=== PATIENT | female | born 1990 | race Caucasian/White ===

== ENCOUNTER 2020-03-27 08:00 | Outpatient (CLI) | payer OTHER ==
[2020-03-27 17:13] LABS: BILIRUBIN,URINE NEGATIVE (NEGATIVE); GLUCOSE, URINE (UA) NEGATIVE (NEGATIVE); KETONES,URINE (UA) NEGATIVE (NEGATIVE); LEUKOCYTE ESTERASE, URINE TRACE (NEGATIVE); NITRITE,URINE NEGATIVE (NEGATIVE); OCCULT BLOOD,URINE MODERATE (NEGATIVE); PH,URINE 6.5 PH (5.0-7.5); PROTEIN,URINE TRACE mg/dL (NEGATIVE); UROBILINOGEN,URINE 0.2 (NORMAL) E.U./dL (NORMAL)
[2020-03-27 17:17] LABS: CLARITY,URINE HAZY (CLEAR)
[2020-03-27 17:21] LABS: BACTERIA,URINE Few /HPF (None Seen); RBC,URINE TNTC /HPF (0-5); SQUAMOUS EPITHELIAL CELL,UR FEW Squamous (<= Few)
[2020-03-27 20:52] LABS: CANDIDA GROUP DNA NEGATIVE (NEGATIVE); CANDIDA KRUSEI DNA NEGATIVE (NEGATIVE); TRICHOMONAS VAGINALIS DNA NEGATIVE (NEGATIVE)
== END 2020-03-27 23:59 | disposition home or self-care (01) ==
LOC: LAB.R 08:00
PROVIDERS: ATTEND Advanced Practice Midwife
DX: Z00.00 Encounter for general adult medical examination without abnormal findings (principal)
CPT/HCPCS: 81001; 81003; 87077; 87086; 87661; 87801

== ENCOUNTER 2024-06-04 12:17 | Emergency (ER) | payer OTHER ==
[2024-06-04 12:33] VITALS: BP 168/99; O2SAT 99
--- NOTE | 2024-06-04 12:50 | ED Physician Documentation ---
History of Present Illness - Stated complaint Stated Complaint: JAW PX POST PROCEDURE - Chief complaint Chief Complaint: Heent - History obtained from History obtained from: Patient - History of Present Illness Timing: How many days ago (3) Pain level max: 8 Pain level now: 7 - Additonal information Additional information: Patient is a 33-year-old female who presents to the emergency department status post a root canal a few days ago. She states increasing pain to the tooth. Her dentist is closed for the holiday weekend. Came in for pain. No fevers. No chills. Motrin and Tylenol are not providing relief. Patient is not , breast-feeding or trying to become . Review of Systems Constitutional: denies: Fever, Chills GI: denies: Vomiting, Diarrhea Skin: denies: Rash PD PAST MEDICAL HISTORY - Past Medical History Past Medical History: No - Past Surgical History Past Surgical History: No - Present Medications Home Medications: Ambulatory Orders Medication Instructions Recorded Confirmed Ondansetron Odt [Zofran] 4 mg TL Q6H PRN #10 tablet 06/04/24 oxyCODONE [Roxicodone] 5 - 10 mg PO Q6H PRN #14 tablet 06/04/24 MDD 6 - Allergies Allergies/Adverse Reactions: Allergies Allergy/AdvReac Type Severity Reaction Status Date / Time No Known Drug Allergies Allergy Verified 06/04/24 12:20 - Social History Does the pt smoke?: Yes Smoking Status: Current every day smoker Does the pt drink ETOH?: No Does the pt have substance abuse?: No - POLST Patient has POLST: No PD ED PE NORMAL - Vitals Vital signs reviewed: Yes - General General: Alert and oriented X 3, No acute distress - HEENT HEENT: Moist mucous membranes, Other (Status post root canal to left upper frontal tooth.) - Neck Neck: Supple, no meningeal sign - Cardiac Cardiac: RRR - Respiratory Respiratory: No respiratory distress, Clear bilaterally - Derm Derm: Warm and dry - Neuro Neuro: Alert and oriented X 3 - Psych Psych: Normal mood, Normal affect Results - Vitals Vitals: Vital Signs - 24 hr 06/04/24 06/04/24 12:20 12:59 Temperature 37.0 C 37 C Heart Rate 88 88 Respiratory 15 15 Rate Blood Pressure 168/99 H 168/99 H O2 Saturation 99 99 Oxygen O2 Source Room air PD Medical Decision Making - ED course Complexity details: considered differential, d/w patient ED course: Patient with dental pain status post root canal. She is on antibiotics already at home. Will prescribe pain medication and she will contact her dentist on Wednesday following the holiday. Patient is well-appearing, nontoxic. No formal no evidence of abscess. No drainable abscess. Normal phonation. No trismus. Patient counseled regarding signs and symptoms for which I believe and urgent re-evaluation would be necessary. Patient with good understanding of and agreement to plan and is comfortable going home at this time This document was made in part using voice recognition software. While efforts are made to proofread this document, sound alike and grammatical errors may occur. Departure - Departure Disposition: Home, Self Care Clinical Impression: Pain, dental Condition: Good Instructions: ED Tooth Pain Follow-Up: Your, dentist on Wednesday [Other] Prescriptions: oxyCODONE [Roxicodone] 5 - 10 mg PO Q6H PRN #14 tablet MDD 6 PRN Reason: pain Ondansetron Odt [Zofran] 4 mg TL Q6H PRN #10 tablet PRN Reason: Nausea / Vomiting Comments: Your prescription was sent to [facility] in [place]. You can use the medication as needed for pain. Please continue your current antibiotics at home. Follow- up with your dentist on Wednesday. I am prescribing a short course of narcotic pain medication for you. These are potentially dangerous and addictive medications that should be used carefully. These medications may constipate you. Take an elkd-pzz-vrgfckt stool softener (docusate) twice daily with plenty of water while taking these medications. If you go 24 hours without a bowel movement, take swfa-gwf-lonegrx miralax, per package instructions. Do not drink or drive while taking these medications. If you received narcotic or sedating medications while in the emergency department, do not drive for 24 hours. Store this medication in a safe, secure place and out of reach of children. It is a violation of federal law to give or sell this medication to another person or to use in a manner other than prescribed. The ED will not refill narcotic prescriptions, including prescriptions lost or stolen. To dispose of unwanted medications: 1. [facility] at [address] in [place] has a medication drop box. They accept prescription medications (in pill form) Wednesday through Wednesday 9:00 a.m. to 5:00 p.m. 2. [facility] [employer] accepts prescription medications (in pill form only) for disposal year round. Call for more information. 3. Contact the [facility] for the next [facility] sponsored prescription drug collection event. , [phone], or [phone]; Forms: PCP List Discharge Date/Time: 06/04/24 13:14
[2024-06-04] MEDS: oxyCODONE 5 MG TABLET PO STA (12:51)
== END 2024-06-04 13:14 | disposition home or self-care (01) ==
LOC: ED 12:17
DX: G89.18 Other acute postprocedural pain (principal); K08.89 Other specified disorders of teeth and supporting structures; F17.200 Nicotine dependence, unspecified, uncomplicated
CPT/HCPCS: 99283; A9270

== ENCOUNTER 2025-08-28 16:45 | Inpatient (IN) ==
[2025-08-28] MEDS ORDERED: fentaNYL 100 MCG/2 ML VIAL IVP PRN (17:45)
[2025-08-28] MEDS ORDERED: OXYTOCIN 10 UNIT/ML VIAL IM PRN (17:45)
[2025-08-28] MEDS ORDERED: LACTATED RINGERS 1,000 ML IV PRN (17:45)
[2025-08-28] MEDS ORDERED: OXYTOCIN/SODIUM CHLORIDE 500 ML IV PRN ×2 (17:45→23:26)
[2025-08-28] MEDS ORDERED: CARBOPROST TROMETHAMINE 250 MCG/ML VIAL IM PRN ×2 (17:45→23:26)
[2025-08-28] MEDS ORDERED: LABETALOL 20 MG/4 ML SYRINGE IVP PRN ×4 (17:45→23:26)
[2025-08-28] MEDS ORDERED: TERBUTALINE 1 MG/ML VIAL SUBQ PRN (17:45)
[2025-08-28] MEDS ORDERED: TRANEXAMIC ACID IN NACL 1,000 MG/100 ML BAG IV PRN ×2 (17:45→23:26)
[2025-08-28] MEDS ORDERED: ALBUTEROL NEB 2.5 MG/3 ML INH PRN (17:54)
[2025-08-28] MEDS: MAGNESIUM SULFATE 4 GRAM 4 GM/50 ML BAG IV ONE (18:10)
[2025-08-28] MEDS: hydrALAZINE INJ 20 MG/ML VIAL IVP PRN (18:10)
--- OUTSIDE RECORDS SUMMARY | 2025-08-28 18:27 | EXTERNAL MEDICAL SUMMARY RPT | Continuity of Care Document ---
Author Organization [facility] Address [address] [place] [id number] Phone Problems date description facility 2025-05-30 00:02 Unspecified maternal hypertensi on, second trimester [facility] 2025-05-30 00:02 Encounter for screen ing for infections with a predominantly sexual mode of transmission [facility] 2025-05-30 00:02 Encounter for superv ision of normal , unspecified, unspecified trimester [facility] 2025-06-01 12:57 Leiomyoma of uterus, unspecifie d [facility] 2025-06-01 12:57 Unspecified maternal hypertensi on, second trimester [facility] 2025-06-01 12:57 Maternal care for be nign tumor of corpus uteri, unspecified trimester [facility] 2025-06-01 12:57 Other specified dise ases and conditions complicating [facility] 2025-06-01 12:57 Encounter for screen ing for infections with a predominantly sexual mode of transmission [facility] 2025-06-01 12:57 Encounter for superv ision of normal , unspecified, unspecified trimester [facility] 2025-06-04 09:55 Leiomyoma of uterus, unspecifie d [facility] 2025-06-04 09:55 Maternal care for be nign tumor of corpus uteri, unspecified trimester [facility] 2025-06-04 09:58 Leiomyoma of uterus, unspecifie d [facility] 2025-06-04 09:58 Maternal care for be nign tumor of corpus uteri, unspecified trimester [facility] 2025-06-06 09:02 Leiomyoma of uterus, unspecifie d [facility] 2025-06-06 09:02 Maternal care for be nign tumor of corpus uteri, unspecified trimester [facility] 2025-06-06 09:04 Leiomyoma of uterus, unspecifie d [facility] 2025-06-06 09:04 Maternal care for be nign tumor of corpus uteri, unspecified trimester [facility] 2025-06-06 09:05 Leiomyoma of uterus, unspecifie d [facility] 2025-06-06 09:05 Maternal care for be nign tumor of corpus uteri, unspecified trimester [facility] 2025-06-20 11:31 Gestational [pregnan cy-induced] hypertension without significant proteinuria, second trimester [facility] 2025-06-26 19:59 Gestational [pregnan cy-induced] hypertension without significant proteinuria, second [facility] 2025-06-26 19:59 Encounter for immunization [employer] 2025-06-27 00:03 Gestational [pregnan cy-induced] hypertension without significant proteinuria, second [facility] 2025-06-27 00:03 Encounter for immunization [employer] 2025-06-28 09:25 Gestational [pregnan cy-induced] hypertension without significant proteinuria, second trimester [facility] 2025-06-28 09:25 Unspecified maternal hypertensi on, second trimester [facility] 2025-06-28 09:25 Encounter for screen ing for infections with a predominantly sexual mode of transmission [facility] 2025-06-28 09:25 Encounter for superv ision of normal , unspecified, unspecified trimester [facility] 2025-06-29 00:04 Gestational [pregnan cy-induced] hypertension without significant proteinuria, second trimester [facility] 2025-06-29 00:04 Unspecified maternal hypertensi on, second trimester [facility] 2025-06-29 00:04 Encounter for screen ing for infections with a predominantly sexual mode of transmission [facility] 2025-06-29 00:04 Encounter for superv ision of normal , unspecified, unspecified trimester [facility] 2025-06-29 08:10 Unspecified maternal hypertensi on, second trimester [facility] 2025-07-02 08:10 Encounter for immunization [employer] 2025-07-02 08:11 Supervision of elderly multigra rehan, second trimester [facility] 2025-07-02 08:11 Gestational [pregnan cy-induced] hypertension without significant proteinuria, second trimester [facility] 2025-07-02 08:11 Encounter for immunization [facility] 2025-07-02 08:11 27 weeks gestation of [facility] 2025-07-02 08:57 [facility]normal [facility] 2025-07-03 16:21 [facility] 08:05 Gestational [pregnan cy-induced] hypertension without significant proteinuria, unspecified trimester [facility] 2025-07-04 08:05 Anemia complicating , third trimester [facility] 2025-07-04 08:05 [facility] 00:03 Gestational [pregnan cy-induced] hypertension without significant proteinuria, unspecified trimester [facility] 2025-07-05 00:03 Anemia complicating , third trimester [facility] 2025-07-05 00:03 Abnormal glucose complicating p [facility] 2025-07-05 11:23 Gestational [pregnan cy-induced] hypertension without significant proteinuria, third trimester [facility] 2025-07-05 11:23 Gestational [pregnan cy-induced] hypertension without significant proteinuria, unspecified trimester [facility] 2025-07-05 14:46 Abnormal glucose complicating p [facility] 2025-07-09 07:24 Gestational [pregnan cy-induced] hypertension without significant proteinuria, unspecified trimester [facility] 2025-07-09 07:24 Gestational diabetes mellitus in , unspecified control [facility] 2025-07-09 13:03 Leiomyoma of uterus, unspecifie d [facility] 2025-07-09 13:03 Gestational [pregnan cy-induced] hypertension without significant proteinuria, unspecified trimester [facility] 2025-07-09 13:03 Gestational diabetes mellitus in , unspecified control [facility] 2025-07-09 13:03 Maternal care for be nign tumor of corpus uteri, unspecified trimester [facility] 2025-07-09 13:42 Encounter for immunization [facility] 2025-07-18 09:22 Gestational [pregnan cy-induced] hypertension without significant proteinuria, unspecified trimester [facility] 2025-07-18 09:22 Gestational diabetes mellitus in , unspecified control [facility] 2025-07-18 09:24 Gestational [pregnan cy-induced] hypertension without significant proteinuria, unspecified trimester [facility] 2025-07-18 09:24 Gestational diabetes mellitus in , unspecified control [facility] 2025-07-19 06:59 Encounter for superv ision of normal , unspecified, first trimester [facility] 2025-07-24 10:52 Anemia complicating , third trimester [facility] 2025-07-24 11:31 Anemia complicating , third trimester [facility] 2025-07-24 17:49 Anemia complicating , third trimester [facility] 2025-07-24 22:45 Unspecified maternal hypertensi on, second trimester [facility] 2025-07-25 00:02 Unspecified maternal hypertensi on, second trimester [facility] 2025-07-25 00:03 Anemia complicating , third trimester [facility] 2025-07-26 13:42 Gestational [pregnan cy-induced] hypertension without significant proteinuria, third trimester [facility] 2025-07-26 13:42 Encounter for immunization [facility] 2025-07-27 10:49 Unspecified maternal hypertensi on, second trimester [facility] 2025-07-30 07:47 Supervision of elderly tim van, third trimester [facility] 2025-07-30 07:47 Gestational [pregnan cy-induced] hypertension without significant proteinuria, third trimester [facility] 2025-07-30 07:47 Unspecified maternal hypertensi on, second trimester [facility] 2025-07-30 07:47 31 weeks gestation [facility] 2025-07-31 15:47 Leiomyoma of uterus, unspecifie d [facility] 2025-07-31 15:47 Maternal care for be nign tumor of corpus uteri, unspecified trimester [facility] 2025-07-31 15:51 Gestational [pregnan cy-induced] hypertension without significant proteinuria, second trimester [facility] 2025-07-31 15:51 Anemia complicating , third trimester [facility] 2025-08-01 00:01 Leiomyoma of uterus, unspecifie d [employer] 2025-08-01 00:01 Maternal care for be nign tumor of corpus uteri, unspecified trimester [employer] [facility] 2025-08-03 06:49 Dietary counseling and surveill ance [facility] 2025-08-03 06:56 Anemia complicating , third trimester [facility] 2025-08-03 06:56 Anemia complicating , unspecified trimester [facility] 2025-08-03 16:00 Gestational [pregnan cy-induced] hypertension without significant proteinuria, unspecified trimester [facility] 2025-08-03 16:00 Encounter for superv ision of normal , unspecified, unspecified trimester [facility] 2025-08-06 10:27 Gestational [pregnan cy-induced] hypertension without significant proteinuria, second trimester [facility] 2025-08-06 10:27 Anemia complicating , third trimester [facility] 2025-08-06 10:33 Gestational [pregnan cy-induced] hypertension without significant proteinuria, third trimester [facility] 2025-08-06 10:34 Gestational [pregnan cy-induced] hypertension without significant proteinuria, unspecified trimester [facility] 2025-08-06 10:34 Encounter for superv ision of normal , unspecified, unspecified trimester [facility] 2025-08-06 12:09 Anemia complicating , third [facility] 2025-08-10 14:58 Anemia complicating , third trimester [facility] 2025-08-10 14:58 Anemia complicating , unspecified trimester [facility] 2025-08-10 15:01 Anemia complicating , third trimester [facility] 2025-08-10 16:14 Gestational [pregnan cy-induced] hypertension without significant proteinuria, unspecified trimester [facility] 2025-08-11 00:04 Anemia complicating , third trimester [facility] 2025-08-14 12:12 Supervision of elderly tim van, third trimester [facility] 2025-08-14 12:12 Gestational [pregnan cy-induced] hypertension without significant proteinuria, unspecified trimester [facility] 2025-08-15 08:21 Leiomyoma of uterus, unspecifie d [facility] 2025-08-15 08:21 Gestational [pregnan cy-induced] hypertension without significant proteinuria, unspecified trimester [facility] 2025-08-15 08:21 Gestational diabetes mellitus in , unspecified control [facility] 2025-08-15 08:21 Maternal care for be nign tumor of corpus uteri, unspecified trimester [facility] 2025-08-15 09:21 Acute upper respiratory infecti on, unspecified [facility] 2025-08-15 09:21 Strain of muscle and tendon of back wall of thorax, initial encounter [facility] 2025-08-16 07:25 Leiomyoma of uterus, unspecifie d [facility] 2025-08-16 07:25 Acute upper respiratory infecti on, unspecified [facility] 2025-08-16 07:25 Gestational [pregnan cy-induced] hypertension without significant proteinuria, unspecified trimester [facility] 2025-08-16 07:25 Gestational diabetes mellitus in , unspecified control [facility] 2025-08-16 07:25 Maternal care for be nign tumor of corpus uteri, unspecified trimester [facility] 2025-08-16 07:25 Strain of muscle and tendon of back wall of thorax, initial encounter [facility] 2025-08-16 10:08 Fracture of one rib, unspecified side, initial encounter for closed fracture [facility] 2025-08-16 10:29 Fracture of one rib, unspecified side, initial encounter for closed fracture [facility] 2025-08-16 10:39 Fracture of one rib, unspecified side, initial encounter for closed fracture [facility] 2025-08-17 08:37 Acute upper respiratory infecti on, unspecified [facility] 2025-08-17 08:37 Other specified disorders of no se and nasal sinuses [facility] 2025-08-17 08:[address] [facility] 2025-08-17 08:37 Pleurodynia [facility] 2025-08-17 08:37 Strain of muscle and tendon of back wall of thorax, initial encounter [facility] 2025-08-20 08:50 Other specified dise ases and conditions complicating [facility] 2025-08-20 08:50 Other chest pain [facility] 2025-08-20 08:50 Left upper quadrant pain [facility] 2025-08-20 08:50 Fracture of one rib, unspecified side, initial encounter for closed fracture [facility] 2025-08-20 12:06 Anemia complicating , third trimester [facility] 2025-08-20 12:06 Anemia complicating , unspecified trimester [facility] 2025-08-20 12:10 Anemia complicating , third [facility] 2025-08-20 12:10 Anemia complicating , unspecified trimester [facility] 2025-08-20 14:25 Other specified preg caitlin related conditions, third trimester [facility] 2025-08-20 14:25 Other chest pain [facility] 2025-08-20 14:25 Left upper quadrant pain [facility] 2025-08-21 18:38 Leiomyoma of uterus, unspecifie d [facility] 2025-08-21 18:38 Gestational [pregnan cy-induced] hypertension without significant proteinuria, unspecified trimester [facility] 2025-08-21 18:38 Gestational diabetes mellitus in , unspecified control [facility] 2025-08-21 18:38 Maternal care for be nign tumor of corpus uteri, unspecified trimester [facility] 2025-08-22 08:50 Anemia complicating , third trimester [facility] 2025-08-22 08:50 Anemia complicating , unspecified trimester [facility] 2025-08-22 13:21 Anemia complicating , third [facility] 2025-08-22 13:21 Anemia complicating , [facility]25-[facility] 08:07 Anemia complicating , third trimester [facility] 2025-08-25 00:02 Supervision of high risk , unspecified, third trimester [facility] 2025-08-25 00:02 Gestational [pregnan cy-induced] hypertension without significant proteinuria, unspecified trimester [facility] 2025-08-25 00:02 Encounter for screening for tanner betes mellitus [facility] 2025-08-27 08:44 Other specified dise ases and conditions complicating [facility] 2025-08-27 08:44 Other chest pain [facility] 2025-08-27 08:44 Left upper quadrant pain [facility] 2025-08-27 09:09 Gestational [pregnan cy-induced] hypertension without significant proteinuria, third trimester [facility] 2025-08-28 15:47 Leiomyoma of uterus, unspecifie d [facility] 2025-08-28 15:47 Maternal care for be nign tumor of corpus uteri, unspecified trimester [facility] Results/Labs test date facility value unit notes Result panel 1 PROTEIN/CREATININE RATIO,URINE 2025-06-28 09:36 [facility] 0.1 (missing) (missing) TOTAL PROTEIN,URINE TIMED 2025-06-28 09:36 [facility] 11 mg/dl As of April 2023 testing method has changed, this may include reference ranges. CREATININE,URINE 2025-06-28 09:36 [facility] 88.2 mg/dl As of April 2023 testing method has changed, this may include reference ranges. Result panel 2 BILIRUBIN,TOTAL 2025-06-28 10:35 [facility] 0.3 mg/dl As of April 2023 testing method has changed, this may include reference ranges. CREATININE 2025-06-28 10:35 [facility] 0.5 mg/dl As of April 2023 testing method has changed, this may include reference ranges. ALBUMIN/GLOBULIN RATIO 2025-06-28 10:35 [facility] 1.3 (missing) (missing) HGB - HEMOGLOBIN 2025-06-28 10:35 [facility] 10.1 g/dl (missing) CHLORIDE 2025-06-28 10:35 [facility] 104 mmol/l As of April 2023 testing method has changed, this may include reference ranges. ALT ALANINE AMINOTRANSFERASE 2025-06-28 10:35 [facility] 11 iu/l As of April 2023 testing method has changed, this may include reference ranges. RED CELL DISTRIBUTION WIDTH 2025-06-28 10:35 [facility] 12.4 % (missing) SODIUM 2025-06-28 10:35 [facility] 136 mmol/l (missing) GFR - MDRD 2025-06-28 10:35 [facility] 140 (missing) The IDMS-traceable MDRD Study Equation has been validated extensively in and populations between the ages of 18 and 70 with impaired kidney function (eGFR < 60 mL/min/1.73m2) and has shown good performance for patients with all common causes of kidney disease. Although this equation has not been validated for patients older than 70, an MDRD-derived eGFR may still be a useful tool for providers caring for patients older than 70. References: http://www.nkde p.nih.gov/lab-e valuation/gfr/c reatinine-stand ardization, last updated December 2011. WHITE BLOOD COUNT 2025-06-28 10:35 [facility] 15.3 x10 3/ul (missing) GLUCOSE,1H PP 50GM DOSE 2025-06-28 10:35 [facility] 181 mg/dl 50g Challenge 1 hr post Glucose < 140 mg/dL Reference: [place] [employer] As of April 2023 testing method has changed, this may include reference ranges. GLUCOSE 2025-06-28 10:35 [facility] 181 mg/dl As of April 2023 testing method has changed, this may include reference ranges. GLOBULIN 2025-06-28 10:35 [facility] 2.8 g/dl (missing) CARBON DIOXIDE - CO2 2025-06-28 10:35 [facility] 24 mmol/l As of April 2023 testing method has changed, this may include reference ranges. POTASSIUM 2025-06-28 10:35 [facility] 3.3 mmol/l As of April 2023 testing method has changed, this may include reference ranges. RED BLOOD COUNT 2025-06-28 10:35 [facility] 3.34 10 6/ul (missing) ALBUMIN 2025-06-28 10:35 [facility] 3.5 g/dl As of April 2023 testing method has changed, this may include reference ranges. MEAN CORPUSCULAR HEMOGLOBIN 2025-06-28 10:35 [facility] 30.2 pg (missing) HCT - HEMATOCRIT 2025-06-28 10:35 [facility] 30.5 % (missing) MEAN CORPUSCULAR HGB CONC 2025-06-28 10:35 [facility] 33.1 g/dl (missing) PLT - PLATELET COUNT 2025-06-28 10:35 [facility] 391 10 3/ul (missing) BUN - BLOOD UREA NITROGEN 2025-06-28 10:35 [facility] 6 mg/dl As of April 2023 testing method has changed, this may include reference ranges. TOTAL PROTEIN 2025-06-28 10:35 [facility] 6.3 g/dl As of April 2023 testing method has changed, this may include reference ranges. ALKALINE PHOSPHATASE 2025-06-28 10:35 [facility] 66 iu/l As of April 2023 testing method has changed, this may include reference ranges. ANION GAP 2025-06-28 10:35 [facility] 8.0 (missing) (missing) CALCIUM 2025-06-28 10:35 [facility] 8.8 mg/dl As of April 2023 testing method has changed, this may include reference ranges. AST ASPARTATE AMINOTRANSFERASE 2025-06-28 10:35 [facility] 9 iu/l As of April 2023 testing method has changed, this may include reference ranges. MEAN PLATELET VOLUME 2025-06-28 10:35 [facility] 9.1 fl (missing) MEAN CORPUSCULAR VOLUME 2025-06-28 10:35 [facility] 91.3 fl (missing) RPR 2025-06-28 10:35 [facility] Non Reactive (missing) Performed at: - [facility] [address], [place], [place] [id number] Developer Evangelist: Jamar Spears MD, Phone: [phone] Result panel 3 GLUCOSE TOLERANCE 3HR 2025-07-04 08:12 [facility] (missing) (missing) GLU FAST 88 mg/dL Col Time:0815 GLU 1H 192 mg/dL Col Time:0916 GLU 2H 176 mg/dL Col Time:1017 GLU 3H 76 mg/dL Col Time:1120 DOSE 100 g Col Time:0815 Glucose Concentration Guidelines Fasting <95 mg/dL 1 hr post challenge <180 mg/dL 2 hr post challenge <155 mg/dL 3 hr post challenge <140 mg/dL Glucose concentration greater than or equal to these valuesat TWO or more time points is a positive test. Reference: [facility] Result panel 4 BILIRUBIN,TOTAL 2025-07-04 08:15 [facility] 0.3 mg/dl As of April 2023 testing method has changed, this may include reference ranges. CREATININE 2025-07-04 08:15 [facility] 0.5 mg/dl As of April 2023 testing method has changed, this may include reference ranges. ALBUMIN/GLOBULIN RATIO 2025-07-04 08:15 [facility] 1.5 (missing) (missing) CHLORIDE 2025-07-04 08:15 [facility] 105 mmol/l As of April 2023 testing method has changed, this may include reference ranges. RED CELL DISTRIBUTION WIDTH 2025-07-04 08:15 [facility] 12.5 % (missing) SODIUM 2025-07-04 08:15 [facility] 135 mmol/l (missing) GFR - MDRD 2025-07-04 08:15 [facility] 140 (missing) The IDMS-traceable MDRD Study Equation has been validated extensively in and populations between the ages of 18 and 70 with impaired kidney function (eGFR < 60 mL/min/1.73m2) and has shown good performance for patients with all common causes of kidney disease. Although this equation has not been validated for patients older than 70, an MDRD-derived eGFR may still be a useful tool for providers caring for patients older than 70. References: http://www.nkdep. nih.gov/lab-evalu ation/gfr/creatin ine-stand ardization, last updated December 2011. WHITE BLOOD COUNT 2025-07-04 08:15 [facility] 15.3 x10 3/ul (missing) GLOBULIN 2025-07-04 08:15 [facility] 2.4 g/dl (missing) CARBON DIOXIDE - CO2 2025-07-04 08:15 [facility] 24 mmol/l As of April 2023 testing method has changed, this may include reference ranges. HCT - HEMATOCRIT 2025-07-04 08:15 [facility] 28.6 % (missing) RED BLOOD COUNT 2025-07-04 08:15 [facility] 3.16 10 6/ul (missing) ALBUMIN 2025-07-04 08:15 [facility] 3.5 g/dl As of April 2023 testing method has changed, this may include reference ranges. POTASSIUM 2025-07-04 08:15 [facility] 3.5 mmol/l As of April 2023 testing method has changed, this may include reference ranges. MEAN CORPUSCULAR HEMOGLOBIN 2025-07-04 08:15 [facility] 30.7 pg (missing) MEAN CORPUSCULAR HGB CONC 2025-07-04 08:15 [facility] 33.9 g/dl (missing) PLT - PLATELET COUNT 2025-07-04 08:15 [facility] 394 10 3/ul (missing) TOTAL PROTEIN 2025-07-04 08:15 [facility] 5.9 g/dl As of April 2023 testing method has changed, this may include reference ranges. ANION GAP 2025-07-04 08:15 [facility] 6.0 (missing) (missing) FERRITIN 2025-07-04 08:15 [facility] 6.1 ng/ml (missing) ALKALINE PHOSPHATASE 2025-07-04 08:15 [facility] 68 iu/l As of April 2023 testing method has changed, this may include reference ranges. ALT ALANINE AMINOTRANSFERASE 2025-07-04 08:15 [facility] 7 iu/l As of April 2023 testing method has changed, this may include reference ranges. BUN - BLOOD UREA NITROGEN 2025-07-04 08:15 [facility] 7 mg/dl As of April 2023 testing method has changed, this may include reference ranges. AST ASPARTATE AMINOTRANSFERASE 2025-07-04 08:15 [facility] 8 iu/l As of April 2023 testing method has changed, this may include reference ranges. CALCIUM 2025-07-04 08:15 [employer] 8.8 mg/dl As of April 2023 testing method has changed, this may include reference ranges. GLUCOSE 2025-07-04 08:15 [facility] 88 mg/dl As of April 2023 testing method has changed, this may include reference ranges. MEAN PLATELET VOLUME 2025-07-04 08:15 [facility] 9.1 fl (missing) HGB - HEMOGLOBIN 2025-07-04 08:15 [facility] 9.7 g/dl (missing) MEAN CORPUSCULAR VOLUME 2025-07-04 08:15 [facility] 90.5 fl (missing) Result panel 5 PROTEIN/CREATININE RATIO,URINE 2025-07-04 08:57 [facility] 0.2 (missing) (missing) TOTAL PROTEIN,URINE TIMED 2025-07-04 08:57 [employer] 13 mg/dl As of April 2023 testing method has changed, this may include reference ranges. CREATININE,URINE 2025-07-04 08:57 [employer] 85.9 mg/dl As of April 2023 testing method has changed, this may include reference ranges. Result panel 6 NUCLEATED RED BLOOD CELLS AUTO 2025-07-31 16:05 [facility] 0.0 /100wbc (missing) NRBC ABSOLUTE COUNT (AUTO) 2025-07-31 16:05 [facility] 0.00 x10 3/ul (missing) BASOPHILS # (AUTO) 2025-07-31 16:05 [facility] 0.1 10 3/ul (missing) EOSINOPHILS # (AUTO) 2025-07-31 16:05 [facility] 0.2 10 3/ul (missing) BILIRUBIN,TOTAL 2025-07-31 16:05 [employer] 0.3 mg/dl As of April 2023 testing method has changed, this may include reference ranges. CREATININE 2025-07-31 16:05 [employer] 0.5 mg/dl As of April 2023 testing method has changed, this may include reference ranges. MONOCYTES # (AUTO) 2025-07-31 16:05 [facility] 1.1 10 3/ul (missing) ALBUMIN/GLOBULIN RATIO 2025-07-31 16:05 [facility] 1.5 (missing) (missing) AST ASPARTATE AMINOTRANSFERASE 2025-07-31 16:05 [facility] 10 iu/l As of April 2023 testing method has changed, this may include reference ranges. BUN - BLOOD UREA NITROGEN 2025-07-31 16:05 [facility] 10 mg/dl As of April 2023 testing method has changed, this may include reference ranges. CHLORIDE 2025-07-31 16:05 [facility] 106 mmol/l As of April 2023 testing method has changed, this may include reference ranges. NEUTROPHILS # (AUTO) 2025-07-31 16:05 [facility] 11.0 10 3/ul (missing) SODIUM 2025-07-31 16:05 [facility] 137 mmol/l Unknown ALT ALANINE AMINOTRANSFERASE 2025-07-31 16:05 [facility] 14 iu/l As of April 2023 testing method has changed, this may include reference ranges. GFR - MDRD 2025-07-31 16:05 [facility] 140 (missing) The IDMS-traceable MDRD Study Equation has been validated extensively in and populations between the ages of 18 and 70 with impaired kidney function (eGFR < 60 mL/min/1.73m2) and has shown good performance for patients with all common causes of kidney disease. Although this equation has not been validated for patients older than 70, an MDRD-derived eGFR may still be a useful tool for providers caring for patients older than 70. References: http://www.nkdep. nih.gov/lab-evalu ation/gfr/creatin ine-stand ardization, last updated December 2011. RED CELL DISTRIBUTION WIDTH 2025-07-31 16:05 [facility] 15.3 % (missing) WHITE BLOOD COUNT 2025-07-31 16:05 [facility] 15.4 x10 3/ul (missing) GLOBULIN 2025-07-31 16:05 [facility] 2.4 g/dl (missing) LYMPHOCYTES # (AUTO) 2025-07-31 16:05 [facility] 2.9 10 3/ul (missing) RED BLOOD COUNT 2025-07-31 16:05 [facility] 2.99 10 6/ul (missing) CARBON DIOXIDE - CO2 2025-07-31 16:05 [facility] 24 mmol/l As of April 2023 testing method has changed, this may include reference ranges. HCT - HEMATOCRIT 2025-07-31 16:05 [facility] 28.0 % (missing) MEAN CORPUSCULAR HEMOGLOBIN 2025-07-31 16: [facility] 29.1 pg (missing) ALBUMIN 2025-07-31 16:05 [facility] 3.6 g/dl As of April 2023 testing method has changed, this may include reference ranges. POTASSIUM 2025-07-31 16:05 [facility] 3.7 mmol/l As of April 2023 testing method has changed, this may include reference ranges. MEAN CORPUSCULAR HGB CONC 2025-07-31 16:05 [facility] 31.1 g/dl (missing) TRANSFERRIN 2025-07-31 16: [facility] 326 mg/dl As of April 2023 testing method has changed, this may include reference ranges. IRON 2025-07-31 16: [facility] 38 ug/dl As of April 2023 testing method has changed, this may include reference ranges. PLT - PLATELET COUNT 2025-07-31 16:05 [facility] 436 10 3/ul (missing) TOTAL IRON BINDING CAPACITY 2025-07-31 16:05 [facility] 456 ug/dl (missing) TOTAL PROTEIN 2025-07-31 16: [facility] 6.0 g/dl As of April 2023 testing method has changed, this may include reference ranges. ANION GAP 2025-07-31 16:05 [facility] 7.0 (missing) (missing) % IRON SATURATION 2025-07-31 16:05 [facility] 8 % (missing) HGB - HEMOGLOBIN 2025-07-31 16:05 [facility] 8.7 g/dl (missing) ALKALINE PHOSPHATASE 2025-07-31 16: [facility] 82 iu/l As of April 2023 testing method has changed, this may include reference ranges. FERRITIN 2025-07-31 16:05 [facility] 89.2 ng/ml (missing) MEAN PLATELET VOLUME 2025-07-31 16:05 [facility] 9.2 fl (missing) CALCIUM 2025-07-31 16:05 [facility] 9.2 mg/dl As of April 2023 testing method has changed, this may include reference ranges. GLUCOSE 2025-07-31 16:05 [facility] 93 mg/dl As of April 2023 testing method has changed, this may include reference ranges. MEAN CORPUSCULAR VOLUME 2025-07-31 16:05 [facility] 93.6 fl (missing) Result panel 7 TOTAL PROTEIN,URINE TIMED 2025-07-31 16:07 [facility] < 4 mg/dl As of Apr testing method has changed, this may include reference ranges. CREATININE,URINE 2025-07-31 16:07 [facility] 20.1 m g/dl As of April 2023 testing method has changed, this may include reference ranges. PROTEIN/CREATININE RATIO,URINE 2025-07-31 16:07 [facility] TNP (missing) Unable to calculate. Analyte below the measurable range. Result panel 8 NUCLEATED RED BLOOD CELLS AUTO 2025-08-10 15:11 [facility] 0.0 /100wbc (missing) NRBC ABSOLUTE COUNT (AUTO) 2025-08-10 15:11 [facility] 0.00 x10 3/ul (missing) BASOPHILS # (AUTO) 2025-08-10 15:11 [facility] 0.1 10 3/ul (missing) ABSOLUTE RETICS # AUTO 2025-08-10 15:11 [facility] 0.115 10 6/ul (missing) EOSINOPHILS # (AUTO) 2025-08-10 15:11 [facility] 0.2 10 3/ul (missing) THYROID STIMULATING HORMONE 2025-08-10 15:11 [facility] 0.32 uiu/ml (missing) FREE T4 (FREE THYROXINE) 2025-08-10 15:11 [facility] 0.55 ng/dl Biotin at >10 ng/mL concentration may cause significant interference. MONOCYTES # (AUTO) 2025-08-10 15:11 [facility] 0.9 10 3/ul (missing) NEUTROPHILS # (AUTO) 2025-08-10 15:11 [facility] 10.6 10 3/ul (missing) VITAMIN B12 2025-08-10 15:[facility] 130 pg/ml VITAMIN B12 RANGES: NORMAL 180 - 914 INDETERMINATE 145 -180 DEFICIENT < 145 WHITE BLOOD COUNT 2025-08-10 15:11 [facility] 14.8 x10 3/ul (missing) RED CELL DISTRIBUTION WIDTH 2025-08-10 15:[address] [facility] 16.0 % (missing) LYMPHOCYTES # (AUTO) 2025-08-10 15:[address] [facility] 2.9 10 3/ul (missing) MEAN CORPUSCULAR HEMOGLOBIN 2025-08-10 15:11 [facility] 29.0 pg (missing) RED BLOOD COUNT 2025-08-10 15:[address] [facility] 3.19 10 6/ul (missing) RED BLOOD COUNT 2025-08-10 15:[address] [facility] 3.28 10 6/ul (missing) RETICULOCYTE COUNT % (AUTO) 2025-08-10 15:[address] [facility] 3.61 % (missing) HCT - HEMATOCRIT 2025-08-10 15:[address] [facility] 30.4 % (missing) MEAN CORPUSCULAR HGB CONC 2025-08-10 15:[address] [facility] 31.3 g/dl (missing) FOLATE 2025-08-10 15:[address] [facility] 34.2 ng/ml (missing) PLT - PLATELET COUNT 2025-08-10 15:[address] [facility] 463 10 3/ul (missing) ERYTHROPOIETIN (EPO) 2025-08-10 15:[address] [facility] 47.3 miu/ml [facility] [facility] [employer] DxI 800 Immunoassay System Values obtained with different assay methods or kits cannot be used interchangeably. Results cannot be interpreted as absolute evidence of the presence or absence of malignant disease. Performed at: [facility] [address], [place], [place] [id number] Developer Evangelist: Gracie Mayberry MD, Phone: [phone] MEAN PLATELET VOLUME 2025-08-10 15:[address] [facility] 9.0 fl (missing) HGB - HEMOGLOBIN 2025-08-10 15:[address] [facility] 9.5 g/dl (missing) MEAN CORPUSCULAR VOLUME 2025-08-10 15:11 [facility] 92.7 fl (missing) Result panel 9 PROTEIN/CREATININE RATIO,URINE 2025-08-16 07:40 [facility] 0.1 (missing) (missing) UROBILINOGEN,URINE 2025-08-16 07:40 [facility] 0.2 (NORMAL) e.u./dl (missing) SPECIFIC GRAVITY,URINE 2025-08-16 07:40 [facility] 1.010 (missing) (missing) CREATININE,URINE 2025-08-16 07:40 [facility] 53.8 mg/dl As of April 2023 testing method has changed, this may include reference ranges. TOTAL PROTEIN,URINE TIMED 2025-08-16 07:40 [facility] 6 mg/dl As of April 2023 testing method has changed, this may include reference ranges. PH,URINE 2025-08-16 07:40 [facility] 6.5 ph (missing) CLARITY,URINE 2025-08-16 07:40 [facility] CLEAR (missing) (missing) LEUKOCYTE ESTERASE, URINE 2025-08-16 07:40 [facility] NEGATIVE (missing) (missing) NITRITE,URINE 2025-08-16 07:40 [facility] NEGATIVE (missing) (missing) OCCULT BLOOD,URINE 2025-08-16 07:40 [facility] NEGATIVE (missing) (missing) BILIRUBIN,URINE 2025-08-16 07:40 [facility] NEGATIVE (missing) Bilirubin can be influenced by color interference. Please correlate positive results with clinical presentation GLUCOSE, URINE (UA) 2025-08-16 07:40 [facility] NEGATIVE mg/dl (missing) KETONES,URINE (UA) 2025-08-16 07:40 [facility] NEGATIVE mg/dl (missing) PROTEIN,URINE 2025-08-16 07:40 [facility] NEGATIVE mg/dl (missing) UR CULTURE IF IND 2025-08-16 07:40 [facility] NOT INDICATED (missing) (missing) URINE MICROSCOPIC INDICATED? 2025-08-16 07:40 [facility] NOT INDICATED (missing) (missing) COLOR,URINE 2025-08-16 07:40 [facility] YELLOW (missing) URINE CLEAN CATCH Result panel 10 LIPASE 2025-08-16 07:55 [employer] < 10 u/l As of April 2023 testing method has changed, this may include reference ranges. NUCLEATED RED BLOOD CELLS AUTO 2025-08-16 07:55 [facility] 0.0 /100wbc (missing) NRBC ABSOLUTE COUNT (AUTO) 2025-08-16 07:55 [facility] 0.00 x10 3/ul (missing) BASOPHILS # (AUTO) 2025-08-16 07:55 [facility] 0.1 10 3/ul (missing) EOSINOPHILS # (AUTO) 2025-08-16 07:55 [facility] 0.1 10 3/ul (missing) BILIRUBIN,TOTAL 2025-08-16 07:55 [facility] 0.5 mg /dl As of April 2023 testing method has changed, this may include reference ranges. CREATININE 2025-08-16 07:55 [facility] 0.6 mg/dl As of April 2023 testing method has changed, this may include reference ranges. MONOCYTES # (AUTO) 2025-08-16 07:55 [facility] 0.8 10 3/ul (missing) ALBUMIN/GLOBULIN RATIO 2025-08-16 07:55 [facility] 1.4 (missing) (missing) MAGNESIUM 2025-08-16 07:55 [employer] 1.6 mg/dl As of April 2023 testing method has changed, this may include reference ranges. CHLORIDE 2025-08-16 07:55 [facility] 106 mmol/l As of April 2023 testing method has changed, this may include reference ranges. GFR - MDRD 2025-08-16 07:55 [facility] 114 (in g) The IDMS-traceable MDRD Study Equation has been validated extensively in and populations between the ages of 18 and 70 with impaired kidney function (eGFR < 60 mL/min/1.73m2) and has shown good performance for patients with all common causes of kidney disease. Although this equation has not been validated for patients older than 70, an MDRD-derived eGFR may still be a useful tool for providers caring for patients older than 70. References: http://www.nkdep. nih.gov/lab-evalu ation/gfr/creatin ine-stand ardization, last updated December 2011. WHITE BLOOD COUNT 2025-08-16 07:55 [facility] 12.4 x10 3/ul (missing) ALT ALANINE AMINOTRANSFERASE 2025-08-16 07:55 [facility] 13 iu/l As of April 2023 testing method has changed, this may include reference ranges. SODIUM 2025-08-16 07:55 [facility] 139 mmol/l (missing) RED CELL DISTRIBUTION WIDTH 2025-08-16 07:55 [facility] 15.9 % (missing) LYMPHOCYTES # (AUTO) 2025-08-16 07:55 [facility] 2.4 10 3/ul (missing) GLOBULIN 2025-08-16 07:55 [facility] 2.6 g/dl (missing) CARBON DIOXIDE - CO2 2025-08-16 07:55 [facility] 24 mmol/l As of April 2023 testing method has changed, this may include reference ranges. HCT - HEMATOCRIT 2025-08-16 07:55 [facility] 28.5 % (missing) MEAN CORPUSCULAR HEMOGLOBIN 2025-08-16 07:55 [facility] 29.3 pg (missing) RED BLOOD COUNT 2025-08-16 07:55 [facility] 3.11 10 6/ul (missing) POTASSIUM 2025-08-16 07:55 [facility] 3.4 mmol/l As of April 2023 testing method has changed, this may include reference ranges. ALBUMIN 2025-08-16 07:55 [facility] 3.6 g/dl As of April 2023 testing method has changed, this may include reference ranges. MEAN CORPUSCULAR HGB CONC 2025-08-16 07:55 [facility] 31.9 g/dl (missing) PLT - PLATELET COUNT 2025-08-16 07:55 [facility] 442 10 3/ul (missing) BUN - BLOOD UREA NITROGEN 2025-08-16 07:55 [facility] 6 mg/dl As of Apr testing method has changed, this may include reference ranges. TOTAL PROTEIN 2025-08-16 07:55 [facility] 6.2 g/dl As of April 2023 testing method has changed, this may include reference ranges. NEUTROPHILS # (AUTO) 2025-08-16 07:55 [facility] 8.9 10 3/ul (missing) MEAN PLATELET VOLUME 2025-08-16 07:55 [facility] 8.9 fl (missing) AST ASPARTATE AMINOTRANSFERASE 2025-08-16 07:55 [facility] 9 iu/l As of April 2023 testing method has changed, this may include reference ranges. ANION GAP 2025-08-16 07:55 [facility] 9.0 (missing ) (missing) CALCIUM 2025-08-16 07:55 [facility] 9.0 mg/dl As of April 2023 testing method has changed, this may include reference ranges. HGB - HEMOGLOBIN 2025-08-16 07:55 [facility] 9.1 g /dl (missing) MEAN CORPUSCULAR VOLUME 2025-08-16 07:55 [facility] 91.6 fl (missing) ALKALINE PHOSPHATASE 2025-08-16 07:55 [facility] 99 iu/l As of April 2023 testing method has changed, this may include reference ranges. GLUCOSE 2025-08-16 07:55 [facility] 99 mg/dl As of April 2023 testing method has changed, this may include reference ranges. Result panel 11 PROTEIN/CREATININE RATIO,URINE 2025-08-21 21:03 [facility] 0.1 (missing) (missing) TOTAL PROTEIN,URINE TIMED 2025-08-21 21:03 [facility] 5 mg/dl As of April 2023 testing method has changed, this may include reference ranges. CREATININE,URINE 2025-08-21 21:03 [employer] 50.7 mg/dl As of April 2023 testing method has changed, this may include reference ranges. Result panel 12 NUCLEATED RED BLOOD CELLS AUTO 2025-08-21 21:31 [facility] 0.0 /100wbc (missing) NRBC ABSOLUTE COUNT (AUTO) 2025-08-21 21:31 [facility] 0.00 x10 3/ul (missing) BASOPHILS # (AUTO) 2025-08-21 21:31 [employer] 0.1 10 3/ul (missing) EOSINOPHILS # (AUTO) 2025-08-21 21:31 [facility] 0.2 10 3/ul (missing) BILIRUBIN,TOTAL 2025-08-21 21:31 [facility] 0.5 mg/dl As of April 2023 testing method has changed, this may include reference ranges. CREATININE 2025-08-21 21:31 [facility] 0.6 mg/dl As of April 2023 testing method has changed, this may include reference ranges. MONOCYTES # (AUTO) 2025-08-21 21:31 [facility] 1.0 10 3/ul (missing) ALBUMIN/GLOBULIN RATIO 2025-08-21 21:31 [facility] 1.4 (missing) (missing) NEUTROPHILS # (AUTO) 2025-08-21 21:31 [facility] 10.2 10 3/ul (missing) CHLORIDE 2025-08-21 21:31 [facility] 106 mmol/l As of April 2023 testing method has changed, this may include reference ranges. GFR - MDRD 2025-08-21 21:31 [facility] 114 (missing) The IDMS-traceable MDRD Study Equation has been validated extensively in and populations between the ages of 18 and 70 with impaired kidney function (eGFR < 60 mL/min/1.73m2) and has shown good performance for patients with all common causes of kidney disease. Although this equation has not been validated for patients older than 70, an MDRD-derived eGFR may still be a useful tool for providers caring for patients older than 70. References: http://www.nkdep. nih.gov/lab-evalu ation/gfr/creatin ine-stand ardization, last updated December 2011. AST ASPARTATE AMINOTRANSFERASE 2025-08-21 21:31 [facility] 12 iu/l As of April 2023 testing method has changed, this may include reference ranges. SODIUM 2025-08-21 21:31 [facility] 138 mmol/l (missing) ALT ALANINE AMINOTRANSFERASE 2025-08-21 21:31 [facility] 14 iu/l As of April 2023 testing method has changed, this may include reference ranges. WHITE BLOOD COUNT 2025-08-21 21:31 [facility] 14.7 x10 3/ul (missing) RED CELL DISTRIBUTION WIDTH 2025-08-21 21:31 [facility] 16.1 % (missing) GLOBULIN 2025-08-21 21:31 [facility] 2.5 g/dl (missing) CARBON DIOXIDE - CO2 2025-08-21 21:31 [facility] 23 mmol/l As of April 2023 testing method has changed, this may include reference ranges. MEAN CORPUSCULAR HEMOGLOBIN 2025-08-21 21:31 [facility] 28.4 pg (missing) LYMPHOCYTES # (AUTO) 2025-08-21 21:31 [facility] 3.1 10 3/ul (missing) POTASSIUM 2025-08-21 21:31 [facility] 3.4 mmol/l As of April 2023 testing method has changed, this may include reference ranges. RED BLOOD COUNT 2025-08-21 21:[address] [employer] [facility] 3.41 10 6/ul (missing) ALBUMIN 2025-08-21 21:31 [facility] 3.5 g/dl As of April 2023 testing method has changed, this may include reference ranges. MEAN CORPUSCULAR HGB CONC 2025-08-21 21:[address] [employer] [facility] 30.5 g/dl (missing) HCT - HEMATOCRIT 2025-08-21 21:31 [facility] 31.8 % (missing) PLT - PLATELET COUNT 2025-08-21 21:31 [employer] 10 3/ul (missing) BUN - BLOOD UREA NITROGEN 2025-08-21 21:31 [facility] 6 mg/dl As of April 2023 testing method has changed, this may include reference ranges. TOTAL PROTEIN 2025-08-21 21:31 [employer] 6.0 g/dl As of April 2023 testing method has changed, this may include reference ranges. MEAN PLATELET VOLUME 2025-08-21 21:31 [facility] 8.9 fl (missing) ANION GAP 2025-08-21 21:31 [facility] [employer] 9.0 (missing) (missing) HGB - HEMOGLOBIN 2025-08-21 21:31 [facility] 9.7 g/dl (missing) CALCIUM 2025-08-21 21:31 [facility] 9.7 mg/dl As of April 2023 testing method has changed, this may include reference ranges. GLUCOSE 2025-08-21 21:31 [facility] 91 mg/dl As of April 2023 testing method has changed, this may include reference ranges. MEAN CORPUSCULAR VOLUME 2025-08-21 21:31 [facility] 93.3 fl (missing) ALKALINE PHOSPHATASE 2025-08-21 21:31 [facility] 95 iu/l As of April 2023 testing method has changed, this may include reference ranges. Result panel 13 TOTAL PROTEIN,URINE TIMED 2025-08-28 16:05 [facility] < 4 mg/dl As of April 2023 testing method has changed, this may include reference ranges. THYROID STIMULATING HORMONE 2025-08-28 16:05 [facility] 0.56 uiu/ml (missing) BILIRUBIN,TOTAL 2025-08-28 16:05 [facility] 0.6 mg/dl As of April 2023 testing method has changed, this may include reference ranges. CREATININE 2025-08-28 16: [facility] 0.7 mg/dl As of April 2023 testing method has changed, this may include reference ranges. ALBUMIN/GLOBULIN RATIO 2025-08-28 16:05 [facility] 1.6 (missing) (missing) CHLORIDE 2025-08-28 16:05 [facility] 106 mmol/l As of April 2023 testing method has changed, this may include reference ranges. GLUCOSE 2025-08-28 16:05 [facility] 116 mg/dl As of April 2023 testing method has changed, this may include reference ranges. ALT ALANINE AMINOTRANSFERASE 2025-08-28 16:05 [facility] 13 iu/l As of April 2023 testing method has changed, this may include reference ranges. WHITE BLOOD COUNT 2025-08-28 16:05 [facility] 13.6 x10 3/ul (missing) SODIUM 2025-08-28 16:05 [facility] 139 mmol/l Unknown RED CELL DISTRIBUTION WIDTH 2025-08-28 16:05 [facility] 17.2 % (missing) GLOBULIN 2025-08-28 16:05 [facility] 2.3 g/dl (missing) CREATININE,URINE 2025-08-28 16:05 [facility] 23.8 mg/dl As of April 2023 testing method has changed, this may include reference ranges. CARBON DIOXIDE - CO2 2025-08-28 16:05 [facility] 25 mmol/l As of April 2023 testing method has changed, this may include reference ranges. MEAN CORPUSCULAR HEMOGLOBIN 2025-08-28 16:05 [facility] 28.9 pg (missing) RED BLOOD COUNT 2025-08-28 16:05 [facility] 3.25 10 6/ul (missing) POTASSIUM 2025-08-28 16:05 [facility] 3.5 mmol/l As of April 2023 testing method has changed, this may include reference ranges. ALBUMIN 2025-08-28 16:05 [facility] 3.6 g/dl As of April 2023 testing method has changed, this may include reference ranges. HCT - HEMATOCRIT 2025-08-28 16:05 [facility] 30.3 % (missing) MEAN CORPUSCULAR HGB CONC 2025-08-28 16:05 [facility] 31.0 g/dl (missing) PLT - PLATELET COUNT 2025-08-28 16:05 [facility] 449 10 3/ul (missing) TOTAL PROTEIN 2025-08-28 16:05 [facility] 5.9 g/dl As of April 2023 testing method has changed, this may include reference ranges. BUN - BLOOD UREA NITROGEN 2025-08-28 16:05 [facility] 8 mg/dl As of April 2023 testing method has changed, this may include reference ranges. ANION GAP 2025-08-28 16:05 [facility] 8.0 (missing) (missing) AST ASPARTATE AMINOTRANSFERASE 2025-08-28 16:05 [facility] 9 iu/l As of April 2023 testing method has changed, this may include reference ranges. MEAN PLATELET VOLUME 2025-08-28 16:05 [facility] 9.1 fl (missing) HGB - HEMOGLOBIN 2025-08-28 16:05 [facility] 9.4 g/dl (missing) CALCIUM 2025-08-28 16:05 [facility] 9.6 mg/dl As of April 2023 testing method has changed, this may include reference ranges. MEAN CORPUSCULAR VOLUME 2025-08-28 16:05 [facility] 93.2 fl (missing) GFR - MDRD 2025-08-28 16:05 [facility] 95 (missing) The IDCA-traceable MDRD Study Equation has been validated extensively in and populations between the ages of 18 and 70 with impaired kidney function (eGFR < 60 mL/min/1.73m2) and has shown good performance for patients with all common causes of kidney disease. Although this equation has not been validated for patients older than 70, an MDRD-derived eGFR may still be a useful tool for providers caring for patients older than 70. References: http://www.nkdep. nih.gov/lab-evalu ation/gfr/creatin ine-stand ardization, last updated December 2011. ALKALINE PHOSPHATASE 2025-08-28 16:05 [facility] 97 iu/l As of April 2023 testing method has changed, this may include reference ranges. PROTEIN/CREATININE RATIO,URINE 2025-08-28 16:05 [facility] TNP (missing) Unable to calculate. Analyte below the measurable range. Social History date description facility
[2025-08-28] MEDS: MAGNESIUM SULFATE IN WATER 20 GM/500 ML IV.SOLN IV SCH (18:35)
[2025-08-28] MEDS: LABETALOL 20 MG/4 ML SYRINGE IVP PRN ×2 (19:00→19:35)
[2025-08-28] MEDS: SODIUM CHLORIDE FLUSH 0.9% 10 ML SYRINGE IVP SCH (19:30)
--- NOTE | 2025-08-28 19:59 | HISTORY & PHYSICAL EXAMINATION ---
Admit History Visit Reason Visit Reason: Other (elevated blood pressure in severe range. ) : 2 Parity: 0 Care: positive [facility] Smoking Status: Current every day smoker Other Maternal History Other Maternal History: presents today for NST, US. Found to have severe range bps and admitted now that she is 36 weeks. Taking labetolol 400 mg tid and took last dose about 3 hrs prior to presentation. bps in triage consistently over 160 systolic. patient denies headache, n/v, or even much edema. labs earlier today are completely normal. In the event of an emergency, ACCEPTS the administration of blood products OB hx: G1: 2024 - SAB G2: current PROBLEMS: -Gestational hypertension vs chronic htn. 1st elevated blood pressure at 19.6wks gestation. -Diagnosed at 25 weeks with second elevated blood pressure. Has been on aspirin. -Labetalol 100mg bid started @ 28.0wks -Current dosage 400mg tid starting 08/24 -Weekly NSTs since 32wks -Monthly growth ultrasounds, next 08/28 -A1GDM -glucose logs each visit. Sugars mildly elevated sometimes but no treatment needed. -Uterine fibroids (5cm posterior, 5cm anterior) -q 4 week growth ultrasounds in6 the third trimester -Consult with physician completed 06/14/2025, 07/09/2025 -Request 2 units on hold upon admission -AMA at time of delivery -LDASA initiated @ 12wks -Tobacco use disorder: quit 2nd trimester, then restarted. -Anemia complicating -Iron infusions scheduled. Next infusion 08/20/2025, taking iron. work up pending. also low B12, thyroid labs abnormal, TSH 0.32. reordered and asked to take without biotin for a few days. TSH 08/28 is 0.56 = WNL Medical Hx: Anxiety Surgical Hx: none Social Hx: Monogamous with male partner Kwame. Stopped drinking alcohol due to . Current every day smoker. Denies current use of marijuana or other recreational drugs. Reports that she is safe in current relationship. Family Hx: Denies family history of congenital anomalies, Cystic Fibrosis or chromosomal abnormalities; HTN - mother; Arthritis - mother Allergies:NKDA Medications: PNV, ASA, Labetalol 400 mg tid LMP:12/19/24 KONRAD by LMP: 09/25/2025 U/S: @ 10.0wks c/w LMP dating (KONRAD by U/S 09/25/2025) Final KONRAD: 09/25/2025 Pre- weight: 145 BMI: 24.9 Blood type: O+ Antibody screen: Negative CBC: [id number] HCT 36.3 HGB 12.6 rubella: Immune VZV: immune HBsAg: neg HepC: NR RPR/AB-EIA: NR HIV: NR Flu: 07/09/25 COVID: 07/09/25 PAP:05/04/2024- normal GC/CT: 02/27/2025 neg HSV: denies in self and partner Genetic screening: NIPT neg AFP:declined FAS: ordered Placenta: posterior w/o previa Cord: 3VC CRISTY: 11.0cm 11% EFW: 540g 42% 50gm GCT: 181 3 hr GTT: F88 1H 192 2H 176 3H 76 TDAP: 06/26/2025 Breast Pump: 06/26/2025 3rd trimester H/H PLT 9.7/28.6 394 3rd trimester RPR NR RSV: 08/03/2025 GBS not done yet. HPI Diagnosis/Indication for NST: Gestational Hypertension Current : Vital Signs Temperature 368 C H 08/28/25 19:46 Pulse Rate 94 08/28/25 19:46 Respiratory Rate 16 08/28/25 19:46 Blood Pressure 157/89 H 08/28/25 19:46 O2 Saturation 97 08/28/25 19:46 NST Procedure NST Procedure: Reactive for of 32 weeks gestation or more. NST tracing contains at least two heart rate accelerations that are at least 15 beats per minute above the baseline rate and lasting at least 15 seconds from onset to return to baseline within a twenty minute period. Results and Plan Findings/Impression: reactive NSt Plan: admit for delivery Meds/Allgy Home Medications Ambulatory Orders Medication Instructions Recorded Confirmed vits no.126-ferrous fum tab PO 02/12/2508/24 28 mg iron-folic acid 800 mcg tablet (Classic ) aspirin 81 mg tablet,delayed 81 mg PO QDAY #90 tabs 08/24/25 release (Adult Low Dose Aspirin) ferrous sulfate 325 mg (65 mg 325 mg PO Q OTHER DAY #9 0 tabs 05/07/25 08/24/25 iron) tablet (Iron (ferrous sulfate)) blood sugar diagnostic (True #100 ea 07/06/25 08/21/25 Metrix Glucose Test Strip) blood-glucose meter (True Metrix #1 ea 07/06/25 Air Glucose Meter kit) lancets 30 gauge (Ultra Thin #100 ea 07/06/25 08/21/25 Lancets) albuterol sulfate 90 mcg/actuation 2 puff inhalation Q ID PRN 08/15/25 08/24/25 aerosol inhaler (Ventolin HFA) shortness of breath or wheezing #8.5 grams lidocaine 5 % topical patch 1 patch topical DAILY #15 ea 08/15/25 08/24/25 (Lidocan III) cyclobenzaprine 5 mg tablet 5 mg PO TID PRN muscle spa sm #14 08/16/25 08/21/25 Held on 08/24/25. tabs Instructions: Per Patient guaifenesin 200 mg/5 mL oral liquid 200 mg (5 mL) PO Q 4H PRN cough 08/16/25 08/24/25 #118 mL oxycodone 5 mg tablet 5 mg PO Q8H PRN pain #5 tabs 08/16/25 08/21/25 Held on 08/24/25. Instructions: Per Patient labetalol 200 mg tablet 400 mg (2 x 200 mg) PO TID # 180 08/24/25 08/24/25 tabs mecobalamin (vitamin B12) 1,000 1,000 mcg sublingual Q DAY #90 tabs 08/24/25 08/24/25 mcg disintegrating tablet,sublingual Allergies Allergies Allergy/AdvReac Type Severity Reaction Status Date / Time No Known Drug Allergies Allergy Verified 08/21/25 18:38 PFSH Active Problems All Active Problems (Updated 08/28/25 @ 20:16 by Jackelin Norris MD) Breech presentation of fetus (Acute) Severe preeclampsia (Acute) Supervision of high risk , unspecified, third trimester (Acute) Fracture of rib (Acute) Muscle strain of left upper back (Acute) Advanced maternal age during (Acute) Gestational diabetes (Acute) Gestational hypertension without significant proteinuria (Acute) Anemia complicating , third trimester (Acute) Uterine fibroid in antepartum period (Acute) Anxiety (Acute) Medical History Medical History (Updated 08/28/25 @ 20:16 by Jackelin Norris MD) Acute upper respiratory infection First trimester bleeding Missed Family History Family History Mother Arthritis High blood pressure Social History Social History Smoking Status: Current every day smoker Do you feel safe in your home environment?: Yes History of physical, verbal, emotional, or financial abuse?: No POLST Patient has POLST: No Review of Systems no fever, no respiratory issue. no n/v. no headache. Cardiovascular Denies: Irregular heart rate or shortness of breath with exertion Respiratory Denies: Shortness of breath Gastrointestinal Denies: Abdominal pain Physical Abdominal Exam Vital Signs: Temp Pulse Resp BP Pulse Ox 368 C H 94 16 157/89 H 97 08/28/25 19:46 08/28/25 19:46 08/28/25 19:46 08/28/25 19:46 08/28/25 19:46 Contraction Frequency (min/apart): none Monitoring Heart Rate Baseline: 135 Strip Review: positive Category I Presentation Presentation: positive Breech (by US today) Vaginal Exam Membranes: positive Membranes intact Speculum Exam Speculum Exam Performed: positive No Other Notes Labor Progress Note/Additional Text: Breech baby Plan for Labor Plan For Labor I expect patient to be DC'd or transferred within 96 hours.: Yes Plan for Labor: If she verts successfully will induce labor. If not then c section tonight. Conclusion/Plan Problem List (1) Breech presentation of fetus: Plan: Offered ECV and patient would like to try this. Dr. Dash agrees to come in. (2) Severe preeclampsia: Plan: BPs all in severe range. given hydralazine x 2 ivp then labetolol 20 mg ivp. Will continue with the protocol until bp controlled. worrisome about bp crashing when she gets regional anesthesia for spinal. Magnesium for seizure prophylaxis started 4 gm then 2/hr. explained to Robert. (3) Supervision of high risk , unspecified, third trimester: (4) Advanced maternal age during : (5) Uterine fibroid in antepartum period: Plan: Increases difficulty of version and of c section if this is necessary. Increases risk of pp hemorrhage. Unable to use methergine or hemabate as asthma and hypertension. If c section will use TXA prophylactically. Lab Results Lab results reviewed: Yes Diagnostic Imaging Results Diagnostic Imaging Results: positive Prelim report reviewed Diagnostic Imaging Results Comments: EFW 7 pounds.
--- NOTE | 2025-08-28 20:22 | PROVIDER PROGRESS NOTE ---
Progress Note Progress Note Progress Note: Patient is a 35-year-old G2, P0 at 36 weeks 0 days gestation here for admission for preeclampsia with severe features, fetus in the breech presentation. He has already been started on magnesium sulfate and blood pressure management. We discussed the risk, benefits, alternatives of induction of labor, section, external cephalic version. We discussed that none of these options are perfect and each have their pros and cons. After discussion, she elects for external cephalic version. Specifically about the external cephalic version, we discussed the risk, benefits, alternatives of external cephalic version. Discussed risk of heart rate changes being the most common. These are usually temporary and resolve after cessation of procedure. Discussed the risk of placental disruption, bleeding, rupture membranes, urgent section, failure of procedure. OR team is available, will plan for regional anesthesia for pain control. If unsuccessful will plan on section.
[2025-08-28] MEDS ORDERED: PHENYLEPHRINE HCL 0.5 MG/5 ML AMPULE ONE (20:41)
[2025-08-28] MEDS ORDERED: fentaNYL 100 MCG/2 ML VIAL ONE ×2 (20:41→23:09)
[2025-08-28] MEDS ORDERED: BUPIVACAINE 0.5% PF 10 ML VIAL ONE (20:41)
[2025-08-28] MEDS ORDERED: ePHEDrine 50 MG/ML VIAL IVP ONE ×2 (20:41→23:11)
--- NOTE | 2025-08-28 22:02 | PROCEDURE REPORT ---
Hospitalist Procedure Note Procedure Note Procedure Note: Procedure date: 08/28/2025 Procedure: External cephalic version Indication: Breech presentation, 36 weeks gestation, preeclampsia with severe features Patient consent: Patient consented to the risks of external cephalic version including the risk of heart rate changes, bleeding, placental abruption, rupture membranes, emergency section, cord prolapse, hemorrhage, stillbirth. Discussed the benefits [place] avoiding a planned section. Discussed we are not successful we will abandon procedure and plan a section. Patient agrees to this and desires to proceed. Anesthesia: Spinal Complications: None Estimated blood loss: None Postop diagnosis: Same, unsuccessful external cephalic version Procedure summary: Patient is a patient is a 35-year-old G2, P0 at 36 weeks 0 days gestation who presented for an external cephalic version for breech presentation in the setting of preeclampsia with severe features. Time out was taken. She was taken to the triage room where spinal anesthesia was adequate. Under ultrasound guidance, the fetus was noted to be in breech presentation with head to maternal right upper quadrant and a ghassan breech presentation. The patient was given terbutaline for uterine relaxation. Using gentle, steady pressure, the head was rotated counterclockwise as the buttocks was lifted out of the pelvis. This was unsuccessful, so we tried a clockwise rotation. This was similarly unsuccessful, so we again tried to counterclockwise. Ultrasound evaluation was performed intermittently to assure good heart rate. Patient was monitored with a reactive NST after the procedure. I appreciate the assistance of Moriah Mclean CNM during this procedure, and the assistance during the case was instrumental to the patient's wellbeing.
[2025-08-28] MEDS ORDERED: CITRIC ACID/SODIUM CITRATE 15 ML UDC PO ONE (22:08)
[2025-08-28] MEDS ORDERED: ceFAZolin (2G) 2 GM in SODIUM CHLORIDE 0.9% MINIBAG 100 ML IV ONE (22:09)
[2025-08-28] MEDS ORDERED: OXYTOCIN/SODIUM CHLORIDE 500 ML IV ONE (22:10)
--- NOTE | 2025-08-28 22:13 | Preop H&P Attestation ---
Preop H&P Attestation H & P: 08/28/25 2212 I Jackelin Norris MD, confirm that the History & Physical was finalized within the past 30 days.Today, 08/28/25, I conducted a review of the H&P and performed an examination of the patient. H & P Last 30 Days: History & Physical Today, 19:59 Comments: Attempt of ECV done by Dr. Dash. Not successful. will proceed with c section. risks and procedure of c section discussed. consents signed.
[2025-08-28] MEDS ORDERED: ONDANSETRON 4 MG/2 ML VIAL ONE (23:11)
[2025-08-28] MEDS ORDERED: OXYTOCIN 10 UNIT/ML VIAL ONE (23:11)
[2025-08-28] MEDS ORDERED: ROPIVACAINE 0.5% PF 20 ML VIAL ONE (23:18)
[2025-08-28] MEDS ORDERED: METOCLOPRAMIDE 10 MG/2 ML VIAL IVP PRN (23:26)
[2025-08-28] MEDS ORDERED: hydrALAZINE INJ 20 MG/ML VIAL IVP PRN ×2 (23:26)
[2025-08-28] MEDS ORDERED: NALOXONE 0.4 MG/ML VIAL IVP PRN (23:26)
[2025-08-28] MEDS ORDERED: ONDANSETRON 4 MG/2 ML VIAL IVP PRN (23:26)
[2025-08-28] MEDS ORDERED: CALCIUM GLUC 1,000MG/50ML-NACL 1,000 MG/50 ML BAG IV PRN (23:26)
[2025-08-28] MEDS ORDERED: DEXAMETHASONE 4 MG/ML VIAL ONE (23:33)
--- NOTE | 2025-08-28 23:39 | OPERATIVE REPORT ---
Operative Report General Admit Date: 08/28/25 Procedure Data: Operation Date: 08/28/25 22:30 Proposed Procedures p Section(Not Applicable) - Jackelin Norris MD Actual Procedures p Section(Not Applicable) - Jackelin Norris MD Pre-Op Diagnosis: BREECH BABY, SEVERE PREECLAMPSIA Anesthesia Type Spinal Case Staff Anesthesia Provider: Caity Liao Assisting Provider: Moriah Mclean Case Times Procedure Start: 08/28/25 22:42 Time out: 08/28/25 22:41 Pre-Op Diagnosis: severe preeclampsia at 36 weeks with breech presentation of fetus. Post Op Diagnosis: same, delivered Procedure Note Intake, IV Amount (ml): 1,000 Estimated Blood Loss (ml): 1,200 Output, Urine Amount (ml): 400 Pathology: none Indications: Patient 36 weeks GA with bp in severe range. baby breech and ECV failed. C section for delivery. Findings: Live female infant Apgars 7/8 with a very short umbilical cord. Uterus has fibroids but I did not see them. tubes and ovaries appeared normal. Complications: none Other Other Information/Narrative: Procedure: Low Transverse Section. Anesthesia: Spinal with TAP blocks post op by Caity Liao CRNA Framing And Hanging: My special education assistant was scrubbed and present during the entire procedure and assisted with visualization, hemostasis, fundal pressure for infant delivery, and closure. Procedure Details The risks, benefits, complications, treatment options, and expected outcomes were discussed with the patient. The patient concurred with the proposed plan, giving informed consent. The patient was taken to the Operating Room. 2 grams of Cefazolin were given. She had sequential compression devices on her lower extremities. Spinal anestheia was placed. Brush catheter was placed. Vaginal and abdominal prep were done. Time out was done. Drapes were placed. Anesthesia was tested and found to be adequate. A Pfannenstiel incision was made and carried down through the subcutaneous tissue to the fascia. Fascial incision was made and extended transversely. The fascia was from the underlying rectus tissue. The peritoneum was identified and entered. Peritoneal incision was stretched. The Cheng retractor was placed and rolled down. The uterus was palpated to examine lie. A low transverse uterine incision was made. The incision was stretched manually. Bag of water was entered during the process and fluid was clear and copious. The baby was elevated through the incision feet first. The baby was delivered and brought up towards her chest to show mom. Baby was dried and stimulated. I waited for about 1/2 minute to clamp and cut the cord as the uterus had some large bleeders I needed to control. Baby was handed off to the waiting editor producer. The placenta was removed intact using gentle traction and appeared normal. I did not get cord blood due to bleeding and some was collected from the placenta. Oxytocin was infused in the IV. The uterine incision was closed with running locked sutures of 0 Monocryl suture. A second horizontal imbricating layer was placed with the same suture. Hemostasis was observed. The Cheng retractor was removed. Rectus muscles were examined carefully for bleeding. The fascia was then reapproximated with running sutures of 0 Vicryl. The subcutaneous tissue was brought together with 3.0 Vicryl suture and the skin was closed with 3.0 Monocryl in subcuticular fascia. Wide steri strip was placed over the wound. Bandage was placed. Uterus was expressed. Fundus was firm. Patient was then brought to the PACU in stable condition. Instrument, sponge, and needle counts were correct prior the abdominal closure and at the conclusion of the case. Drains: Brush catheter to gravity Complications: None; patient tolerated the procedure well. Disposition: back to her room on FBP for recovery. Condition: stable Plan: Routine post op care
[2025-08-29] MEDS: ACETAMINOPHEN 500 MG TABLET PO ONE (00:29)
[2025-08-29] MEDS: LABETALOL 100 MG TABLET PO SCH (00:30)
--- NOTE | 2025-08-29 00:30 | ANESTHESIA PROCEDURE NOTE ---
Pre-Anesthesia VS, & Labs Diagnosis Surgical Diagnosis:: breach presentation, preeclampsia Procedure Procedure: version Vitals Vital Signs: Temp Pulse Resp BP Pulse Ox 36.7 C 84 17 149/89 H 96 08/29/25 00:07 08/29/25 00:16 08/29/25 00:16 08/29/25 00:16 08/29/25 00:16 NPO NPO: Other (yogert and crackers at 2pm) Is Patient ?: Yes Lab Results Current Lab Results: Laboratory Tests 08/28/25 18:10: Blood Type O POSITIVE, Antibody Screen NEGATIVE Meds/Allgy Home Medications Ambulatory Orders Medication Instructions Recorded Confirmed vits no.126-ferrous fum tab PO 02/12/2508/24 28 mg iron-folic acid 800 mcg tablet (Classic ) aspirin 81 mg tablet,delayed 81 mg PO QDAY #90 tabs 08/24/25 release (Adult Low Dose Aspirin) ferrous sulfate 325 mg (65 mg 325 mg PO Q OTHER DAY #9 0 tabs 05/07/25 08/24/25 iron) tablet (Iron (ferrous sulfate)) blood sugar diagnostic (True #100 ea 07/06/25 08/21/25 Metrix Glucose Test Strip) blood-glucose meter (True Metrix #1 ea 07/06/25 Air Glucose Meter kit) lancets 30 gauge (Ultra Thin #100 ea 07/06/25 08/21/25 Lancets) albuterol sulfate 90 mcg/actuation 2 puff inhalation Q ID PRN 08/15/25 08/24/25 aerosol inhaler (Ventolin HFA) shortness of breath or wheezing #8.5 grams lidocaine 5 % topical patch 1 patch topical DAILY #15 ea 08/15/25 08/24/25 (Lidocan III) cyclobenzaprine 5 mg tablet 5 mg PO TID PRN muscle spa sm #14 08/16/25 08/21/25 Held on 08/24/25. tabs Instructions: Per Patient guaifenesin 200 mg/5 mL oral liquid 200 mg (5 mL) PO Q 4H PRN cough 08/16/25 08/24/25 #118 mL oxycodone 5 mg tablet 5 mg PO Q8H PRN pain #5 tabs 08/16/25 08/21/25 Held on 08/24/25. Instructions: Per Patient labetalol 200 mg tablet 400 mg (2 x 200 mg) PO TID # 180 08/24/25 08/24/25 tabs mecobalamin (vitamin B12) 1,000 1,000 mcg sublingual Q DAY #90 tabs 08/24/25 08/24/25 mcg disintegrating tablet,sublingual Allergies Allergies Allergy/AdvReac Type Severity Reaction Status Date / Time No Known Drug Allergies Allergy Verified 08/21/25 18:38 PFSH Active Problems All Active Problems (Updated 08/28/25 @ 20:16 by Jackelin Norris MD) Breech presentation of fetus (Acute) Severe preeclampsia (Acute) Supervision of high risk , unspecified, third trimester (Acute) Fracture of rib (Acute) Muscle strain of left upper back (Acute) Advanced maternal age during (Acute) Gestational diabetes (Acute) Gestational hypertension without significant proteinuria (Acute) Anemia complicating , third trimester (Acute) Uterine fibroid in antepartum period (Acute) Anxiety (Acute) Medical History Medical History (Updated 08/28/25 @ 20:16 by Jackelin Norris MD) Acute upper respiratory infection First trimester bleeding Missed Family History Family History Mother Arthritis High blood pressure Social History Social History Smoking Status: Current every day smoker Do you dip or chew tobacco?: No Patient requests smoking cessation consult: No Initiate information on smoking cessation: No Do you feel safe in your home environment?: Yes History of physical, verbal, emotional, or financial abuse?: No POLST Patient has POLST: No Anesthesia Exam (Expanded) Exam General: Alert, Oriented x3 and Cooperative Dental: WNL Mallampati classification: II Thyromental Distance: greater than 6 cm Respiratory: Lungs clear Cardiovascular: Regular rate Exam Exam Vital Signs: Vital Signs x48h Temp Pulse Pulse Resp BP BP Pulse Ox 08/29/25 00:16 84 17 149/89 H 96 08/29/25 00:07 36.7 C 84 17 143/85 H 95 08/29/25 00:04 79 15 139/85 H 96 08/28/25 23:57 87 18 140/79 H 95 08/28/25 23:51 88 19 137/81 H 95 08/28/25 23:49 89 20 133/72 H 95 08/28/25 23:26 37.1 C 84 20 132/85 H 97 08/28/25 21:03 169/91 H 08/28/25 20:10 157/89 H 08/28/25 20:01 16 148/87 H 98 08/28/25 19:46 368 C H 94 16 157/89 H 97 08/28/25 19:22 93 16 167/87 H 08/28/25 19:00 96 166/81 H 08/28/25 18:32 164/99 H 08/28/25 18:10 186/104 H 08/28/25 16:57 37.3 C 92 16 168/92 H Plan Problem List (1) Breech presentation of fetus: Plan: Offered ECV and patient would like to try this. Dr. Dash agrees to come in. (2) Severe preeclampsia: Plan: BPs all in severe range. given hydralazine x 2 ivp then labetolol 20 mg ivp. Will continue with the protocol until bp controlled. worrisome about bp crashing when she gets regional anesthesia for spinal. Magnesium for seizure prophylaxis started 4 gm then 2/hr. explained to Robert. (3) Supervision of high risk , unspecified, third trimester: (4) Advanced maternal age during : (5) Uterine fibroid in antepartum period: Plan: Increases difficulty of version and of c section if this is necessary. Increa ses risk of pp hemorrhage. Unable to use methergine or hemabate as asthma and hypertension. If c section will use TXA prophylactically. Plan Anesthesia Type: Spinal Consent for Procedure(s) Verified and Reviewed: Yes Code Status: Attempt Resuscitation ASA Classification ASA classification: 2-Mild systemic disease Is this case an emergency?: Yes
--- NOTE | 2025-08-29 00:30 | ANESTHESIA POST OP EVALUATION ---
Anesthesia Post Eval Post Anesthesia Eval Vitals: Last Vital Signs Temp 36.7 C 08/29/25 00:07 Pulse 84 08/29/25 00:16 Resp 17 08/29/25 00:16 BP 149/89 H 08/29/25 00:16 Pulse Ox 96 08/29/25 00:16 CV Function Including HR & BP: Stable Pain Control: Satisfactory Nausea & Vomiting: Negative Mental Status: Baseline Respiratory Status: Airway Patent Hydration Status: Satisfactory Anesthesia Complications: None
[2025-08-29] MEDS: KETOROLAC 30 MG/ML VIAL IVP SCH (00:33)
[2025-08-29 07:57] LABS: HCT - HEMATOCRIT 25.1 % (37.0-47.0); HGB - HEMOGLOBIN 8.1 g/dL (12.0-16.0); MEAN PLATELET VOLUME 8.9 fL (7.9-10.8); PLT - PLATELET COUNT 341.0 10^3/uL (130-450); RED CELL DISTRIBUTION WIDTH 17.2 % (12.0-15.0)
[2025-08-29] MEDS: ACETAMINOPHEN 500 MG TABLET PO SCH (07:59)
[2025-08-29 08:59] LABS: ALT ALANINE AMINOTRANSFERASE 13.0 IU/L (10-60); AST ASPARTATE AMINOTRANSFERASE 10.0 IU/L (10-42); BUN - BLOOD UREA NITROGEN 6.0 mg/dL (6-20); CARBON DIOXIDE - CO2 24.0 mmol/L (21-32); CREATININE 0.7 mg/dL (0.6-1.3); GFR - MDRD 95.0 (>89)
--- NOTE | 2025-08-29 12:09 | PROVIDER PROGRESS NOTE ---
Subjective Prog Note Date Prog Note Date: 08/29/25 Prog Note Time: 12:00 Subjective Pt reports feeling: Improved Subjective: Patient feels well this morning and had no acute events overnight. She is POD #1 s/p 1' LTCS late last night for breech (failed ECV) and preE with severe range BP's. She has been on mag and labetalol PO (after requiring IV hydralazine last night). She reports incision pain is starting to increase a bit but is manageable. Brush has been removed, and she has been ambulating to the bathroom Denies concerns with voids. She is desiring to breastfeed, and they are doing formula via tubing with latching. She is tolerating a regular diet without N/V. No passage of flatus yet. No heavy bleeding overnight. Denies lightheadedness, chest pain, or SOB. Current Medications Current Medications Current Medications: Current Medications Generic Name Dose Route Start Last Admin Trade Name Freq PRN Reason Stop Dose Admin Acetaminophen 1,000 mg 08/28/25 23:45 08/29/25 07:59 Acetaminophen 500 Mg Tablet PO 1,000 mg Q8H KUSH Administration Albuterol 2.5 mg 08/28/25 17:54 Albuterol Neb 2.5 Mg/3 Ml INH QID PRN shortness of breath or wheezing Carboprost Tromethamine 250 mcg 08/28/25 17:45 Carboprost Tromethamine 250 Mcg/Ml Vial IM .ONCE PRN Hemorrhage Carboprost Tromethamine 250 mcg 08/28/25 23:26 Carboprost Tromethamine 250 Mcg/Ml Vial IM .ONCE PRN Hemorrhage Cyanocobalamin 1,000 mcg 08/29/25 09:00 Cyanocobalamin 1,000 Mcg/Ml Vial SUBQ DAILY KUSH Diphenhydramine HCl 25 mg 08/28/25 23:26 Diphenhydramine Inj 50 Mg/Ml Vial IVP Q6H PRN Allergy Symptoms Docusate Sodium 200 mg 08/29/25 09:00 Docusate Sodium 100 Mg Capsule PO BID KUSH Fentanyl 50 mcg 08/28/25 17:45 Fentanyl 100 Mcg/2 Ml Vial IVP Q1H PRN Severe Pain (score 7-10) Hydralazine HCl 5 - 10 mg 08/28/25 17:45 08/28/25 18:32 Hydralazine Inj 20 Mg/Ml Vial IVP 10 mg Q20M PRN Administration SBP> or= 160 OR DBP> or= 110 Protocol Hydralazine HCl 10 mg 08/28/25 23:26 Hydralazine Inj 20 Mg/Ml Vial IVP .ONCE PRN SBP> or= 160 OR DBP> or= 110 Protocol Hydralazine HCl 5 - 20 mg 08/28/25 23:26 Hydralazine Inj 20 Mg/Ml Vial IVP Q20M PRN SBP> or= 160 OR DBP> or= 110 Protocol Hydroxyzine Pamoate 25 mg 08/28/25 23:54 Hydroxyzine Pamoate 25 Mg Capsule PO Q6HR PRN Insomnia, anxiety Lactated Ringer's 500 mls @ 999 mls/hr 08/28/25 17:45 Lr IV PRN PRN Abdominal Pain Oxytocin/Sodium Chloride 500 mls @ 999 mls/hr 08/28/25 17:45 Pitocin/Sodium Chloride IV PRN PRN POST- HEMORR PREVENTION Protocol 999 MILLIUNIT/MIN Tranexamic Acid 1,000 mg in 100 mls @ 600 mls/hr 08/28/25 17:45 Tranexamic 1,000 Mg/100ml-Nacl IV Q30M PRN EBL >1200mL and within 3hr Magnesium Sulfate 20 gm in 500 mls @ 50 mls/hr 08/28/25 18:00 08/29/25 04:52 Magnesium Sulf 20 G/500 Ml Bag IV 50 mls/hr .Q10H KUSH Infusion Oxytocin/Sodium Chloride 500 mls @ 999 mls/hr 08/28/25 23:26 Pitocin/Sodium Chloride IV PRN PRN POST- HEMORR PREVENTION Protocol 999 MILLIUNIT/MIN Lactated Ringer's 1,000 mls @ 50 mls/hr 08/28/25 23:45 Lr IV .Q20H KUSH CALCIUM GLUC 1,000MG/50ML-NACL 1,000 mg in 50 mls @ 200 mls/hr 08/28/25 23:26 Calcium Gluc 1,000mg/50ml-Nacl IV PRN PRN magnesium over load Ferric Sodium Gluconate 110 mls @ 100 mls/hr 08/28/25 23:26 Complex 125 mg/ Sodium IV Chloride .ONCE PRN Iron Deficiency Anemia Tranexamic Acid 1,000 mg in 100 mls @ 500 mls/hr 08/28/25 23:26 Tranexamic 1,000 Mg/100ml-Nacl IV PRN PRN Uterine atony/ Uterine Bleed Ibuprofen 600 mg 08/29/25 23:45 Ibuprofen 600 Mg Tablet PO Q6HR [facility] Ketorolac Tromethamine 30 mg 08/29/25 00:00 08/29/25 06:03 Ketorolac 30 Mg/Ml Vial IVP 08/29/25 12:01 30 mg Q6HR KUSH Administration Labetalol HCl 20 - 80 mg 08/28/25 17:45 Labetalol 20 Mg/4 Ml Syringe IVP Q10M PRN SBP> or= 160 OR DBP> or= 110 Protocol Labetalol HCl 20 mg 08/28/25 17:45 08/28/25 19:00 Labetalol 20 Mg/4 Ml Syringe IVP 20 mg .ONCE PRN Administration SBP> or= 160 OR DBP> or= 110 Protocol Labetalol HCl 20 - 40 mg 08/28/25 17:45 Labetalol 20 Mg/4 Ml Syringe IVP Q10M PRN SBP> or= 160 OR DBP> or= 110 Protocol Labetalol HCl 20 - 40 mg 08/28/25 23:26 Labetalol 20 Mg/4 Ml Syringe IVP Q10M PRN SBP> or= 160 OR DBP> or= 110 Protocol Labetalol HCl 20 mg 08/28/25 23:26 Labetalol 20 Mg/4 Ml Syringe IVP .ONCE PRN SBP> or= 160 OR DBP> or= 110 Protocol Labetalol HCl 20 - 80 mg 08/28/25 23:26 Labetalol 20 Mg/4 Ml Syringe IVP Q10M PRN SBP> or= 160 OR DBP> or= 110 Protocol Labetalol HCl 200 mg 08/29/25 01:00 08/29/25 06:04 Labetalol 100 Mg Tablet PO 200 mg TID KUSH Administration Lidocaine HCl 20 ml 08/28/25 17:45 Lidocaine 1% 20 Ml Mdv ID 08/31/25 17:46 .ONCE PRN PERINEAL REPAIR Metoclopramide HCl 5 mg 08/28/25 23:26 Metoclopramide 10 Mg/2 Ml Vial IVP Q6HR PRN Nausea / Vomiting Misoprostol 600 mcg 08/28/25 17:45 Misoprostol 200 Mcg Tablet BC .ONCE PRN Hemorrhage Misoprostol 800 mcg 08/28/25 17:45 Misoprostol 200 Mcg Tablet WA .ONCE PRN Hemorrhage Naloxone HCl 0.4 mg 08/28/25 23:26 Naloxone 0.4 Mg/Ml Vial IVP .ONCE PRN Opioid overdose Nifedipine 10 - 20 mg 08/28/25 17:45 Nifedipine 10 Mg Capsule PO Q20M PRN SBP> or= 160 OR DBP> or= 110 Protocol Nifedipine 10 - 20 mg 08/28/25 23:26 Nifedipine 10 Mg Capsule PO Q20M PRN SBP> or= 160 OR DBP> or= 110 Protocol Ondansetron HCl 4 mg 08/28/25 23:26 Ondansetron 4 Mg/2 Ml Vial IVP Q4HR PRN Nausea / Vomiting Oxycodone HCl 5 mg 08/28/25 23:26 Oxycodone 5 Mg Tablet PO Q4HR PRN Severe Pain 6 -10 Oxytocin 10 unit 08/28/25 17:45 Oxytocin 10 Unit/Ml Vial IM .ONCE PRN Step One if no IV access. Simethicone 80 mg 08/28/25 23:26 Simethicone Chew 80 Mg Tablet PO TID PRN Gas Sodium Chloride 10 ml 08/28/25 17:45 Sodium Chloride Flush 0.9% 10 Ml Syringe IVP PRN PRN NEEDED PER PROVIDER ORDERS Sodium Chloride 10 ml 08/28/25 18:00 08/28/25 19:30 Sodium Chloride Flush 0.9% 10 Ml Syringe IVP 10 ml Q8H KUSH Administration Terbutaline Sulfate 0.25 mg 08/28/25 17:45 Terbutaline 1 Mg/Ml Vial SUBQ .ONCE PRN Tachystole Objective Vital Signs/Intake & Output Reviewed Vital Signs: Yes Vital Signs: Vital Signs x48h Temp Pulse Resp BP Pulse Ox 08/29/25 10:55 98 16 137/89 H 08/29/25 07:42 36.8 C 98 18 127/76 96 08/29/25 05:00 36.8 C 104 H 18 141/91 H 98 Intake & Output: Intake & Output 08/26/25 08/27/25 08/28/25 08/29/25 23:59 23:59 23:59 23:59 Intake Total 1300 / 1300 950 / 950 Output Total 1150 / 1150 4075 / 4075 Balance 150 / 150 -3125 / -3125 Weight (kg) 89.358 kg Objective General Appearance: positive No acute distress and Alert Respiratory: positive No respiratory distress and Breath sounds nml Cardiovascular: positive Regular rate & rhythm Abdomen: positive Tenderness (appropriate for postop) and Other (Abdominal binder in place; dressing examined and appears dry) Skin: positive Color nml Extremities: positive Full ROM and Nml appearance Neurologic/Psychiatric: positive Oriented x3 and Mood/affect nml Lab Results 08/29/25 07:51 08/29/25 07:51 Other Labs: Lab Results x24hrs 08/29/25 08/28/25 Range/Units 07:51 18:10 WBC 17.3 H (4.8-10.8) x10^3/uL RBC 2.73 L (4.20-5.40) 10^6/uL Hgb 8.1 L (12.0-16.0) g/dL Hct 25.1 L (37.0-47.0) % MCV 91.9 (81.0-99.0) fL MCH 29.7 (27.0-31.0) pg MCHC 32.3 (32.0-36.0) g/dL RDW 17.2 H (12.0-15.0) % Plt Count 341 (130-450) 10^3/uL MPV 8.9 (7.9-10.8) fL Sodium 137 (135-145) mmol/L Potassium 3.8 (3.5-4.5) mmol/L Chloride 107 (101-111) mmol/L Carbon Dioxide 24 (21-32) mmol/L Anion Gap 6.0 (6-13) BUN 6 (6-20) mg/dL Creatinine 0.7 (0.6-1.3) mg/dL Estimated GFR (MDRD) 95 (>89) Glucose 161 H (74-104) mg/dL Calcium 7.8 L (8.5-10.3) mg/dL Magnesium 4.9 H (1.7-2.3) mg/dL Total Bilirubin 0.4 (0.2-1.0) mg/dL AST 10 (10-42) IU/L ALT 13 (10-60) IU/L Alkaline Phosphatase 95 (42-121) IU/L Total Protein 5.4 L (6.4-8.9) g/dL Albumin 3.2 (3.2-5.5) g/dL Globulin 2.2 (2.1-4.2) g/dL Albumin/Globulin Ratio 1.5 (1.0-2.2) Blood Type O POSITIVE Antibody Screen NEGATIVE Assessment/Plan Problem List (1) care following delivery: Impression: POD #1 s/p 1' LTCS and overall doing well. Labs today notable for moderate anemia and normal preE lab results. BP's mildly elevated at current labetalol dose. - Plan for iron infusion once mag sulfate is completed (can't run both together). - Cont mag sulfate until 24 hrs PP. - Repeat preE labs in am tomorrow. - Cont routine postop care and support. Encouraged ambulation more once mag discontinued. - Cont labetalol 200 mg tid for now. Discussed possibly needing to increase the dose once mag stopped and ambulating more. - Reviewed recommendation for inpatient stay 48-72 hrs after delivery to ensure postop recovery and BP control. (2) Breech presentation of fetus: Qualifiers: Fetus number: single or unspecified fetus Qualified Code(s): O32.1XX0 - Maternal care for breech presentation, not applicable or unspecified (3) Severe preeclampsia: Qualifiers: Trimester: unspecified trimester Qualified Code(s): O14.10 - Severe pre-eclampsia, unspecified trimester (4) Anemia complicating , third trimester:
[2025-08-29] MEDS: CYANOCOBALAMIN 1,000 MCG/ML VIAL SUBQ SCH (12:34)
[2025-08-29] MEDS: LACTATED RINGERS 1,000 ML IV SCH (12:45)
--- NOTE | 2025-08-29 17:44 | PHARMACY PROGRESS NOTE ---
Best Possible Medication History Admit Date and Time: 08/28/25 1745 Home Medications Medication Instructions Recorded Confirmed Type vits no.126-ferrous fum 1 tab PO DAILY 08/29/25 History 28 mg iron-folic acid 800 mcg tablet (Classic ) blood sugar diagnostic (True #100 ea 07/06/25 08/21/25 Rx Metrix Glucose Test Strip) blood-glucose meter (True Metrix #1 ea 07/06/25 Rx Air Glucose Meter kit) lancets 30 gauge (Ultra Thin #100 ea 07/06/25 08/21/25 Rx Lancets) labetalol 200 mg tablet 200 mg PO Q8H 08/29/2508/29 History Processed by: Pharmacy Medications reviewed in ED?: No Medication History completed: Yes Patient Interview: Completed Secondary Source(s): Pharmacy records [facility] Statement: As the person ultimately responsible for medication therapy, providers are able to order a medication from an existing home medication list in [facility] via the "Reconcile Routine" prior to Confirmation of that medication by application support lead. Such practice is discouraged except when the physician, in their clinical judgment, deems that a medical need exists for a medication without regard to previous use.
[2025-08-29] MEDS: IBUPROFEN 600 MG TABLET PO SCH (18:52)
[2025-08-29] MEDS: DOCUSATE SODIUM 100 MG CAPSULE PO SCH (21:01)
[2025-08-29] MEDS: oxyCODONE 5 MG TABLET PO PRN (21:01)
[2025-08-29] MEDS: SIMETHICONE CHEW 80 MG TABLET PO PRN (21:01)
[2025-08-30] MEDS: SODIUM CHLORIDE FLUSH 0.9% 10 ML SYRINGE IVP PRN (06:15)
[2025-08-30 07:46] LABS: HCT - HEMATOCRIT 21.7 % (37.0-47.0); MEAN PLATELET VOLUME 9.1 fL (7.9-10.8); NRBC ABSOLUTE COUNT (AUTO) 0.00 x10^3/uL; NUCLEATED RED BLOOD CELLS AUTO 0.0 /100WBC; PLT - PLATELET COUNT 344 10^3/uL (130-450); RED CELL DISTRIBUTION WIDTH 17.8 % (12.0-15.0)
[2025-08-30 07:51] LABS: ALT ALANINE AMINOTRANSFERASE 11.0 IU/L (10-60); AST ASPARTATE AMINOTRANSFERASE 8.0 IU/L (10-42); BUN - BLOOD UREA NITROGEN 8.0 mg/dL (6-20); CARBON DIOXIDE - CO2 24.0 mmol/L (21-32); CREATININE 0.7 mg/dL (0.6-1.3); GFR - MDRD 95.0 (>89)
[2025-08-30 08:00] LABS: HGB - HEMOGLOBIN 6.8 g/dL (12.0-16.0)
[2025-08-30] MEDS: FERRIC GLUCONATE 125 MG in SODIUM CHLORIDE 0.9% 100ML 100 ML IV PRN (08:28)
--- NOTE | 2025-08-30 10:42 | PROVIDER PROGRESS NOTE ---
Subjective Subjective Subjective: Subjective Patient reports she is doing well. Lochia appropriate. Denies heavy bleeding. Ambulating. Pelvic and abdominal pain well-controlled. Tolerating oral intake. Diet: Regular. Voiding without difficulty. Passing flatus. Denies BM. Patient is bonding with baby in room Breast feeding going well. Occasional lightheaded, dizzy or excessively fatigued. Objective General: Alert, oriented, no apparent distress. Cardiovascular: Regular rate. Regular rhythm. Lungs: No increased work of breathing. Abdomen: Uterus firm. Below umbilicus. No guarding or rebound. Extremities: No pain on palpation. No cords palpated. Distal pulses intact. Incision: bandage in place. Clean and dry. Will remove in shower. Current Medications Current Medications Current Medications: Current Medications Generic Name Dose Route Start Last Admin Trade Name Freq PRN Reason Stop Dose Admin Acetaminophen 1,000 mg 08/28/25 23:45 08/30/25 08:54 Acetaminophen 500 Mg Tablet PO 1,000 mg Q8H KUSH Administration Albuterol 2.5 mg 08/28/25 17:54 Albuterol Neb 2.5 Mg/3 Ml INH QID PRN shortness of breath or wheezing Carboprost Tromethamine 250 mcg 08/28/25 23:26 Carboprost Tromethamine 250 Mcg/Ml Vial IM .ONCE PRN Hemorrhage Cyanocobalamin 1,000 mcg 08/29/25 09:00 08/30/25 08:52 Cyanocobalamin 1,000 Mcg/Ml Vial SUBQ 1,000 mcg DAILY KUSH Administration Diphenhydramine HCl 25 mg 08/28/25 23:26 Diphenhydramine Inj 50 Mg/Ml Vial IVP Q6H PRN Allergy Symptoms Docusate Sodium 200 mg 08/29/25 09:00 08/30/25 08:54 Docusate Sodium 100 Mg Capsule PO 200 mg BID KUSH Administration Hydralazine HCl 5 - 10 mg 08/28/25 17:45 08/28/25 18:32 Hydralazine Inj 20 Mg/Ml Vial IVP 10 mg Q20M PRN Administration SBP> or= 160 OR DBP> or= 110 Protocol Hydralazine HCl 10 mg 08/28/25 23:26 Hydralazine Inj 20 Mg/Ml Vial IVP .ONCE PRN SBP> or= 160 OR DBP> or= 110 Protocol Hydralazine HCl 5 - 20 mg 08/28/25 23:26 Hydralazine Inj 20 Mg/Ml Vial IVP Q20M PRN SBP> or= 160 OR DBP> or= 110 Protocol Hydroxyzine Pamoate 25 mg 08/28/25 23:54 Hydroxyzine Pamoate 25 Mg Capsule PO Q6HR PRN Insomnia, anxiety Lactated Ringer's 500 mls @ 999 mls/hr 08/28/25 17:45 Lr IV PRN PRN Abdominal Pain Magnesium Sulfate 20 gm in 500 mls @ 50 mls/hr 08/28/25 18:00 08/29/25 23:00 Magnesium Sulf 20 G/500 Ml Bag IV Infused .Q10H KUSH Infusion Oxytocin/Sodium Chloride 500 mls @ 999 mls/hr 08/28/25 23:26 Pitocin/Sodium Chloride IV PRN PRN POST- HEMORR PREVENTION Protocol 999 MILLIUNIT/MIN Lactated Ringer's 1,000 mls @ 50 mls/hr 08/28/25 23:45 08/29/25 23:02 Lr IV Infused .Q20H KUSH Infusion CALCIUM GLUC 1,000MG/50ML-NACL 1,000 mg in 50 mls @ 200 mls/hr 08/28/25 23:26 Calcium Gluc 1,000mg/50ml-Nacl IV PRN PRN magnesium over load Tranexamic Acid 1,000 mg in 100 mls @ 500 mls/hr 08/28/25 23:26 Tranexamic 1,000 Mg/100ml-Nacl IV PRN PRN Uterine atony/ Uterine Bleed Ibuprofen 600 mg 08/29/25 19:00 08/30/25 07:47 Ibuprofen 600 Mg Tablet PO 600 mg Q6HR KUSH Administration Labetalol HCl 20 mg 08/28/25 17:45 08/28/25 19:00 Labetalol 20 Mg/4 Ml Syringe IVP 20 mg .ONCE PRN Administration SBP> or= 160 OR DBP> or= 110 Protocol Labetalol HCl 20 - 40 mg 08/28/25 23:26 Labetalol 20 Mg/4 Ml Syringe IVP Q10M PRN SBP> or= 160 OR DBP> or= 110 Protocol Labetalol HCl 20 mg 08/28/25 23:26 Labetalol 20 Mg/4 Ml Syringe IVP .ONCE PRN SBP> or= 160 OR DBP> or= 110 Protocol Labetalol HCl 20 - 80 mg 08/28/25 23:26 Labetalol 20 Mg/4 Ml Syringe IVP Q10M PRN SBP> or= 160 OR DBP> or= 110 Protocol Labetalol HCl 200 mg 08/29/25 01:00 08/30/25 06:07 Labetalol 100 Mg Tablet PO 200 mg TID KUSH Administration Metoclopramide HCl 5 mg 08/28/25 23:26 Metoclopramide 10 Mg/2 Ml Vial IVP Q6HR PRN Nausea / Vomiting Misoprostol 800 mcg 08/28/25 17:45 Misoprostol 200 Mcg Tablet SC .ONCE PRN Hemorrhage Nifedipine 10 - 20 mg 08/28/25 23:26 Nifedipine 10 Mg Capsule PO Q20M PRN SBP> or= 160 OR DBP> or= 110 Protocol Ondansetron HCl 4 mg 08/28/25 23:26 Ondansetron 4 Mg/2 Ml Vial IVP Q4HR PRN Nausea / Vomiting Oxycodone HCl 5 mg 08/28/25 23:26 08/30/25 03:43 Oxycodone 5 Mg Tablet PO 5 mg Q4HR PRN Administration Severe Pain 6 -10 Simethicone 80 mg 08/28/25 23:26 08/29/25 21:01 Simethicone Chew 80 Mg Tablet PO 80 mg TID PRN Administration Gas Sodium Chloride 10 ml 08/28/25 17:45 08/30/25 06:15 Sodium Chloride Flush 0.9% 10 Ml Syringe IVP 10 ml PRN PRN Administration NEEDED PER PROVIDER ORDERS Objective Vital Signs/Intake & Output Vital Signs: Vital Signs x48h Temp Pulse Resp BP Pulse Ox 08/30/25 08:11 91 137/82 H 08/30/25 07:50 36.7 C 88 18 97 08/30/25 06:10 87 16 134/82 H 08/30/25 03:45 36.8 C 83 14 129/75 96 Intake & Output: Intake & Output 08/27/25 08/28/25 08/29/25 08/30/25 23:59 23:59 23:59 23:59 Intake Total 1300 / 1300 3833 / 3833 410 / 410 Output Total 1150 / 1150 5925 / 5925 500 / 500 Balance 150 / 150 -2092 / -209 -90 / - Weight (kg) 197 lb Lab Results 08/30/25 07:28 08/30/25 07:28 Other Labs: Lab Results x24hrs 08/30/25 Range/Units 07:28 WBC 12.2 H (4.8-10.8) x10^3/uL RBC 2.32 L (4.20-5.40) 10^6/uL Hgb 6.8 L* (12.0-16.0) g/dL Hct 21.7 L (37.0-47.0) % MCV 93.5 (81.0-99.0) fL MCH 29.3 (27.0-31.0) pg MCHC 31.3 L (32.0-36.0) g/dL RDW 17.8 H (12.0-15.0) % Plt Count 344 (130-450) 10^3/uL MPV 9.1 (7.9-10.8) fL Neut # (Auto) 7.4 H (1.5-6.6) 10^3/uL Lymph # (Auto) 3.5 (1.5-3.5) 10^3/uL [place] # (Auto) 0.9 (0.0-1.0) 10^3/uL Eos # (Auto) 0.3 (0.0-0.7) 10^3/uL Baso # (Auto) 0.1 (0.0-0.1) 10^3/uL Absolute Nucleated RBC 0.00 x10^3/uL Nucleated RBC % 0.0 /100WBC Sodium 137 (135-145) mmol/L Potassium 3.6 (3.5-4.5) mmol/L Chloride 107 (101-111) mmol/L Carbon Dioxide 24 (21-32) mmol/L Anion Gap 6.0 (6-13) BUN 8 (6-20) mg/dL Creatinine 0.7 (0.6-1.3) mg/dL Estimated GFR (MDRD) 95 (>89) Glucose 83 (74-104) mg/dL Calcium 7.0 L (8.5-10.3) mg/dL Total Bilirubin 0.3 (0.2-1.0) mg/dL AST 8 L (10-42) IU/L ALT 11 (10-60) IU/L Alkaline Phosphatase 76 (42-121) IU/L Total Protein 5.1 L (6.4-8.9) g/dL Albumin 3.0 L (3.2-5.5) g/dL Globulin 2.1 (2.1-4.2) g/dL Albumin/Globulin Ratio 1.4 (1.0-2.2) Assessment/Plan Problem List (1) care following delivery: Impression: Likely discharge this evening. Possibly tomorrow if increased asymptomatic. (2) Severe preeclampsia: Impression: Normotensive since magnesium came off. Continue current labetalol dose. Qualifiers: Trimester: unspecified trimester Qualified Code(s): O14.10 - Severe pre-eclampsia, unspecified trimester (3) Acute on chronic blood loss anemia: Impression: Occasion lightheadedness, but vital signs reassuring. Has been normotensive since coming off magnesium. Upper-level of normal. Pulse normal . Will give 1 unit PRBC as she is mildly symptomatic and below 7 g/dL will recheck CBC 4 hours afterwards. (4) Anemia complicating , third trimester: Impression: As above. Started fairly anemic so tolerating severe anemia better than expected.
[2025-08-30 18:31] LABS: HCT - HEMATOCRIT 25.9 % (37.0-47.0); HGB - HEMOGLOBIN 7.6 g/dL (12.0-16.0); MEAN PLATELET VOLUME 8.9 fL (7.9-10.8); NRBC ABSOLUTE COUNT (AUTO) 0.00 x10^3/uL; NUCLEATED RED BLOOD CELLS AUTO 0.0 /100WBC; PLT - PLATELET COUNT 347 10^3/uL (130-450); RED CELL DISTRIBUTION WIDTH 18.1 % (12.0-15.0)
[2025-08-30] MEDS: LABETALOL 100 MG TABLET PO STA (23:24)
[2025-08-31] MEDS: NIFEdipine ER 30 MG TABLET PO SCH (03:18)
[2025-08-31] MEDS: LABETALOL 100 MG TABLET PO SCH ×2 (05:37→13:36)
--- NOTE | 2025-08-31 08:38 | Discharge Summary ---
Discharge Summary Admit Date: 08/28/25 Discharge Date: 08/31/25 Discharging Provider: Lucio Dash MD Code Status: Attempt Resuscitation DIAGNOSES Admission Diagnoses: Preeclampsia severe features 36 weeks gestation Breech presentation Discharge Diagnoses with Status of Each Condition: Preeclampsia severe features Status post primary low-transverse section Delivery of live adkins HPI History of Present Illness: Subjective Patient reports she is doing well. Lochia appropriate. Denies heavy bleeding. Ambulating. Pelvic and abdominal pain well-controlled. Tolerating oral intake. Diet: Regular. Voiding without difficulty. Passing flatus. Denies BM. Patient is bonding with baby in room Breast feeding going well. Denies feeling lightheaded, dizzy or excessively fatigued. Objective General: Alert, oriented, no apparent distress. Cardiovascular: Regular rate. Regular rhythm. Lungs: No increased work of breathing. Mild rhonchi on right side. Abdomen: Uterus firm. Below umbilicus. No guarding or rebound. Extremities: No pain on palpation. No cords palpated. Distal pulses intact. Incision: Clean, dry, and intact. HOSPITAL COURSE Hospital Course: Patient present at 36 weeks gestation with severe range blood pressures at home. These were consistent with her blood pressures on arrival. She was started magnesium sulfate for seizure prophylaxis. Her initial elevated blood pressure were treated with acute anti-hypertensives. Fetus was breech presentation and we attempted an external cephalic version, but were unsuccessful, so she proceeded with a primary low-transverse section. She was kept on magnesium for 24 hours postdelivery with resolution of her severe range blood pressures. Blood pressures were on the high elevated side, so we titrated her medications to get better control. She did have some breast-feeding problems and required SNS feeding. She also had acute on chronic blood loss anemia and required 1 units PRBC. She did well after surgery and she and her were doing better and discharged on day 3. She was discharged with postoperative instructions, severe preeclampsia warning signs, depression warnings, and instructed to check her blood pressure twice a day over the weekend, calling with any significant changes. Has a follow-up early next week. ALLERGIES Allergies Allergy/AdvReac Type Severity Reaction Status Date / Time No Known Drug Allergies Allergy Verified 08/21/25 18:38 MEDICATIONS Ambulatory Orders Medication Instructions Recorded Confirmed vits no.126-ferrous fum 1 tab PO DAILY 08/29/25 28 mg iron-folic acid 800 mcg tablet (Classic ) labetalol 200 mg tablet 200 mg PO Q8H 08/29/2508/29 nifedipine 30 mg tablet,extended 30 mg PO BID #30 tabs 08/31/25 release PHYSICAL EXAM AT DISCHARGE Vital Signs: Vital Signs x48h Temp Pulse Resp BP 08/31/25 07:00 152/86 H 08/31/25 06:46 149/87 H 08/31/25 06:30 150/90 H 08/31/25 06:15 143/82 H 08/31/25 06:00 152/87 H 08/31/25 05:45 152/103 H 08/31/25 05:25 156/89 H 08/31/25 05:15 161/88 H 08/31/25 05:00 80 17 152/82 H 08/31/25 03:00 36.5 C 75 16 153/87 H LABS 08/31/25 08:59 08/31/25 08:59 FOLLOW UP Follow Up: [facility] at the start of next week TIME SPENT Time Spent in Discharge (Minutes): 30 Discharge Plan Discharge Patient Disposition: Home, Self Care Prescriptions: New nifedipine 30 mg tablet extended release 30 mg PO BID Qty: 30 2RF Continued labetalol 200 mg tablet 200 mg PO Q8H Classic 28 mg iron- 800 mcg tablet 1 tab PO DAILY Discontinued (DME) blood-glucose meter [True Metrix Air Glucose Meter] Kit See Rx Instructions .Route Qty: 1 0RF Rx Instructions: Use to take blood glucose 4x a day. (DME) True Metrix Glucose Test Strip Strip See Rx Instructions .ROUTE .MEDSUPPLY Qty: 100 8RF Rx Instructions: As directed to take blood glucose 4x/day. (DME) lancets [Ultra Thin Lancets] 30 gauge misc See Rx Instructions .ROUTE .MEDSUPPLY Qty: 100 8RF Rx Instructions: As directed to check blood glucose 4x/day Activity Restrictions: Additional Comments Print Language: Macanese Patient Instructions: Understanding Preeclampsia, Section Dc Follow-up Care: Lucio Dash MD [Provider Admit Priv/Credential, Obstetrics/Gynecology] Vitals documented within 30 minutes of discharge?: Yes
[2025-08-31] MEDS ORDERED: NIFEdipine ER 30 MG TABLET PO SCH (09:00)
[2025-08-31 09:07] LABS: HCT - HEMATOCRIT 25.9 % (37.0-47.0); HGB - HEMOGLOBIN 8.0 g/dL (12.0-16.0); MEAN PLATELET VOLUME 8.9 fL (7.9-10.8); NRBC ABSOLUTE COUNT (AUTO) 0.00 x10^3/uL; NUCLEATED RED BLOOD CELLS AUTO 0.0 /100WBC; PLT - PLATELET COUNT 368 10^3/uL (130-450); RED CELL DISTRIBUTION WIDTH 17.8 % (12.0-15.0)
[2025-08-31 09:19] LABS: ALT ALANINE AMINOTRANSFERASE 12.0 IU/L (10-60); AST ASPARTATE AMINOTRANSFERASE 9.0 IU/L (10-42); BUN - BLOOD UREA NITROGEN 13.0 mg/dL (6-20); CARBON DIOXIDE - CO2 23.0 mmol/L (21-32); CREATININE 0.8 mg/dL (0.6-1.3); GFR - MDRD 82.0 (>89)
[2025-08-31] MEDS: FUROSEMIDE 20 MG/2 ML VIAL IVP SCH (12:45)
[2025-08-31 12:54] VITALS: O2SAT 99
[2025-08-31 16:41] VITALS: BP 146/90; TEMP 98.6
--- NOTE | 2025-08-31 17:09 | Labor Flowsheet ---
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, OB rn Datetime: 08/28/2025 22:04 Pulse: 93 SpO2 (%): 94 Datetime: 08/28/2025 22:01 Stage of : Recovery Communication Comments: risks c/s discussed with family Datetime: 08/28/2025 22:00 VITAL SIGNS NBP Sys/Mei/Mean (mmHg): 131 : 115 : 118 LaborFlag: Labor Datetime: 08/28/2025 21:56 Provider Reviewed Strip: Yes COMMUNICATION Communication: RN at Bedside; Provider at Bedside Notification Reason: Other Datetime: 08/28/2025 21:32 MEDICATIONS Tocolytics: Terbutaline 0.25mg Subcutaneous Medication Comments: L outer upper arm Datetime: 08/28/2025 21:11 ANESTHESIA Anesthesia Plans: Spinal Anesthesia Comments: completed Datetime: 08/28/2025 21:00 PROCEDURE TIME OUT Procedure Type: verbal Procedure Verify: Correct Patient Identity; Correct Side and Site are Marked; Agreement on Procedure to be Done; Correct Patient Position; Relevant Images and Results are Properly Labeled and Displayed; Addressed Need to Administer Antibiotics or Fluids for Irrigation; Safety Precautions Based on Patient History or Medication Use Epidural Positioning: Sitting Datetime: 08/28/2025 20:56 TEACHING Unit Routine: Medications Teaching Comments: spinal Datetime: 08/28/2025 20:53 I/O Interventions: Up to BR Patient Care Comments: BSC Datetime: 08/28/2025 20:28 Provider Notified (Name): Dr. Pj Datetime: 08/28/2025 20:21 ASSESSMENT A Monitor Mode: Telemetry FHR Baseline Rate : 130 FHR Baseline Changes: No Baseline Change Variability: Moderate 6-25 bpm Accelerations: 15X15 Decelerations: None Category: Category I PATIENT CARE Oxygen Method: Room Air Datetime: 08/28/2025 19:37 UTERINE ACTIVITY Monitor Mode: External Monitor Interventions for UA: Pierce Adjusted Frequency (min): 3-6 Quality: Mild Duration (sec): 50 Pattern: Normal: <= 5 Contractions in 10 Minutes Resting Tone (Palpate): Relaxed
== END 2025-08-31 16:39 | disposition home or self-care (01) | DRG 787 ==
LOC: WFO 16:45 → FBP 16:47
PROVIDERS: ADMIT Obstetrics & Gynecology; ATTEND Obstetrics & Gynecology

== ENCOUNTER 2025-09-01 11:15 | Inpatient (IN) ==
--- OUTSIDE RECORDS SUMMARY | 2025-09-01 11:33 | EXTERNAL MEDICAL SUMMARY RPT | Continuity of Care Document ---
Author Organization [place] Address [address] [place] [address] Phone Problems date description facility 2025-06-04 09:55 Leiomyoma of uterus, [facility]ie [facility]-04 09:55 Maternal care for be nign tumor of corpus uteri, unspecified [facility] 2025-06-04 09:58 Leiomyoma of uterus, [facility]ifie d [facility] 2025-06-04 09:58 Maternal care for be nign tumor of corpus uteri, unspecified trimester [facility] 2025-06-06 09:02 Leiomyoma of uterus, [facility]specifie d [facility] 2025-06-06 09:02 Maternal care for be nign tumor of corpus uteri, unspecified trimester [facility] 2025-06-06 09:04 Leiomyoma of uterus, unspecifie d [facility] 2025-06-06 09:04 Maternal care for be nign tumor of corpus uteri, unspecified [facility] 2025-06-06 09:05 Leiomyoma of uterus, [facility]specifie d [facility] 2025-06-06 09:05 Maternal care for be nign tumor of corpus uteri, unspecified trimester [facility] 2025-06-20 11:31 Gestational [pregnan cy-induced] hypertension without significant proteinuria, second trimester [facility] 2025-06-26 19:59 Gestational [pregnan cy-induced] hypertension without significant proteinuria, second trimester [facility] 2025-06-26 19:59 [facility]counter [facility] 2025-06-27 00:03 Gestational [pregnan cy-induced] hypertension without significant proteinuria, second trimester [facility] 2025-06-27 00:03 Encounter for [facility] 2025-06-28 09:25 Gestational [pregnan cy-induced] hypertension without significant proteinuria, second trimester [facility] 2025-06-28 09:25 Unspecified maternal hypertensi on, second trimester [facility] 2025-06-28 09:25 Encounter for screen ing for infections with a predominantly sexual mode of transmission [facility]25-06-28 09:25 Encounter for superv ision of normal , unspecified, unspecified [facility] 2025-06-29 00:04 Gestational [pregnan cy-induced] hypertension without significant proteinuria, second trimester [facility] 2025-06-29 00:04 Unspecified maternal hypertensi on, second trimester [facility] 2025-06-29 00:04 Encounter for screen ing for infections with a predominantly sexual mode of transmission [facility] 2025-06-29 00:04 Encounter for superv ision of normal , unspecified, unspecified trimester [facility] 2025-06-29 08:10 Unspecified maternal hypertensi on, second trimester [facility] 2025-07-02 08:10 Encounter for immunization [employer] 2025-07-02 08:11 Supervision of elderly tim van, second trimester [employer] [facility] 2025-07-02 08:11 Gestational [pregnan cy-induced] hypertension without significant proteinuria, second trimester [employer] [facility] 2025-07-02 08:11 Encounter for immunization [employer] [facility] 2025-07-02 08:11 27 weeks [facility] 2025-07-02 08:57 Abnormal glucose complicating p regnancy [employer] [facility] 2025-07-03 16:21 Abnormal glucose complicating p regnancy [employer] [facility] 2025-07-04 08:05 Gestational [pregnan cy-induced] hypertension without significant proteinuria, unspecified trimester [employer] 2025-07-04 08:05 Anemia complicating , third trimester [employer] [facility] 2025-07-04 08:05 Abnormal glucose complicating p regnancy [employer] [facility] 2025-07-05 00:03 Gestational [pregnan cy-induced] hypertension without significant proteinuria, unspecified trimester [employer] [facility] 2025-07-05 00:03 Anemia complicating , third trimester [employer] [facility] 2025-07-05 00:03 Abnormal glucose complicating p regnancy [employer] 2025-07-05 11:23 Gestational [pregnan cy-induced] hypertension without significant proteinuria, third trimester [employer] 2025-07-05 11:23 Gestational [pregnan cy-induced] hypertension without significant proteinuria, unspecified trimester [employer] 2025-07-05 14:46 Abnormal glucose complicating p regnancy [employer] 2025-07-09 07:24 Gestational [pregnan cy-induced] hypertension without significant proteinuria, unspecified trimester [employer] 2025-07-09 07:24 Gestational diabetes mellitus in , unspecified control [employer] 2025-07-09 13:03 Leiomyoma of uterus, unspecifie d [employer] 2025-07-09 13:03 Gestational [pregnan cy-induced] hypertension without significant proteinuria, unspecified trimester [employer] 2025-07-09 13:03 Gestational diabetes mellitus in , unspecified control [employer] 2025-07-09 13:03 Maternal care for be nign tumor of corpus uteri, unspecified trimester [employer] 2025-07-09 13:42 Encounter for immunization [employer] 2025-07-18 09:22 Gestational [pregnan cy-induced] hypertension without significant proteinuria, unspecified trimester [employer] 2025-07-18 09:22 Gestational diabetes mellitus in , unspecified control [employer] 2025-07-18 09:24 Gestational [pregnan cy-induced] hypertension without significant proteinuria, unspecified trimester [employer] 2025-07-18 09:24 Gestational diabetes mellitus in , unspecified control [employer] 2025-07-19 06:59 Encounter for superv ision of normal , unspecified, first trimester [employer] 2025-07-24 10:52 Anemia complicating , third trimester [employer] 2025-07-24 11:31 Anemia complicating , third trimester [employer] 2025-07-24 17:49 Anemia complicating , third trimester [employer] 2025-07-24 22:45 Unspecified maternal hypertensi on, second trimester [employer] 2025-07-25 00:02 Unspecified maternal hypertensi on, second trimester [facility] 2025-07-25 00:03 Anemia complicating , third trimester [facility] 2025-07-26 13:42 Gestational [pregnan cy-induced] hypertension without significant proteinuria, third trimester [facility] 2025-07-26 13:42 Encounter for immunization [facility] [employer] 2025-07-27 10:49 Unspecified maternal hypertensi on, second trimester [facility] 2025-07-30 07:47 Supervision of elderly tim van, third trimester [facility] 2025-07-30 07:47 Gestational [pregnan cy-induced] hypertension without significant proteinuria, third trimester [facility] 2025-07-30 07:47 Unspecified maternal hypertensi on, second trimester [facility] 2025-07-30 07:47 31 weeks [facility] 2025-07-31 15:47 Leiomyoma of uterus, unspecifie d [facility] 2025-07-31 15:47 Maternal care for be nign tumor of corpus uteri, unspecified trimester [facility] 2025-07-31 15:51 Gestational [pregnan cy-induced] hypertension without significant proteinuria, second trimester [employer] [facility] 2025-07-31 15:51 Anemia complicating , third trimester [facility] 2025-08-01 00:01 Leiomyoma of uterus, unspecifie d [employer] [facility] 2025-08-01 00:01 Maternal care for be nign tumor of corpus uteri, unspecified trimester [employer] [facility] 2025-08-03 06:49 Dietary counseling and surveill ance [employer] 2025-08-03 06:56 Anemia complicating , third trimester [employer] [facility] 2025-08-03 06:56 Anemia complicating , unspecified trimester [employer] [facility] 2025-08-03 16:00 Gestational [pregnan cy-induced] hypertension without significant proteinuria, unspecified trimester [facility] 2025-08-03 16:00 Encounter for superv ision of normal , unspecified, unspecified trimester [employer] 2025-08-06 10:27 Gestational [pregnan cy-induced] hypertension without significant proteinuria, second trimester [facility] 2025-08-06 10:27 Anemia complicating , third trimester [facility] 2025-08-06 10:33 Gestational [pregnan cy-induced] hypertension without significant proteinuria, third trimester [facility] 2025-08-06 10:34 Gestational [pregnan cy-induced] hypertension without significant proteinuria, unspecified trimester [facility] 2025-08-06 10:34 Encounter for superv ision of normal , unspecified, unspecified trimester [facility] 2025-08-06 12:09 Anemia complicating , third trimester [facility] 2025-08-10 14:58 Anemia complicating , third trimester [facility] 2025-08-10 14:58 Anemia complicating , unspecified trimester [facility] 2025-08-10 15:01 Anemia complicating , third trimester [facility] 2025-08-10 16:14 Gestational [pregnan cy-induced] hypertension without significant proteinuria, unspecified trimester [facility] 2025-08-11 00:04 Anemia complicating , third trimester [facility] 2025-08-14 12:12 Supervision of elderly tim van, third trimester [facility] 2025-08-14 12:12 Gestational [pregnan cy-induced] hypertension without significant proteinuria, unspecified trimester [facility] 2025-08-15 08:21 Leiomyoma of uterus, unspecifie d [facility] 2025-08-15 08:21 Gestational [pregnan cy-induced] hypertension without significant proteinuria, unspecified trimester [facility] 2025-08-15 08:21 Gestational diabetes mellitus in , unspecified control [employer] 2025-08-15 08:21 Maternal care for be nign tumor of corpus uteri, unspecified trimester [facility] 2025-08-15 09:21 Acute upper respiratory infecti on, unspecified [employer] 2025-08-15 09:21 Strain of muscle and tendon of back wall of thorax, initial encounter [employer] 2025-08-16 07:25 Leiomyoma of uterus, unspecifie d [employer] 2025-08-16 07:25 Acute upper respiratory infecti on, unspecified [facility] 2025-08-16 07:25 Gestational [pregnan cy-induced] hypertension without significant proteinuria, unspecified trimester [facility] 2025-08-16 07:25 Gestational diabetes mellitus in , unspecified control [facility] 2025-08-16 07:25 Maternal care for be nign tumor of corpus uteri, unspecified trimester [facility] 2025-08-16 07:25 Strain of muscle and tendon of back wall of thorax, initial encounter [facility] 2025-08-16 10:08 Fracture of one rib, unspecified side, initial encounter for closed fracture [facility] 2025-08-16 10:29 Fracture of one rib, unspecified side, initial encounter for closed fracture [employer] [facility] 2025-08-16 10:39 Fracture of one rib, unspecified side, initial encounter for closed fracture [employer] [facility] 2025-08-17 08:37 Acute upper respiratory infecti on, unspecified [facility] 2025-08-17 08:37 Other specified disorders of no se and nasal sinuses [employer] [facility] 2025-08-17 08:37 Other specified cough [facility] 2025-08-17 08:37 [facility]urodynia [facility] 2025-08-17 08:37 Strain of muscle and tendon of back wall of thorax, [facility] encounter [facility] 2025-[facility]-20 08:50 Other specified dise ases and conditions complicating [employer] [facility] 2025-08-20 08:50 Other chest pain [facility] 2025-08-20 08:50 Left upper quadrant pain [employer] 2025-08-20 08:50 Fracture of one rib, unspecified side, initial encounter for closed fracture [employer] [facility] 2025-08-20 12:06 Anemia complicating , third trimester [facility] 2025-08-20 12:06 Anemia complicating , unspecified trimester [facility] 2025-08-20 12:10 Anemia complicating , third trimester [facility] 2025-08-20 12:10 Anemia complicating , unspecified trimester [facility] 2025-08-20 14:25 Other specified preg caitlin related conditions, third trimester [facility] 2025-08-20 14:25 [facility]25[facility] 14:25 Left upper quadrant pain [employer] 2025-08-21 18:38 Leiomyoma of uterus, unspecifie d [facility] 2025-08-21 18:38 Gestational [pregnan cy-induced] hypertension without significant proteinuria, unspecified trimester [facility] 2025-08-21 18:38 Gestational diabetes mellitus in , unspecified control [facility] 2025-08-21 18:38 Maternal care for be nign tumor of corpus uteri, unspecified trimester [facility] 2025-08-22 08:50 Anemia complicating , third trimester [facility] 2025-08-22 08:50 Anemia complicating , unspecified trimester [facility] 2025-08-22 13:21 Anemia complicating , third trimester [facility] 2025-08-22 13:21 Anemia complicating , unspecified trimester [facility] 2025-08-24 08:07 Anemia complicating , third trimester [facility] 2025-08-25 00:02 Supervision of high risk , unspecified, third trimester [facility] 2025-08-25 00:02 Gestational [pregnan cy-induced] hypertension without significant proteinuria, unspecified trimester [facility] 2025-08-25 00:02 Encounter for screening for tanner betes mellitus [facility] 2025-08-27 08:44 Other specified dise ases and conditions complicating [facility] 2025-08-27 08:44 Other chest pain [facility] 2025-08-27 08:44 Left upper quadrant pain [employer] 2025-08-27 09:09 Gestational [pregnan cy-induced] hypertension without significant proteinuria, third trimester [facility] 2025-08-28 15:47 Leiomyoma of uterus, unspecifie d [employer] 2025-08-28 15:47 Maternal care for be nign tumor of corpus uteri, unspecified trimester [facility] 2025-08-28 18:24 Supervision of high risk , unspecified, third trimester [facility] 2025-08-28 18:24 Severe pre-eclampsia, unspecifi ed trimester [facility] 2025-08-28 18:26 Supervision of high risk , unspecified, third trimester [facility] 2025-08-28 18:26 Severe pre-eclampsia, unspecifi ed trimester [facility] 2025-08-28 20:23 Leiomyoma of uterus, unspecifie d [facility] 2025-08-28 20:23 Supervision of high risk , unspecified, third trimester [facility] 2025-08-28 20:23 Severe pre-eclampsia, unspecifi ed trimester [facility] 2025-08-28 20:23 Maternal care for br eech presentation, not applicable or unspecified [facility] 2025-08-28 20:23 Maternal care for be nign tumor of corpus uteri, unspecified trimester [facility] 2025-08-28 20:24 Leiomyoma of uterus, unspecifie d [facility] 2025-08-28 20:24 Supervision of high risk , unspecified, third trimester [facility] 2025-08-28 20:24 Severe pre-eclampsia, unspecifi ed trimester [facility] 2025-08-28 20:24 Maternal care for br eech presentation, not applicable or unspecified [facility] 2025-08-28 20:24 Maternal care for be nign tumor of corpus uteri, unspecified trimester [facility] 2025-08-28 20:46 Leiomyoma of uterus, unspecifie d [facility] 2025-08-28 20:46 Supervision of high risk , unspecified, third trimester [facility] 2025-08-28 20:46 Severe pre-eclampsia, unspecifi ed trimester [facility] 2025-08-28 20:46 Maternal care for br eech presentation, not applicable or unspecified [facility] 2025-08-28 20:46 Maternal care for be nign tumor of corpus uteri, unspecified trimester [facility] 2025-08-28 21:58 Leiomyoma of uterus, unspecifie d [facility] 2025-08-28 21:58 Supervision of high risk , unspecified, third trimester [facility] 2025-08-28 21:58 Severe pre-eclampsia, unspecifi ed trimester [facility] 2025-08-28 21:58 Maternal care for br eech presentation, not applicable or unspecified [facility] 2025-08-28 21:58 Maternal care for be nign tumor of corpus uteri, unspecified trimester [facility] 2025-08-28 23:40 Leiomyoma of uterus, unspecifie d [facility] 2025-08-28 23:40 Supervision of high risk , unspecified, third trimester [facility] 2025-08-28 23:40 Severe pre-eclampsia, unspecifi ed trimester [facility] 2025-08-28 23:40 Maternal care for br eech presentation, not applicable or unspecified [facility] 2025-08-28 23:40 Maternal care for be nign tumor of corpus uteri, unspecified trimester [facility] 2025-08-29 00:02 Leiomyoma of uterus, unspecifie d [facility] 2025-08-29 00:02 Supervision of high risk , unspecified, third trimester [facility] 2025-08-29 00:02 Gestational [pregnan cy-induced] hypertension without significant proteinuria, unspecified trimester [facility] 2025-08-29 00:02 Maternal care for be nign tumor of corpus uteri, unspecified trimester [facility] 2025-08-29 00:02 Encounter for screening for tanner betes mellitus [facility] 2025-08-29 11:14 Leiomyoma of uterus, unspecifie d [facility] 2025-08-29 11:14 Supervision of high risk , unspecified, third trimester [employer] [facility] 2025-08-29 11:14 Severe pre-eclampsia, unspecifi ed trimester [facility] 2025-08-29 11:14 Maternal care for br eech presentation, not applicable or unspecified [facility] 2025-08-29 11:14 Maternal care for be nign tumor of corpus uteri, unspecified trimester [employer] [facility] 2025-08-29 15:26 Gestational [pregnan cy-induced] hypertension without significant proteinuria, third trimester [facility] 2025-08-30 11:14 Leiomyoma of uterus, unspecifie d [facility] 2025-08-30 11:14 [facility]orrh[facility] 2025-08-30 11:14 Supervision of high risk , unspecified, third trimester [facility] 2025-08-30 11:14 Severe pre-eclampsia, unspecifi ed trimester [facility] 2025-08-30 11:14 Maternal care for br eech presentation, not applicable or unspecified [facility] 2025-08-30 11:14 Maternal care for be nign tumor of corpus uteri, unspecified trimester [facility] 2025-08-30 11:14 Anemia complicating , third trimester [facility] 2025-08-30 11:14 Encounter for routine postpartu m follow-up [facility] 2025-08-31 06:39 Maternal care for be nign tumor of corpus uteri, unspecified trimester [facility] 2025-08-31 12:30 Leiomyoma of uterus, unspecifie d [facility] 2025-08-31 12:30 Acute posthemorrhagic anemia [facility] 2025-08-31 12:30 Supervision of high risk , unspecified, third trimester [facility] 2025-08-31 12:30 Severe pre-eclampsia, unspecifi ed trimester [facility] 2025-08-31 12:30 Maternal care for br eech presentation, not applicable or unspecified [facility] 2025-08-31 12:30 Maternal care for be nign tumor of corpus uteri, unspecified [facility] 2025-08-31 12:30 Anemia complicating , third [facility] 2025-08-31 12:30 Encounter for routine postpartu m follow-up [facility] 2025-08-31 14:45 Supervision of high risk , unspecified, third trimester [facility] 2025-08-31 14:46 Supervision of high risk , unspecified, third trimester [facility] 2025-08-31 14:46 Gestational [pregnan cy-induced] hypertension without significant proteinuria, unspecified trimester [facility] 2025-08-31 14:46 Encounter for screening for tanner betes mellitus [facility] 2025-[facility] 17:07 Leiomyoma of uterus, unspecifie d [employer] [facility] 2025-08-31 17:07 Acute posthemorrhagic anemia [facility] 2025-08-31 17:07 Supervision of high risk , unspecified, third trimester [employer] [facility] 2025-08-31 17:07 Severe pre-eclampsia, unspecifi ed trimester [employer] [facility] 2025-08-31 17:07 Maternal care for br eech presentation, not applicable or unspecified [employer] [facility] 2025-08-31 17:07 Maternal care for be nign tumor of corpus uteri, unspecified trimester [employer] [facility] 2025-08-31 17:07 Anemia complicating , third trimester [employer] [facility] 2025-08-31 17:07 Encounter for routine postpartu m follow-up [employer] 2025-08-31 17:08 Leiomyoma of uterus, unspecifie d [employer] [facility] 2025-08-31 17:08 Acute posthemorrhagic anemia [employer] 2025-08-31 17:08 Supervision of high risk , unspecified, third trimester [employer] [facility] 2025-08-31 17:08 Severe pre-eclampsia, unspecifi ed trimester [employer] [facility] 2025-08-31 17:08 Maternal care for br eech presentation, not applicable or unspecified [employer] [facility] 2025-08-31 17:08 Maternal care for be nign tumor of corpus uteri, unspecified trimester [employer] [facility] 2025-08-31 17:08 Anemia complicating , third trimester [employer] 2025-08-31 17:08 Encounter for routine postpartu m follow-up [facility] 2025-09-01 01:13 Leiomyoma of uterus, unspecifie d [facility] 2025-09-01 01:13 Acute posthemorrhagic anemia [facility] 2025-09-01 01:13 Supervision of high risk , unspecified, third trimester [facility] 2025-09-01 01:13 Severe pre-eclampsia, unspecifi ed [facility] 01:13 Maternal care for br eech presentation, not applicable or unspecified [employer] 2025-09-01 01:13 Maternal care for be nign tumor of corpus uteri, unspecified trimester [facility] 2025-09-01 01:13 Anemia complicating , third trimester [facility] 2025-09-01 01:13 Encounter for routine postpartu m follow-up [facility] Results/Labs test date facility value unit notes Result panel 1 PROTEIN/CREATININE RATIO,URINE 2025-06-28 09:36 [facility] 0.1 (missing) (missing) TOTAL PROTEIN,URINE TIMED 2025-06-28 09:36 [employer] 11 mg/dl As of April 2023 testing method has changed, this may include reference ranges. CREATININE,URINE 2025-06-28 09:36 [facility] 88.2 mg/dl As of April 2023 testing method has changed, this may include reference ranges. Result panel 2 BILIRUBIN,TOTAL 2025-06-28 10:35 [facility] 0.3 mg/dl As of April 2023 testing method has changed, this may include reference ranges. CREATININE 2025-06-28 10:35 [facility] 0.5 mg/dl As of April 2023 testing method has changed, this may include reference ranges. ALBUMIN/GLOBULIN RATIO 2025-06-28 10:35 [facility] 1.3 (missing) (missing) HGB - HEMOGLOBIN 2025-06-28 10:35 [facility] 10.1 g/dl (missing) CHLORIDE 2025-06-28 10:35 [facility] 104 mmol/l As of April 2023 testing method has changed, this may include reference ranges. ALT ALANINE AMINOTRANSFERASE 2025-06-28 10:35 [facility] 11 iu/l As of April 2023 testing method has changed, this may include reference ranges. RED CELL DISTRIBUTION WIDTH 2025-06-28 10:35 [facility] 12.4 % (missing) SODIUM 2025-06-28 10:35 [facility] 136 mmol/l (missing) GFR - MDRD 2025-06-28 10:35 [facility] 140 (missing) The IDMS-traceable MDRD Study Equation [...] December 2011. WHITE BLOOD COUNT 2025-06-28 10:35 [facility] 15.3 x10 3/ul (missing) GLUCOSE,1H PP 50GM DOSE 2025-06-28 10:35 [facility] 181 mg/dl 50g Challenge 1 hr post Glucose < 140 mg/dL Reference: [employer] As of April 2023 testing method has changed, this may include reference ranges. GLUCOSE 2025-06-28 10:35 [facility] 181 mg/dl As of April 2023 testing method has changed, this may include reference ranges. GLOBULIN 2025-06-28 10:35 [facility] 2.8 g/dl (missing) CARBON DIOXIDE - CO2 2025-06-28 10:35 [facility] 24 mmol/l As of April 2023 testing method has changed, this may include reference ranges. POTASSIUM 2025-06-28 10:35 [facility] 3.3 mmol/l As of April 2023 testing method has changed, this may include reference ranges. RED BLOOD COUNT 2025-06-28 10:35 [facility] 3.34 10 6/ul (missing) ALBUMIN 2025-06-28 10:35 [facility] 3.5 g/dl As of April 2023 testing method has changed, this may include reference ranges. MEAN CORPUSCULAR HEMOGLOBIN 2025-06-28 10:35 [facility] 30.2 pg (missing) HCT - HEMATOCRIT 2025-06-28 10:35 [facility] 30.5 % (missing) MEAN CORPUSCULAR HGB CONC 2025-06-28 10:35 [facility] 33.1 g/dl (missing) PLT - PLATELET COUNT 2025-06-28 10:35 [facility] 391 10 3/ul (missing) BUN - BLOOD UREA NITROGEN 2025-06-28 10:35 [facility] 6 mg/dl As of April 2023 testing method has changed, this may include reference ranges. TOTAL PROTEIN 2025-06-28 10:35 [facility] 6.3 g/dl As of April 2023 testing method has changed, this may include reference ranges. ALKALINE PHOSPHATASE 2025-06-28 10:35 [facility] 66 iu/l As of April 2023 testing method has changed, this may include reference ranges. ANION GAP 2025-06-28 10:35 [facility] 8.0 (missing) (missing) CALCIUM 2025-06-28 10:35 [facility] 8.8 mg/dl As of April 2023 testing method has changed, this may include reference ranges. AST ASPARTATE AMINOTRANSFERASE 2025-06-28 10:35 [facility] 9 iu/l As of April 2023 testing method has changed, this may include reference ranges. MEAN PLATELET VOLUME 2025-06-28 10:35 [facility] 9.1 fl (missing) MEAN CORPUSCULAR VOLUME 2025-06-28 10:35 [facility] 91.3 fl (missing) RPR 2025-06-28 10:35 [facility] Non Reactive (missing) Performed at: [facility] [address] [id number] [employer] Insurance Sales Manager: Jamar Spears MD, Phone: [phone] Result panel 3 GLUCOSE TOLERANCE 3HR 2025-07-04 08:12 [facility] (missing) (missing) GLU FAST 88 mg/dL Col [...] time points is a positive test. Reference: [facility] Result panel 4 BILIRUBIN,TOTAL 2025-07-04 08:15 [facility] 0.3 mg/dl As of April 2023 testing method has changed, this may include reference ranges. CREATININE 2025-07-04 08:15 [facility] 0.5 mg/dl As of April 2023 testing method has changed, this may include reference ranges. ALBUMIN/GLOBULIN RATIO 2025-07-04 08:15 [facility] 1.5 (missing) (missing) CHLORIDE 2025-07-04 08:15 [facility] 105 mmol/l As of April 2023 testing method has changed, this may include reference ranges. RED CELL DISTRIBUTION WIDTH 2025-07-04 08:15 [facility] 12.5 % (missing) SODIUM 2025-07-04 08:15 [facility] 135 mmol/l (missing) GFR - MDRD 2025-07-04 08:15 [facility] 140 (missing) The IDMS-traceable MDRD Study Equation [...] December 2011. WHITE BLOOD COUNT 2025-07-04 08:15 [facility] 15.3 x10 3/ul (missing) GLOBULIN 2025-07-04 08:15 [facility] 2.4 g/dl (missing) CARBON DIOXIDE - CO2 2025-07-04 08:15 [facility] 24 mmol/l As of April 2023 testing method has changed, this may include reference ranges. HCT - HEMATOCRIT 2025-07-04 08:15 [facility] 28.6 % (missing) RED BLOOD COUNT 2025-07-04 08:15 [facility] 3.16 10 6/ul (missing) ALBUMIN 2025-07-04 08:15 [facility] 3.5 g/dl As of April 2023 testing method has changed, this may include reference ranges. POTASSIUM 2025-07-04 08:15 [facility] 3.5 mmol/l As of April 2023 testing method has changed, this may include reference ranges. MEAN CORPUSCULAR HEMOGLOBIN 2025-07-04 08:15 [facility] 30.7 pg (missing) MEAN CORPUSCULAR HGB CONC 2025-07-04 08:15 [facility] 33.9 g/dl (missing) PLT - PLATELET COUNT 2025-07-04 08:15 [facility] 394 10 3/ul (missing) TOTAL PROTEIN 2025-07-04 08:15 [facility] 5.9 g/dl As of April 2023 testing method has changed, this may include reference ranges. ANION GAP 2025-07-04 08:15 [facility] 6.0 (missing) (missing) FERRITIN 2025-07-04 08:15 [facility] 6.1 ng/ml (missing) ALKALINE PHOSPHATASE 2025-07-04 08:15 [facility] 68 iu/l As of April 2023 testing method has changed, this may include reference ranges. ALT ALANINE AMINOTRANSFERASE 2025-07-04 08:15 [facility] 7 iu/l As of April 2023 testing method has changed, this may include reference ranges. BUN - BLOOD UREA NITROGEN 2025-07-04 08:15 [facility] 7 mg/dl As of April 2023 testing method has changed, this may include reference ranges. AST ASPARTATE AMINOTRANSFERASE 2025-07-04 08:15 [facility] 8 iu/l As of April 2023 testing method has changed, this may include reference ranges. CALCIUM 2025-07-04 08:15 [facility] 8.8 mg/dl As of April 2023 testing method has changed, this may include reference ranges. GLUCOSE 2025-07-04 08:15 [facility] 88 mg/dl As of April 2023 testing method has changed, this may include reference ranges. MEAN PLATELET VOLUME 2025-07-04 08:15 [facility] 9.1 fl (missing) HGB - HEMOGLOBIN 2025-07-04 08:15 [facility] 9.7 g/dl (missing) MEAN CORPUSCULAR VOLUME 2025-07-04 08:15 [facility] 90.5 fl (missing) Result panel 5 PROTEIN/CREATININE RATIO,URINE 2025-07-04 08:57 [facility] 0.2 (missing) (missing) TOTAL PROTEIN,URINE TIMED 2025-07-04 08:57 [facility] 13 mg/dl As of April 2023 testing method has changed, this may include reference ranges. CREATININE,URINE 2025-07-04 08:57 [facility] 85.9 mg/dl As of April 2023 testing method has changed, this may include reference ranges. Result panel 6 NUCLEATED RED BLOOD CELLS AUTO 2025-07-31 16:05 [facility] 0.0 /100wbc (missing) NRBC ABSOLUTE COUNT (AUTO) 2025-07-31 16:05 [facility] 0.00 x10 3/ul (missing) BASOPHILS # (AUTO) 2025-07-31 16:05 [facility] 0.1 10 3/ul (missing) EOSINOPHILS # (AUTO) 2025-07-31 16:05 [facility] 0.2 10 3/ul (missing) BILIRUBIN,TOTAL 2025-07-31 16:05 [facility] 0.3 mg/dl As of April 2023 testing method has changed, this may include reference ranges. CREATININE 2025-07-31 16:05 [facility] 0.5 mg/dl As of April 2023 testing method has changed, this may include reference ranges. MONOCYTES # (AUTO) 2025-07-31 16:05 [facility] 1.1 10 3/ul (missing) ALBUMIN/GLOBULIN RATIO 2025-07-31 16:05 [facility] 1.5 (missing) (missing) AST ASPARTATE AMINOTRANSFERASE 2025-07-31 16:05 [facility] 10 iu/l As of April 2023 testing method has changed, this may include reference ranges. BUN - BLOOD UREA NITROGEN 2025-07-31 16:05 [facility] 10 mg/dl As of April 2023 testing method has changed, this may include reference ranges. CHLORIDE 2025-07-31 16:05 [facility] 106 mmol/l As of April 2023 testing method has changed, this may include reference ranges. NEUTROPHILS # (AUTO) 2025-07-31 16:05 [facility] 11.0 10 3/ul (missing) SODIUM 2025-07-31 16:05 [facility] 137 mmol/l Unknown ALT ALANINE AMINOTRANSFERASE 2025-07-31 16:05 [facility] 14 iu/l As of April 2023 testing method has changed, this may include reference ranges. GFR - MDRD 2025-07-31 16:05 [facility] 140 (missing) The IDMS-traceable MDRD Study Equation [...] 2011. RED CELL DISTRIBUTION WIDTH 2025-07-31 16:05 [facility] 15.3 % (missing) WHITE BLOOD COUNT 2025-07-31 16:05 [facility] 15.4 x10 3/ul (missing) GLOBULIN 2025-07-31 16:05 [facility] 2.4 g/dl (missing) LYMPHOCYTES # (AUTO) 2025-07-31 16:05 [facility] 2.9 10 3/ul (missing) RED BLOOD COUNT 2025-07-31 16:05 [facility] 2.99 10 6/ul (missing) CARBON DIOXIDE - CO2 2025-07-31 16:05 [facility] 24 mmol/l As of April 2023 testing method has changed, this may include reference ranges. HCT - HEMATOCRIT 2025-07-31 16:05 [facility] 28.0 % (missing) MEAN CORPUSCULAR HEMOGLOBIN 2025-07-31 16:05 [facility] 29.1 pg (missing) ALBUMIN 2025-07-31 16:05 [facility] 3.6 g/dl As of April 2023 testing method has changed, this may include reference ranges. POTASSIUM 2025-07-31 16:05 [facility] 3.7 mmol/l As of April 2023 testing method has changed, this may include reference ranges. MEAN CORPUSCULAR HGB CONC 2025-07-31 16:05 [facility] 31.1 g/dl (missing) TRANSFERRIN 2025-07-31 16:05 [facility] 326 mg/dl As of April 2023 testing method has changed, this may include reference ranges. IRON 2025-07-31 16:05 [facility] 38 ug/dl As of April 2023 testing method has changed, this may include reference ranges. PLT - PLATELET COUNT 2025-07-31 16:05 [facility] 436 10 3/ul (missing) TOTAL IRON BINDING CAPACITY 2025-07-31 16:05 [facility] 456 ug/dl (missing) TOTAL PROTEIN 2025-07-31 16:05 [facility] 6.0 g/dl As of April 2023 testing method has changed, this may include reference ranges. ANION GAP 2025-07-31 16:05 [facility] 7.0 (missing) (missing) % IRON SATURATION 2025-07-31 16:05 [facility] 8 % (missing) HGB - HEMOGLOBIN 2025-07-31 16:05 [facility] 8.7 g/dl (missing) ALKALINE PHOSPHATASE 2025-07-31 16:05 [facility] 82 iu/l As of April 2023 testing method has changed, this may include reference ranges. FERRITIN 2025-07-31 16:05 [facility] 89.2 ng/ml (missing) MEAN PLATELET VOLUME 2025-07-31 16:05 [facility] 9.2 fl (missing) CALCIUM 2025-07-31 16:05 [facility] 9.2 mg/dl As of April 2023 testing method has changed, this may include reference ranges. GLUCOSE 2025-07-31 16:05 [facility] 93 mg/dl As of April 2023 testing method has changed, this may include reference ranges. MEAN CORPUSCULAR VOLUME 2025-07-31 16:05 [facility] 93.6 fl (missing) Result panel 7 TOTAL PROTEIN,URINE TIMED 2025-07-31 16:07 [facility] < 4 mg/dl As of Apr testing method has changed, this may include reference ranges. CREATININE,URINE 2025-07-31 16:07 [facility] 20.1 m g/dl As of April 2023 testing method has changed, this may include reference ranges. PROTEIN/CREATININE RATIO,URINE 2025-07-31 16:07 [facility] TNP (missing) Unable to calculate. Analyte below the measurable range. Result panel 8 NUCLEATED RED BLOOD CELLS AUTO 2025-08-10 15:11 [facility] 0.0 /100wbc (missing) NRBC ABSOLUTE COUNT (AUTO) 2025-08-10 15:11 [facility] 0.00 x10 3/ul (missing) BASOPHILS # (AUTO) 2025-08-10 15:11 [facility] 0.1 10 3/ul (missing) ABSOLUTE RETICS # AUTO 2025-08-10 15:11 [facility] 0.115 10 6/ul (missing) EOSINOPHILS # (AUTO) 2025-08-10 15:11 [facility] 0.2 10 3/ul (missing) THYROID STIMULATING HORMONE 2025-08-10 15:11 [facility] 0.32 uiu/ml (missing) FREE T4 (FREE THYROXINE) 2025-08-10 15:11 [facility] 0.55 ng/dl Biotin at >10 ng/mL concentration may cause significant interference. MONOCYTES # (AUTO) 2025-08-10 15:11 [facility] 0.9 10 3/ul (missing) NEUTROPHILS # (AUTO) 2025-08-10 15:11 [facility] 10.6 10 3/ul (missing) VITAMIN B12 2025-08-10 15:11 [facility] 130 pg/ml VITAMIN B12 RANGES: NORMAL 180 - 914 INDETERMINATE 145 -180 DEFICIENT < 145 WHITE BLOOD COUNT 2025-08-10 15:11 [facility] 14.8 x10 3/ul (missing) RED CELL DISTRIBUTION WIDTH 2025-08-10 15:11 [facility] 16.0 % (missing) LYMPHOCYTES # (AUTO) 2025-08-10 15:11 [facility] 2.9 10 3/ul (missing) MEAN CORPUSCULAR HEMOGLOBIN 2025-08-10 15:11 [facility] 29.0 pg (missing) RED BLOOD COUNT 2025-08-10 15:11 [facility] 3.19 10 6/ul (missing) RED BLOOD COUNT 2025-08-10 15:11 [facility] 3.28 10 6/ul (missing) RETICULOCYTE COUNT % (AUTO) 2025-08-10 15:11 [facility] 3.61 % (missing) HCT - HEMATOCRIT 2025-08-10 15:11 [facility] 30.4 % (missing) MEAN CORPUSCULAR HGB CONC 2025-08-10 15:11 [facility] 31.3 g/dl (missing) FOLATE 2025-08-10 15:11 [facility] 34.2 ng/ml (missing) PLT - PLATELET COUNT 2025-08-10 15:11 [facility] 463 10 3/ul (missing) ERYTHROPOIETIN (EPO) 2025-08-10 15:11 [facility] 47.3 miu/ml Repeatit DxI 800 Immunoassay System Values obtained with different assay methods or kits cannot be used interchangeably. Results cannot be interpreted as absolute evidence of the presence or absence of malignant disease. Performed at: [id number], [place], [place] [id number] [employer] Sales Manager: Gracie Mayberry MD, Phone: [phone] MEAN PLATELET VOLUME 2025-08-10 15:11 [facility] 9.0 fl (missing) HGB - HEMOGLOBIN 2025-08-10 15:11 [facility] 9.5 g/dl (missing) MEAN CORPUSCULAR VOLUME 2025-08-10 15:11 [facility] 92.7 fl (missing) Result panel 9 PROTEIN/CREATININE RATIO,URINE 2025-08-16 07:40 [facility] 0.1 (missing) (missing) UROBILINOGEN,URINE 2025-08-16 07:40 [facility] 0.2 (NORMAL) e.u./dl (missing) SPECIFIC GRAVITY,URINE 2025-08-16 07:40 [facility] 1.010 (missing) (missing) CREATININE,URINE 2025-08-16 07:40 [...] CATCH Result panel 10 LIPASE 2025-08-16 07:55 [facility] < 10 u/l As of April 2023 testing method has changed, this may include reference ranges. NUCLEATED RED BLOOD CELLS AUTO 2025-08-16 07:55 [facility] 0.0 /100wbc (missing) [facility] ABSOLUTE COUNT (AUTO) 2025-08-16 07:55 [facility] 0.00 x10 3/ul (missing) BASOPHILS # (AUTO) 2025-08-16 07:55 [facility] 0.1 10 3/ul (missing) EOSINOPHILS # (AUTO) 2025-08-16 07:55 [facility] 0.1 10 3/ul (missing) BILIRUBIN,TOTAL 2025-08-16 07:55 [facility] 0.5 mg /dl As of April 2023 testing method has changed, this may include reference ranges. CREATININE 2025-08-16 07:55 [facility] 0.6 mg/dl As of April 2023 testing method has changed, this may include reference ranges. MONOCYTES # (AUTO) 2025-08-16 07:55 [facility] 0.8 10 3/ul (missing) ALBUMIN/GLOBULIN RATIO 2025-08-16 07:55 [facility] 1.4 (missing) (missing) MAGNESIUM 2025-08-16 07:55 [facility] 1.6 mg/dl As of April 2023 testing method has changed, this may include reference ranges. CHLORIDE 2025-08-16 07:55 [facility] 106 mmol/l As of April 2023 testing method has changed, this may include reference ranges. GFR - MDRD 2025-08-16 07:55 [facility] 114 (missin g) The IDMS-traceable MDRD Study Equation has [...] December 2011. WHITE BLOOD COUNT 2025-08-16 07:55 [facility] 12.4 x10 3/ul (missing) ALT ALANINE AMINOTRANSFERASE 2025-08-16 07:55 [facility] 13 iu/l As of April 2023 testing method has changed, this may include reference ranges. SODIUM 2025-08-16 07:55 [facility] 139 mmol/l (missing) RED CELL DISTRIBUTION WIDTH 2025-08-16 07:55 [facility] 15.9 % (missing) LYMPHOCYTES # (AUTO) 2025-08-16 07:55 [facility] 2.4 10 3/ul (missing) GLOBULIN 2025-08-16 07:55 [facility] 2.6 g/dl (missing) CARBON DIOXIDE - CO2 2025-08-16 07:55 [facility] 24 mmol/l As of April 2023 testing method has changed, this may include reference ranges. HCT - HEMATOCRIT 2025-08-16 07:55 [facility] 28.5 % (missing) MEAN CORPUSCULAR HEMOGLOBIN 2025-08-16 07:55 [facility] 29.3 pg (missing) RED BLOOD COUNT 2025-08-16 07:55 [facility] 3.11 10 6/ul (missing) POTASSIUM 2025-08-16 07:55 [facility] 3.4 mmol/l As of April 2023 testing method has changed, this may include reference ranges. ALBUMIN 2025-08-16 07:55 [facility] 3.6 g/dl As of April 2023 testing method has changed, this may include reference ranges. MEAN CORPUSCULAR HGB CONC 2025-08-16 07:55 [facility] 31.9 g/dl (missing) PLT - PLATELET COUNT 2025-08-16 07:55 [facility] 442 10 3/ul (missing) BUN - BLOOD UREA NITROGEN 2025-08-16 07:55 [facility] 6 mg/dl As of Apr testing method has changed, this may include reference ranges. TOTAL PROTEIN 2025-08-16 07:55 [facility] 6.2 g/dl As of April 2023 testing method has changed, this may include reference ranges. NEUTROPHILS # (AUTO) 2025-08-16 07:55 [facility] 8.9 10 3/ul (missing) MEAN PLATELET VOLUME 2025-08-16 07:55 [facility] 8.9 fl (missing) AST ASPARTATE AMINOTRANSFERASE 2025-08-16 07:55 [facility] 9 iu/l As of April 2023 testing method has changed, this may include reference ranges. ANION GAP 2025-08-16 07:55 [facility] 9.0 (missing ) (missing) CALCIUM 2025-08-16 07:55 [facility] 9.0 mg/dl As of April 2023 testing method has changed, this may include reference ranges. HGB - HEMOGLOBIN 2025-08-16 07:55 [facility] 9.1 g /dl (missing) MEAN CORPUSCULAR VOLUME 2025-08-16 07:55 [facility] 91.6 fl (missing) ALKALINE PHOSPHATASE 2025-08-16 07:55 [facility] 99 iu/l As of April 2023 testing method has changed, this may include reference ranges. GLUCOSE 2025-08-16 07:55 [facility] 99 mg/dl As of April 2023 testing method has changed, this may include reference ranges. Result panel 11 PROTEIN/CREATININE RATIO,URINE 2025-08-21 21:03 [facility] 0.1 (missing) (missing) TOTAL PROTEIN,URINE TIMED 2025-08-21 21:03 [facility] 5 mg/dl As of April 2023 testing method has changed, this may include reference ranges. CREATININE,URINE 2025-08-21 21:03 [facility] 50.7 mg/dl As of April 2023 testing method has changed, this may include reference ranges. Result panel 12 NUCLEATED RED BLOOD CELLS AUTO 2025-08-21 21:31 [facility] 0.0 /100wbc (missing) NRBC ABSOLUTE COUNT (AUTO) 2025-08-21 21:31 [facility] 0.00 x10 3/ul (missing) BASOPHILS # (AUTO) 2025-08-21 21:31 [facility] 0.1 10 3/ul (missing) EOSINOPHILS # (AUTO) 2025-08-21 21:31 [facility] 0.2 10 3/ul (missing) BILIRUBIN,TOTAL 2025-08-21 21:31 [facility] 0.5 mg/dl As of April 2023 testing method has changed, this may include reference ranges. CREATININE 2025-08-21 21:31 [facility] 0.6 mg/dl As of April 2023 testing method has changed, this may include reference ranges. MONOCYTES # (AUTO) 2025-08-21 21:31 [facility] 1.0 10 3/ul (missing) ALBUMIN/GLOBULIN RATIO 2025-08-21 21:31 [facility] 1.4 (missing) (missing) NEUTROPHILS # (AUTO) 2025-08-21 21:31 [facility] 10.2 10 3/ul (missing) CHLORIDE 2025-08-21 21:31 [facility] 106 mmol/l As of April 2023 testing method has changed, this may include reference ranges. GFR - MDRD 2025-08-21 21:31 [facility] 114 (missing) The IDMS-traceable MDRD Study Equation [...] December 2011. AST ASPARTATE AMINOTRANSFERASE 2025-08-21 21:31 [facility] 12 iu/l As of April 2023 testing method has changed, this may include reference ranges. SODIUM 2025-08-21 21:31 [facility] 138 mmol/l (missing) ALT ALANINE AMINOTRANSFERASE 2025-08-21 21:31 [facility] 14 iu/l As of April 2023 testing method has changed, this may include reference ranges. WHITE BLOOD COUNT 2025-08-21 21:31 [facility] 14.7 x10 3/ul (missing) RED CELL DISTRIBUTION WIDTH 2025-08-21 21:31 [facility] 16.1 % (missing) GLOBULIN 2025-08-21 21:31 [facility] 2.5 g/dl (missing) CARBON DIOXIDE - CO2 2025-08-21 21:31 [facility] 23 mmol/l As of April 2023 testing method has changed, this may include reference ranges. MEAN CORPUSCULAR HEMOGLOBIN 2025-08-21 21:31 [facility] 28.4 pg (missing) LYMPHOCYTES # (AUTO) 2025-08-21 21:31 [facility] 3.1 10 3/ul (missing) POTASSIUM 2025-08-21 21:31 [facility] 3.4 mmol/l As of April 2023 testing method has changed, this may include reference ranges. RED BLOOD COUNT 2025-08-21 21:31 [facility] 10 6/ul (missing) ALBUMIN 2025-08-21 21:31 [facility] 3.5 g/dl As of April 2023 testing method has changed, this may include reference ranges. MEAN CORPUSCULAR HGB CONC 2025-08-21 21:31 [facility] 30.5 g/dl (missing) HCT - HEMATOCRIT 2025-08-21 21:31 [facility] 31.8 % (missing) PLT - PLATELET COUNT 2025-08-21 21:31 [facility] 496 10 3/ul (missing) BUN - BLOOD UREA NITROGEN 2025-08-21 21:31 [facility] 6 mg/dl As of April 2023 testing method has changed, this may include reference ranges. TOTAL PROTEIN 2025-08-21 21:31 [facility] 6.0 g/dl As of April 2023 testing method has changed, this may include reference ranges. MEAN PLATELET VOLUME 2025-08-21 21:31 [facility] 8.9 fl (missing) ANION GAP 2025-08-21 21:31 [facility] 9.0 (missing) (missing) HGB - HEMOGLOBIN 2025-08-21 21:31 [facility] 9.7 g/dl (missing) CALCIUM 2025-08-21 21:31 [facility] 9.7 mg/dl As of April 2023 testing method has changed, this may include reference ranges. GLUCOSE 2025-08-21 21:31 [facility] 91 mg/dl As of April 2023 testing method has changed, this may include reference ranges. MEAN CORPUSCULAR VOLUME 2025-08-21 21:31 [facility] 93.3 fl (missing) ALKALINE PHOSPHATASE 2025-08-21 21:31 [facility] 95 iu/l As of April 2023 testing method has changed, this may include reference ranges. Result panel 13 TOTAL PROTEIN,URINE TIMED 2025-08-28 16:05 [facility] < 4 mg/dl As of April 2023 testing method has changed, this may include reference ranges. THYROID STIMULATING HORMONE 2025-08-28 16:05 [facility] 0.56 uiu/ml (missing) BILIRUBIN,TOTAL 2025-08-28 16:05 [facility] 0.6 mg/dl As of April 2023 testing method has changed, this may include reference ranges. CREATININE 2025-08-28 16:05 [facility] 0.7 mg/dl As of April 2023 testing method has changed, this may include reference ranges. ALBUMIN/GLOBULIN RATIO 2025-08-28 16:05 [facility] 1.6 (missing) (missing) CHLORIDE 2025-08-28 16:05 [facility] 106 mmol/l As of April 2023 testing method has changed, this may include reference ranges. GLUCOSE 2025-08-28 16:05 [facility] 116 mg/dl As of April 2023 testing method has changed, this may include reference ranges. ALT ALANINE AMINOTRANSFERASE 2025-08-28 16:05 [facility] 13 iu/l As of April 2023 testing method has changed, this may include reference ranges. WHITE BLOOD COUNT 2025-08-28 16:05 [facility] 13.6 x10 3/ul (missing) SODIUM 2025-08-28 16:05 [facility] 139 mmol/l Unknown RED CELL DISTRIBUTION WIDTH 2025-08-28 16:05 [facility] 17.2 % (missing) GLOBULIN 2025-08-28 16:05 [facility] 2.3 g/dl (missing) CREATININE,URINE 2025-08-28 16:05 [facility] 23.8 mg/dl As of April 2023 testing method has changed, this may include reference ranges. CARBON DIOXIDE - CO2 2025-08-28 16:05 [facility] 25 mmol/l As of April 2023 testing method has changed, this may include reference ranges. MEAN CORPUSCULAR HEMOGLOBIN 2025-08-28 16:05 [facility] 28.9 pg (missing) RED BLOOD COUNT 2025-08-28 16:05 [facility] 3.25 10 6/ul (missing) POTASSIUM 2025-08-28 16:05 [facility] 3.5 mmol/l As of April 2023 testing method has changed, this may include reference ranges. ALBUMIN 2025-08-28 16:05 [facility] 3.6 g/dl As of April 2023 testing method has changed, this may include reference ranges. HCT - HEMATOCRIT 2025-08-28 16:05 [facility] 30.3 % (missing) MEAN CORPUSCULAR HGB CONC 2025-08-28 16:05 [facility] 31.0 g/dl (missing) PLT - PLATELET COUNT 2025-08-28 16:05 [facility] 449 10 3/ul (missing) TOTAL PROTEIN 2025-08-28 16:05 [facility] 5.9 g/dl As of April 2023 testing method has changed, this may include reference ranges. BUN - BLOOD UREA NITROGEN 2025-08-28 16:05 [facility] 8 mg/dl As of April 2023 testing method has changed, this may include reference ranges. ANION GAP 2025-08-28 16:05 [facility] 8.0 (missing) (missing) AST ASPARTATE AMINOTRANSFERASE 2025-08-28 16:05 [facility] 9 iu/l As of April 2023 testing method has changed, this may include reference ranges. MEAN PLATELET VOLUME 2025-08-28 16:05 [facility] 9.1 fl (missing) HGB - HEMOGLOBIN 2025-08-28 16:05 [facility] 9.4 g/dl (missing) CALCIUM 2025-08-28 16:05 [facility] 9.6 mg/dl As of April 2023 testing method has changed, this may include reference ranges. MEAN CORPUSCULAR VOLUME 2025-08-28 16:05 [facility] 93.2 fl (missing) GFR - MDRD 2025-08-28 16:05 [facility] 95 (missing) The IDMS-traceable MDRD Study Equation has [...] updated December 2011. ALKALINE PHOSPHATASE 2025-08-28 16:05 [facility] 97 iu/l As of April 2023 testing method has changed, this may include reference ranges. PROTEIN/CREATININE RATIO,URINE 2025-08-28 16:05 [facility] TNP (missing) Unable to calculate. Analyte below the measurable range. Result panel 14 BILIRUBIN,TOTAL 2025-08-29 07:51 [facility] 0.4 mg/dl As of April 2023 testing method has changed, this may include reference ranges. CREATININE 2025-08-29 07:51 [facility] 0.7 mg/dl As of April 2023 testing method has changed, this may include reference ranges. ALBUMIN/GLOBULIN RATIO 2025-08-29 07:51 [facility] 1.5 (missing) (missing) AST ASPARTATE AMINOTRANSFERASE 2025-08-29 07:51 [facility] 10 iu/l As of April 2023 testing method has changed, this may include reference ranges. CHLORIDE 2025-08-29 07:51 [facility] 107 mmol/l As of April 2023 testing method has changed, this may include reference ranges. ALT ALANINE AMINOTRANSFERASE 2025-08-29 07:51 [facility] 13 iu/l As of April 2023 testing method has changed, this may include reference ranges. SODIUM 2025-08-29 07:51 [facility] 137 mmol/l (missing) GLUCOSE 2025-08-29 07:51 [facility] 161 mg/dl As of April 2023 testing method has changed, this may include reference ranges. RED CELL DISTRIBUTION WIDTH 2025-08-29 07:51 [facility] 17.2 % (missing) WHITE BLOOD COUNT 2025-08-29 07:51 [facility] 17.3 x10 3/ul (missing) GLOBULIN 2025-08-29 07:51 [facility] 2.2 g/dl (missing) RED BLOOD COUNT 2025-08-29 07:51 [facility] 2.73 10 6/ul (missing) CARBON DIOXIDE - CO2 2025-08-29 07:51 [facility] 24 mmol/l As of April 2023 testing method has changed, this may include reference ranges. HCT - HEMATOCRIT 2025-08-29 07:51 [facility] 25.1 % (missing) MEAN CORPUSCULAR HEMOGLOBIN 2025-08-29 07:51 [facility] 29.7 pg (missing) ALBUMIN 2025-08-29 07:51 [facility] 3.2 g/dl As of April 2023 testing method has changed, this may include reference ranges. POTASSIUM 2025-08-29 07:51 [facility] 3.8 mmol/l As of April 2023 testing method has changed, this may include reference ranges. MEAN CORPUSCULAR HGB CONC 2025-08-29 07:51 [facility] 32.3 g/dl (missing) PLT - PLATELET COUNT 2025-08-29 07:51 [facility] 341 10 3/ul (missing) MAGNESIUM 2025-08-29 07:[address] [place], [place] [address] 4.9 mg/dl As of April 2023 testing method has changed, this may include reference ranges. TOTAL PROTEIN 2025-08-29 07:[address] [place], [place] [address] [facility] 5.4 g/dl As of April 2023 testing method has changed, this may include reference ranges. BUN - BLOOD UREA NITROGEN 2025-08-29 07:[address] [place], [place] [address] 6 mg/dl As of April 2023 testing method has changed, this may include reference ranges. ANION GAP 2025-08-29 07:[address] [place], [place] [address] 6.0 (missing) (missing) CALCIUM 2025-08-29 07:[address] [place], [place] [address] 7.8 mg/dl As of April 2023 testing method has changed, this may include reference ranges. HGB - HEMOGLOBIN 2025-08-29 07:[address] [place], [place] [address] 8.1 g/dl (missing) MEAN PLATELET VOLUME 2025-08-29 07:[address] [place], [place] [address] [facility] 8.9 fl (missing) MEAN CORPUSCULAR VOLUME 2025-08-29 07:[address] [place] [address] 91.9 fl (missing) GFR - MDRD 2025-08-29 07:51 [facility] 95 (missing) The IDMS-traceable MDRD Study Equation has [...] ardization, last updated December 2011. ALKALINE PHOSPHATASE 2025-08-29 07:51 [facility] 95 iu/l As of April 2023 testing method has changed, this may include reference ranges. Result panel 15 NUCLEATED RED BLOOD CELLS AUTO 2025-08-30 07:28 [facility] 0.0 /100wbc (missing) NRBC ABSOLUTE COUNT (AUTO) 2025-08-30 07:28 [facility] 0.00 x10 3/ul (missing) BASOPHILS # (AUTO) 2025-08-30 07:28 [facility] 0.1 10 3/ul (missing) EOSINOPHILS # (AUTO) 2025-08-30 07:28 [facility] 0.3 10 3/ul (missing) BILIRUBIN,TOTAL 2025-08-30 07:28 [facility] 0.3 mg/dl As of April 2023 testing method has changed, this may include reference ranges. CREATININE 2025-08-30 07:28 [facility] 0.7 mg/dl As of April 2023 testing method has changed, this may include reference ranges. MONOCYTES # (AUTO) 2025-08-30 07:28 [facility] 0.9 10 3/ul (missing) ALBUMIN/GLOBULIN RATIO 2025-08-30 07:28 [facility] 1.4 (missing) (missing) CHLORIDE 2025-08-30 07:28 [facility] 107 mmol/l As of April 2023 testing method has changed, this may include reference ranges. ALT ALANINE AMINOTRANSFERASE 2025-08-30 07:28 [facility] 11 iu/l As of April 2023 testing method has changed, this may include reference ranges. WHITE BLOOD COUNT 2025-08-30 07: [facility] 12.2 x10 3/ul (missing) SODIUM 2025-08-30 07:28 [facility] 137 mmol/l (missing) RED CELL DISTRIBUTION WIDTH 2025-08-30 07:28 [facility] 17.8 % (missing) GLOBULIN 2025-08-30 07:28 [facility] 2.1 g/dl (missing) RED BLOOD COUNT 2025-08-30 07: [facility] 2.32 10 6/ul (missing) HCT - HEMATOCRIT 2025-08-30 07: [facility] 21.7 % (missing) CARBON DIOXIDE - CO2 2025-08-30: [facility] 24 mmol/l As of April 2023 testing method has changed, this may include reference ranges. MEAN CORPUSCULAR HEMOGLOBIN 2025-08-30: [facility] 29.3 pg (missing) ALBUMIN 2025-08-30 07: [facility] 3.0 g/dl As of April 2023 testing method has changed, this may include reference ranges. LYMPHOCYTES # (AUTO) 2025-08-30 07: [facility] 3.5 10 3/ul (missing) POTASSIUM 2025-08-30: [facility] 3.6 mmol/l As of April 2023 testing method has changed, this may include reference ranges. MEAN CORPUSCULAR HGB CONC 2025-08-30: [facility] 31.3 g/dl (missing) PLT - PLATELET COUNT 2025-08-30 07:28 [facility] 344 10 3/ul (missing) TOTAL PROTEIN 2025-08-30 07:28 [facility] 5.1 g/dl As of April 2023 testing method has changed, this may include reference ranges. ANION GAP 2025-08-30: [facility] 6.0 (missing) (missing) HGB - HEMOGLOBIN 2025-08-30 07:28 [facility] [employer] [facility] 6.8 g/dl Called to [facility]/SUSHIL Andre by Shubham Beal at 0800 08/30/25. Read back(Y/N)? Y CALCIUM 2025-08-30 07:28 [facility] 7.0 mg/dl As of April 2023 testing method has changed, this may include reference ranges. NEUTROPHILS # (AUTO) 2025-08-30 07:28 [facility] 7.4 10 3/ul (missing) ALKALINE PHOSPHATASE 2025-08-30 07:28 [facility] 76 iu/l As of April 2023 testing method has changed, this may include reference ranges. AST ASPARTATE AMINOTRANSFERASE 2025-08-30 07:28 [facility] 8 iu/l As of April 2023 testing method has changed, this may include reference ranges. BUN - BLOOD UREA NITROGEN 2025-08-30 07:28 [facility] 8 mg/dl As of April 2023 testing method has changed, this may include reference ranges. GLUCOSE 2025-08-30:28 [facility] 83 mg/dl As of April 2023 testing method has changed, this may include reference ranges. MEAN PLATELET VOLUME 2025-08-30 07:28 [facility] 9.1 fl (missing) MEAN CORPUSCULAR VOLUME 2025-08-30 07:28 [facility] 93.5 fl (missing) GFR - MDRD 2025-08-30 07:28 [facility] 95 (missing) The IDMS-traceable MDRD Study Equation has [...] ation/gfr/creatin ine-stand ardization, last updated December 2011. Result panel 16 NUCLEATED RED BLOOD CELLS AUTO 2025-08-30 18:27 [facility] 0.0 /100wbc (missing) NRBC ABSOLUTE COUNT (AUTO) 2025-08-30 18:27 [facility] 0 .00 x10 3/ul (missing) BASOPHILS # (AUTO) 2025-08-30 18:27 [facility] 0.1 10 3/ul (missing) EOSINOPHILS # (AUTO) 2025-08-30 18:27 [facility] 0.3 10 3/ul (missing) MONOCYTES # (AUTO) 2025-08-30 18:27 [facility] 0.9 10 3/ul (missing) WHITE BLOOD COUNT 2025-08-30 18:27 [facility] 11.6 x10 3/ul (missing) RED CELL DISTRIBUTION WIDTH 2025-08-30 18:27 [facility] 18.1 % (missing) RED BLOOD COUNT 2025-08-30 18:27 [facility] 2.74 10 6/ul (missing) LYMPHOCYTES # (AUTO) 2025-08-30 18:27 [facility] 2.9 10 3/ul (missing) HCT - HEMATOCRIT 2025-08-30 18:27 [facility] 25.9 % (missing) MEAN CORPUSCULAR HEMOGLOBIN 2025-08-30 18:27 [facility] 27.7 pg (missing) MEAN CORPUSCULAR HGB CONC 2025-08-30 18:27 [facility] 29 .3 g/dl (missing) PLT - PLATELET COUNT 2025-08-30 18:27 [facility] 347 10 3/ul (missing) NEUTROPHILS # (AUTO) 2025-08-30 18:27 [facility] 7.3 10 3/ul (missing) HGB - HEMOGLOBIN 2025-08-30 18:27 [facility] 7.6 g /dl (missing) MEAN PLATELET VOLUME 2025-08-30 18:27 [facility] 8.9 fl (missing) MEAN CORPUSCULAR VOLUME 2025-08-30 18:27 [facility] 94.5 fl (missing) Result panel 17 NUCLEATED RED BLOOD CELLS AUTO 2025-08-31 08:59 [facility] 0.0 /100wbc (missing) NRBC ABSOLUTE COUNT (AUTO) 2025-08-31 08:59 [facility] 0.00 x10 3/ul (missing) BASOPHILS # (AUTO) 2025-08-31 08:59 [facility] 0.1 10 3/ul (missing) EOSINOPHILS # (AUTO) 2025-08-31 08:59 [facility] 0.3 10 3/ul (missing) BILIRUBIN,TOTAL 2025-08-31 08:59 [facility] 0.4 mg/dl As of April 2023 testing method has changed, this may include reference ranges. MONOCYTES # (AUTO) 2025-08-31 08:59 [facility] 0.5 10 3/ul (missing) CREATININE 2025-08-31 08:59 [facility] 0.8 mg/dl As of April 2023 testing method has changed, this may include reference ranges. ALBUMIN/GLOBULIN RATIO 2025-08-31 08:59 [facility] 1.5 (missing) (missing) WHITE BLOOD COUNT 2025-08-31 08:59 [facility] 10.4 x10 3/ul (missing) CHLORIDE 2025-08-31 08:59 [facility] 107 mmol/l As of April 2023 testing method has changed, this may include reference ranges. ALT ALANINE AMINOTRANSFERASE 2025-08-31 08:59 [facility] 12 iu/l As of April 2023 testing method has changed, this may include reference ranges. GLUCOSE 2025-08-31 08:59 [facility] 120 mg/dl As of April 2023 testing method has changed, this may include reference ranges. BUN - BLOOD UREA NITROGEN 2025-08-31 08:59 [facility] 13 mg/dl As of April 2023 testing method has changed, this may include reference ranges. SODIUM 2025-08-31 08:59 [facility] 138 mmol/l (missing) RED CELL DISTRIBUTION WIDTH 2025-08-31 08:59 [facility] 17.8 % (missing) LYMPHOCYTES # (AUTO) 2025-08-31 08:59 [facility] 2.1 10 3/ul (missing) GLOBULIN 2025-08-31 08:59 [facility] 2.2 g/dl (missing) RED BLOOD COUNT 2025-08-31 08:59 [facility] 2.75 10 6/ul (missing) CARBON DIOXIDE - CO2 2025-08-31 08:59 [facility] 23 mmol/l As of April 2023 testing method has changed, this may include reference ranges. HCT - HEMATOCRIT 2025-08-31 08:59 [facility] 25.9 % (missing) MEAN CORPUSCULAR HEMOGLOBIN 2025-08-31 08:59 [facility] 29.1 pg (missing) ALBUMIN 2025-08-31 08:59 [facility] 3.4 g/dl As of April 2023 testing method has changed, this may include reference ranges. MEAN CORPUSCULAR HGB CONC 2025-08-31 08:59 [employer] [facility] 30.9 g/dl (missing) PLT - PLATELET COUNT 2025-08-31 08:59 [facility] 368 10 3/ul (missing) POTASSIUM 2025-08-31 08:59 [employer] [facility] 4.3 mmol/l As of April 2023 testing method has changed, this may include reference ranges. TOTAL PROTEIN 2025-08-31 08:59 [facility] 5.6 g/dl As of April 2023 testing method has changed, this may include reference ranges. NEUTROPHILS # (AUTO) 2025-08-31 08:59 [facility] 7.3 10 3/ul (missing) ANION GAP 2025-08-31 08:59 [facility] 8.0 (missing) (missing) HGB - HEMOGLOBIN 2025-08-31 08:59 [facility] 8.0 g/dl (missing) CALCIUM 2025-08-31 08:59 [facility] 8.5 mg/dl As of April 2023 testing method has changed, this may include reference ranges. MEAN PLATELET VOLUME 2025-08-31 08:59 [facility] 8.9 fl (missing) ALKALINE PHOSPHATASE 2025-08-31 08:59 [facility] 81 iu/l As of April 2023 testing method has changed, this may include reference ranges. GFR - MDRD 2025-08-31 08:59 [facility] 82 (missing) The IDMS-traceable MDRD Study Equation has [...] last updated December 2011. AST ASPARTATE AMINOTRANSFERASE 2025-08-31 08:59 [facility] 9 iu/l As of April 2023 testing method has changed, this may include reference ranges. MEAN CORPUSCULAR VOLUME 2025-08-31 08:59 [facility] 94.2 fl (missing) Social History date description facility
[2025-09-01] MEDS ORDERED: MAGNESIUM SULFATE 1 GM/2 ML VIAL IVP STA (11:47)
[2025-09-01 12:01] LABS: HCT - HEMATOCRIT 30.7 % (37.0-47.0); HGB - HEMOGLOBIN 9.7 g/dL (12.0-16.0); MEAN PLATELET VOLUME 8.8 fL (7.9-10.8); NRBC ABSOLUTE COUNT (AUTO) 0.00 x10^3/uL; NUCLEATED RED BLOOD CELLS AUTO 0.0 /100WBC; PLT - PLATELET COUNT 450 10^3/uL (130-450); RED CELL DISTRIBUTION WIDTH 17.2 % (12.0-15.0)
--- NOTE | 2025-09-01 12:08 | ED Physician Documentation ---
History of Present Illness Stated complaint Stated Complaint: HEAD PX Chief complaint Chief Complaint: Neuro Additonal information Additional information: Patient is a 35-year-old female who is 4 days after successful delivery of via . Baby was born at 36 weeks. was complicated by both gestational diabetes as well as gestational hypertension. She was not diagnosed with preeclampsia during . Patient states that she is otherwise healthy and does not take any medications at baseline outside of . She is currently taking however, in the setting of gestational hypertension, nifedipine and labetalol at home. She did take her doses this morning. Yesterday she noted that she was having a headache, and blood pressure elevation at that time was noted at home on her cuff. Overnight she continued have headache without visual changes. Due to persistent headache and high blood pressure, [facility] recommended she come to the ER for evaluation. On arrival she has an elevated systolic blood pressure in the 170s with a diastolic in the 90s. She is still endorsing a diffuse globalized headache. She denies any visual changes, neck pain. Denies recent fever or chills. Denies any weakness or sensory changes. Denies ambulation difficulty. She denies any shortness of breath, chest pain, abdominal pain. States that her vaginal bleeding is getting better, and feels that her incision is doing well without signs of erythema, drainage, dehiscence. Denies urination or bowel movement changes/concerns. Review of Systems Status of ROS: See HPI Meds/Allgy Home Medications Ambulatory Orders Medication Instructions Recorded Confirmed vits no.[id number]-ferrous fum 1 tab PO DAILY 08/29/25 28 mg iron-folic acid 800 mcg tablet (Classic ) labetalol 200 mg tablet 200 mg PO Q8H 08/29/2509/01 nifedipine 30 mg tablet,extended 30 mg PO BID #30 tabs 08/31/25 09/01/25 release acetaminophen 500 mg capsule 500 mg PO Q4H PRN fever o r pain 09/01/25 09/01/25 ibuprofen 200 mg tablet (Advil) 200 mg PO PRN PRN feve r or pain 09/01/25 09/01/25 Allergies Allergies Allergy/AdvReac Type Severity Reaction Status Date / Time No Known Drug Allergies Allergy Verified 09/01/25 11:35 PFSH Active Problems All Active Problems (Updated 09/01/25 @ 13:31 by ) Hypertension (Chronic) Headache (Acute) Pre-eclampsia (Acute) Acute on chronic blood loss anemia (Acute) care following delivery (Acute) Severe preeclampsia (Acute) Gestational diabetes (Acute) Anemia complicating , third trimester (Acute) Uterine fibroid in antepartum period (Acute) Anxiety (Acute) Medical History Medical History (Updated 09/01/25 @ 13:31 by ) Acute upper respiratory infection First trimester bleeding Missed Family History Family History Mother Arthritis High blood pressure Social History Social History (Updated 09/01/25 @ 11:33 by Mike Zeng RN, BSN) Smoking Status: Current every day smoker If you are a former smoker, when did you quit? (Date/Year): during Do you dip or chew tobacco?: No Patient requests smoking cessation consult: No Initiate information on smoking cessation: No Level: Independent Do you feel safe in your home environment?: Yes History of physical, verbal, emotional, or financial abuse?: No ETOH Use: None Substance Use: denies use POLST Patient has POLST: No Exam Exam Vital Signs: Vital Signs x48h Temp Pulse Resp BP Pulse Ox 09/01/25 13:20 82 18 154/98 H 98 09/01/25 12:30 78 159/90 H 09/01/25 12:15 87 165/92 H 09/01/25 12:10 78 160/101 H 09/01/25 12:00 88 165/94 H 09/01/25 11:55 81 165/96 H 09/01/25 11:50 88 178/98 H 09/01/25 11:40 92 188/106 H 09/01/25 11:19 36.3 C L 79 18 170/93 H 99 Constitutional normal general appearance and no apparent distress No acute distress, resting comfortably. HENMT normocephalic Eyes PERRL 3 mm, reactive bilaterally. No nystagmus. No painful extraocular movements. No conjunctival injection. Neck/C-Spine supple Respiratory breath sounds equal bilaterally, normal respiratory effort, clear to au scultation bilaterally and no wheezes Saturating at 98% on room air. No accessory muscle use. Cardiovascular normal heart rate noted, regular rhythm noted and no murmur Gastrointestinal Minimally tender to palpation in suprapubic region near site. No guarding, no rigidity, no peritoneal signs. Genitourinary no CVA tenderness Extremities Edema wear in place in bilateral lower extremities. 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 Sensation intact throughout habitus Psychiatry mental status grossly normal and oriented x3 Skin skin color normal Results Vitals Vitals: Vital Signs - 24 hr 08/31/25 16:30 09/01/25 11:19 09/01/25 11:40 Temperature 36.3 C L Temperature Source Temporal Artery Scan Pulse Rate 79 92 Respiratory Rate 18 Blood Pressure 170/93 H 188/106 H O2 Saturation 99 O2 Source Room air Pain Intensity 3 6 09/01/25 11:50 09/01/25 11:55 09/01/25 12:00 Temperature Temperature Source Pulse Rate 88 81 88 Respiratory Rate Blood Pressure 178/98 H 165/96 H 165/94 H O2 Saturation O2 Source Pain Intensity 09/01/25 12:10 09/01/25 12:15 09/01/25 12:30 Temperature Temperature Source Pulse Rate 78 87 78 Respiratory Rate Blood Pressure 160/101 H 165/92 H 159/90 H O2 Saturation O2 Source Pain Intensity 09/01/25 13:20 Temperature Temperature Source Pulse Rate 82 Respiratory Rate 18 Blood Pressure 154/98 H O2 Saturation 98 O2 Source Room air Pain Intensity 6 Oxygen O2 Source Room air Labs Labs: Laboratory Tests 09/01/25 09/01/25 11:55 12:00 WBC 10.6 RBC 3.31 L Hgb 9.7 L Hct 30.7 L MCV 92.7 MCH 29.3 MCHC 31.6 L RDW 17.2 H Plt Count 450 MPV 8.8 Neut # (Auto) 7.2 H Lymph # (Auto) 2.2 [place] # (Auto) 0.7 Eos # (Auto) 0.3 Baso # (Auto) 0.1 Absolute Nucleated RBC 0.00 Nucleated RBC % 0.0 Sodium 137 Potassium 4.1 Chloride 105 Carbon Dioxide 24 Anion Gap 8.0 BUN 14 Creatinine 0.7 Estimated GFR (MDRD) 95 Glucose 118 H Calcium 9.4 Magnesium 1.7 Total Bilirubin 0.5 AST 33 ALT 45 Alkaline Phosphatase 104 Total Protein 6.7 Albumin 4.0 Globulin 2.7 Albumin/Globulin Ratio 1.5 Urine Color STRAW Urine Clarity HAZY Urine pH 7.5 Ur Specific [place] 1.005 Urine Protein TRACE Urine Glucose (UA) NEGATIVE Urine Ketones NEGATIVE Urine Occult Blood LARGE Urine Nitrite NEGATIVE Urine Bilirubin NEGATIVE Urine Urobilinogen 0.2 (NORMAL) Ur Leukocyte Esterase TRACE H Urine RBC TNTC H Urine WBC >25 H Ur Squamous Epith Cells MOD Squamous H Urine Bacteria Rare Ur Microscopic Review INDICATED Urine Culture Comments NOT INDICATED PD Medical Decision Making ED course ED course: Assessment: Patient is a 35-year-old female who is 4 days presenting with elevated blood pressure with systolics in the 170s and diastolics in the 9 0s, as well as headache. Denies visual changes or other neurologic symptoms. Denies chest pain shortness of breath, abdominal pain. Her was complicated by both gestational hypertension and gestational diabetes. She was recommended to come to the ER for evaluation by [facility] clinic who she called this morning. DDx: Includes but is not limited to, gestational hypertension, hypertension, preeclampsia, eclampsia, tension headache, migraine headache, etc. Workup: CBC is grossly unremarkable, hemoglobin 9.7 today is improved from earlier this week when she gave . CMP unremarkable. Magnesium is 3.6 which is high, though not sure if this was drawn after patient had started receiving IV magnesium. Urine studies show trace leukocyte esterase, many RBCs, many WBCs, squamous epithelial cells are present. Treatment: Labetalol 10 mg IV, IV magnesium 4 g Discussion: This patient has a reassuring bedside neurologic evaluation. She has no concerning HEENT features. Her blood pressure was checked again by myself in the room, and it was 173/95. Immediate concern is for preeclampsia. I started her on IV magnesium, and gave her an additional dose of IV labetalol which did improve her pressures into the mid 150s. After this I called ASSISTANT READING TEACHER on-call, Dr. Lucio Dash, who recommended this patient be transferred to L&D so that she can be admitted, monitored, received magnesium as indicated, and have frequent magnesium checks. Patient was agreeable with this. She remained in her ER for a brief period before a bed was available in L&D with no further acute events. Discharge Plan Discharge Patient Disposition: [facility] DC/Xfer Condition: Stable Clinical Impression: Pre-eclampsia, Headache, Hypertension Interventions: ED Admission Assessment Last Done: 09/01/25 13:48 Vitals documented within 30 minutes of discharge?: Yes
[2025-09-01 12:13] LABS: ALT ALANINE AMINOTRANSFERASE 45.0 IU/L (10-60); AST ASPARTATE AMINOTRANSFERASE 33.0 IU/L (10-42); BUN - BLOOD UREA NITROGEN 14.0 mg/dL (6-20); CARBON DIOXIDE - CO2 24.0 mmol/L (21-32); CREATININE 0.7 mg/dL (0.6-1.3); GFR - MDRD 95.0 (>89)
[2025-09-01] MEDS: LABETALOL 20 MG/4 ML SYRINGE IVP STA ×4 (12:16→15:16)
[2025-09-01] MEDS: MAGNESIUM SULFATE 2 GRAM 2 GM/50 ML BAG IV SCH (12:22)
[2025-09-01 12:25] LABS: GLUCOSE, URINE (UA) NEGATIVE (NEGATIVE); KETONES,URINE (UA) NEGATIVE (NEGATIVE); OCCULT BLOOD,URINE LARGE (NEGATIVE)
[2025-09-01 12:26] LABS: SQUAMOUS EPITHELIAL CELL,UR MOD Squamous (<= Few)
[2025-09-01] MEDS ORDERED: SODIUM CHLORIDE FLUSH 0.9% 10 ML SYRINGE IVP PRN (12:46)
--- NOTE | 2025-09-01 12:50 | HISTORY & PHYSICAL EXAMINATION ---
History of Present Illness History of Present Illness HPI Comment/Other: Patient is a 35-year-old -0-1-1 status post primary low-transverse section on 08/28/2025. She was diagnosed with preeclampsia with severe feature and was treated with magnesium sulfate for 24 hours post delivery. She was discharged from the hospital yesterday. Last night she developed a headache, and gradually worsened throughout the night. It persisted this morning when she woke up and is advised to come to the hospital. She has a significant headache without visual changes. This is a diffuse headache, but most prominent in a stripe on the middle of her head on the front to the back. Had blood pressures in the 140s over 80s at home, but upon arrival was 170s over 90s. No chest pain, shortness of breath, right upper quadrant pain, vision changes. was also complicated by well-controlled gestational diabetes. Overall feeling well recovering from surgery. Meds/Allgy Home Medications Ambulatory Orders Medication Instructions Recorded Confirmed vits no.126-ferrous fum 1 tab PO DAILY 08/29/25 28 mg iron-folic acid 800 mcg tablet (Classic ) labetalol 200 mg tablet 200 mg PO Q8H 08/29/2509/01 nifedipine 30 mg tablet,extended 30 mg PO BID #30 tabs 08/31/25 09/01/25 release acetaminophen 500 mg capsule 500 mg PO Q4H PRN fever o r pain 09/01/25 09/01/25 ibuprofen 200 mg tablet (Advil) 200 mg PO PRN PRN feve r or pain 09/01/25 09/01/25 Allergies Allergies Allergy/AdvReac Type Severity Reaction Status Date / Time No Known Drug Allergies Allergy Verified 09/01/25 11:35 PFSH Active Problems All Active Problems (Updated 09/01/25 @ 13:31 by ) Hypertension (Chronic) Headache (Acute) Pre-eclampsia (Acute) Acute on chronic blood loss anemia (Acute) care following delivery (Acute) Severe preeclampsia (Acute) Gestational diabetes (Acute) Anemia complicating , third trimester (Acute) Uterine fibroid in antepartum period (Acute) Anxiety (Acute) Medical History Medical History (Updated 09/01/25 @ 13:31 by ) Acute upper respiratory infection Missed First trimester bleeding Family History Family History Mother Arthritis High blood pressure Social History Social History (Updated 09/01/25 @ 11:33 by Mike Zeng RN, BSN) Smoking Status: Current every day smoker If you are a former smoker, when did you quit? (Date/Year): during Do you dip or chew tobacco?: No Patient requests smoking cessation consult: No Initiate information on smoking cessation: No Level: Independent Do you feel safe in your home environment?: Yes History of physical, verbal, emotional, or financial abuse?: No ETOH Use: None Substance Use: denies use POLST Patient has POLST: No Review of Systems Status of ROS: See HPI Exam Exam Vital Signs: Vital Signs x48h Temp Pulse Pulse Resp BP BP Pulse Ox 09/01/25 17:00 89 19 148/89 H 97 09/01/25 17:00 90 19 148/89 H 96 09/01/25 16:30 82 21 139/87 H 95 09/01/25 16:00 37.2 C 87 23 144/94 H 95 09/01/25 16:00 93 13 144/94 H 96 09/01/25 15:30 76 15 134/87 H 94 09/01/25 15:00 83 22 125/81 95 09/01/25 14:47 90 20 124/83 95 09/01/25 14:44 87 26 H 154/98 H 92 09/01/25 14:24 98.6 C H 80 16 154/98 H 96 09/01/25 13:48 82 18 159/90 H 97 09/01/25 13:35 82 18 159/94 H 98 09/01/25 13:20 82 18 154/98 H 98 09/01/25 12:30 78 159/90 H 09/01/25 12:15 87 165/92 H 09/01/25 12:10 78 160/101 H 09/01/25 12:00 88 165/94 H 09/01/25 11:55 81 165/96 H 09/01/25 11:50 88 178/98 H 09/01/25 11:40 92 188/106 H 09/01/25 11:19 36.3 C L 79 18 170/93 H 99 Constitutional normal general appearance and no apparent distress Appears very comfortable. Eyes PERRL Respiratory breath sounds equal bilaterally, normal respiratory effort and clear to auscultation bilaterally Cardiovascular normal heart rate noted, regular rhythm noted and no murmur Gastrointestinal Minimally tender to palpation in suprapubic region near site. No guarding, no rigidity, no peritoneal signs. Extremities Edema wear in place in bilateral lower extremities. 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 Discussed that there is no universally agreed upon decision for more than 1 course of magnesium, but given her severe, unrelenting headache as well as severe range pressures despite multiple antihypertensive medications, I do think it is prudent. If we cannot get the headache under control, we will plan on further imaging. There was subtherapeutic dosing of the magnesium, so additional 2 g bolus was given followed by 2 g/h maintenance. Will plan on keeping magnesium running until tomorrow. Routine preeclampsia labs as well as blood pressure management. Initial severe range blood pressure resolved with IV labetalol given in the ED. As needed medications ordered per severe hypertension protocol. Plan for preeclampsia and magnesium checks while on magnesium infusion. Qualifiers: Trimester: unspecified trimester Qualified Code(s): O14.10 - Severe pre-eclampsia, unspecified trimester Lab Results 09/01/25 11:55 09/01/25 11:55
--- OUTSIDE RECORDS SUMMARY | 2025-09-01 13:35 | EXTERNAL MEDICAL SUMMARY RPT | Continuity of Care Document ---
Author Organization [facility] Address [address] [place] [address] Phone Problems date description facility 2025-06-04 09:55 Leiomyoma of uterus, unspecifie d [facility] 2025-06-04 09:55 Maternal care for be nign tumor of corpus uteri, unspecified trimester [facility] 2025-06-04 09:58 Leiomyoma of uterus, unspecifie d [facility] 2025-06-04 09:58 Maternal care for be nign tumor of corpus uteri, unspecified trimester [facility] 2025-06-06 09:02 Leiomyoma of uterus, unspecifie d [facility] 2025-06-06 09:02 Maternal care for be nign tumor of corpus uteri, unspecified trimester [facility] 2025-06-06 09:04 Leiomyoma of uterus, unspecifie d [facility] 2025-06-06 09:04 Maternal care for be nign tumor of corpus uteri, unspecified trimester [facility] 2025-06-06 09:05 Leiomyoma of uterus, unspecifie d [facility] 2025-06-06 09:05 Maternal care for be nign tumor of corpus uteri, unspecified trimester [facility] 2025-06-20 11:31 Gestational [pregnan cy-induced] hypertension [...] 09:25 Unspecified maternal hypertensi on, second trimester [facility] 2025-06-28 09:25 Encounter for screen ing for infections with a predominantly sexual mode of transmission [facility] 09:25 Encounter for superv ision of normal , unspecified, unspecified trimester [facility] 2025-06-29 00:04 Gestational [pregnan cy-induced] hypertension without significant proteinuria, second trimester [facility] 2025-06-29 00:04 Unspecified maternal hypertensi on, second trimester [facility] 2025-06-29 00:04 Encounter for screen ing for infections with a predominantly sexual mode of transmission [facility] 2025-06-29 00:04 Encounter for superv ision of normal , unspecified, unspecified trimester [facility] 2025-06-29 08:10 Unspecified maternal hypertensi on, second trimester [facility] 2025-07-02 08:10 Encounter for immunization [employer] 2025-07-02 08:11 Supervision of elderly tim van, second trimester [employer] [facility] 2025-07-02 08:11 Gestational [pregnan cy-induced] hypertension without significant proteinuria, second trimester [employer] [facility] 2025-07-02 08:11 Encounter for immunization [employer] [facility] 2025-07-02 08:11 27 weeks gestation of [facility] 2025-07-02 08:57 Abnormal glucose complicating p regnancy [employer] [facility] 2025-07-03 16:21 Abnormal glucose complicating p regnancy [employer] [facility] 2025-07-04 08:05 Gestational [pregnan cy-induced] hypertension without significant proteinuria, unspecified trimester [employer] 2025-07-04 08:05 Anemia complicating , third trimester [employer] [facility] 2025-07-04 08:05 Abnormal glucose complicating p regnancy [employer] [facility] 2025-07-05 00:03 Gestational [pregnan cy-induced] hypertension without significant proteinuria, unspecified trimester [employer] [facility] 2025-07-05 00:03 Anemia complicating , third trimester [employer] [facility] 2025-07-05 00:03 Abnormal glucose complicating p regnancy [employer] 2025-07-05 11:23 Gestational [pregnan cy-induced] hypertension without significant proteinuria, third trimester [employer] 2025-07-05 11:23 Gestational [pregnan cy-induced] hypertension without significant proteinuria, unspecified trimester [employer] 2025-07-05 14:46 Abnormal glucose complicating p regnancy [employer] 2025-07-09 07:24 Gestational [pregnan cy-induced] hypertension without significant proteinuria, unspecified trimester [employer] 2025-07-09 07:24 Gestational diabetes mellitus in , unspecified control [employer] 2025-07-09 13:03 Leiomyoma of uterus, unspecifie d [employer] 2025-07-09 13:03 Gestational [pregnan cy-induced] hypertension without significant proteinuria, unspecified trimester [employer] 2025-07-09 13:03 Gestational diabetes mellitus in , unspecified control [employer] 2025-07-09 13:03 Maternal care for be nign tumor of corpus uteri, unspecified trimester [employer] 2025-07-09 13:42 Encounter for immunization [employer] 2025-07-18 09:22 Gestational [pregnan cy-induced] hypertension without significant proteinuria, unspecified trimester [employer] 2025-07-18 09:22 Gestational diabetes mellitus in , unspecified control [employer] 2025-07-18 09:24 Gestational [pregnan cy-induced] hypertension without significant proteinuria, unspecified trimester [employer] 2025-07-18 09:24 Gestational diabetes mellitus in , unspecified control [employer] 2025-07-19 06:59 Encounter for superv ision of normal , unspecified, first trimester [employer] 2025-07-24 10:52 Anemia complicating , third trimester [employer] 2025-07-24 11:31 Anemia complicating , third trimester [employer] 2025-07-24 17:49 Anemia complicating , third trimester [employer] 2025-07-24 22:45 Unspecified maternal hypertensi on, second trimester [employer] 2025-07-25 00:02 Unspecified maternal hypertensi on, second trimester [facility] 2025-07-25 00:03 Anemia complicating , third trimester [facility]25-[facility] 13:42 Gestational [pregnan cy-induced] hypertension without significant proteinuria, third trimester [facility] 2025-07-26 13:42 Encounter for immunization [facility] [employer] 2025-07-27 10:49 Unspecified maternal hypertensi on, second trimester [facility] 2025-07-30 07:47 Supervision of elderly tim van, third trimester [facility] 2025-07-30 07:47 Gestational [pregnan cy-induced] hypertension without significant proteinuria, third trimester [facility] 2025-07-30 07:47 Unspecified maternal hypertensi on, second trimester [facility] 2025-07-30 07:47 31 weeks [facility] 2025-07-31 15:47 Leiomyoma of uterus, unspecifie d [facility] 2025-07-31 15:47 Maternal care for be nign tumor of corpus uteri, unspecified trimester [facility] 2025-07-31 15:51 Gestational [pregnan cy-induced] hypertension without significant proteinuria, second trimester [employer] [facility] 2025-07-31 15:51 Anemia complicating , third trimester [facility] 2025-08-01 00:01 Leiomyoma of uterus, unspecifie d [employer] [facility] 2025-08-01 00:01 Maternal care for be nign tumor of corpus uteri, unspecified trimester [employer] [facility] 2025-08-03 06:49 Dietary counseling and surveill ance [employer] 2025-08-03 06:56 Anemia complicating , third trimester [employer] [facility] 2025-08-03 06:56 Anemia complicating , unspecified trimester [employer] [facility] 2025-08-03 16:00 Gestational [pregnan cy-induced] hypertension without significant proteinuria, unspecified trimester [facility] 2025-08-03 16:00 Encounter for superv ision of normal , unspecified, unspecified trimester [employer] 2025-08-06 10:27 Gestational [pregnan cy-induced] hypertension without significant proteinuria, second trimester [facility] 2025-08-06 10:27 Anemia complicating , third trimester [facility] 2025-08-[facility] 10:33 Gestational [pregnan cy-induced] hypertension without significant proteinuria, third trimester [facility] 2025-08-06 10:34 Gestational [pregnan cy-induced] hypertension without significant proteinuria, unspecified trimester [facility] 2025-08-06 10:34 Encounter for superv ision of normal , unspecified, unspecified trimester [facility] 2025-08-06 12:09 Anemia complicating , third trimester [facility] 2025-08-10 14:58 Anemia complicating , third trimester [facility] 2025-08-10 14:58 Anemia complicating , unspecified trimester [facility] 2025-08-10 15:01 Anemia complicating , third trimester [facility] 2025-08-10 16:14 Gestational [pregnan cy-induced] hypertension without significant proteinuria, unspecified trimester [facility] 2025-08-11 00:04 Anemia complicating , third trimester [facility] 2025-08-14 12:12 Supervision of elderly tim van, third trimester [facility] 2025-08-14 12:12 Gestational [pregnan cy-induced] hypertension without significant proteinuria, unspecified trimester [facility] 2025-08-15 08:21 Leiomyoma of uterus, unspecifie d [facility] 2025-08-15 08:21 Gestational [pregnan cy-induced] hypertension without significant proteinuria, unspecified trimester [facility] 2025-08-15 08:21 Gestational diabetes mellitus in , unspecified control [employer] 2025-08-15 08:21 Maternal care for be nign tumor of corpus uteri, unspecified trimester [facility] 2025-08-15 09:21 Acute upper respiratory infecti on, unspecified [employer] 2025-08-15 09:21 Strain of muscle and tendon of back wall of thorax, initial encounter [employer] 2025-08-16 07:25 Leiomyoma of uterus, unspecifie d [employer] 2025-08-16 07:25 Acute upper respiratory infecti on, unspecified [facility] 2025-08-16 07:25 Gestational [pregnan cy-induced] hypertension without significant proteinuria, unspecified trimester [facility] 2025-08-16 07:25 Gestational diabetes mellitus in , unspecified control [facility] 2025-08-16 07:25 Maternal care for be nign tumor of corpus uteri, unspecified trimester [facility] 2025-08-16 07:25 Strain of muscle and tendon of back wall of thorax, initial encounter [facility] 2025-08-16 10:08 Fracture of one rib, unspecified side, initial encounter for closed fracture [facility] 2025-08-16 10:29 Fracture of one rib, unspecified side, initial encounter for closed fracture [employer] [facility] 2025-08-16 10:39 Fracture of one rib, unspecified side, initial encounter for closed fracture [employer] [facility] 2025-08-17 08:37 Acute upper respiratory infecti on, unspecified [facility] 2025-08-17 08:37 Other specified disorders of no se and nasal sinuses [employer] [facility] 2025-08-17 08:37 Other specified cough [facility] 08:37 Pleurodynia [facility] 2025-08-17 08:37 Strain of muscle and tendon of back wall of thorax, initial encounter [facility] 2025-08-20 08:50 Other specified dise ases and conditions complicating [employer] [facility] 2025-08-20 08:50 Other chest pain [facility] 2025-08-20 08:50 Left upper quadrant pain [employer] 2025-08-20 08:50 Fracture of one rib, unspecified side, initial encounter for closed fracture [employer] [facility] 2025-08-20 12:06 Anemia complicating , third trimester [facility] 2025-08-20 12:06 Anemia complicating , unspecified trimester [facility] 2025-08-20 12:10 Anemia complicating , third trimester [facility] 2025-08-20 12:10 Anemia complicating , unspecified trimester [facility] 2025-08-20 14:25 Other specified preg caitlin related conditions, third trimester [facility] 2025-08-20 14:25 Other chest pain [facility] 2025-[facility] 14:25 Left upper quadrant pain [employer] 2025-08-21 18:38 Leiomyoma of uterus, unspecifie d [facility] 2025-08-21 18:38 Gestational [pregnan cy-induced] hypertension without significant proteinuria, unspecified trimester [facility] 2025-08-21 18:38 Gestational diabetes mellitus in , unspecified control [facility] 2025-08-21 18:38 Maternal care for be nign tumor of corpus uteri, unspecified trimester [facility] 2025-08-22 08:50 Anemia complicating , third trimester [facility] 2025-08-22 08:50 Anemia complicating , unspecified trimester [facility] 2025-08-22 13:21 Anemia complicating , third trimester [facility] 2025-08-22 13:21 Anemia complicating , unspecified trimester [facility] 2025-08-24 08:07 Anemia complicating , third trimester [facility] 2025-08-25 00:02 Supervision of high risk , unspecified, third trimester [facility] 2025-08-25 00:02 Gestational [pregnan cy-induced] hypertension without significant proteinuria, unspecified trimester [facility] 2025-08-25 00:02 Encounter for screening for tanner betes mellitus [facility] 2025-08-27 08:44 Other specified dise ases and conditions complicating [facility] 2025-08-27 08:44 Other chest pain [facility] 2025-08-27 08:44 Left upper quadrant pain [employer] 2025-08-27 09:09 Gestational [pregnan cy-induced] hypertension without significant proteinuria, third trimester [facility] 2025-08-28 15:47 Leiomyoma of uterus, unspecifie d [employer] 2025-08-28 15:47 Maternal care for be nign tumor of corpus uteri, unspecified trimester [facility] 2025-08-28 18:24 Supervision of high risk , unspecified, third trimester [facility] 2025-08-28 18:24 Severe pre-eclampsia, unspecifi ed trimester [facility] 2025-08-28 18:26 Supervision of high risk , unspecified, third trimester [facility] 2025-08-28 18:26 Severe pre-eclampsia, unspecifi ed trimester [facility] 2025-08-28 20:23 Leiomyoma of uterus, unspecifie d [facility] 2025-08-28 20:23 Supervision of high risk , unspecified, third trimester [facility] 2025-08-28 20:23 Severe pre-eclampsia, unspecifi ed trimester [facility] 2025-08-28 20:23 Maternal care for br eech presentation, not applicable or unspecified [facility] 2025-08-28 20:23 Maternal care for be nign tumor of corpus uteri, unspecified trimester [facility] 2025-08-28 20:24 Leiomyoma of uterus, unspecifie d [facility] 2025-08-28 20:24 Supervision of high risk , unspecified, third trimester [facility] 2025-08-28 20:24 Severe pre-eclampsia, unspecifi ed trimester [facility] 2025-08-28 20:24 Maternal care for br eech presentation, not applicable or unspecified [facility] 2025-08-28 20:24 Maternal care for be nign tumor of corpus uteri, unspecified trimester [facility] 2025-08-28 20:46 Leiomyoma of uterus, unspecifie d [facility] 2025-08-28 20:46 Supervision of high risk , unspecified, third trimester [facility] 2025-08-28 20:46 Severe pre-eclampsia, unspecifi ed trimester [facility] 2025-08-28 20:46 Maternal care for br eech presentation, not applicable or unspecified [facility] 2025-08-28 20:46 Maternal care for be nign tumor of corpus uteri, unspecified trimester [facility] 2025-08-28 21:58 Leiomyoma of uterus, unspecifie d [facility] 2025-08-28 21:58 Supervision of high risk , unspecified, third trimester [facility] 2025-08-28 21:58 Severe pre-eclampsia, unspecifi ed trimester [facility] 2025-08-28 21:58 Maternal care for br eech presentation, not applicable or unspecified [facility] 2025-08-28 21:58 Maternal care for be nign tumor of corpus uteri, unspecified trimester [facility] 2025-08-28 23:40 Leiomyoma of uterus, unspecifie d [facility] 2025-08-28 23:40 Supervision of high risk , unspecified, third trimester [facility] 2025-08-28 23:40 Severe pre-eclampsia, unspecifi ed trimester [facility] 2025-08-28 23:40 Maternal care for br eech presentation, not applicable or unspecified [facility] 2025-08-28 23:40 Maternal care for be nign tumor of corpus uteri, unspecified trimester [facility] 2025-08-29 00:02 Leiomyoma of uterus, unspecifie d [facility] 2025-08-29 00:02 Supervision of high risk , unspecified, third trimester [facility] 2025-08-29 00:02 Gestational [pregnan cy-induced] hypertension without significant proteinuria, unspecified trimester [facility] 2025-08-29 00:02 Maternal care for be nign tumor of corpus uteri, unspecified trimester [facility] 2025-08-29 00:02 Encounter for screening for tanner betes mellitus [facility] 2025-08-29 11:14 Leiomyoma of uterus, unspecifie d [facility] 2025-08-29 11:14 Supervision of high risk , unspecified, third trimester [facility] 2025-08-29 11:14 Severe pre-eclampsia, unspecifi ed trimester [facility] 2025-08-29 11:14 Maternal care for br eech presentation, not applicable or unspecified [facility] 2025-08-29 11:14 Maternal care for be nign tumor of corpus uteri, unspecified trimester [employer] [facility] 2025-08-29 15:26 Gestational [pregnan cy-induced] hypertension without significant proteinuria, third trimester [facility] 2025-08-30 11:14 Leiomyoma of uterus, unspecifie d [facility] 2025-08-30 11:14 Acute posthemorrhagic anemia [facility] 2025-08-30 11:14 Supervision of high risk , unspecified, third trimester [facility] 2025-08-30 11:14 Severe pre-eclampsia, unspecifi ed trimester [facility] 2025-08-30 11:14 Maternal care for br eech presentation, not applicable or unspecified [facility] 2025-08-30 11:14 Maternal care for be nign tumor of corpus uteri, unspecified trimester [facility] 2025-08-30 11:14 Anemia complicating , third trimester [facility] 2025-08-30 11:14 Encounter for routine postpartu m follow-up [facility] 2025-08-31 06:39 Maternal care for be nign tumor of corpus uteri, unspecified trimester [facility] 2025-08-31 12:30 Leiomyoma of uterus, unspecifie d [facility] 2025-08-31 12:30 Acute posthemorrhagic anemia [facility] 2025-08-31 12:30 Supervision of high risk , unspecified, third trimester [facility] 2025-08-31 12:30 Severe pre-eclampsia, unspecifi ed trimester [facility] 2025-08-31 12:30 Maternal care for br eech presentation, not applicable or unspecified [facility] 2025-08-31 12:30 Maternal care for be nign tumor of corpus uteri, unspecified trimester [facility] 2025-08-31 12:30 Anemia complicating , third trimester [facility] 2025-08-31 12:30 Encounter for routine postpartu m follow-up [facility] 2025-08-31 14:45 Supervision of high risk , unspecified, third trimester [facility] 2025-08-31 14:46 Supervision of high risk , unspecified, third trimester [facility] 2025-08-31 14:46 Gestational [pregnan cy-induced] hypertension without significant proteinuria, unspecified trimester [facility] 2025-08-31 14:46 Encounter for screening for tanner betes mellitus [facility] 2025-08-31 17:07 Leiomyoma of uterus, unspecifie d [employer] [facility] 2025-08-31 17:07 Acute posthemorrhagic anemia [employer] 2025-08-31 17:07 Supervision of high risk , unspecified, third trimester [employer] [facility] 2025-08-31 17:07 Severe pre-eclampsia, unspecifi ed trimester [employer] [facility] 2025-08-31 17:07 Maternal care for br eech presentation, not applicable or unspecified [employer] [facility] 2025-08-31 17:07 Maternal care for be nign tumor of corpus uteri, unspecified trimester [employer] [facility] 2025-08-31 17:07 Anemia complicating , third trimester [employer] [facility] 2025-08-31 17:07 Encounter for routine postpartu m follow-up [employer] 2025-08-31 17:08 Leiomyoma of uterus, unspecifie d [employer] [facility] 2025-08-31 17:08 Acute posthemorrhagic anemia [employer] 2025-08-31 17:08 Supervision of high risk , unspecified, third trimester [employer] [facility] 2025-08-31 17:08 Severe pre-eclampsia, unspecifi ed trimester [employer] [facility] 2025-08-31 17:08 Maternal care for br eech presentation, not applicable or unspecified [employer] [facility] 2025-08-31 17:08 Maternal care for be nign tumor of corpus uteri, unspecified trimester [employer] [facility] 2025-08-31 17:08 Anemia complicating , third trimester [employer] 2025-08-31 17:08 Encounter for routine postpartu m follow-up [employer] 2025-09-01 01:13 Leiomyoma of uterus, unspecifie d [employer] 2025-09-01 01:13 Acute posthemorrhagic anemia [employer] 2025-09-01 01:13 Supervision of high risk , unspecified, third trimester [employer] 2025-09-01 01:13 Severe pre-eclampsia, unspecifi ed trimester [facility] 2025-09-01 01:13 Maternal care for br eech presentation, not applicable or unspecified [facility] 2025-09-01 01:13 Maternal care for be nign tumor of corpus uteri, unspecified trimester [facility] [facility] 2025-09-01 01:13 Anemia complicating , third trimester [facility] 2025-09-01 01:13 Encounter for routine postpartu m follow-up [facility] 2025-09-01 11:35 Leiomyoma of uterus, unspecifie d [facility] 2025-09-01 11:35 Acute posthemorrhagic anemia [facility] 2025-09-01 11:35 Supervision of high risk , unspecified, third trimester [facility] 2025-09-01 11:35 Gestational [pregnan cy-induced] hypertension without significant proteinuria, unspecified trimester [facility] 2025-09-01 11:35 Severe pre-eclampsia, unspecifi ed trimester [facility] 2025-09-01 11:35 Gestational diabetes mellitus in , unspecified control [facility] 2025-09-01 11:35 Maternal care for br eech presentation, not applicable or unspecified [facility] 2025-09-01 11:35 Maternal care for be nign tumor of corpus uteri, unspecified trimester [facility] 2025-09-01 11:35 Anemia complicating , third trimester [facility] 2025-09-01 11:35 Encounter for routine postpartu m follow-up [facility] Results/Labs test date facility value unit notes Result panel 1 PROTEIN/CREATININE RATIO,URINE 2025-06-28 09:36 [facility] [facility] 0.1 (missing) (missing) TOTAL PROTEIN,URINE TIMED 2025-06-28 09:36 [facility] 11 mg/dl As of April 2023 testing method has changed, this may include reference ranges. CREATININE,URINE 2025-06-28 09:36 [facility] 88.2 mg/dl As of April 2023 testing method has changed, this may include reference ranges. Result panel 2 BILIRUBIN,TOTAL 2025-06-28 10:35 [facility] 0.3 mg/dl As of April 2023 testing method has changed, this may include reference ranges. CREATININE 2025-06-28 10:35 [facility] 0.5 mg/dl As of April 2023 testing method has changed, this may include reference ranges. ALBUMIN/GLOBULIN RATIO 2025-06-28 10:35 [facility] 1.3 (missing) (missing) HGB - HEMOGLOBIN 2025-06-28 10:35 [facility] 10.1 g/dl (missing) CHLORIDE 2025-06-28 10:35 [facility] [employer] 104 mmol/l As of April 2023 testing method has changed, this may include reference ranges. ALT ALANINE AMINOTRANSFERASE 2025-06-28 10:35 [facility] 11 iu/l As of April 2023 testing method has changed, this may include reference ranges. RED CELL DISTRIBUTION WIDTH 2025-06-28 10:35 [facility] 12.4 % (missing) SODIUM 2025-06-28 10:35 [facility] 136 mmol/l (missing) GFR - MDRD 2025-06-28 10:35 [facility] 140 (missing) The IDMS-traceable MDRD Study Equation [...] December 2011. WHITE BLOOD COUNT 2025-06-28 10:35 [facility] 15.3 x10 3/ul (missing) GLUCOSE,1H PP 50GM DOSE 2025-06-28 10:35 [facility] 181 mg/dl 50g Challenge 1 hr post Glucose < 140 mg/dL Reference: [employer] As of April 2023 testing method has changed, this may include reference ranges. GLUCOSE 2025-06-28 10:35 [facility] 181 mg/dl As of April 2023 testing method has changed, this may include reference ranges. GLOBULIN 2025-06-28 10:35 [facility] 2.8 g/dl (missing) CARBON DIOXIDE - CO2 2025-06-28 10:35 [facility] 24 mmol/l As of April 2023 testing method has changed, this may include reference ranges. POTASSIUM 2025-06-28 10:35 [facility] 3.3 mmol/l As of April 2023 testing method has changed, this may include reference ranges. RED BLOOD COUNT 2025-06-28 10:35 [facility] [facility] 3.34 10 6/ul (missing) ALBUMIN 2025-06-28 10:35 [facility] 3.5 g/dl As of April 2023 testing method has changed, this may include reference ranges. MEAN CORPUSCULAR HEMOGLOBIN 2025-06-28 10:35 [facility] 30.2 pg (missing) HCT - HEMATOCRIT 2025-06-28 10:35 [facility] 30.5 % (missing) MEAN CORPUSCULAR HGB CONC 2025-06-28 10:35 [facility] 33.1 g/dl (missing) PLT - PLATELET COUNT 2025-06-28 10:35 [facility] [facility] 391 10 3/ul (missing) BUN - BLOOD UREA NITROGEN 2025-06-28 10:35 [facility] 6 mg/dl As of April 2023 testing method has changed, this may include reference ranges. TOTAL PROTEIN 2025-06-28 10:35 [facility] 6.3 g/dl As of April 2023 testing method has changed, this may include reference ranges. ALKALINE PHOSPHATASE 2025-06-28 10:35 [facility] 66 iu/l As of April 2023 testing method has changed, this may include reference ranges. ANION GAP 2025-06-28 10:35 [facility] 8.0 (missing) (missing) CALCIUM 2025-06-28 10:35 [facility] 8.8 mg/dl As of April 2023 testing method has changed, this may include reference ranges. AST ASPARTATE AMINOTRANSFERASE 2025-06-28 10: [facility] 9 iu/l As of April 2023 testing method has changed, this may include reference ranges. MEAN PLATELET VOLUME 2025-06-28 10:35 [facility] 9.1 fl (missing) MEAN CORPUSCULAR VOLUME 2025-06-28 10:35 [facility] [employer] 91.3 fl (missing) RPR 2025-06-28 10:35 [facility] [facility] Non Reactive (missing) Performed at: [facility] [address] [address], [place], [place] [id number] Deaf/Hard Of Hearing Specialist: Jamar Spears MD, Phone: [phone] Result panel 3 GLUCOSE TOLERANCE 3HR 2025-07-04 08:12 [facility] (missing) (missing) GLU FAST 88 mg/dL Col [...] time points is a positive test. Reference: [facility] Result panel 4 BILIRUBIN,TOTAL 2025-07-04 08:15 [facility] 0.3 mg/dl As of April 2023 testing method has changed, this may include reference ranges. CREATININE 2025-07-04 08:15 [facility] [employer] 0.5 mg/dl As of April 2023 testing method has changed, this may include reference ranges. ALBUMIN/GLOBULIN RATIO 2025-07-04 08:15 [facility] 1.5 (missing) (missing) CHLORIDE 2025-07-04 08:15 [facility] 105 mmol/l As of April 2023 testing method has changed, this may include reference ranges. RED CELL DISTRIBUTION WIDTH 2025-07-04 08:15 [facility] 12.5 % (missing) SODIUM 2025-07-04 08:15 [facility] 135 mmol/l (missing) GFR - MDRD 2025-07-04 08:15 [employer] [facility] 140 (missing) The IDMS-traceable MDRD Study Equation [...] December 2011. WHITE BLOOD COUNT 2025-07-04 08:15 [facility] 15.3 x10 3/ul (missing) GLOBULIN 2025-07-04 08:15 [facility] 2.4 g/dl (missing) CARBON DIOXIDE - CO2 2025-07-04 08:15 [facility] 24 mmol/l As of April 2023 testing method has changed, this may include reference ranges. HCT - HEMATOCRIT 2025-07-04 08:15 [facility] 28.6 % (missing) RED BLOOD COUNT 2025-07-04 08:15 [facility] 3.16 10 6/ul (missing) ALBUMIN 2025-07-04 08:15 [facility] 3.5 g/dl As of April 2023 testing method has changed, this may include reference ranges. POTASSIUM 2025-07-04 08:15 [facility] 3.5 mmol/l As of April 2023 testing method has changed, this may include reference ranges. MEAN CORPUSCULAR HEMOGLOBIN 2025-07-04 08:15 [facility] 30.7 pg (missing) MEAN CORPUSCULAR HGB CONC 2025-07-04 08:15 [email or web address] 33.9 g/dl (missing) PLT - PLATELET COUNT 2025-07-04 08:15 [facility] 394 10 3/ul (missing) TOTAL PROTEIN 2025-07-04 08:15 [facility] [employer] 5.9 g/dl As of April 2023 testing method has changed, this may include reference ranges. ANION GAP 2025-07-04 08:15 [facility] 6.0 (missing) (missing) FERRITIN 2025-07-04 08:15 [email or web address] 6.1 ng/ml (missing) ALKALINE PHOSPHATASE 2025-07-04 08:15 [facility] 68 iu/l As of April 2023 testing method has changed, this may include reference ranges. ALT ALANINE AMINOTRANSFERASE 2025-07-04 08:15 [facility] [facility] 7 iu/l As of April 2023 testing method has changed, this may include reference ranges. BUN - BLOOD UREA NITROGEN 2025-07-04 08:15 [facility] [employer] 7 mg/dl As of April 2023 testing method has changed, this may include reference ranges. AST ASPARTATE AMINOTRANSFERASE 2025-07-04 08:15 [facility] [facility] 8 iu/l As of April 2023 testing method has changed, this may include reference ranges. CALCIUM 2025-07-04 08:15 [facility] [employer] 8.8 mg/dl As of April 2023 testing method has changed, this may include reference ranges. GLUCOSE 2025-07-04 08:15 [facility] 88 mg/dl As of April 2023 testing method has changed, this may include reference ranges. MEAN PLATELET VOLUME 2025-07-04 08:15 [facility] 9.1 fl (missing) HGB - HEMOGLOBIN 2025-07-04 08:15 [facility] 9.7 g/dl (missing) MEAN CORPUSCULAR VOLUME 2025-07-04 08:15 [facility] 90.5 fl (missing) Result panel 5 PROTEIN/CREATININE RATIO,URINE 2025-07-04 08:57 [facility] 0.2 (missing) (missing) TOTAL PROTEIN,URINE TIMED 2025-07-04 08:57 [facility] [facility] 13 mg/dl As of April 2023 testing method has changed, this may include reference ranges. CREATININE,URINE 2025-07-04 08:57 [email or web address] 85.9 mg/dl As of April 2023 testing method has changed, this may include reference ranges. Result panel 6 NUCLEATED RED BLOOD CELLS AUTO 2025-07-31 16:05 [facility] 0.0 /100wbc (missing) NRBC ABSOLUTE COUNT (AUTO) 2025-07-31 16:05 [facility] 0.00 x10 3/ul (missing) BASOPHILS # (AUTO) 2025-07-31 16:05 [email or web address] 0.1 10 3/ul (missing) EOSINOPHILS # (AUTO) 2025-07-31 16:05 [facility] 0.2 10 3/ul (missing) BILIRUBIN,TOTAL 2025-07-31 16:05 [facility] 0.3 mg/dl As of April 2023 testing method has changed, this may include reference ranges. CREATININE 2025-07-31 16:05 [facility] [employer] 0.5 mg/dl As of April 2023 testing method has changed, this may include reference ranges. MONOCYTES # (AUTO) 2025-07-31 16:05 [facility] 1.1 10 3/ul (missing) ALBUMIN/GLOBULIN RATIO 2025-07-31 16:05 [facility] 1.5 (missing) (missing) AST ASPARTATE AMINOTRANSFERASE 2025-07-31 16:05 [facility] 10 iu/l As of April 2023 testing method has changed, this may include reference ranges. BUN - BLOOD UREA NITROGEN 2025-07-31 16:05 [facility] 10 mg/dl As of April 2023 testing method has changed, this may include reference ranges. CHLORIDE 2025-07-31 16:05 [facility] 106 mmol/l As of April 2023 testing method has changed, this may include reference ranges. NEUTROPHILS # (AUTO) 2025-07-31 16:05 [facility] [employer] 11.0 10 3/ul (missing) SODIUM 2025-07-31 16:05 [facility] 137 mmol/l Unknown ALT ALANINE AMINOTRANSFERASE 2025-07-31 16:05 [facility] [facility] 14 iu/l As of April 2023 testing method has changed, this may include reference ranges. GFR - MDRD 2025-07-31 16:05 [facility] [facility] 140 (missing) The IDMS-traceable MDRD Study Equation [...] 2011. RED CELL DISTRIBUTION WIDTH 2025-07-31 16:05 [facility] 15.3 % (missing) WHITE BLOOD COUNT 2025-07-31 16:05 [facility] 15.4 x10 3/ul (missing) GLOBULIN 2025-07-31 16:05 [facility] 2.4 g/dl (missing) LYMPHOCYTES # (AUTO) 2025-07-31 16:05 [facility] 2.9 10 3/ul (missing) RED BLOOD COUNT 2025-07-31 16:05 [facility] [employer] 2.99 10 6/ul (missing) CARBON DIOXIDE - CO2 2025-07-31 16:05 [facility] 24 mmol/l As of April 2023 testing method has changed, this may include reference ranges. HCT - HEMATOCRIT 2025-07-31 16:05 [facility] 28.0 % (missing) MEAN CORPUSCULAR HEMOGLOBIN 2025-07-31 16:05 [facility] 29.1 pg (missing) ALBUMIN 2025-07-31 16:05 [facility] 3.6 g/dl As of April 2023 testing method has changed, this may include reference ranges. POTASSIUM 2025-07-31 16: [facility] 3.7 mmol/l As of April 2023 testing method has changed, this may include reference ranges. MEAN CORPUSCULAR HGB CONC 2025-07-31 16:05 [facility] 31.1 g/dl (missing) TRANSFERRIN 2025-07-31 16:05 [facility] 326 mg/dl As of April 2023 testing method has changed, this may include reference ranges. IRON 2025-07-31 16:05 [facility] [employer] 38 ug/dl As of April 2023 testing method has changed, this may include reference ranges. PLT - PLATELET COUNT 2025-07-31 16:05 [facility] 436 10 3/ul (missing) TOTAL IRON BINDING CAPACITY 2025-07-31 16:05 [facility] [employer] 456 ug/dl (missing) TOTAL PROTEIN 2025-07-31 16:05 [facility] [employer] 6.0 g/dl As of April 2023 testing method has changed, this may include reference ranges. ANION GAP 2025-07-31 16:05 [facility] 7.0 (missing) (missing) % IRON SATURATION 2025-07-31 16:05 [facility] 8 % (missing) HGB - HEMOGLOBIN 2025-07-31 16:05 [facility] [employer] 8.7 g/dl (missing) ALKALINE PHOSPHATASE 2025-07-31 16:05 [facility] [employer] 82 iu/l As of April 2023 testing method has changed, this may include reference ranges. FERRITIN 2025-07-31 16:05 [facility] 89.2 ng/ml (missing) MEAN PLATELET VOLUME 2025-07-31 16:05 [facility] [employer] 9.2 fl (missing) CALCIUM 2025-07-31 16:05 [facility] [employer] 9.2 mg/dl As of April 2023 testing method has changed, this may include reference ranges. GLUCOSE 2025-07-31 16:05 [facility] 93 mg/dl As of April 2023 testing method has changed, this may include reference ranges. MEAN CORPUSCULAR VOLUME 2025-07-31 16:05 [facility] 93.6 fl (missing) Result panel 7 TOTAL PROTEIN,URINE TIMED 2025-07-31 16:07 [facility] < 4 mg/dl As of Apr testing method has changed, this may include reference ranges. CREATININE,URINE 2025-07-31 16:07 [facility] [employer] 20.1 m g/dl As of April 2023 testing method has changed, this may include reference ranges. PROTEIN/CREATININE RATIO,URINE 2025-07-31 16:07 [facility] TNP (missing) Unable to calculate. Analyte below the measurable range. Result panel 8 NUCLEATED RED BLOOD CELLS AUTO 2025-08-10 15:11 [facility] 0.0 /100wbc (missing) NRBC ABSOLUTE COUNT (AUTO) 2025-08-10 15:11 [facility] 0.00 x10 3/ul (missing) BASOPHILS # (AUTO) 2025-08-10 15:11 [facility] [employer] 0.1 10 3/ul (missing) ABSOLUTE RETICS # AUTO 2025-08-10 15:11 [facility] [employer] 0.115 10 6/ul (missing) EOSINOPHILS # (AUTO) 2025-08-10 15:11 [facility] [employer] 0.2 10 3/ul (missing) THYROID STIMULATING HORMONE 2025-08-10 15:11 [facility] 0.32 uiu/ml (missing) FREE T4 (FREE THYROXINE) 2025-08-10 15:11 [facility] 0.55 ng/dl Biotin at >10 ng/mL concentration may cause significant interference. MONOCYTES # (AUTO) 2025-08-10 15:11 [facility] 0.9 10 3/ul (missing) NEUTROPHILS # (AUTO) 2025-08-10 15:11 [facility] 10.6 10 3/ul (missing) VITAMIN B12 2025-08-10 15:11 [facility] 130 pg/ml VITAMIN B12 RANGES: NORMAL 180 - 914 INDETERMINATE 145 -180 DEFICIENT < 145 WHITE BLOOD COUNT 2025-08-10 15:11 [facility] [employer] 14.8 x10 3/ul (missing) RED CELL DISTRIBUTION WIDTH 2025-08-10 15:11 [facility] 16.0 % (missing) LYMPHOCYTES # (AUTO) 2025-08-10 15:11 [facility] [employer] 2.9 10 3/ul (missing) MEAN CORPUSCULAR HEMOGLOBIN 2025-08-10 15:11 [facility] 29.0 pg (missing) RED BLOOD COUNT 2025-08-10 15:11 [facility] 3.19 10 6/ul (missing) RED BLOOD COUNT 2025-08-10 15:11 [facility] [employer] 3.28 10 6/ul (missing) RETICULOCYTE COUNT % (AUTO) 2025-08-10 15:11 [facility] 3.61 % (missing) HCT - HEMATOCRIT 2025-08-10 15:11 [facility] 30.4 % (missing) MEAN CORPUSCULAR HGB CONC 2025-08-10 15:11 [facility] 31.3 g/dl (missing) FOLATE 2025-08-10:11 [facility] 34.2 ng/ml (missing) PLT - PLATELET COUNT 2025-08-10 15:11 [facility] 463 10 3/ul (missing) ERYTHROPOIETIN (EPO) 2025-08-10 15:11 [facility] 47.3 miu/ml [employer] DxI 800 Immunoassay System Values obtained with different assay methods or kits cannot be used interchangeably. Results cannot be interpreted as absolute evidence of the presence or absence of malignant disease. Performed at: [facility] [id number], [place], [place] [id number] Deaf/Hard Of Hearing Specialist: Gracie Mayberry MD, Phone: [phone] MEAN PLATELET VOLUME 2025-08-10 15:11 [facility] 9.0 fl (missing) HGB - HEMOGLOBIN 2025-08-10 15:11 [facility] 9.5 g/dl (missing) MEAN CORPUSCULAR VOLUME 2025-08-10 [...] 3/ul (missing) BASOPHILS # (AUTO) 2025-08-16 07:55 [facility] 0.1 10 3/ul (missing) EOSINOPHILS # (AUTO) 2025-08-16 07:55 [facility] 0.1 10 3/ul (missing) BILIRUBIN,TOTAL 2025-08-16 07:55 [facility] 0.5 mg /dl As of April 2023 testing method has changed, this may include reference ranges. CREATININE 2025-08-16 07:55 [facility] 0.6 mg/dl As of April 2023 testing method has changed, this may include reference ranges. MONOCYTES # (AUTO) 2025-08-16 07:55 [facility] 0.8 10 3/ul (missing) ALBUMIN/GLOBULIN RATIO 2025-08-16 07:55 [facility] 1.4 (missing) (missing) MAGNESIUM 2025-08-16 07:55 [facility] 1.6 mg/dl As of April 2023 testing method has changed, this may include reference ranges. CHLORIDE 2025-08-16 07:55 [facility] 106 mmol/l As of April 2023 testing method has changed, this may include reference ranges. GFR - MDRD 2025-08-16 07:55 [facility] [facility] 114 (nixon olguin) The IDMS-traceable MDRD Study Equation has been [...] December 2011. WHITE BLOOD COUNT 2025-08-16 07:55 [facility] [facility] 12.4 x10 3/ul (missing) ALT ALANINE AMINOTRANSFERASE 2025-08-16 07:55 [facility] 13 iu/l As of April 2023 testing method has changed, this may include reference ranges. SODIUM 2025-08-16 07:55 [facility] 139 mmol/l (missing) RED CELL DISTRIBUTION WIDTH 2025-08-16 07:55 [facility] [employer] 15.9 % (missing) LYMPHOCYTES # (AUTO) 2025-08-16 07:55 [facility] 2.4 10 3/ul (missing) GLOBULIN 2025-08-16 07:55 [facility] 2.6 g/dl (missing) CARBON DIOXIDE - CO2 2025-08-16 07:55 [facility] 24 mmol/l As of April 2023 testing method has changed, this may include reference ranges. HCT - HEMATOCRIT 2025-08-16 07:55 [facility] [employer] 28.5 % (missing) MEAN CORPUSCULAR HEMOGLOBIN 2025-08-16 07:55 [facility] 29.3 pg (missing) RED BLOOD COUNT 2025-08-16 07:55 [facility] [employer] 3.11 10 6/ul (missing) POTASSIUM 2025-08-16 07:55 [facility] 3.4 mmol/l As of April 2023 testing method has changed, this may include reference ranges. ALBUMIN 2025-08-16 07:55 [facility] [facility] 3.6 g/dl As of April 2023 testing method has changed, this may include reference ranges. MEAN CORPUSCULAR HGB CONC 2025-08-16 07:55 [facility] [employer] 31.9 g/dl (missing) PLT - PLATELET COUNT 2025-08-16 07:55 [facility] 442 10 3/ul (missing) BUN - BLOOD UREA NITROGEN 2025-08-16 07:55 [facility] 6 mg/dl As of Apr testing method has changed, this may include reference ranges. TOTAL PROTEIN 2025-08-16 07:55 [facility] 6.2 g/dl As of April 2023 testing method has changed, this may include reference ranges. NEUTROPHILS # (AUTO) 2025-08-16 07:55 [facility] [employer] 8.9 10 3/ul (missing) MEAN PLATELET VOLUME 2025-08-16 07:55 [facility] 8.9 fl (missing) AST ASPARTATE AMINOTRANSFERASE 2025-08-16 07:55 [facility] [employer] 9 iu/l As of April 2023 testing method has changed, this may include reference ranges. ANION GAP 2025-08-16 07:55 [facility] 9.0 (missing ) (missing) CALCIUM 2025-08-16 07:55 [facility] [employer] 9.0 mg/dl As of April 2023 testing method has changed, this may include reference ranges. HGB - HEMOGLOBIN 2025-08-16 07:55 [facility] [employer] 9.1 g /dl (missing) MEAN CORPUSCULAR VOLUME 2025-08-16 07:55 [facility] [employer] 91.6 fl (missing) ALKALINE PHOSPHATASE 2025-08-16 07:55 [facility] [employer] 99 iu/l As of April 2023 testing method has changed, this may include reference ranges. GLUCOSE 2025-08-16 07:55 [facility] [employer] 99 mg/dl As of April 2023 testing method has changed, this may include reference ranges. Result panel 11 PROTEIN/CREATININE RATIO,URINE 2025-08-21 21:03 [facility] 0.1 (missing) (missing) TOTAL PROTEIN,URINE TIMED 2025-08-21 21:03 [facility] [facility] 5 mg/dl As of April 2023 testing method has changed, this may include reference ranges. CREATININE,URINE 2025-08-21 21:03 [facility] 50.7 mg/dl As of April 2023 testing method has changed, this may include reference ranges. Result panel 12 NUCLEATED RED BLOOD CELLS AUTO 2025-08-21 21:31 [facility] [facility] 0.0 /100wbc (missing) NRBC ABSOLUTE COUNT (AUTO) 2025-08-21 21:31 [facility] 0.00 x10 3/ul (missing) BASOPHILS # (AUTO) 2025-08-21 21:31 [facility] 0.1 10 3/ul (missing) EOSINOPHILS # (AUTO) 2025-08-21 21:31 [facility] 0.2 10 3/ul (missing) BILIRUBIN,TOTAL 2025-08-21 21:31 [facility] [employer] 0.5 mg/dl As of April 2023 testing method has changed, this may include reference ranges. CREATININE 2025-08-21:31 [facility] 0.6 mg/dl As of April 2023 testing method has changed, this may include reference ranges. MONOCYTES # (AUTO) 2025-08-21 21:31 [email or web address] 1.0 10 3/ul (missing) ALBUMIN/GLOBULIN RATIO 2025-08-21 21:31 [facility] 1.4 (missing) (missing) NEUTROPHILS # (AUTO) 2025-08-21 21:31 [email or web address] 10.2 10 3/ul (missing) CHLORIDE 2025-08-21 21:31 [email or web address] 106 mmol/l As of April 2023 testing method has changed, this may include reference ranges. GFR - MDRD 2025-08-21 21:31 [employer] 114 (missing) The IDMS-traceable MDRD Study Equation [...] December 2011. AST ASPARTATE AMINOTRANSFERASE 2025-08-21 21:31 [facility] 12 iu/l As of April 2023 testing method has changed, this may include reference ranges. SODIUM 2025-08-21 21:31 [facility] 138 mmol/l (missing) ALT ALANINE AMINOTRANSFERASE 2025-08-21 21:31 [facility] 14 iu/l As of April 2023 testing method has changed, this may include reference ranges. WHITE BLOOD COUNT 2025-08-21 21:31 [employer] [facility] 14.7 x10 3/ul (missing) RED CELL DISTRIBUTION WIDTH 2025-08-21 21:31 [employer] 16.1 % (missing) GLOBULIN 2025-08-21 21:31 [facility] 2.5 g/dl (missing) CARBON DIOXIDE - CO2 2025-08-21 21:31 [facility] 23 mmol/l As of April 2023 testing method has changed, this may include reference ranges. MEAN CORPUSCULAR HEMOGLOBIN 2025-08-21 21:31 [facility] [facility] 28.4 pg (missing) LYMPHOCYTES # (AUTO) 2025-08-21 21:31 [facility] [employer] 3.1 10 3/ul (missing) POTASSIUM 2025-08-21 21:31 [facility] [facility] 3.4 mmol/l As of April 2023 testing method has changed, this may include reference ranges. RED BLOOD COUNT 2025-08-21 21:31 [facility] [employer] 3.41 10 6/ul (missing) ALBUMIN 2025-08-21 21:31 [facility] [employer] 3.5 g/dl As of April 2023 testing method has changed, this may include reference ranges. MEAN CORPUSCULAR HGB CONC 2025-08-21 21:31 [facility] 30.5 g/dl (missing) HCT - HEMATOCRIT 2025-08-21 21:31 [facility] 31.8 % (missing) PLT - PLATELET COUNT 2025-08-21 21:31 [facility] [facility] 496 10 3/ul (missing) BUN - BLOOD UREA NITROGEN 2025-08-21 21:31 [facility] 6 mg/dl As of April 2023 testing method has changed, this may include reference ranges. TOTAL PROTEIN 2025-08-21 21:31 [facility] [facility] 6.0 g/dl As of April 2023 testing method has changed, this may include reference ranges. MEAN PLATELET VOLUME 2025-08-21 21:31 [facility] [facility] 8.9 fl (missing) ANION GAP 2025-08-21 21:31 [facility] [employer] 9.0 (missing) (missing) HGB - HEMOGLOBIN 2025-08-21 21:31 [facility] [facility] 9.7 g/dl (missing) CALCIUM 2025-08-21 21:31 [email or web address] 9.7 mg/dl As of April 2023 testing method has changed, this may include reference ranges. GLUCOSE 2025-08-21 21:31 [employer] 91 mg/dl As of April 2023 testing method has changed, this may include reference ranges. MEAN CORPUSCULAR VOLUME 2025-08-21 21:31 [employer] 93.3 fl (missing) ALKALINE PHOSPHATASE 2025-08-21:31 [employer] 95 iu/l As of April 2023 testing method has changed, this may include reference ranges. Result panel 13 TOTAL PROTEIN,URINE TIMED 2025-08-28 16:05 [employer] < 4 mg/dl As of April 2023 testing method has changed, this may include reference ranges. THYROID STIMULATING HORMONE 2025-08-28 16:05 [employer] 0.56 uiu/ml (missing) BILIRUBIN,TOTAL 2025-08-28 16:05 [employer] 0.6 mg/dl As of April 2023 testing method has changed, this may include reference ranges. CREATININE 2025-08-28 16:05 [employer] 0.7 mg/dl As of April 2023 testing method has changed, this may include reference ranges. ALBUMIN/GLOBULIN RATIO 2025-08-28 16:05 [employer] 1.6 (missing) (missing) CHLORIDE 2025-08-28 16:05 [employer] 106 mmol/l As of April 2023 testing method has changed, this may include reference ranges. GLUCOSE 2025-08-28 16:05 [employer] 116 mg/dl As of April 2023 testing method has changed, this may include reference ranges. ALT ALANINE AMINOTRANSFERASE 2025-08-28 16:05 [employer] 13 iu/l As of April 2023 testing method has changed, this may include reference ranges. WHITE BLOOD COUNT 2025-08-28 16:05 [employer] 13.6 x10 3/ul (missing) SODIUM 2025-08-28 16:05 [employer] 139 mmol/l Unknown RED CELL DISTRIBUTION WIDTH 2025-08-28 16:05 [employer] 17.2 % (missing) GLOBULIN 2025-08-28 16:05 [employer] 2.3 g/dl (missing) CREATININE,URINE 2025-08-28 16:05 [employer] 23.8 mg/dl As of April 2023 testing method has changed, this may include reference ranges. CARBON DIOXIDE - CO2 2025-08-28 16:05 [employer] 25 mmol/l As of April 2023 testing method has changed, this may include reference ranges. MEAN CORPUSCULAR HEMOGLOBIN 2025-08-28 16:05 [employer] 28.9 pg (missing) RED BLOOD COUNT 2025-08-28 16:05 [employer] 3.25 10 6/ul (missing) POTASSIUM 2025-08-28 16:[employer] 3.5 mmol/l As of April 2023 testing method has changed, this may include reference ranges. ALBUMIN 2025-08-28 16:05 [employer] 3.6 g/dl As of April 2023 testing method has changed, this may include reference ranges. HCT - HEMATOCRIT 2025-08-28 16:05 [employer] 30.3 % (missing) MEAN CORPUSCULAR HGB CONC 2025-08-28 16:05 [employer] 31.0 g/dl (missing) PLT - PLATELET COUNT 2025-08-28 16:05 [employer] 449 10 3/ul (missing) TOTAL PROTEIN 2025-08-28 16:[employer] 5.9 g/dl As of April 2023 testing method has changed, this may include reference ranges. BUN - BLOOD UREA NITROGEN 2025-08-28 16:05 [employer] 8 mg/dl As of April 2023 testing method has changed, this may include reference ranges. ANION GAP 2025-08-28 16:05 [employer] 8.0 (missing) (missing) AST ASPARTATE AMINOTRANSFERASE 2025-08-28 16:05 [employer] 9 iu/l As of April 2023 testing method has changed, this may include reference ranges. MEAN PLATELET VOLUME 2025-08-28 16:05 [employer] 9.1 fl (missing) HGB - HEMOGLOBIN 2025-08-28 16:05 [employer] 9.4 g/dl (missing) CALCIUM 2025-08-28 16:05 [employer] 9.6 mg/dl As of April 2023 testing method has changed, this may include reference ranges. MEAN CORPUSCULAR VOLUME 2025-08-28 16:05 [employer] 93.2 fl (missing) GFR - MDRD 2025-08-28 16:05 [employer] 95 (missing) The IDMS-traceable MDRD Study Equation [...] updated December 2011. ALKALINE PHOSPHATASE 2025-08-28 16:05 [employer] 97 iu/l As of April 2023 testing method has changed, this may include reference ranges. PROTEIN/CREATININE RATIO,URINE 2025-08-28 16:05 [employer] TNP (missing) Unable to calculate. Analyte below the measurable range. Result panel 14 BILIRUBIN,TOTAL 2025-08-29 07:51 [employer] 0.4 mg/dl As of April 2023 testing method has changed, this may include reference ranges. CREATININE 2025-08-29 07:51 [employer] 0.7 mg/dl As of April 2023 testing method has changed, this may include reference ranges. ALBUMIN/GLOBULIN RATIO 2025-08-29 07:51 [employer] 1.5 (missing) (missing) AST ASPARTATE AMINOTRANSFERASE 2025-08-29 07:51 [employer] 10 iu/l As of April 2023 testing method has changed, this may include reference ranges. CHLORIDE 2025-08-29 07:51 [employer] 107 mmol/l As of April 2023 testing method has changed, this may include reference ranges. ALT ALANINE AMINOTRANSFERASE 2025-08-29 07:51 [employer] 13 iu/l As of April 2023 testing method has changed, this may include reference ranges. SODIUM 2025-08-29 07:51 [employer] 137 mmol/l (missing) GLUCOSE 2025-08-29 07:51 [employer] 161 mg/dl As of April 2023 testing method has changed, this may include reference ranges. RED CELL DISTRIBUTION WIDTH 2025-08-29 07:51 [employer] 17.2 % (missing) WHITE BLOOD COUNT 2025-08-29 07: [employer] 17.3 x10 3/ul (missing) GLOBULIN 2025-08-29 07:51 [employer] 2.2 g/dl (missing) RED BLOOD COUNT 2025-08-29 07: [employer] 2.73 10 6/ul (missing) CARBON DIOXIDE - CO2 2025-08-29 07:51 [employer] 24 mmol/l As of April 2023 testing method has changed, this may include reference ranges. HCT - HEMATOCRIT 2025-08-29 07:51 [employer] 25.1 % (missing) MEAN CORPUSCULAR HEMOGLOBIN 2025-08-29 07:51 [employer] 29.7 pg (missing) ALBUMIN 2025-08-29 07: [employer] 3.2 g/dl As of April 2023 testing method has changed, this may include reference ranges. POTASSIUM 2025-08-29 07:51 [employer] 3.8 mmol/l As of April 2023 testing method has changed, this may include reference ranges. MEAN CORPUSCULAR HGB CONC 2025-08-29 07:51 [employer] 32.3 g/dl (missing) PLT - PLATELET COUNT 2025-08-29 07:51 [employer] 341 10 3/ul (missing) MAGNESIUM 2025-08-29 07: [employer] 4.9 mg/dl As of April 2023 testing method has changed, this may include reference ranges. TOTAL PROTEIN 2025-08-29 07:51 [employer] 5.4 g/dl As of April 2023 testing method has changed, this may include reference ranges. BUN - BLOOD UREA NITROGEN 2025-08-29 07:51 [employer] 6 mg/dl As of April 2023 testing method has changed, this may include reference ranges. ANION GAP 2025-08-29 07:51 [employer] 6.0 (missing) (missing) CALCIUM 2025-08-29 07:51 [employer] 7.8 mg/dl As of April 2023 testing method has changed, this may include reference ranges. HGB - HEMOGLOBIN 2025-08-29 07:51 [employer] 8.1 g/dl (missing) MEAN PLATELET VOLUME 2025-08-29 07:51 [employer] 8.9 fl (missing) MEAN CORPUSCULAR VOLUME 2025-08-29 07:51 [employer] 91.9 fl (missing) GFR - MDRD 2025-08-29 07:51 [employer] 95 (missing) The IDMS-traceable MDRD Study Equation [...] updated December 2011. ALKALINE PHOSPHATASE 2025-08-29 07:51 [employer] 95 iu/l As of April 2023 testing method has changed, this may include reference ranges. Result panel 15 NUCLEATED RED BLOOD CELLS AUTO 2025-08-30 07:28 [employer] 0.0 /100wbc (missing) NRBC ABSOLUTE COUNT (AUTO) 2025-08-30 07: [employer] 0.00 x10 3/ul (missing) BASOPHILS # (AUTO) 2025-08-30 07:28 [facility] 0.1 10 3/ul (missing) EOSINOPHILS # (AUTO) 2025-08-30 07:28 [facility] 0.3 10 3/ul (missing) BILIRUBIN,TOTAL 2025-08-30 07:28 [facility] [employer] [facility] 0.3 mg/dl As of April 2023 testing method has changed, this may include reference ranges. CREATININE 2025-08-30 07: [employer] 0.7 mg/dl As of April 2023 testing method has changed, this may include reference ranges. MONOCYTES # (AUTO) 2025-08-30 07:28 [facility] 0.9 10 3/ul (missing) ALBUMIN/GLOBULIN RATIO 2025-08-30: [employer] 1.4 (missing) (missing) CHLORIDE 2025-08-30 07:28 [facility] [employer] [facility] 107 mmol/l As of April 2023 testing method has changed, this may include reference ranges. ALT ALANINE AMINOTRANSFERASE 2025-08-30 07: [employer] 11 iu/l As of April 2023 testing method has changed, this may include reference ranges. WHITE BLOOD COUNT 2025-08-30: [employer] 12.2 x10 3/ul (missing) SODIUM 2025-08-30 07:28 [employer] 137 mmol/l (missing) RED CELL DISTRIBUTION WIDTH 2025-08-30:28 [employer] 17.8 % (missing) GLOBULIN 2025-08-30 07: [employer] 2.1 g/dl (missing) RED BLOOD COUNT 2025-08-30: [employer] 2.32 10 6/ul (missing) HCT - HEMATOCRIT 2025-08-30:28 [employer] 21.7 % (missing) CARBON DIOXIDE - CO2 2025-08-30: [employer] 24 mmol/l As of April 2023 testing method has changed, this may include reference ranges. MEAN CORPUSCULAR HEMOGLOBIN 2025-08-30 07:28 [employer] 29.3 pg (missing) ALBUMIN 2025-08-30 07: [employer] 3.0 g/dl As of April 2023 testing method has changed, this may include reference ranges. LYMPHOCYTES # (AUTO) 2025-08-30 07:28 [facility] [employer] 3.5 10 3/ul (missing) POTASSIUM 2025-08-30 07:28 [facility] [employer] 3.6 mmol/l As of April 2023 testing method has changed, this may include reference ranges. MEAN CORPUSCULAR HGB CONC 2025-08-30 07:28 [facility] [employer] 31.3 g/dl (missing) PLT - PLATELET COUNT 2025-08-30 07:28 [facility] 344 10 3/ul (missing) TOTAL PROTEIN 2025-08-30 07:28 [employer] [facility] 5.1 g/dl As of April 2023 testing method has changed, this may include reference ranges. ANION GAP 2025-08-30 07:28 [employer] 6.0 (missing) (missing) HGB - HEMOGLOBIN 2025-08-30 07:28 [employer] 6.8 g/dl Called to FBP/SUSHIL Andre by Shubham Beal at 0800 08/30/25. Read back(Y/N)? Y CALCIUM 2025-08-30 07:28 [employer] 7.0 mg/dl As of April 2023 testing method has changed, this may include reference ranges. NEUTROPHILS # (AUTO) 2025-08-30 07:28 [employer] 7.4 10 3/ul (missing) ALKALINE PHOSPHATASE 2025-08-30 07:28 [employer] 76 iu/l As of April 2023 testing method has changed, this may include reference ranges. AST ASPARTATE AMINOTRANSFERASE 2025-08-30 07:28 [employer] 8 iu/l As of April 2023 testing method has changed, this may include reference ranges. BUN - BLOOD UREA NITROGEN 2025-08-30 07:28 [employer] 8 mg/dl As of April 2023 testing method has changed, this may include reference ranges. GLUCOSE 2025-08-30 07:28 [employer] 83 mg/dl As of April 2023 testing method has changed, this may include reference ranges. MEAN PLATELET VOLUME 2025-08-30 07:28 [employer] 9.1 fl (missing) MEAN CORPUSCULAR VOLUME 2025-08-30 07:28 [facility] 93.5 fl (missing) GFR - MDRD 2025-08-30 07:28 [email or web address] 95 (missing) The IDMS-traceable MDRD Study Equation [...] NUCLEATED RED BLOOD CELLS AUTO 2025-08-30 18:27 [employer] 0.0 /100wbc (missing) NRBC ABSOLUTE COUNT (AUTO) 2025-08-30 18:27 [employer] 0 .00 x10 3/ul (missing) BASOPHILS # (AUTO) 2025-08-30 18:27 [employer] 0.1 10 3/ul (missing) EOSINOPHILS # (AUTO) 2025-08-30 18:27 [employer] 0.3 10 3/ul (missing) MONOCYTES # (AUTO) 2025-08-30 18:27 [employer] 0.9 10 3/ul (missing) WHITE BLOOD COUNT 2025-08-30 18:27 [employer] 11.6 x10 3/ul (missing) RED CELL DISTRIBUTION WIDTH 2025-08-30 18:27 [employer] 18.1 % (missing) RED BLOOD COUNT 2025-08-30 18:27 [email or web address] 2.74 10 6/ul (missing) LYMPHOCYTES # (AUTO) 2025-08-30 18:27 [employer] 2.9 10 3/ul (missing) HCT - HEMATOCRIT 2025-08-30 18:27 [employer] 25.9 % (missing) MEAN CORPUSCULAR HEMOGLOBIN 2025-08-30 18:27 [employer] 27.7 pg (missing) MEAN CORPUSCULAR HGB CONC 2025-08-30 18:27 [employer] 29 .3 g/dl (missing) PLT - PLATELET COUNT 2025-08-30 18:27 [facility] 347 10 3/ul (missing) NEUTROPHILS # (AUTO) 2025-08-30 18:27 [facility] 7.3 10 3/ul (missing) HGB - HEMOGLOBIN 2025-08-30 18:27 [facility] 7.6 g /dl (missing) MEAN PLATELET VOLUME 2025-08-30 18:27 [facility] 8.9 fl (missing) MEAN CORPUSCULAR VOLUME 2025-08-30 18:27 [facility] 94.5 fl (missing) Result panel 17 NUCLEATED RED BLOOD CELLS AUTO 2025-08-31 08:59 [facility] 0.0 /100wbc (missing) NRBC ABSOLUTE COUNT (AUTO) 2025-08-31 08:59 [facility] 0.00 x10 3/ul (missing) BASOPHILS # (AUTO) 2025-08-31 08:59 [facility] 0.1 10 3/ul (missing) EOSINOPHILS # (AUTO) 2025-08-31 08:59 [facility] 0.3 10 3/ul (missing) BILIRUBIN,TOTAL 2025-08-31 08:59 [facility] 0.4 [facility] As of April 2023 testing method has changed, this may include reference ranges. MONOCYTES # (AUTO) 2025-08-31 08:59 [facility] 0.5 10 3/ul (missing) CREATININE 2025-08-31 08:59 [facility] 0.8 mg/dl As of April 2023 testing method has changed, this may include reference ranges. ALBUMIN/GLOBULIN RATIO 2025-08-31 08:59 [facility] 1.5 (missing) (missing) WHITE BLOOD COUNT 2025-08-31 08:59 [facility] 10.4 x10 3/ul (missing) CHLORIDE 2025-08-31 08:59 [facility] 107 mmol/l As of April 2023 testing method has changed, this may include reference ranges. ALT ALANINE AMINOTRANSFERASE 2025-08-31 08:59 [facility] 12 iu/l As of April 2023 testing method has changed, this may include reference ranges. GLUCOSE 2025-08-31 08:59 [facility] 120 mg/dl As of April 2023 testing method has changed, this may include reference ranges. BUN - BLOOD UREA NITROGEN 2025-08-31 08:59 [facility] 13 mg/dl As of April 2023 testing method has changed, this may include reference ranges. SODIUM 2025-08-31 08:59 [facility] 138 mmol/l (missing) RED CELL DISTRIBUTION WIDTH 2025-08-31 08:59 [facility] 17.8 % (missing) LYMPHOCYTES # (AUTO) 2025-08-31 08:59 [facility] 2.1 10 3/ul (missing) GLOBULIN 2025-08-31 08:59 [facility] 2.2 g/dl (missing) RED BLOOD COUNT 2025-08-31 08:59 [facility] 2.75 10 6/ul (missing) CARBON DIOXIDE - CO2 2025-08-31 08:59 [facility] 23 mmol/l As of April 2023 testing method has changed, this may include reference ranges. HCT - HEMATOCRIT 2025-08-31 08:59 [facility] 25.9 % (missing) MEAN CORPUSCULAR HEMOGLOBIN 2025-08-31 08:59 [facility] 29.1 pg (missing) ALBUMIN 2025-08-31 08:59 [facility] 3.4 g/dl As of April 2023 testing method has changed, this may include reference ranges. MEAN CORPUSCULAR HGB CONC 2025-08-31 08:59 [facility] 30.9 g/dl (missing) PLT - PLATELET COUNT 2025-08-31 08:59 [facility] 368 10 3/ul (missing) POTASSIUM 2025-08-31 08:59 [facility] 4.3 mmol/l As of April 2023 testing method has changed, this may include reference ranges. TOTAL PROTEIN 2025-08-31 08:59 [facility] 5.6 g/dl As of April 2023 testing method has changed, this may include reference ranges. NEUTROPHILS # (AUTO) 2025-08-31 08:59 [facility] 7.3 10 3/ul (missing) ANION GAP 2025-08-31 08:59 [facility] 8.0 (missing) (missing) HGB - HEMOGLOBIN 2025-08-31 08:59 [facility] 8.0 g/dl (missing) CALCIUM 2025-08-31 08:59 [facility] 8.5 mg/dl As of April 2023 testing method has changed, this may include reference ranges. MEAN PLATELET VOLUME 2025-08-31 08:59 [facility] 8.9 fl (missing) ALKALINE PHOSPHATASE 2025-08-31 08:59 [facility] 81 iu/l As of April 2023 testing method has changed, this may include reference ranges. GFR - MDRD 2025-08-31 08:59 [facility] 82 (missing) The IDMS-traceable MDRD Study Equation [...] December 2011. AST ASPARTATE AMINOTRANSFERASE 2025-08-31 08:59 [email or web address] 9 iu/l As of April 2023 testing method has changed, this may include reference ranges. MEAN CORPUSCULAR VOLUME 2025-08-31 08:59 [facility] 94.2 fl (missing) Result panel 18 NUCLEATED RED BLOOD CELLS AUTO 2025-09-01 11:55 [facility] 0.0 /100wbc (missing) NRBC ABSOLUTE COUNT (AUTO) 2025-09-01 11:55 [facility] 0.00 x10 3/ul (missing) BASOPHILS # (AUTO) 2025-09-01 11:55 [facility] 0.1 10 3/ul (missing) EOSINOPHILS # (AUTO) 2025-09-01 11:55 [facility] 0.3 10 3/ul (missing) BILIRUBIN,TOTAL 2025-09-01 11:55 [facility] 0.5 mg/dl As of April 2023 testing method has changed, this may include reference ranges. MONOCYTES # (AUTO) 2025-09-01 11:55 [facility] 0.7 10 3/ul (missing) CREATININE 2025-09-01 11:55 [facility] 0.7 mg/dl As of April 2023 testing method has changed, this may include reference ranges. ALBUMIN/GLOBULIN RATIO 2025-09-01 11:55 [employer] [facility] 1.5 (missing) (missing) MAGNESIUM 2025-09-01 11:55 [facility] 1.7 mg/dl As of April 2023 testing method has changed, this may include reference ranges. WHITE BLOOD COUNT 2025-09-01 11:55 [employer] [facility] 10.6 x10 3/ul (missing) ALKALINE PHOSPHATASE 2025-09-01 11:55 [facility] 104 iu/l As of April 2023 testing method has changed, this may include reference ranges. CHLORIDE 2025-09-01 11:55 [facility] 105 mmol/l As of April 2023 testing method has changed, this may include reference ranges. GLUCOSE 2025-09-01 11:55 [facility] 118 mg/dl As of April 2023 testing method has changed, this may include reference ranges. SODIUM 2025-09-01 11:55 [employer] [facility] 137 mmol/l (missing) BUN - BLOOD UREA NITROGEN 2025-09-01 11:55 [facility] 14 mg/dl As of April 2023 testing method has changed, this may include reference ranges. RED CELL DISTRIBUTION WIDTH 2025-09-01 11:55 [employer] 17.2 % (missing) LYMPHOCYTES # (AUTO) 2025-09-01 11:55 [facility] 2.2 10 3/ul (missing) GLOBULIN 2025-09-01 11:55 [facility] 2.7 g/dl (missing) CARBON DIOXIDE - CO2 2025-09-01 11:55 [facility] 24 mmol/l As of April 2023 testing method has changed, this may include reference ranges. MEAN CORPUSCULAR HEMOGLOBIN 2025-09-01 11:55 [employer] 29.3 pg (missing) RED BLOOD COUNT 2025-09-01 11:55 [facility] 3.31 10 6/ul (missing) HCT - HEMATOCRIT 2025-09-01 11:55 [employer] 30.7 % (missing) MEAN CORPUSCULAR HGB CONC 2025-09-01 11:55 [employer] 31.6 g/dl (missing) AST ASPARTATE AMINOTRANSFERASE 2025-09-01 11:55 [employer] 33 iu/l As of April 2023 testing method has changed, this may include reference ranges. ALBUMIN 2025-09-01 11:55 [employer] 4.0 g/dl As of April 2023 testing method has changed, this may include reference ranges. POTASSIUM 2025-09-01 11:55 [employer] 4.1 mmol/l As of April 2023 testing method has changed, this may include reference ranges. ALT ALANINE AMINOTRANSFERASE 2025-09-01 11:55 [employer] 45 iu/l As of April 2023 testing method has changed, this may include reference ranges. PLT - PLATELET COUNT 2025-09-01 11:55 [employer] 450 10 3/ul (missing) TOTAL PROTEIN 2025-09-01 11:55 [employer] 6.7 g/dl As of April 2023 testing method has changed, this may include reference ranges. NEUTROPHILS # (AUTO) 2025-09-01 11:55 [employer] 7.2 10 3/ul (missing) ANION GAP 2025-09-01 11:55 [employer] 8.0 (missing) (missing) MEAN PLATELET VOLUME 2025-09-01 11:55 [employer] 8.8 fl (missing) CALCIUM 2025-09-01 11:55 [employer] 9.4 mg/dl As of April 2023 testing method has changed, this may include reference ranges. HGB - HEMOGLOBIN 2025-09-01 11:55 [employer] 9.7 g/dl (missing) MEAN CORPUSCULAR VOLUME 2025-09-01 11:55 [employer] 92.7 fl (missing) GFR - MDRD 2025-09-01 11:55 [employer] 95 (missing) The IDMS-traceable MDRD Study Equation [...] ardization, last updated December 2011. Result panel 19 WBC,URINE 2025-09-01 12:00 [facility] >25 /hpf (missing) UROBILINOGEN,URIN E 2025-09-01 12:00 [facility] 0.2 (NORMAL) e.u./dl (missing) SPECIFIC GRAVITY,URINE 2025-09-01 12:00 [facility] 1.005 (missing) (missing) PH,URINE 2025-09-01 12:00 [facility] 7.5 ph (missing) CLARITY,URINE 2025-09-01 12:00 [facility] HAZY (missing) (missing) URINE MICROSCOPIC INDICATED? 2025-09-01 12:00 [facility] INDICATED (missing) (missing) OCCULT BLOOD,URINE 2025-09-01 12:00 [facility] LARGE (missing) (missing) SQUAMOUS EPITHELIAL CELL,UR 2025-09-01 12:00 [facility] MOD Squamous (missing) (missing) NITRITE,URINE 2025-09-01 12:00 [facility] NEGATIVE (missing) (missing) BILIRUBIN,URINE 2025-09-01 12:00 [facility] NEGATIVE (missing) Bilirubin can be influenced by color interference. Please correlate positive results with clinical presentation GLUCOSE, URINE (UA) 2025-09-01 12:00 [facility] NEGATIVE mg/dl (missing) KETONES,URINE (UA) 2025-09-01 12:00 [facility] NEGATIVE mg/dl (missing) UR CULTURE IF IND 2025-09-01 12:00 [facility] NOT INDICATED (missing) A culture is not indicated on urine samples contaminated with greater than a few Squamous Epithelial cells/HPF. A mid-stream clean catch urine for culture is recommended. BACTERIA,URINE 2025-09-01 12:00 [facility] Rare /hpf (missing) COLOR,URINE 2025-09-01 12:00 [facility] STRAW (missing) URINE CLEAN CATCH RBC,URINE 2025-09-01 12:00 [facility] TNTC /hpf (missing) LEUKOCYTE ESTERASE, URINE 2025-09-01 12:00 [facility] [employer] TRACE (missing) (missing) PROTEIN,URINE 2025-09-01 12:00 [facility] [employer] TRACE mg/dl (missing) Social History date description facility
[2025-09-01] MEDS: ACETAMINOPHEN 500 MG TABLET PO PRN (13:46)
[2025-09-01] MEDS: LABETALOL 100 MG TABLET PO SCH (13:46)
[2025-09-01] MEDS ORDERED: hydrALAZINE INJ 20 MG/ML VIAL IVP PRN ×2 (14:18→16:14)
[2025-09-01] MEDS: SODIUM CHLORIDE FLUSH 0.9% 10 ML SYRINGE IVP SCH ×2 (14:24→15:50)
[2025-09-01] MEDS: MAGNESIUM SULFATE 2 GRAM 2 GM/50 ML BAG IV ONE ×2 (14:25→14:31)
[2025-09-01] MEDS: hydrALAZINE INJ 20 MG/ML VIAL IVP STA (15:15)
[2025-09-01] MEDS: MAGNESIUM SULFATE IN WATER 20 GM/500 ML IV.SOLN IV SCH ×2 (15:50→21:38)
[2025-09-01] MEDS ORDERED: LABETALOL 20 MG/4 ML SYRINGE IVP PRN ×3 (16:11→16:14)
[2025-09-01] MEDS ORDERED: CALCIUM GLUC 1,000MG/50ML-NACL 1,000 MG/50 ML BAG IV PRN (16:25)
[2025-09-01] MEDS: NIFEdipine ER 30 MG TABLET PO SCH (21:03)
[2025-09-02 04:38] LABS: HCT - HEMATOCRIT 36.2 % (37.0-47.0); HGB - HEMOGLOBIN 11.0 g/dL (12.0-16.0); MEAN PLATELET VOLUME 8.7 fL (7.9-10.8); PLT - PLATELET COUNT 536.0 10^3/uL (130-450); RED CELL DISTRIBUTION WIDTH 17.5 % (12.0-15.0)
[2025-09-02 04:55] LABS: ALT ALANINE AMINOTRANSFERASE 53.0 IU/L (10-60); AST ASPARTATE AMINOTRANSFERASE 28.0 IU/L (10-42); BUN - BLOOD UREA NITROGEN 13.0 mg/dL (6-20); CARBON DIOXIDE - CO2 25.0 mmol/L (21-32); CREATININE 0.8 mg/dL (0.6-1.3); GFR - MDRD 82.0 (>89)
--- NOTE | 2025-09-02 08:16 | PROVIDER PROGRESS NOTE ---
Subjective Subjective Subjective: Headache much improved, now mild. No shortness of breath, changes in vision. She does feel like she feels "off" on the magnesium like her " eyes move more slowly than her mind". No abdominal pain. Feels much better than yesterday. Blood pressure has been under good control overnight, most recently 126/81. Current Medications Current Medications Current Medications: Current Medications Generic Name Dose Route Start Last Admin Trade Name Freq PRN Reason Stop Dose Admin Acetaminophen 1,000 mg 09/01/25 12:49 09/01/25 19:51 Acetaminophen 500 Mg Tablet PO 1,000 mg Q6H PRN Administration fever or pain Hydralazine HCl 10 mg 09/01/25 14:18 Hydralazine Inj 20 Mg/Ml Vial IVP .ONCE PRN SBP> or= 160 OR DBP> or= 110 Protocol Hydralazine HCl 5 mg 09/01/25 16:14 Hydralazine Inj 20 Mg/Ml Vial IVP 09/03/25 16:13 ONCE PRN PER PHYSICIAN ORDER CALCIUM GLUC 1,000MG/50ML-NACL 1,000 mg in 50 mls @ 600 mls/hr 09/01/25 16:25 Calcium Gluc 1,000mg/50ml-Nacl IV 09/03/25 16:24 ONCE PRN Signs of magnesium toxicity Magnesium Sulfate 20 gm in 500 mls @ 50 mls/hr 09/01/25 21:30 09/01/25 21:38 Magnesium Sulf 20 G/500 Ml Bag IV 2 gm/hr .Q10H KUSH 50 mls/hr 2 GM/HR Administration Ibuprofen 600 mg 09/01/25 14:35 Ibuprofen 600 Mg Tablet PO Q6H PRN fever or pain Labetalol HCl 400 mg 09/01/25 13:00 09/02/25 04:14 Labetalol 100 Mg Tablet PO 400 mg Q8H KUSH Administration Labetalol HCl 20 mg 09/01/25 16:11 Labetalol 20 Mg/4 Ml Syringe IVP 09/03/25 16:10 ONCE PRN PER PHYSICIAN ORDER Labetalol HCl 40 mg 09/01/25 16:12 Labetalol 20 Mg/4 Ml Syringe IVP 09/03/25 16:11 ONCE PRN PER PHYSICIAN ORDER Labetalol HCl 80 mg 09/01/25 16:14 Labetalol 20 Mg/4 Ml Syringe IVP 09/03/25 16:13 ONCE PRN PER PHYSICIAN ORDER Nifedipine 30 mg 09/01/25 21:00 09/01/25 21:03 Nifedipine Er 30 Mg Tablet PO 30 mg BID [facility] Administration Sodium Chloride 10 ml 09/01/25 13:00 09/02/25 05:53 Sodium Chloride Flush 0.9% 10 Ml Syringe IVP Not Given Q8H [facility] Sodium Chloride 10 ml 09/01/25 12:46 Sodium Chloride Flush 0.9% 10 Ml Syringe IVP PRN PRN NEEDED PER PROVIDER ORDERS Sodium Chloride 10 ml 09/01/25 17:00 09/02/25 04:09 Sodium Chloride Flush 0.9% 10 Ml Syringe IVP Not Given 0100,0900,1700 [facility] Objective Vital Signs/Intake & Output Vital Signs: Vital Signs x48h Temp Pulse Resp BP Pulse Ox 09/02/25 08:00 36.8 C 80 18 131/93 H 97 09/02/25 07:00 77 13 137/82 H 97 09/02/25 06:00 80 22 122/67 94 09/02/25 05:00 82 13 121/81 95 09/02/25 04:00 81 14 135/80 H 97 09/02/25 03:00 36.6 C 86 20 149/85 H 97 09/02/25 02:00 36.6 C 86 18 145/95 H 95 09/02/25 01:00 83 19 135/72 H 96 Intake & Output: Intake & Output 08/30/25 08/31/25 09/01/25 09/02/25 23:59 23:59 23:59 23:59 Intake Total 1517 / 1517 718 / 718 Output Total 3350 / 3350 1650 / 1650 Balance -1833 / -1833 -932 / -932 Weight (kg) 165 lb 5.547 oz Objective Comments/Other: Constitutional: alert, no acute distress, well hydrated, well developed, well nourished, appropriate dress. Cardiovascular: Regular rate and rhythm. Respiratory: no respiratory distress. Clear to auscultation bilaterally Abdomen: nondistended, nontender, no guarding. Neuro: 1+ DTRs, no clonus Psych: affect and mood appropriate, normal interaction, good eye contact. Lab Results 09/02/25 04:13 09/02/25 04:13 Other Labs: Lab Results x24hrs 09/02/25 09/01/25 09/01/25 Range/Units 04:13 20:34 17:10 WBC 12.6 H (4.8-10.8) x10^3/uL RBC 3.88 L (4.20-5.40) 10^6/uL Hgb 11.0 L (12.0-16.0) g/dL Hct 36.2 L (37.0-47.0) % MCV 93.3 (81.0-99.0) fL MCH 28.4 (27.0-31.0) pg MCHC 30.4 L (32.0-36.0) g/dL RDW 17.5 H (12.0-15.0) % Plt Count 536 H (130-450) 10^3/uL MPV 8.7 (7.9-10.8) fL Neut # (Auto) (1.5-6.6) 10^3/uL Lymph # (Auto) (1.5-3.5) 10^3/uL [place] # (Auto) (0.0-1.0) 10^3/uL Eos # (Auto) (0.0-0.7) 10^3/uL Baso # (Auto) (0.0-0.1) 10^3/uL Absolute Nucleated RBC x10^3/uL Nucleated RBC % /100WBC Sodium 135 (135-145) mmol/L Potassium 4.3 (3.5-4.5) mmol/L Chloride 103 (101-111) mmol/L Carbon Dioxide 25 (21-32) mmol/L Anion Gap 7.0 (6-13) BUN 13 (6-20) mg/dL Creatinine 0.8 (0.6-1.3) mg/dL Estimated GFR (MDRD) 82 L (>89) Glucose 98 (74-104) mg/dL Calcium 8.1 L (8.5-10.3) mg/dL Magnesium 5.2 H* 3.8 H (1.7-2.3) mg/dL Total Bilirubin 0.4 (0.2-1.0) mg/dL AST 28 (10-42) IU/L ALT 53 (10-60) IU/L Alkaline Phosphatase 106 (42-121) IU/L Total Protein 6.5 (6.4-8.9) g/dL Albumin 4.0 (3.2-5.5) g/dL Globulin 2.5 (2.1-4.2) g/dL Albumin/Globulin Ratio 1.6 (1.0-2.2) Urine Color Urine Clarity (CLEAR) Urine pH (5.0-7.5) PH Ur Specific [place] (1.002-1.030) Urine Protein (NEGATIVE) mg/dL Urine Glucose (UA) (NEGATIVE) mg/dL Urine Ketones (NEGATIVE) mg/dL Urine Occult Blood (NEGATIVE) Urine Nitrite (NEGATIVE) Urine Bilirubin (NEGATIVE) Urine Urobilinogen (NORMAL) E.U./dL Ur Leukocyte Esterase (NEGATIVE) Urine RBC (0-5) /HPF Urine WBC (0-5) /HPF Ur Squamous Epith Cells (<= Few) Urine Bacteria (None Seen) /HPF Ur Microscopic Review Urine Culture Comments Nasal Screen MRSA (PCR) (NEGATIVE) 09/01/25 09/01/25 09/01/25 Range/Units 15:13 14:38 12:00 WBC (4.8-10.8) x10^3/uL RBC (4.20-5.40) 10^6/uL Hgb (12.0-16.0) g/dL Hct (37.0-47.0) % MCV (81.0-99.0) fL MCH (27.0-31.0) pg MCHC (32.0-36.0) g/dL RDW (12.0-15.0) % Plt Count (130-450) 10^3/uL MPV (7.9-10.8) fL Neut # (Auto) (1.5-6.6) 10^3/uL Lymph # (Auto) (1.5-3.5) 10^3/uL [place] # (Auto) (0.0-1.0) 10^3/uL Eos # (Auto) (0.0-0.7) 10^3/uL Baso # (Auto) (0.0-0.1) 10^3/uL Absolute Nucleated RBC x10^3/uL Nucleated RBC % /100WBC Sodium (135-145) mmol/L Potassium (3.5-4.5) mmol/L Chloride (101-111) mmol/L Carbon Dioxide (21-32) mmol/L Anion Gap (6-13) BUN (6-20) mg/dL Creatinine (0.6-1.3) mg/dL Estimated GFR (MDRD) (>89) Glucose (74-104) mg/dL Calcium (8.5-10.3) mg/dL Magnesium 3.6 H (1.7-2.3) mg/dL Total Bilirubin (0.2-1.0) mg/dL AST (10-42) IU/L ALT (10-60) IU/L Alkaline Phosphatase (42-121) IU/L Total Protein (6.4-8.9) g/dL Albumin (3.2-5.5) g/dL Globulin (2.1-4.2) g/dL Albumin/Globulin Ratio (1.0-2.2) Urine Color STRAW Urine Clarity HAZY (CLEAR) Urine pH 7.5 (5.0-7.5) PH Ur Specific [place] 1.005 (1.002-1.030) Urine Protein TRACE (NEGATIVE) mg/dL Urine Glucose (UA) NEGATIVE (NEGATIVE) mg/dL Urine Ketones NEGATIVE (NEGATIVE) mg/dL Urine Occult Blood LARGE (NEGATIVE) Urine Nitrite NEGATIVE (NEGATIVE) Urine Bilirubin NEGATIVE (NEGATIVE) Urine Urobilinogen 0.2 (NORMAL) (NORMAL) E.U./dL Ur Leukocyte Esterase TRACE H (NEGATIVE) Urine RBC TNTC H (0-5) /HPF Urine WBC >25 H (0-5) /HPF Ur Squamous Epith Cells MOD Squamous H (<= Few) Urine Bacteria Rare (None Seen) /HPF Ur Microscopic Review INDICATED Urine Culture Comments NOT INDICATED Nasal Screen MRSA (PCR) NEGATIVE (NEGATIVE) 09/01/25 Range/Units 11:55 WBC 10.6 (4.8-10.8) x10^3/uL RBC 3.31 L (4.20-5.40) 10^6/uL Hgb 9.7 L (12.0-16.0) g/dL Hct 30.7 L (37.0-47.0) % MCV 92.7 (81.0-99.0) fL MCH 29.3 (27.0-31.0) pg MCHC 31.6 L (32.0-36.0) g/dL RDW 17.2 H (12.0-15.0) % Plt Count 450 (130-450) 10^3/uL MPV 8.8 (7.9-10.8) fL Neut # (Auto) 7.2 H (1.5-6.6) 10^3/uL Lymph # (Auto) 2.2 (1.5-3.5) 10^3/uL [place] # (Auto) 0.7 (0.0-1.0) 10^3/uL Eos # (Auto) 0.3 (0.0-0.7) 10^3/uL Baso # (Auto) 0.1 (0.0-0.1) 10^3/uL Absolute Nucleated RBC 0.00 x10^3/uL Nucleated RBC % 0.0 /100WBC Sodium 137 (135-145) mmol/L Potassium 4.1 (3.5-4.5) mmol/L Chloride 105 (101-111) mmol/L Carbon Dioxide 24 (21-32) mmol/L Anion Gap 8.0 (6-13) BUN 14 (6-20) mg/dL Creatinine 0.7 (0.6-1.3) mg/dL Estimated GFR (MDRD) 95 (>89) Glucose 118 H (74-104) mg/dL Calcium 9.4 (8.5-10.3) mg/dL Magnesium 1.7 (1.7-2.3) mg/dL Total Bilirubin 0.5 (0.2-1.0) mg/dL AST 33 (10-42) IU/L ALT 45 (10-60) IU/L Alkaline Phosphatase 104 (42-121) IU/L Total Protein 6.7 (6.4-8.9) g/dL Albumin 4.0 (3.2-5.5) g/dL Globulin 2.7 (2.1-4.2) g/dL Albumin/Globulin Ratio 1.5 (1.0-2.2) Urine Color Urine Clarity (CLEAR) Urine pH (5.0-7.5) PH Ur Specific [place] (1.002-1.030) Urine Protein (NEGATIVE) mg/dL Urine Glucose (UA) (NEGATIVE) mg/dL Urine Ketones (NEGATIVE) mg/dL Urine Occult Blood (NEGATIVE) Urine Nitrite (NEGATIVE) Urine Bilirubin (NEGATIVE) Urine Urobilinogen (NORMAL) E.U./dL Ur Leukocyte Esterase (NEGATIVE) Urine RBC (0-5) /HPF Urine WBC (0-5) /HPF Ur Squamous Epith Cells (<= Few) Urine Bacteria (None Seen) /HPF Ur Microscopic Review Urine Culture Comments Nasal Screen MRSA (PCR) (NEGATIVE) Assessment/Plan Problem List (1) Severe preeclampsia: Impression: Plan to continue magnesium for 24 hours, approximately 1315. Likely discharge home later tonight or tomorrow. If blood pressures remain this low, can continue home medications. Normal exam today. If headache worsens after discontinuation of magnesium, resumption of normal activity, will get CT scan. Qualifiers: Trimester: unspecified trimester Qualified Code(s): O14.10 - Severe pre-eclampsia, unspecified trimester (2) Headache:
--- NOTE | 2025-09-02 11:41 | CT Report ---
PROCEDURE: CT Head WO INDICATIONS: Persistent headache with severe preeclampsia TECHNIQUE: CT of the head was performed, without intravenous contrast. Reformats: Coronal and sagittal. For radiation dose reduction, the following was used: automated exposure control, adjustment of mA and/or kV according to patient size. COMPARISON: None. FINDINGS: Image quality: Diagnostic. CSF spaces: Basal cisterns are patent. No extra-axial fluid collections. Ventricles are normal in size and shape. Brain: No midline shift. No intracranial mass effect or hemorrhage. Beth- white matter interface is normal. Skull and face: Calvarium and visualized facial bones are intact, without suspicious lesions. Sinuses: Visualized sinuses and mastoids are clear. IMPRESSION: No acute intracranial pathology. Reviewed by: Pascual Wisdom MD on 09/02/2025 11:37 AM [facility] Approved by: Pascual Wisdom MD on 09/02/2025 11:37 AM [facility] Station ID: [id number]
[2025-09-02] MEDS: IBUPROFEN 600 MG TABLET PO PRN (20:36)
[2025-09-03 07:33] VITALS: TEMP 98.8
[2025-09-03 09:55] VITALS: BP 129/73; O2SAT 100
--- NOTE | 2025-09-03 10:12 | Labor Flowsheet ---
Labor Flowsheet Datetime Report Generated by CPN: 09/03/2025 10:12 Datetime: 08/29/2025 04:08 VAGINAL EXAM Membranes Ruptured Date/Time: 08/28/2025 22:45 Membranes Rupture Method: Artificial Amniotic Fluid Color: Clear Amniotic Fluid Amount: Copious Amniotic Fluid Odor: Normal Datetime: 08/28/2025 22:07 Comments: to OR with line up examiner,NURSE LIAISON, OB rn Datetime: 08/28/2025 22:04 Pulse: 93 SpO2 (%): 94 Datetime: 08/28/2025 22:01 Stage of : Recovery Communication Comments: risks c/s discussed with family Datetime: 08/28/2025 22:00 VITAL SIGNS NBP Sys/Mei/Mean (mmHg): 131 : 115 : 118 LaborFlag: Labor Datetime: 08/28/2025 21:56 Provider Reviewed Strip: Yes COMMUNICATION Communication: RN at Bedside; Provider at Bedside Notification Reason: Other Datetime: 08/28/2025 21:32 MEDICATIONS Tocolytics: Terbutaline 0.25mg Subcutaneous Medication Comments: L outer upper arm Datetime: 08/28/2025 21:11 ANESTHESIA Anesthesia Plans: Spinal Anesthesia Comments: completed Datetime: 08/28/2025 21:00 PROCEDURE TIME OUT Procedure Type: verbal Procedure Verify: Correct Patient Identity; Correct Side and Site are Marked; Agreement on Procedure to be Done; Correct Patient Position; Relevant Images and Results are Properly Labeled and Displayed; Addressed Need to Administer Antibiotics or Fluids for Irrigation; Safety Precautions Based on Patient History or Medication Use Epidural Positioning: Sitting Datetime: 08/28/2025 20:56 TEACHING Unit Routine: Medications Teaching Comments: spinal Datetime: 08/28/2025 20:53 I/O Interventions: Up to BR Patient Care Comments: BSC Datetime: 08/28/2025 20:28 Provider Notified (Name): Dr. Pj Datetime: 08/28/2025 20:21 ASSESSMENT A Monitor Mode: Telemetry FHR Baseline Rate : 130 FHR Baseline Changes: No Baseline Change Variability: Moderate 6-25 bpm Accelerations: 15X15 Decelerations: None Category: Category I PATIENT CARE Oxygen Method: Room Air Datetime: 08/28/2025 19:37 UTERINE ACTIVITY Monitor Mode: External Monitor Interventions for UA: [place] Adjusted Frequency (min): 3-6 Quality: Mild Duration (sec): 50 Pattern: Normal: <= 5 Contractions in 10 Minutes Resting Tone (Palpate): Relaxed
--- NOTE | 2025-09-04 22:44 | Discharge Summary ---
Discharge Summary Admit Date: 09/01/25 Discharge Date: 09/03/25 Discharging Provider: Jackelin Norris MD Code Status: Attempt Resuscitation DIAGNOSES Admission Diagnoses: post preeclampsia with headache Discharge Diagnoses with Status of Each Condition: resolved headache. bps being treated. HPI History of Present Illness: Patient is a 35-year-old -0-1-1 status post primary low-transverse section on 08/28/2025. She was diagnosed with preeclampsia with severe feature and was treated with magnesium sulfate for 24 hours post delivery. She was discharged from the hospital yesterday. Last night she developed a headache, and gradually worsened throughout the night. It persisted this morning when she woke up and is advised to come to the hospital. She has a significant headache without visual changes. This is a diffuse headache, but most prominent in a stripe on the middle of her head on the front to the back. Had blood pressures in the 140s over 80s at home, but upon arrival was 170s over 90s. No chest pain, shortness of breath, right upper quadrant pain, vision changes. HOSPITAL COURSE Hospital Course: She was admitted, restarted on magnesium for seizure prophylaxis. BPs were controlled with medication. given the severity of her headache, CT was done of her head that was normal. She felt much better by hospital day 2 and was discharged home. BPs were in a much lower range and we dialed back medication doses. ALLERGIES Allergies Allergy/AdvReac Type Severity Reaction Status Date / Time No Known Drug Allergies Allergy Verified 09/01/25 11:35 MEDICATIONS Ambulatory Orders Medication Instructions Recorded Confirmed vits no.[id number]-ferrous fum 1 tab PO DAILY 08/29/25 28 mg iron-folic acid 800 mcg tablet (Classic ) labetalol 200 mg tablet 200 mg PO Q8H 08/29/2509/01 acetaminophen 500 mg capsule 500 mg PO Q4H PRN fever o r pain 09/01/25 09/01/25 ibuprofen 200 mg tablet (Advil) 200 mg PO PRN PRN feve r or pain 09/01/25 09/01/25 nifedipine 30 mg tablet,extended 30 mg PO DAILY #30 ta bs 09/03/25 09/01/25 release PHYSICAL EXAM AT DISCHARGE General Appearance: positive No acute distress Respiratory: positive No respiratory distress Abdomen: positive Non-tender and Other (wound with some bruising. seems to be healing well. ) Extremities: positive Non-tender and Other (reflexes normal) Neurologic/Psychiatric: positive Mood/affect nml LABS 09/02/25 04:13 09/02/25 04:13 FOLLOW UP Follow Up: in clinic later this week. TIME SPENT Time Spent in Discharge (Minutes): 32 Discharge Plan Discharge Patient Disposition: Home, Self Care Condition: Stable Prescriptions: Continued labetalol 200 mg tablet 200 mg PO Q8H acetaminophen 500 mg capsule 500 mg PO Q4H PRN (Reason: fever or pain) ibuprofen [Advil] 200 mg tablet 200 mg PO PRN PRN (Reason: fever or pain) Classic 28 mg iron- 800 mcg tablet 1 tab PO DAILY Changed nifedipine 30 mg tablet extended release 30 mg PO DAILY Qty: 30 2RF Activity Restrictions/Additional Instructions: nothing in vagina for 6 week from delivery. no lifting more than 15 pounds for 6 weeks. OK to shower, no bath for 2 weeks. call if bps are over 150/100 more than once, significant headache, or very heavy bleeding. take bp before medication. if less than 125/70 then hold the dose of labetolol. take your next dose of nifedipine mid afternoon and then switch to am only dose. We should be able to wean you down soon. Constipation is common. Be sure to eat lots of fruits and veggie, drink lots of water. Coffee can be helpful if you like it and 1 cup is fine for baby Diet: Regular Print Language: [place]ican Patient Instructions: Understanding Preeclampsia Follow-up Care: Jackelin Norris MD [Provider Admit Priv/Credential, Obstetrics/Gynecology] Vitals documented within 30 minutes of discharge?: Yes
== END 2025-09-03 09:45 | disposition home or self-care (01) | DRG 776 ==
LOC: ED 11:15 → ICU 13:29 → FBP 09-02 10:54
PROVIDERS: ADMIT Obstetrics & Gynecology; ATTEND Obstetrics & Gynecology
DX: O99.335 Smoking (tobacco) complicating the puerperium; O14.15 Severe pre-eclampsia, complicating the puerperium; F17.200 Nicotine dependence, unspecified, uncomplicated

== ENCOUNTER 2025-09-06 20:57 | Inpatient (IN) ==
--- NOTE | 2025-09-06 21:09 | ED Physician Documentation ---
History of Present Illness Stated complaint Stated Complaint: /BLEEDING Chief complaint Chief Complaint: General History obtained from History obtained from: Patient History of Present Illness Pain level max: 10 Pain level now: 9 Additonal information Additional information: Patient is a 35-year-old female who underwent a on 1124 at 36 weeks EGA. She had a complicated by preeclampsia. She is on nifedipine and labetalol at home. She states she was doing well until 7 PM tonight when she had sudden onset lower abdominal pain and vaginal bleeding. No fevers. No chills. Nothing makes it better or worse. No drainage from the surgical wound. Has not had similar symptoms previously. Brought in by EMS. Review of Systems Constitutional Denies: Fever or Chills Ears, nose, mouth, and throat Denies: Neck pain Cardiovascular Denies: chest pain Respiratory Denies: Cough Gastrointestinal Denies: Nausea or Vomiting Genitourinary Denies: Painful urination or Urinary frequency Musculoskeletal Denies: Back pain or Neck pain Meds/Allgy Home Medications Ambulatory Orders Medication Instructions Recorded Confirmed vits no.126-ferrous fum 1 tab PO DAILY 08/29/25 28 mg iron-folic acid 800 mcg tablet (Classic ) labetalol 200 mg tablet 200 mg PO Q8H 08/29/2509/01 acetaminophen 500 mg capsule 500 mg PO Q4H PRN fever o r pain 09/01/25 09/01/25 ibuprofen 200 mg tablet (Advil) 200 mg PO PRN PRN feve r or pain 09/01/25 09/01/25 nifedipine 30 mg tablet,extended 30 mg PO DAILY #30 ta bs 09/03/25 09/01/25 release Allergies Allergies Allergy/AdvReac Type Severity Reaction Status Date / Time No Known Drug Allergies Allergy Verified 09/06/25 21:07 PFSH Active Problems All Active Problems (Updated 09/06/25 @ 22:47 by Priyank Littlejohn MD) Acute endometritis (Acute) Leukocytosis (Acute) Hypertension (Chronic) Headache (Acute) Acute on chronic blood loss anemia (Acute) care following delivery (Acute) Severe preeclampsia (Acute) Gestational diabetes (Acute) Anemia complicating , third trimester (Acute) Uterine fibroid in antepartum period (Acute) Anxiety (Acute) Medical History Medical History (Updated 09/06/25 @ 22:47 by Priyank Littlejohn MD) Pre-eclampsia Acute upper respiratory infection First trimester bleeding Missed Family History Family History Mother Arthritis High blood pressure Social History Social History (Updated 09/01/25 @ 11:33 by Mike Zeng RN, BSN) Smoking Status: Current every day smoker If you are a former smoker, when did you quit? (Date/Year): during Do you dip or chew tobacco?: No Patient requests smoking cessation consult: No Initiate information on smoking cessation: No Level: Independent Do you feel safe in your home environment?: Yes History of physical, verbal, emotional, or financial abuse?: No ETOH Use: None Substance Use: denies use POLST Patient has POLST: No Exam Exam Vital Signs: Vital Signs x48h Temp Pulse Resp BP Pulse Ox 09/06/25 21:03 36.2 C L 74 20 158/79 H 97 Constitutional Patient appears in pain HENMT oropharynx normal moist mucous membranes Eyes PERRL Neck/C-Spine visual inspection normal and trachea midline Respiratory breath sounds equal bilaterally, normal respiratory effort and clear to auscultation bilaterally Cardiovascular normal heart rate noted and regular rhythm noted Gastrointestinal abdomen normal to inspection, abdomen soft to palpation and nondistended Tender to palpation across the lower abdomen, above the incision. The incision itself is clean, dry, intact. Genitourinary no CVA tenderness Extremities no edema Neurology speech normal Psychiatry mental status grossly normal and oriented x3 Skin skin color normal Results Vitals Vitals: Vital Signs - 24 hr 09/06/25 21:03 09/06/25 21:13 09/06/25 22:09 Temperature 36.2 C L Temperature Source Temporal Artery Scan Pulse Rate 74 Respiratory Rate 20 Blood Pressure 158/79 H O2 Saturation 97 O2 Source Room air Pain Intensity 8 8 5 09/06/25 22:14 Temperature Temperature Source Pulse Rate Respiratory Rate Blood Pressure O2 Saturation O2 Source Pain Intensity 5 Oxygen O2 Source Room air Labs Labs: Laboratory Tests 09/06/25 09/06/25 21:28 22:06 WBC 26.8 H RBC 4.03 L Hgb 11.7 L Hct 36.7 L MCV 91.1 MCH 29.0 MCHC 31.9 L RDW 16.1 H Plt Count 493 H MPV 8.5 Neut # (Auto) 23.0 H Lymph # (Auto) 1.8 [place] # (Auto) 1.4 H Eos # (Auto) 0.2 Baso # (Auto) 0.2 H Absolute Nucleated RBC 0.00 Band Neuts % (Manual) Not Reportable Abnorm Lymph % (Manual) Not Reportable Nucleated RBC % 0.0 Neutrophils # (Manual) Not Reportable Lymphocytes # (Manual) Not Reportable Monocytes # (Manual) Not Reportable Eosinophils # (Manual) Not Reportable Basophils # (Manual) Not Reportable Differential Comment MANUAL=AUTO DIFF Platelet Estimate INCREASED (>450,000) Platelet Morphology NORMAL APPEARANCE RBC Morph Micro Appear 1+ ANISOCYTOSIS Sodium 139 Potassium 4.0 Chloride 103 Carbon Dioxide 25 Anion Gap 11.0 BUN 22 H Creatinine 0.9 Estimated GFR (MDRD) 71 L Glucose 106 H Calcium 11.0 H Total Bilirubin 0.6 AST 14 ALT 26 Alkaline Phosphatase 86 Total Protein 7.2 Albumin 4.5 Globulin 2.7 Albumin/Globulin Ratio 1.7 Lipase 21 Urine Color YELLOW Urine Clarity SL. CLOUDY Urine pH 7.0 Ur Specific [place] 1.010 Urine Protein NEGATIVE Urine Glucose (UA) NEGATIVE Urine Ketones NEGATIVE Urine Occult Blood MODERATE Urine Nitrite NEGATIVE Urine Bilirubin NEGATIVE Urine Urobilinogen 0.2 (NORMAL) Ur Leukocyte Esterase NEGATIVE Urine RBC 6-10 H Urine WBC 0-3 Ur Squamous Epith Cells NONE SEEN Amorphous Sediment Moderate Urine Bacteria None Seen Ur Microscopic Review INDICATED Urine Culture Comments NOT INDICATED Rads (name of study) CT abdomen pelvis, pelvic ultrasound: Relevant Findings:: Final report received PD Medical Decision Making ED course Complexity details: reviewed results, re-evaluated patient, considered differential, d/w patient and d/w store consultant ED course: 35-year-old female, approximately 10 days from a delivery. Sudden onset lower abdominal pain and vaginal bleeding. Significant leukocytosis, 26,000. No fever. Is a very tender in the lower abdomen. She was given Dilaudid IV with good relief of her pain. Pelvic ultrasound was performed as well as a CT abdomen and pelvis. These are pending final read, but I did speak with OB on-call, Dr. Pool. The patient's imaging and presentation appear consistent with endometritis. Started on Zosyn and Flagyl. Appears to have a persistently enlarged uterus, larger than expected for 10 days . She also appears to have fluid in the uterine wall, near where the incision would have been, possibly hematoma. Dr. Pool will admit the patient. This document was made in part using voice recognition software. While efforts are made to proofread this document, sound alike and grammatical errors may occur. Discharge Plan Discharge Patient Disposition: 66 [facility] DC/Xfer Condition: Stable Clinical Impression: Acute endometritis Leukocytosis Qualifiers: Leukocytosis type: unspecified Qualified Code(s): D72.829 - Elevated white blood cell count, unspecified Prescriptions: No Action labetalol 200 mg tablet 200 mg PO Q8H acetaminophen 500 mg capsule 500 mg PO Q4H PRN (Reason: fever or pain) ibuprofen [Advil] 200 mg tablet 200 mg PO PRN PRN (Reason: fever or pain) nifedipine 30 mg tablet extended release 30 mg PO DAILY Qty: 30 2RF Classic 28 mg iron- 800 mcg tablet 1 tab PO DAILY Print Language: [place]
[2025-09-06] MEDS: HYDROmorphone 1 MG/ML CARPUJECT IVP STA ×2 (21:13→22:14)
[2025-09-06] MEDS: ONDANSETRON 4 MG/2 ML VIAL IVP STA (21:13)
[2025-09-06] MEDS: SODIUM CHLORIDE 0.9% 1,000 ML IV STA (21:13)
--- OUTSIDE RECORDS SUMMARY | 2025-09-06 21:31 | EXTERNAL MEDICAL SUMMARY RPT | Continuity of Care Document ---
Author Organization [facility] Address [address] [place] [id number] Phone Problems date description facility 2025-06-06 09:02 Leiomyoma of uterus, unspecifie d [facility] 2025-06-06 09:02 Maternal care for be nign tumor of corpus uteri, unspecified [facility] 2025-06-06 09:04 Leiomyoma of uterus, unspecifie d [facility] 2025-06-06 09:04 Maternal care for be nign tumor of corpus uteri, unspecified trimester [facility] 2025-06-06 09:05 Leiomyoma of uterus, unspecifie d [facility] 2025-06-06 09:05 Maternal care for be nign tumor of corpus uteri, unspecified trimester [facility] 2025-06-20 11:31 Gestational [pregnan cy-induced] hypertension without significant proteinuria, second trimester [facility] 2025-06-26 19:59 Gestational [pregnan cy-induced] hypertension without significant proteinuria, second trimester [facility] 2025-06-26 19:59 Encounter for immunization [email or web address] 2025-06-27 00:03 Gestational [pregnan cy-induced] hypertension without significant proteinuria, second trimester [facility] 2025-06-27 00:03 Encounter for immunization [email or web address] 2025-06-28 09:25 Gestational [pregnan cy-induced] hypertension without significant proteinuria, second trimester [facility] 2025-06-28 09:25 Unspecified maternal hypertensi on, second trimester [facility] 2025-06-28 09:25 Encounter for screen ing for infections with a predominantly sexual mode of transmission [facility] 2025-06-28 09:25 Encounter for superv ision of normal , unspecified, unspecified trimester [facility] 2025-06-29 00:04 Gestational [pregnan cy-induced] hypertension without significant proteinuria, second trimester [facility] 2025-06-29 00:04 Unspecified maternal hypertensi on, second trimester [facility] 2025-06-29 00:04 Encounter for screen ing for infections with a predominantly sexual mode of transmission [facility] 2025-06-29 00:04 Encounter for superv ision of normal , unspecified, unspecified trimester [facility] 2025-06-29 08:10 Unspecified maternal hypertensi on, second trimester [facility] 2025-07-02 08:10 Encounter for immunization [facility] [employer] 2025-07-02 08:11 Supervision of elderly tim van, second [facility]25-07-02 08:11 Gestational [pregnan cy-induced] hypertension without significant proteinuria, second trimester [facility] 2025-07-02 08:11 Encounter for immunization [facility] [employer] 2025-07-02 08:11 27 weeks gestation of [facility] 2025-07-02 08:57 [facility]:21 [facility] 2025-07-04 08:05 Gestational [pregnan cy-induced] hypertension without significant proteinuria, unspecified [facility] 2025-07-04 08:05 Anemia complicating , third trimester [facility] 2025-07-04 08:05 Abnormal glucose complicating p regnancy [facility] 2025-07-05 00:03 Gestational [pregnan cy-induced] hypertension without significant proteinuria, unspecified trimester [facility] 2025-07-05 00:03 Anemia complicating , third trimester [facility] 2025-07-05 00:03 Abnormal glucose complicating p regnancy [facility] 2025-07-05 11:23 Gestational [pregnan cy-induced] hypertension without significant proteinuria, third trimester [facility] 2025-07-05 11:23 Gestational [pregnan cy-induced] hypertension without significant proteinuria, unspecified trimester [facility] 2025-07-05 14:46 Abnormal glucose complicating p regnancy [facility] 2025-07-09 07:24 Gestational [pregnan cy-induced] hypertension without significant proteinuria, unspecified trimester [facility] 2025-07-09 07:24 Gestational diabetes mellitus in , unspecified control [facility] 2025-07-09 13:03 Leiomyoma of uterus, unspecifie d [facility] 2025-07-09 13:03 Gestational [pregnan cy-induced] hypertension without significant proteinuria, unspecified trimester [facility] 2025-07-09 13:03 Gestational diabetes mellitus in , unspecified control [facility] 2025-07-09 13:03 Maternal care for be nign tumor of corpus uteri, unspecified trimester [facility] 2025-07-09 13:42 Encounter for immunization [id number] 2025-07-18 09:22 Gestational [pregnan cy-induced] hypertension without significant proteinuria, unspecified trimester [facility] 2025-07-18 09:22 Gestational diabetes mellitus in , unspecified control [facility] 2025-07-18 09:24 Gestational [pregnan cy-induced] hypertension without significant proteinuria, unspecified trimester [facility] 2025-07-18 09:24 Gestational diabetes mellitus in , unspecified control [facility] 2025-07-19 06:59 Encounter for superv ision of normal , unspecified, first trimester [facility] 2025-07-24 10:52 Anemia complicating , third trimester [facility] 2025-07-24 11:31 Anemia complicating , third trimester [facility] 2025-07-24 17:49 Anemia complicating , third trimester [facility] 2025-07-24 22:45 Unspecified maternal hypertensi on, second trimester [facility] 2025-07-25 00:02 Unspecified maternal hypertensi on, second trimester [employer] [facility] 2025-07-25 00:03 Anemia complicating , third trimester [facility] 2025-07-26 13:42 Gestational [pregnan cy-induced] hypertension without significant proteinuria, third trimester [facility] 2025-07-26 13:42 Encounter for immunization [email or web address] 2025-07-27 10:49 Unspecified maternal hypertensi on, second trimester [facility] 2025-07-30 07:47 Supervision of elderly tim van, third trimester [facility] 2025-07-30 07:47 Gestational [pregnan cy-induced] hypertension without significant proteinuria, third trimester [facility] 2025-07-30 07:47 Unspecified maternal hypertensi on, second trimester [facility] 2025-07-30 07:47 31 weeks gestation of [facility] 2025-07-31 15:47 Leiomyoma of uterus, unspecifie d [facility] 2025-07-31 15:47 Maternal care for be nign tumor of corpus uteri, unspecified trimester [facility] 2025-07-31 15:51 Gestational [pregnan cy-induced] hypertension without significant proteinuria, second trimester [facility] 2025-07-31 15:51 Anemia complicating , third trimester [facility] 2025-08-01 00:01 Leiomyoma of uterus, unspecifie d [facility] 2025-08-01 00:01 Maternal care for be nign tumor of corpus uteri, unspecified trimester [facility] 2025-08-03 06:49 Dietary counseling and surveill ance [facility] 2025-08-03 06:56 Anemia complicating , third trimester [facility] 2025-08-03 06:56 Anemia complicating , unspecified trimester [facility] 2025-08-03 16:00 Gestational [pregnan cy-induced] hypertension without significant proteinuria, unspecified trimester [facility] 2025-08-03 16:00 Encounter for superv ision of normal , unspecified, unspecified trimester [facility] 2025-08-06 10:27 Gestational [pregnan cy-induced] hypertension without significant proteinuria, second trimester [facility] 2025-08-06 10:27 Anemia complicating , third trimester [facility] 2025-08-06 10:33 Gestational [pregnan cy-induced] hypertension without significant proteinuria, third trimester [facility] 2025-08-06 10:34 Gestational [pregnan cy-induced] hypertension without significant proteinuria, unspecified trimester [facility] 2025-08-06 10:34 Encounter for superv ision of normal , unspecified, unspecified trimester [facility] 2025-08-06 12:09 Anemia complicating , third trimester [facility] 2025-08-10 14:58 Anemia complicating , third trimester [facility] 2025-08-10 14:58 Anemia complicating , unspecified trimester [facility] 2025-08-10 15:01 Anemia complicating , third trimester [facility] 2025-08-10 16:14 Gestational [pregnan cy-induced] hypertension without significant proteinuria, unspecified trimester [facility] 2025-08-11 00:04 Anemia complicating , third trimester [facility] 2025-08-14 12:12 Supervision of elderly tim van, third trimester [facility] 2025-08-14 12:12 Gestational [pregnan cy-induced] hypertension without significant proteinuria, unspecified trimester [facility] 2025-08-15 08:21 Leiomyoma of uterus, unspecifie d [facility] 2025-08-15 08:21 Gestational [pregnan cy-induced] hypertension without significant proteinuria, unspecified trimester [facility] 2025-08-15 08:21 Gestational diabetes mellitus in , unspecified control [facility] 2025-08-15 08:21 Maternal care for be nign tumor of corpus uteri, unspecified trimester [facility] 2025-08-15 09:21 Acute upper respiratory infecti on, unspecified [facility] 2025-08-15 09:21 Strain of muscle and tendon of back wall of thorax, [facility] 2025-[facility]-16 07:25 Leiomyoma of uterus, unspecifie d [facility] 2025-08-16 07:25 Acute upper respiratory infecti on, unspecified [facility] 2025-08-16 07:25 Gestational [pregnan cy-induced] hypertension without significant proteinuria, unspecified trimester [facility] 2025-08-16 07:25 Gestational diabetes mellitus in , unspecified control [facility] 2025-08-16 07:25 Maternal care for be nign tumor of corpus uteri, unspecified trimester [facility] 2025-08-16 07:25 Strain of muscle and tendon of back wall of thorax, [facility] 2025-08-16 10:08 Fracture of one rib, unspecified side, initial encounter for closed fracture [facility] 2025-08-16 10:29 Fracture of one rib, unspecified side, initial encounter for closed fracture [facility] 2025-08-16 10:39 Fracture of one rib, unspecified side, initial encounter for closed fracture [employer] 2025-08-17 08:37 Acute upper respiratory infecti on, unspecified [facility] 2025-08-17 08:37 Other specified disorders of no se and nasal sinuses [employer] 2025-08-17 08:37 Other specified cough [facility] 2025-08-17 08:37 Pleurodynia [employer] 2025-08-17 08:37 Strain of muscle and tendon of back wall of thorax, initial encounter [employer] 2025-08-20 08:50 Other specified dise ases and conditions complicating [employer] 2025-08-20 08:50 Other chest pain [employer] 2025-08-20 08:50 Left upper quadrant pain [employer] 2025-08-20 08:50 Fracture of one rib, unspecified side, initial encounter for closed fracture [employer] 2025-08-20 12:06 Anemia complicating , third trimester [facility] 2025-08-20 12:06 Anemia complicating , unspecified trimester [facility] 2025-08-20 12:10 Anemia complicating , third trimester [facility] 2025-08-20 12:10 Anemia complicating , unspecified trimester [facility] 2025-08-20 14:25 Other specified preg caitlin related conditions, third trimester [facility] 2025-08-20 14:25 Other chest pain [facility] 2025-08-20 14:25 Left upper quadrant pain [employer] 2025-08-21 18:38 Leiomyoma of uterus, unspecifie d [employer] 2025-08-21 18:38 Gestational [pregnan cy-induced] hypertension without significant proteinuria, unspecified trimester [facility] 2025-08-21 18:38 Gestational diabetes mellitus in , unspecified control [facility] 2025-08-21 18:38 Maternal care for be nign tumor of corpus uteri, unspecified trimester [facility] 2025-08-22 08:50 Anemia complicating , third trimester [facility] 2025-08-22 08:50 Anemia complicating , unspecified trimester [facility] 2025-08-22 13:21 Anemia complicating , third trimester [facility] 2025-08-22 13:21 Anemia complicating , unspecified trimester [facility] 2025-08-24 08:07 Anemia complicating , third trimester [facility] 2025-08-25 00:02 Supervision of high risk , unspecified, third trimester [facility] 2025-08-25 00:02 Gestational [pregnan cy-induced] hypertension without significant proteinuria, unspecified trimester [facility] 2025-08-25 00:02 Encounter for screening for tanner betes mellitus [employer] 2025-08-27 08:44 Other specified dise ases and conditions complicating [facility] 2025-08-27 08:44 Other chest pain [employer] 2025-08-27 08:44 Left upper quadrant pain [employer] 2025-08-27 09:09 Gestational [pregnan cy-induced] hypertension without significant proteinuria, third trimester [facility] 2025-08-28 15:47 Leiomyoma of uterus, unspecifie d [facility] 2025-08-28 15:47 Maternal care for be nign tumor of corpus uteri, unspecified trimester [facility] 2025-08-28 18:24 Supervision of high risk , unspecified, third trimester [facility] 2025-08-28 18:24 Severe pre-eclampsia, unspecifi ed trimester [facility] 2025-08-28 18:26 Supervision of high risk , unspecified, third trimester [facility] 2025-08-28 18:26 Severe pre-eclampsia, unspecifi ed trimester [facility] 2025-08-28 20:23 Leiomyoma of uterus, unspecifie d [facility] 2025-08-28 20:23 Supervision of high risk , unspecified, third trimester [facility] 2025-08-28 20:23 Severe pre-eclampsia, unspecifi ed [facility] 2025-08-28 20:23 Maternal care for br eech presentation, not applicable or unspecified [facility] 2025-08-28 20:23 Maternal care for be nign tumor of corpus uteri, unspecified [facility] 2025-08-28 20:24 Leiomyoma of uterus, unspecifie d [facility] 2025-08-28 20:24 Supervision of high risk , unspecified, third trimester [facility] 2025-08-28 20:24 Severe pre-eclampsia, unspecifi ed trimester [facility] 2025-08-28 20:24 Maternal care for br eech presentation, not applicable or unspecified [facility] 2025-08-28 20:24 Maternal care for be nign tumor of corpus uteri, unspecified trimester [facility] 2025-08-28 20:46 Leiomyoma of uterus, unspecifie d [facility] 2025-08-28 20:46 Supervision of high risk , unspecified, third trimester [facility] 2025-08-28 20:46 Severe pre-eclampsia, unspecifi ed trimester [facility] 2025-08-28 20:46 Maternal care for br eech presentation, not applicable or unspecified [facility] 2025-08-28 20:46 Maternal care for be nign tumor of corpus uteri, unspecified trimester [facility] 2025-08-28 21:58 Leiomyoma of uterus, unspecifie d [facility] 2025-08-28 21:58 Supervision of high risk , unspecified, third trimester [facility] 2025-08-28 21:58 Severe pre-eclampsia, unspecifi ed trimester [facility] 2025-08-28 21:58 Maternal care for br eech presentation, not applicable or unspecified [facility] 2025-08-28 21:58 Maternal care for be nign tumor of corpus uteri, unspecified trimester [facility] 2025-08-28 23:40 Leiomyoma of uterus, unspecifie d [facility] 2025-08-28 23:40 Supervision of high risk , unspecified, third trimester [facility] 2025-08-28 23:40 Severe pre-eclampsia, unspecifi ed trimester [facility] 2025-08-28 23:40 Maternal care for br eech presentation, not applicable or unspecified [facility] 2025-08-28 23:40 Maternal care for be nign tumor of corpus uteri, unspecified trimester [facility] 2025-08-29 00:02 Leiomyoma of uterus, unspecifie d [facility] 2025-08-29 00:02 Supervision of high risk , unspecified, third trimester [facility] 2025-08-29 00:02 Gestational [pregnan cy-induced] hypertension without significant proteinuria, unspecified trimester [facility] 2025-08-29 00:02 Maternal care for be nign tumor of corpus uteri, unspecified trimester [facility] 2025-08-29 00:02 Encounter for screening for tanner betes mellitus [facility] 2025-08-29 11:14 Leiomyoma of uterus, unspecifie d [facility] 2025-08-29 11:14 Supervision of high risk , unspecified, third trimester [facility] 2025-08-29 11:14 Severe pre-eclampsia, unspecifi ed trimester [facility] 2025-08-29 11:14 Maternal care for br eech presentation, not applicable or unspecified [facility] 2025-08-29 11:14 Maternal care for be nign tumor of corpus uteri, unspecified trimester [facility] 2025-08-29 15:26 Gestational [pregnan cy-induced] hypertension without significant proteinuria, third trimester [facility] 2025-08-30 11:14 Leiomyoma of uterus, unspecifie d [facility] 2025-08-30 11:14 [facility]orrh[facility] 2025-08-30 11:14 Supervision of high risk , unspecified, third trimester [facility] 2025-08-30 11:14 Severe pre-eclampsia, unspecifi ed trimester [facility] 2025-08-30 11:14 Maternal care for br eech presentation, not applicable or unspecified [facility] 2025-08-30 11:14 Maternal care for be nign tumor of corpus uteri, unspecified trimester [facility] 2025-08-30 11:14 Anemia complicating , third trimester [facility] 2025-08-30 11:14 Encounter for routine postpartu m follow-up [facility] 2025-08-31 06:39 Maternal care for be nign tumor of corpus uteri, unspecified trimester [facility] 2025-08-31 12:30 Leiomyoma of uterus, unspecifie d [facility] 2025-08-31 12:30 Acute [facility]hemorrhagic anemia [facility] 2025-08-31 12:30 Supervision of high risk , unspecified, third trimester [facility] 2025-08-31 12:30 Severe pre-eclampsia, unspecifi ed trimester [facility] 2025-08-31 12:30 Maternal care for br eech presentation, not applicable or unspecified [facility] 2025-08-31 12:30 Maternal care for be nign tumor of corpus uteri, unspecified [facility] 2025-08-31 12:30 Anemia complicating , third trimester [facility] 2025-08-31 12:30 Encounter for routine postpartu m follow-up [facility] 2025-08-31 14:45 Supervision of high risk , unspecified, third trimester [facility] 2025-08-31 14:46 Supervision of high risk , unspecified, third trimester [facility] 2025-08-31 14:46 Gestational [pregnan cy-induced] hypertension without significant proteinuria, unspecified trimester [facility] 2025-08-31 14:46 Encounter for screening for tanner betes mellitus [facility] 2025-08-31 17:07 Leiomyoma of uterus, unspecifie d [facility] 2025-08-31 17:07 Acute posthemorrhagic anemia [facility] 2025-08-31 17:07 Supervision of high risk , unspecified, third trimester [facility] 2025-08-31 17:07 Severe pre-eclampsia, unspecifi ed trimester [facility] 2025-08-31 17:07 Maternal care for br eech presentation, not applicable or unspecified [facility] 2025-08-31 17:07 Maternal care for be nign tumor of corpus uteri, unspecified trimester [facility] 2025-08-31 17:07 Anemia complicating , third trimester [facility] 2025-08-31 17:07 Encounter for routine postpartu m follow-up [facility] 2025-08-31 17:08 Leiomyoma of uterus, unspecifie d [facility] 2025-08-31 17:08 [facility]orrh[facility] 2025-08-31 17:08 Supervision of high risk , unspecified, third trimester [facility] 2025-08-31 17:08 Severe pre-eclampsia, unspecifi ed trimester [facility] 2025-08-31 17:08 Maternal care for br eech presentation, not applicable or unspecified [facility] 2025-08-31 17:08 Maternal care for be nign tumor of corpus uteri, unspecified trimester [facility] 2025-08-31 17:08 Anemia complicating , third trimester [facility] 2025-08-31 17:08 Encounter for routine postpartu m follow-up [facility] 2025-09-01 01:13 Leiomyoma of uterus, unspecifie d [facility] 2025-09-01 01:13 Acute posthemorrhagic anemia [facility] 2025-[facility] 01:13 Supervision of high risk , unspecified, third trimester [facility] 2025-09-01 01:13 Severe pre-eclampsia, unspecifi ed trimester [facility] 2025-09-01 01:13 Maternal care for br eech presentation, not applicable or unspecified [facility] 2025-09-01 01:13 Maternal care for be nign tumor of corpus uteri, unspecified trimester [facility] 2025-09-01 01:13 Anemia complicating , third [facility]25-[facility]01 01:13 Encounter for routine postpartu m follow-[facility] 2025-09-01 11:35 Leiomyoma of uterus, unspecifie d [facility] 2025-09-01 11:35 Acute posthemorrhagic anemia [facility] 2025-09-01 11:35 Supervision of high risk , unspecified, third trimester [facility] 2025-09-01 11:35 Gestational [pregnan cy-induced] hypertension without significant proteinuria, unspecified trimester [facility] 2025-09-01 11:35 Severe pre-eclampsia, unspecifi ed trimester [facility] 2025-09-01 11:35 Gestational diabetes mellitus in , unspecified control [facility] 2025-09-01 11:35 Maternal care for br eech presentation, not applicable or unspecified [facility] 2025-09-01 11:35 Maternal care for be nign tumor of corpus uteri, unspecified trimester [facility] 2025-09-01 11:35 Anemia complicating , third trimester [facility] 2025-09-01 11:35 Encounter for routine postpartu m follow-up [facility] 2025-09-01 13:31 Severe pre-eclampsia, unspecifi ed trimester [facility] 2025-09-01 14:14 Severe pre-eclampsia, unspecifi ed trimester [facility] 2025-09-01 14:15 Severe pre-eclampsia, unspecifi ed trimester [facility] 2025-09-01 17:40 Severe pre-eclampsia, unspecifi ed trimester [facility] 2025-09-02 10:37 Severe pre-eclampsia, unspecifi ed trimester [facility] 2025-09-02 10:37 Headache, unspecified [facility] 2025-09-02 10:38 Severe pre-eclampsia, unspecifi ed trimester [facility] 2025-09-02 10:38 Headache, unspecified [facility] 2025-09-02 10:54 Severe pre-eclampsia, unspecifi ed trimester [facility] 2025-09-02 10:54 Headache, unspecified [facility] 2025-09-02 10:55 Severe pre-eclampsia, unspecifi ed trimester [facility] 2025-09-03 08:53 Severe pre-eclampsia, unspecifi ed trimester [facility] 2025-09-03 08:53 Headache, unspecified [facility] 2025-09-03 09:05 Severe pre-eclampsia, unspecifi ed trimester [facility] 2025-09-03 09:05 Headache, unspecified [facility] 2025-09-03 09:11 Severe pre-eclampsia, unspecifi ed trimester [facility] 2025-09-03 09:11 Headache, unspecified [facility] 2025-09-03 10:04 Procedure and treatm ent not carried out, unspecified reason [facility] 2025-09-03 10:11 Severe pre-eclampsia, unspecifi ed trimester [facility] 2025-09-03 10:11 Headache, unspecified [facility] 2025-09-03 12:19 Leiomyoma of uterus, unspecifie d [facility] 2025-09-03 12:19 Acute posthemorrhagic anemia [facility] 2025-09-03 12:19 Supervision of elderly multigra rehan, third trimester [facility] 2025-09-03 12:19 Supervision of high risk , unspecified, third trimester [facility] 2025-09-03 12:19 Severe pre-eclampsia, unspecifi ed trimester [facility] 2025-09-03 12:19 Maternal care for br eech presentation, not applicable or unspecified [facility] 2025-09-03 12:19 Maternal care for be nign tumor of corpus uteri, unspecified trimester [facility] 2025-09-03 12:19 Anemia complicating , third trimester [facility] 2025-09-03 12:19 Encounter for routine postpartu m follow-up [facility] 2025-09-04 22:51 Severe pre-eclampsia, unspecifi ed trimester [facility] 2025-09-04 22:51 Headache, unspecified [facility] 2025-09-05 11:46 Severe pre-eclampsia, unspecifi ed trimester [facility] 2025-09-05 11:46 Headache, unspecified [facility] Results/Labs test date facility value unit notes Result panel 1 PROTEIN/CREATININE RATIO,URINE 2025-06-28 09:36 [facility] 0.1 (missing) (missing) TOTAL PROTEIN,URINE TIMED 2025-06-28 09:36 [facility] 11 mg/dl As of April 2023 testing method has changed, this may include reference ranges. CREATININE,URINE 2025-06-28 09:36 [facility] 88.2 mg/dl As of April 2023 testing method has changed, this may include reference ranges. Result panel 2 BILIRUBIN,TOTAL 2025-06-28 10:35 [facility] 0.3 mg/dl As of April 2023 testing method has changed, this may include reference ranges. CREATININE 2025-06-28 10:35 [facility] 0.5 mg/dl As of April 2023 testing method has changed, this may include reference ranges. ALBUMIN/GLOBULIN RATIO 2025-06-28 10:35 [facility] 1.3 (missing) (missing) HGB - HEMOGLOBIN 2025-06-28 10:35 [facility] 10.1 g/dl (missing) CHLORIDE 2025-06-28 10:35 [facility] 104 mmol/l As of April 2023 testing method has changed, this may include reference ranges. ALT ALANINE AMINOTRANSFERASE 2025-06-28 10:35 [facility] 11 iu/l As of April 2023 testing method has changed, this may include reference ranges. RED CELL DISTRIBUTION WIDTH 2025-06-28 10:35 [facility] 12.4 % (missing) SODIUM 2025-06-28 10:35 [facility] 136 mmol/l (missing) GFR - MDRD 2025-06-28 10:35 [facility] 140 (missing) The IDMS-traceable MDRD Study Equation [...] older than 70. References: http://www.nkde p.nih.gov/lab-e valuation/gfr/c brianne rodgers, last updated December 2011. WHITE BLOOD COUNT 2025-06-28 10:35 [facility] 15.3 x10 3/ul (missing) GLUCOSE,1H PP 50GM DOSE 2025-06-28 10:35 [facility] 181 mg/dl 50g Challenge 1 hr post Glucose < 140 mg/dL Reference: [employer] As of April 2023 testing method has changed, this may include reference ranges. GLUCOSE 2025-06-28 10:35 [facility] 181 mg/dl As of April 2023 testing method has changed, this may include reference ranges. GLOBULIN 2025-06-28 10:35 [facility] 2.8 g/dl (missing) CARBON DIOXIDE - CO2 2025-06-28 10:35 [facility] 24 mmol/l As of April 2023 testing method has changed, this may include reference ranges. POTASSIUM 2025-06-28 10:35 [facility] 3.3 mmol/l As of April 2023 testing method has changed, this may include reference ranges. RED BLOOD COUNT 2025-06-28 10:35 [facility] 3.34 10 6/ul (missing) ALBUMIN 2025-06-28 10:35 [facility] 3.5 g/dl As of April 2023 testing method has changed, this may include reference ranges. MEAN CORPUSCULAR HEMOGLOBIN 2025-06-28 10:35 [facility] 30.2 pg (missing) HCT - HEMATOCRIT 2025-06-28 10:35 [facility] 30.5 % (missing) MEAN CORPUSCULAR HGB CONC 2025-06-28 10:35 [facility] 33.1 g/dl (missing) PLT - PLATELET COUNT 2025-06-28 10:35 [facility] 391 10 3/ul (missing) BUN - BLOOD UREA NITROGEN 2025-06-28 10:35 [facility] 6 mg/dl As of April 2023 testing method has changed, this may include reference ranges. TOTAL PROTEIN 2025-06-28 10:35 [facility] 6.3 g/dl As of April 2023 testing method has changed, this may include reference ranges. ALKALINE PHOSPHATASE 2025-06-28 10:35 [facility] 66 iu/l As of April 2023 testing method has changed, this may include reference ranges. ANION GAP 2025-06-28 10:35 [facility] 8.0 (missing) (missing) CALCIUM 2025-06-28 10:35 [facility] 8.8 mg/dl As of April 2023 testing method has changed, this may include reference ranges. AST ASPARTATE AMINOTRANSFERASE 2025-06-28 10:35 [facility] 9 iu/l As of April 2023 testing method has changed, this may include reference ranges. MEAN PLATELET VOLUME 2025-06-28 10:35 [facility] 9.1 fl (missing) MEAN CORPUSCULAR VOLUME 2025-06-28 10:35 [facility] 91.3 fl (missing) RPR 2025-06-28 10:35 [facility] Non Reactive (missing) Performed at: [facility] [id number] Telemarketing Fundraiser: Jamar Spears MD, Phone: [phone] Result panel 3 GLUCOSE TOLERANCE 3HR 2025-07-04 08:12 [facility] (missing) (missing) GLU FAST 88 mg/dL Col [...] time points is a positive test. Reference: [facility] Result panel 4 BILIRUBIN,TOTAL 2025-07-04 08:15 [facility] 0.3 mg/dl As of April 2023 testing method has changed, this may include reference ranges. CREATININE 2025-07-04 08:15 [facility] 0.5 mg/dl As of April 2023 testing method has changed, this may include reference ranges. ALBUMIN/GLOBULIN RATIO 2025-07-04 08:15 [facility] 1.5 (missing) (missing) CHLORIDE 2025-07-04 08:15 [facility] 105 mmol/l As of April 2023 testing method has changed, this may include reference ranges. RED CELL DISTRIBUTION WIDTH 2025-07-04 08:15 [facility] 12.5 % (missing) SODIUM 2025-07-04 08:15 [facility] 135 mmol/l (missing) GFR - MDRD 2025-07-04 08:15 [facility] 140 (missing) The IDMS-traceable MDRD Study Equation [...] December 2011. WHITE BLOOD COUNT 2025-07-04 08:15 [facility] 15.3 x10 3/ul (missing) GLOBULIN 2025-07-04 08:15 [facility] 2.4 g/dl (missing) CARBON DIOXIDE - CO2 2025-07-04 08:15 [facility] 24 mmol/l As of April 2023 testing method has changed, this may include reference ranges. HCT - HEMATOCRIT 2025-07-04 08:15 [facility] 28.6 % (missing) RED BLOOD COUNT 2025-07-04 08:15 [facility] 3.16 10 6/ul (missing) ALBUMIN 2025-07-04 08:15 [facility] 3.5 g/dl As of April 2023 testing method has changed, this may include reference ranges. POTASSIUM 2025-07-04 08:15 [facility] 3.5 mmol/l As of April 2023 testing method has changed, this may include reference ranges. MEAN CORPUSCULAR HEMOGLOBIN 2025-07-04 08:15 [facility] 30.7 pg (missing) MEAN CORPUSCULAR HGB CONC 2025-07-04 08:15 [facility] 33.9 g/dl (missing) PLT - PLATELET COUNT 2025-07-04 08:15 [facility] 394 10 3/ul (missing) TOTAL PROTEIN 2025-07-04 08:15 [facility] 5.9 g/dl As of April 2023 testing method has changed, this may include reference ranges. ANION GAP 2025-07-04 08:15 [facility] 6.0 (missing) (missing) FERRITIN 2025-07-04 08:15 [facility] 6.1 ng/ml (missing) ALKALINE PHOSPHATASE 2025-07-04 08:15 [facility] 68 iu/l As of April 2023 testing method has changed, this may include reference ranges. ALT ALANINE AMINOTRANSFERASE 2025-07-04 08:15 [facility] 7 iu/l As of April 2023 testing method has changed, this may include reference ranges. BUN - BLOOD UREA NITROGEN 2025-07-04 08:15 [facility] 7 mg/dl As of April 2023 testing method has changed, this may include reference ranges. AST ASPARTATE AMINOTRANSFERASE 2025-07-04 08:15 [facility] 8 iu/l As of April 2023 testing method has changed, this may include reference ranges. CALCIUM 2025-07-04 08:15 [facility] 8.8 mg/dl As of April 2023 testing method has changed, this may include reference ranges. GLUCOSE 2025-07-04 08:15 [facility] 88 mg/dl As of April 2023 testing method has changed, this may include reference ranges. MEAN PLATELET VOLUME 2025-07-04 08:15 [facility] 9.1 fl (missing) HGB - HEMOGLOBIN 2025-07-04 08:15 [facility] 9.7 g/dl (missing) MEAN CORPUSCULAR VOLUME 2025-07-04 08:15 [facility] 90.5 fl (missing) Result panel 5 PROTEIN/CREATININE RATIO,URINE 2025-07-04 08:57 [facility] 0.2 (missing) (missing) TOTAL PROTEIN,URINE TIMED 2025-07-04 08:57 [facility] 13 mg/dl As of April 2023 testing method has changed, this may include reference ranges. CREATININE,URINE 2025-07-04 08:57 [facility] [employer] 85.9 mg/dl As of April 2023 testing method has changed, this may include reference ranges. Result panel 6 NUCLEATED RED BLOOD CELLS AUTO 2025-07-31 16:05 [facility] 0.0 /100wbc (missing) NRBC ABSOLUTE COUNT (AUTO) 2025-07-31 16:05 [facility] 0.00 x10 3/ul (missing) BASOPHILS # (AUTO) 2025-07-31 16:05 [facility] 0.1 10 3/ul (missing) EOSINOPHILS # (AUTO) 2025-07-31 16:05 [facility] 0.2 10 3/ul (missing) BILIRUBIN,TOTAL 2025-07-31 16:05 [facility] 0.3 mg/dl As of April 2023 testing method has changed, this may include reference ranges. CREATININE 2025-07-31 16:05 [facility] 0.5 mg/dl As of April 2023 testing method has changed, this may include reference ranges. MONOCYTES # (AUTO) 2025-07-31 16:05 [facility] 1.1 10 3/ul (missing) ALBUMIN/GLOBULIN RATIO 2025-07-31 16:05 [facility] 1.5 (missing) (missing) AST ASPARTATE AMINOTRANSFERASE 2025-07-31 16:05 [facility] 10 iu/l As of April 2023 testing method has changed, this may include reference ranges. BUN - BLOOD UREA NITROGEN 2025-07-31 16:05 [facility] 10 mg/dl As of April 2023 testing method has changed, this may include reference ranges. CHLORIDE 2025-07-31 16:05 [facility] 106 mmol/l As of April 2023 testing method has changed, this may include reference ranges. NEUTROPHILS # (AUTO) 2025-07-31 16:05 [facility] 11.0 10 3/ul (missing) SODIUM 2025-07-31 16:05 [facility] 137 mmol/l Unknown ALT ALANINE AMINOTRANSFERASE 2025-07-31 16:05 [facility] 14 iu/l As of April 2023 testing method has changed, this may include reference ranges. GFR - MDRD 2025-07-31 16:05 [facility] 140 (missing) The IDMS-traceable MDRD Study Equation [...] 2011. RED CELL DISTRIBUTION WIDTH 2025-07-31 16:05 [facility] 15.3 % (missing) WHITE BLOOD COUNT 2025-07-31 16:05 [facility] 15.4 x10 3/ul (missing) GLOBULIN 2025-07-31 16:05 [facility] 2.4 g/dl (missing) LYMPHOCYTES # (AUTO) 2025-07-31 16:05 [facility] 2.9 10 3/ul (missing) RED BLOOD COUNT 2025-07-31 16:05 [facility] 2.99 10 6/ul (missing) CARBON DIOXIDE - CO2 2025-07-31 16:05 [facility] 24 mmol/l As of April 2023 testing method has changed, this may include reference ranges. HCT - HEMATOCRIT 2025-07-31 16:05 [facility] 28.0 % (missing) MEAN CORPUSCULAR HEMOGLOBIN 2025-07-31 16:05 [facility] 29.1 pg (missing) ALBUMIN 2025-07-31 16:05 [facility] 3.6 g/dl As of April 2023 testing method has changed, this may include reference ranges. POTASSIUM 2025-07-31 16:05 [facility] 3.7 mmol/l As of April 2023 testing method has changed, this may include reference ranges. MEAN CORPUSCULAR HGB CONC 2025-07-31 16:05 [facility] 31.1 g/dl (missing) TRANSFERRIN 2025-07-31 16:05 [facility] 326 mg/dl As of April 2023 testing method has changed, this may include reference ranges. IRON 2025-07-31 16:05 [facility] 38 ug/dl As of April 2023 testing method has changed, this may include reference ranges. PLT - PLATELET COUNT 2025-07-31 16:05 [facility] 436 10 3/ul (missing) TOTAL IRON BINDING CAPACITY 2025-07-31 16:05 [facility] 456 ug/dl (missing) TOTAL PROTEIN 2025-07-31 16:05 [facility] 6.0 g/dl As of April 2023 testing method has changed, this may include reference ranges. ANION GAP 2025-07-31 16:05 [facility] 7.0 (missing) (missing) % IRON SATURATION 2025-07-31 16:05 [facility] 8 % (missing) HGB - HEMOGLOBIN 2025-07-31 16:05 [facility] 8.7 g/dl (missing) ALKALINE PHOSPHATASE 2025-07-31 16:05 [facility] 82 iu/l As of April 2023 testing method has changed, this may include reference ranges. FERRITIN 2025-07-31 16:05 [facility] 89.2 ng/ml (missing) MEAN PLATELET VOLUME 2025-07-31 16:05 [facility] 9.2 fl (missing) CALCIUM 2025-07-31 16:05 [facility] 9.2 mg/dl As of April 2023 testing method has changed, this may include reference ranges. GLUCOSE 2025-07-31 16:05 [facility] 93 mg/dl As of April 2023 testing method has changed, this may include reference ranges. MEAN CORPUSCULAR VOLUME 2025-07-31 16:05 [facility] 93.6 fl (missing) Result panel 7 TOTAL PROTEIN,URINE TIMED 2025-07-31 16:07 [facility] < 4 mg/dl As of Apr testing method has changed, this may include reference ranges. CREATININE,URINE 2025-07-31 16:07 [facility] 20.1 m g/dl As of April 2023 testing method has changed, this may include reference ranges. PROTEIN/CREATININE RATIO,URINE 2025-07-31 16:07 [facility] [employer] TNP (missing) Unable to calculate. Analyte below the measurable range. Result panel 8 NUCLEATED RED BLOOD CELLS AUTO 2025-08-10 15:11 [facility] [employer] 0.0 /100wbc (missing) NRBC ABSOLUTE COUNT (AUTO) 2025-08-10 15:11 [facility] 0.00 x10 3/ul (missing) BASOPHILS # (AUTO) 2025-08-10 15:11 [facility] [employer] 0.1 10 3/ul (missing) ABSOLUTE RETICS # AUTO 2025-08-10 15:11 [facility] [employer] 0.115 10 6/ul (missing) EOSINOPHILS # (AUTO) 2025-08-10 15:11 [facility] 0.2 10 3/ul (missing) THYROID STIMULATING HORMONE 2025-08-10 15:11 [facility] [employer] 0.32 uiu/ml (missing) FREE T4 (FREE THYROXINE) 2025-08-10 15:11 [facility] 0.55 ng/dl Biotin at >10 ng/mL concentration may cause significant interference. MONOCYTES # (AUTO) 2025-08-10 15:11 [facility] [employer] 0.9 10 3/ul (missing) NEUTROPHILS # (AUTO) 2025-08-10 15:11 [facility] 10.6 10 3/ul (missing) VITAMIN B12 2025-08-10 15:11 [facility] [employer] 130 pg/ml VITAMIN B12 RANGES: NORMAL 180 - 914 INDETERMINATE 145 -180 DEFICIENT < 145 WHITE BLOOD COUNT 2025-08-10 15:11 [facility] [employer] 14.8 x10 3/ul (missing) RED CELL DISTRIBUTION WIDTH 2025-08-10 15:11 [facility] [employer] 16.0 % (missing) LYMPHOCYTES # (AUTO) 2025-08-10 15:11 [facility] 2.9 10 3/ul (missing) MEAN CORPUSCULAR HEMOGLOBIN 2025-08-10 15:11 [facility] 29.0 pg (missing) RED BLOOD COUNT 2025-08-10 15:11 [facility] 3.19 10 6/ul (missing) RED BLOOD COUNT 2025-08-10 15:11 [facility] 3.28 10 6/ul (missing) RETICULOCYTE COUNT % (AUTO) 2025-08-10 15:11 [facility] 3.61 % (missing) HCT - HEMATOCRIT 2025-08-10 15:11 [facility] 30.4 % (missing) MEAN CORPUSCULAR HGB CONC 2025-08-10 15:11 [facility] 31.3 g/dl (missing) FOLATE 2025-08-10 15:11 [facility] 34.2 ng/ml (missing) PLT - PLATELET COUNT 2025-08-10 15:11 [facility] 463 10 3/ul (missing) ERYTHROPOIETIN (EPO) 2025-08-10 15:11 [facility] 47.3 miu/ml [facility] [employer] DxI 800 Immunoassay System Values obtained with different assay methods or kits cannot be used interchangeably. Results cannot be interpreted as absolute evidence of the presence or absence of malignant disease. Performed at: [facility], [place], [place] [id number] Telemarketing Fundraiser: Gracie Mayberry MD, Phone: [phone] MEAN PLATELET VOLUME 2025-08-10 15:11 [facility] 9.0 fl (missing) HGB - HEMOGLOBIN 2025-08-10 15:11 [facility] 9.5 g/dl (missing) MEAN CORPUSCULAR VOLUME 2025-08-10 15:11 [facility] 92.7 fl (missing) Result panel 9 PROTEIN/CREATININE RATIO,URINE 2025-08-16 07:40 [facility] 0.1 (missing) (missing) UROBILINOGEN,URINE 2025-08-16 07:40 [facility] 0.2 (NORMAL) e.u./dl (missing) SPECIFIC GRAVITY,URINE 2025-08-16 07:40 [facility] 1.010 (missing) (missing) CREATININE,URINE 2025-08-16 07:40 [facility] [employer] 53.8 mg/dl As of April 2023 testing method has changed, this may include reference ranges. TOTAL PROTEIN,URINE TIMED 2025-08-16 07:40 [facility] 6 mg/dl As of April 2023 testing [...] 0.1 10 3/ul (missing) BILIRUBIN,TOTAL 2025-08-16 07:55 [facility] 0.5 mg /dl As of April 2023 testing method has changed, this may include reference ranges. CREATININE 2025-08-16 07:55 [facility] 0.6 mg/dl As of April 2023 testing method has changed, this may include reference ranges. MONOCYTES # (AUTO) 2025-08-16 07:55 [facility] 0.8 10 3/ul (missing) ALBUMIN/GLOBULIN RATIO 2025-08-16 07:55 [facility] 1.4 (missing) (missing) MAGNESIUM 2025-08-16 07:55 [facility] 1.6 mg/dl As of April 2023 testing method has changed, this may include reference ranges. CHLORIDE 2025-08-16 07:55 [facility] 106 mmol/l As of April 2023 testing method has changed, this may include reference ranges. GFR - MDRD 2025-08-16 07:55 [facility] 114 (in g) The IDMS-traceable MDRD Study [...] December 2011. WHITE BLOOD COUNT 2025-08-16 07:55 [facility] 12.4 x10 3/ul (missing) ALT ALANINE AMINOTRANSFERASE 2025-08-16 07:55 [facility] 13 iu/l As of April 2023 testing method has changed, this may include reference ranges. SODIUM 2025-08-16 07:55 [facility] 139 mmol/l (missing) RED CELL DISTRIBUTION WIDTH 2025-08-16 07:55 [facility] 15.9 % (missing) LYMPHOCYTES # (AUTO) 2025-08-16 07:55 [facility] 2.4 10 3/ul (missing) GLOBULIN 2025-08-16 07:55 [facility] 2.6 g/dl (missing) CARBON DIOXIDE - CO2 2025-08-16 07:55 [facility] 24 mmol/l As of April 2023 testing method has changed, this may include reference ranges. HCT - HEMATOCRIT 2025-08-16 07:55 [facility] 28.5 % (missing) MEAN CORPUSCULAR HEMOGLOBIN 2025-08-16 07:55 [facility] 29.3 pg (missing) RED BLOOD COUNT 2025-08-16 07:55 [facility] 3.11 10 6/ul (missing) POTASSIUM 2025-08-16 07:55 [facility] [employer] 3.4 mmol/l As of April 2023 testing method has changed, this may include reference ranges. ALBUMIN 2025-08-16 07:55 [facility] 3.6 g/dl As of April 2023 testing method has changed, this may include reference ranges. MEAN CORPUSCULAR HGB CONC 2025-08-16 07:55 [facility] 31.9 g/dl (missing) PLT - PLATELET COUNT 2025-08-16 07:55 [facility] 442 10 3/ul (missing) BUN - BLOOD UREA NITROGEN 2025-08-16 07:55 [facility] 6 mg/dl As of Apr testing method has changed, this may include reference ranges. TOTAL PROTEIN 2025-08-16 07:55 [facility] 6.2 g/dl As of April 2023 testing method has changed, this may include reference ranges. NEUTROPHILS # (AUTO) 2025-08-16 07:55 [facility] 8.9 10 3/ul (missing) MEAN PLATELET VOLUME 2025-08-16 07:55 [facility] 8.9 fl (missing) AST ASPARTATE AMINOTRANSFERASE 2025-08-16 07:55 [facility] 9 iu/l As of April 2023 testing method has changed, this may include reference ranges. ANION GAP 2025-08-16 07:55 [employer] [facility] [employer] 9.0 (missing ) (missing) CALCIUM 2025-08-16 07:55 [facility] 9.0 mg/dl As of April 2023 testing method has changed, this may include reference ranges. HGB - HEMOGLOBIN 2025-08-16 07:55 [facility] 9.1 g /dl (missing) MEAN CORPUSCULAR VOLUME 2025-08-16 07:55 [facility] 91.6 fl (missing) ALKALINE PHOSPHATASE 2025-08-16 07:55 [facility] 99 iu/l As of April 2023 testing method has changed, this may include reference ranges. GLUCOSE 2025-08-16 07:55 [facility] 99 mg/dl As of April 2023 testing method has changed, this may include reference ranges. Result panel 11 PROTEIN/CREATININE RATIO,URINE 2025-08-21 21:03 [facility] [employer] 0.1 (missing) (missing) TOTAL PROTEIN,URINE TIMED 2025-08-21 21:03 [facility] 5 mg/dl As of April 2023 testing method has changed, this may include reference ranges. CREATININE,URINE 2025-08-21 21:03 [facility] [employer] 50.7 mg/dl As of April 2023 testing method has changed, this may include reference ranges. Result panel 12 NUCLEATED RED BLOOD CELLS AUTO 2025-08-21 21:31 [facility] 0.0 /100wbc (missing) NRBC ABSOLUTE COUNT (AUTO) 2025-08-21 21:31 [facility] 0.00 x10 3/ul (missing) BASOPHILS # (AUTO) 2025-08-21 21:31 [facility] 0.1 10 3/ul (missing) EOSINOPHILS # (AUTO) 2025-08-21 21:31 [facility] 0.2 10 3/ul (missing) BILIRUBIN,TOTAL 2025-08-21 21:31 [facility] 0.5 mg/dl As of April 2023 testing method has changed, this may include reference ranges. CREATININE 2025-08-21 21:31 [facility] 0.6 mg/dl As of April 2023 testing method has changed, this may include reference ranges. MONOCYTES # (AUTO) 2025-08-21 21:31 [facility] 1.0 10 3/ul (missing) ALBUMIN/GLOBULIN RATIO 2025-08-21 21:31 [facility] 1.4 (missing) (missing) NEUTROPHILS # (AUTO) 2025-08-21 21:31 [facility] 10.2 10 3/ul (missing) CHLORIDE 2025-08-21 21:31 [facility] 106 mmol/l As of April 2023 testing method has changed, this may include reference ranges. GFR - MDRD 2025-08-21 21:31 [facility] 114 (missing) The IDMS-traceable MDRD Study Equation [...] December 2011. AST ASPARTATE AMINOTRANSFERASE 2025-08-21 21:31 [facility] 12 iu/l As of April 2023 testing method has changed, this may include reference ranges. SODIUM 2025-08-21 21:31 [facility] 138 mmol/l (missing) ALT ALANINE AMINOTRANSFERASE 2025-08-21 21:31 [facility] 14 iu/l As of April 2023 testing method has changed, this may include reference ranges. WHITE BLOOD COUNT 2025-08-21 21:31 [facility] 14.7 x10 3/ul (missing) RED CELL DISTRIBUTION WIDTH 2025-08-21 21:31 [facility] 16.1 % (missing) GLOBULIN 2025-08-21 21:31 [facility] 2.5 g/dl (missing) CARBON DIOXIDE - CO2 2025-08-21:31 [facility] 23 mmol/l As of April 2023 testing method has changed, this may include reference ranges. MEAN CORPUSCULAR HEMOGLOBIN 2025-08-21 21:31 [facility] 28.4 pg (missing) LYMPHOCYTES # (AUTO) 2025-08-21 21:31 [facility] 3.1 10 3/ul (missing) POTASSIUM 2025-08-21 21:31 [facility] 3.4 mmol/l As of April 2023 testing method has changed, this may include reference ranges. RED BLOOD COUNT 2025-08-21 21:31 [facility] 3.41 10 6/ul (missing) ALBUMIN 2025-08-21 21:31 [facility] 3.5 g/dl As of April 2023 testing method has changed, this may include reference ranges. MEAN CORPUSCULAR HGB CONC 2025-08-21 21:31 [facility] 30.5 g/dl (missing) HCT - HEMATOCRIT 2025-08-21 21:31 [facility] 31.8 % (missing) PLT - PLATELET COUNT 2025-08-21 21:31 [facility] 496 10 3/ul (missing) BUN - BLOOD UREA NITROGEN 2025-08-21 21:31 [facility] 6 mg/dl As of April 2023 testing method has changed, this may include reference ranges. TOTAL PROTEIN 2025-08-21:31 [facility] 6.0 g/dl As of April 2023 testing method has changed, this may include reference ranges. MEAN PLATELET VOLUME 2025-08-21 21:31 [facility] 8.9 fl (missing) ANION GAP 2025-08-21 21:31 [facility] 9.0 (missing) (missing) HGB - HEMOGLOBIN 2025-08-21 21:31 [facility] 9.7 g/dl (missing) CALCIUM 2025-08-21:31 [facility] 9.7 mg/dl As of April 2023 testing method has changed, this may include reference ranges. GLUCOSE 2025-08-21: [facility] 91 mg/dl As of April 2023 testing method has changed, this may include reference ranges. MEAN CORPUSCULAR VOLUME 2025-08-21 21:31 [facility] 93.3 fl (missing) ALKALINE PHOSPHATASE 2025-08-21 21:31 [facility] 95 iu/l As of April 2023 testing method has changed, this may include reference ranges. Result panel 13 TOTAL PROTEIN,URINE TIMED 2025-08-28 16:05 [facility] < 4 mg/dl As of April 2023 testing method has changed, this may include reference ranges. THYROID STIMULATING HORMONE 2025-08-28 16:05 [facility] 0.56 uiu/ml (missing) BILIRUBIN,TOTAL 2025-08-28 16:05 [facility] 0.6 mg/dl As of April 2023 testing method has changed, this may include reference ranges. CREATININE 2025-08-28 16:05 [facility] 0.7 mg/dl As of April 2023 testing method has changed, this may include reference ranges. ALBUMIN/GLOBULIN RATIO 2025-08-28 16:05 [facility] 1.6 (missing) (missing) CHLORIDE 2025-08-28 16:05 [facility] 106 mmol/l As of April 2023 testing method has changed, this may include reference ranges. GLUCOSE 2025-08-28 16:05 [facility] 116 mg/dl As of April 2023 testing method has changed, this may include reference ranges. ALT ALANINE AMINOTRANSFERASE 2025-08-28 16:05 [facility] 13 iu/l As of April 2023 testing method has changed, this may include reference ranges. WHITE BLOOD COUNT 2025-08-28 16:05 [facility] 13.6 x10 3/ul (missing) SODIUM 2025-08-28 16:05 [facility] 139 mmol/l Unknown RED CELL DISTRIBUTION WIDTH 2025-08-28 16:05 [facility] 17.2 % (missing) GLOBULIN 2025-08-28 16:05 [facility] 2.3 g/dl (missing) CREATININE,URINE 2025-08-28 16:05 [facility] 23.8 mg/dl As of April 2023 testing method has changed, this may include reference ranges. CARBON DIOXIDE - CO2 2025-08-28 16:05 [facility] 25 mmol/l As of April 2023 testing method has changed, this may include reference ranges. MEAN CORPUSCULAR HEMOGLOBIN 2025-08-28 16:05 [facility] 28.9 pg (missing) RED BLOOD COUNT 2025-08-28 16:05 [facility] 3.25 10 6/ul (missing) POTASSIUM 2025-08-28 16:05 [facility] 3.5 mmol/l As of April 2023 testing method has changed, this may include reference ranges. ALBUMIN 2025-08-28 16:05 [facility] 3.6 g/dl As of April 2023 testing method has changed, this may include reference ranges. HCT - HEMATOCRIT 2025-08-28 16:05 [facility] 30.3 % (missing) MEAN CORPUSCULAR HGB CONC 2025-08-28 16:05 [facility] 31.0 g/dl (missing) PLT - PLATELET COUNT 2025-08-28 16:05 [facility] 449 10 3/ul (missing) TOTAL PROTEIN 2025-08-28 16:05 [facility] 5.9 g/dl As of April 2023 testing method has changed, this may include reference ranges. BUN - BLOOD UREA NITROGEN 2025-08-28 16:05 [facility] 8 mg/dl As of April 2023 testing method has changed, this may include reference ranges. ANION GAP 2025-08-28 16:05 [facility] 8.0 (missing) (missing) AST ASPARTATE AMINOTRANSFERASE 2025-08-28 16:05 [facility] 9 iu/l As of April 2023 testing method has changed, this may include reference ranges. MEAN PLATELET VOLUME 2025-08-28 16:05 [facility] 9.1 fl (missing) HGB - HEMOGLOBIN 2025-08-28 16:05 [facility] 9.4 g/dl (missing) CALCIUM 2025-08-28 16:05 [facility] 9.6 mg/dl As of April 2023 testing method has changed, this may include reference ranges. MEAN CORPUSCULAR VOLUME 2025-08-28 16:05 [facility] 93.2 fl (missing) GFR - MDRD 2025-08-28 16:05 [facility] 95 (missing) The IDMS-traceable MDRD Study Equation [...] updated December 2011. ALKALINE PHOSPHATASE 2025-08-28 16:05 [facility] 97 iu/l As of April 2023 testing method has changed, this may include reference ranges. PROTEIN/CREATININE RATIO,URINE 2025-08-28 16:05 [facility] TNP (missing) Unable to calculate. Analyte below the measurable range. Result panel 14 BILIRUBIN,TOTAL 2025-08-29 07:51 [facility] 0.4 mg/dl As of April 2023 testing method has changed, this may include reference ranges. CREATININE 2025-08-29 07:51 [facility] 0.7 mg/dl As of April 2023 testing method has changed, this may include reference ranges. ALBUMIN/GLOBULIN RATIO 2025-08-29 07:51 [facility] 1.5 (missing) (missing) AST ASPARTATE AMINOTRANSFERASE 2025-08-29 07:51 [facility] 10 iu/l As of April 2023 testing method has changed, this may include reference ranges. CHLORIDE 2025-08-29 07:51 [facility] 107 mmol/l As of April 2023 testing method has changed, this may include reference ranges. ALT ALANINE AMINOTRANSFERASE 2025-08-29 07:51 [facility] 13 iu/l As of April 2023 testing method has changed, this may include reference ranges. SODIUM 2025-08-29 07:51 [facility] 137 mmol/l (missing) GLUCOSE 2025-08-29 07:51 [facility] 161 mg/dl As of April 2023 testing method has changed, this may include reference ranges. RED CELL DISTRIBUTION WIDTH 2025-08-29 07:51 [facility] 17.2 % (missing) WHITE BLOOD COUNT 2025-08-29 07:51 [facility] 17.3 x10 3/ul (missing) GLOBULIN 2025-08-29 07:51 [facility] 2.2 g/dl (missing) RED BLOOD COUNT 2025-08-29 07:51 [facility] 2.73 10 6/ul (missing) CARBON DIOXIDE - CO2 2025-08-29 07: [facility] 24 mmol/l As of April 2023 testing method has changed, this may include reference ranges. HCT - HEMATOCRIT 2025-08-29 07:51 [facility] 25.1 % (missing) MEAN CORPUSCULAR HEMOGLOBIN 2025-08-29 07:51 [facility] 29.7 pg (missing) ALBUMIN 2025-08-29 07:51 [facility] 3.2 g/dl As of April 2023 testing method has changed, this may include reference ranges. POTASSIUM 2025-08-29 07:51 [facility] 3.8 mmol/l As of April 2023 testing method has changed, this may include reference ranges. MEAN CORPUSCULAR HGB CONC 2025-08-29 07:51 [facility] 32.3 g/dl (missing) PLT - PLATELET COUNT 2025-08-29 07:51 [facility] 341 10 3/ul (missing) MAGNESIUM 2025-08-29 07:51 [facility] 4.9 mg/dl As of April 2023 testing method has changed, this may include reference ranges. TOTAL PROTEIN 2025-08-29 07:51 [facility] 5.4 g/dl As of April 2023 testing method has changed, this may include reference ranges. BUN - BLOOD UREA NITROGEN 2025-08-29 07:51 [facility] 6 mg/dl As of April 2023 testing method has changed, this may include reference ranges. ANION GAP 2025-08-29 07:51 [facility] 6.0 (missing) (missing) CALCIUM 2025-08-29 07: [facility] 7.8 mg/dl As of April 2023 testing method has changed, this may include reference ranges. HGB - HEMOGLOBIN 2025-08-29 07:51 [facility] 8.1 g/dl (missing) MEAN PLATELET VOLUME 2025-08-29 07:51 [facility] 8.9 fl (missing) MEAN CORPUSCULAR VOLUME 2025-08-29 07:51 [facility] 91.9 fl (missing) GFR - MDRD 2025-08-29 07:51 [facility] 95 (missing) The IDMS-traceable MDRD Study Equation [...] updated December 2011. ALKALINE PHOSPHATASE 2025-08-29 07:51 [facility] 95 iu/l As of April 2023 testing method has changed, this may include reference ranges. Result panel 15 NUCLEATED RED BLOOD CELLS AUTO 2025-08-30 07:28 [facility] 0.0 /100wbc (missing) NRBC ABSOLUTE COUNT (AUTO) 2025-08-30 07:28 [facility] 0.00 x10 3/ul (missing) BASOPHILS # (AUTO) 2025-08-30 07:28 [facility] 0.1 10 3/ul (missing) EOSINOPHILS # (AUTO) 2025-08-30 07:28 [facility] 0.3 10 3/ul (missing) BILIRUBIN,TOTAL 2025-08-30 07:28 [facility] 0.3 mg/dl As of April 2023 testing method has changed, this may include reference ranges. CREATININE 2025-08-30 07:28 [facility] 0.7 mg/dl As of April 2023 testing method has changed, this may include reference ranges. MONOCYTES # (AUTO) 2025-08-30 07:28 [facility] 0.9 10 3/ul (missing) ALBUMIN/GLOBULIN RATIO 2025-08-30 07:28 [facility] 1.4 (missing) (missing) CHLORIDE 2025-08-30 07:28 [facility] 107 mmol/l As of April 2023 testing method has changed, this may include reference ranges. ALT ALANINE AMINOTRANSFERASE 2025-08-30 07:28 [facility] 11 iu/l As of April 2023 testing method has changed, this may include reference ranges. WHITE BLOOD COUNT 2025-08-30 07:28 [facility] 12.2 x10 3/ul (missing) SODIUM 2025-08-30 07:28 [facility] 137 mmol/l (missing) RED CELL DISTRIBUTION WIDTH 2025-08-30 07:28 [facility] 17.8 % (missing) GLOBULIN 2025-08-30 07:28 [facility] 2.1 g/dl (missing) RED BLOOD COUNT 2025-08-30 07: [facility] 2.32 10 6/ul (missing) HCT - HEMATOCRIT 2025-08-30 07:28 [facility] 21.7 % (missing) CARBON DIOXIDE - CO2 2025-08-30 07:28 [facility] 24 mmol/l As of April 2023 testing method has changed, this may include reference ranges. MEAN CORPUSCULAR HEMOGLOBIN 2025-08-30 07:28 [employer] [facility] 29.3 pg (missing) ALBUMIN 2025-08-30 07: [facility] 3.0 g/dl As of April 2023 testing method has changed, this may include reference ranges. LYMPHOCYTES # (AUTO) 2025-08-30: [facility] 3.5 10 3/ul (missing) POTASSIUM 2025-08-30 07: [facility] 3.6 mmol/l As of April 2023 testing method has changed, this may include reference ranges. MEAN CORPUSCULAR HGB CONC 2025-08-30 07:28 [employer] [facility] 31.3 g/dl (missing) PLT - PLATELET COUNT 2025-08-30 07: [facility] 344 10 3/ul (missing) TOTAL PROTEIN 2025-08-30 07: [facility] 5.1 g/dl As of April 2023 testing method has changed, this may include reference ranges. ANION GAP 2025-08-30 07: [facility] 6.0 (missing) (missing) HGB - HEMOGLOBIN 2025-08-30 07: [facility] 6.8 g/dl Called to [facility]SUSHIL Andre by Shubham Beal at 0800 08/30/25. Read back(Y/N)? Y CALCIUM 2025-08-30 07:28 [facility] 7.0 mg/dl As of April 2023 testing method has changed, this may include reference ranges. NEUTROPHILS # (AUTO) 2025-08-30 07: [facility] 7.4 10 3/ul (missing) ALKALINE PHOSPHATASE 2025-08-30 07:28 [facility] 76 iu/l As of April 2023 testing method has changed, this may include reference ranges. AST ASPARTATE AMINOTRANSFERASE 2025-08-30 07:28 [facility] 8 iu/l As of April 2023 testing method has changed, this may include reference ranges. BUN - BLOOD UREA NITROGEN 2025-08-30 07:28 [facility] 8 mg/dl As of April 2023 testing method has changed, this may include reference ranges. GLUCOSE 2025-08-30: [facility] 83 mg/dl As of April 2023 testing method has changed, this may include reference ranges. MEAN PLATELET VOLUME 2025-08-30 07:28 [facility] 9.1 fl (missing) MEAN CORPUSCULAR VOLUME 2025-08-30: [facility] 93.5 fl (missing) GFR - MDRD 2025-08-30: [facility] 95 (missing) The IDMS-traceable MDRD Study Equation [...] NUCLEATED RED BLOOD CELLS AUTO 2025-08-30 18:27 [facility] 0.0 /100wbc (missing) NRBC ABSOLUTE COUNT (AUTO) 2025-08-30 18:27 [facility] 0 .00 x10 3/ul (missing) BASOPHILS # (AUTO) 2025-08-30 18:27 [facility] 0.1 10 3/ul (missing) EOSINOPHILS # (AUTO) 2025-08-30 18:27 [facility] 0.3 10 3/ul (missing) MONOCYTES # (AUTO) 2025-08-30 18:27 [facility] 0.9 10 3/ul (missing) WHITE BLOOD COUNT 2025-08-30 18:27 [facility] 11.6 x10 3/ul (missing) RED CELL DISTRIBUTION WIDTH 2025-08-30 18:27 [facility] 18.1 % (missing) RED BLOOD COUNT 2025-08-30 18:27 [facility] 2.74 10 6/ul (missing) LYMPHOCYTES # (AUTO) 2025-08-30 18:27 [facility] 2.9 10 3/ul (missing) HCT - HEMATOCRIT 2025-08-30 18:27 [facility] 25.9 % (missing) MEAN CORPUSCULAR HEMOGLOBIN 2025-08-30 18:27 [facility] 27.7 pg (missing) MEAN CORPUSCULAR HGB CONC 2025-08-30 18:27 [facility] 29 .3 g/dl (missing) PLT - PLATELET COUNT 2025-08-30 18:27 [facility] 347 10 3/ul (missing) NEUTROPHILS # (AUTO) 2025-08-30 18:27 [facility] 7.3 10 3/ul (missing) HGB - HEMOGLOBIN 2025-08-30 18:27 [facility] 7.6 g /dl (missing) MEAN PLATELET VOLUME 2025-08-30 18:27 [facility] 8.9 fl (missing) MEAN CORPUSCULAR VOLUME 2025-08-30 18:27 [facility] 94.5 fl (missing) Result panel 17 NUCLEATED RED BLOOD CELLS AUTO 2025-08-31 08:59 [facility] 0.0 /100wbc (missing) NRBC ABSOLUTE COUNT (AUTO) 2025-08-31 08:59 [facility] 0.00 x10 3/ul (missing) BASOPHILS # (AUTO) 2025-08-31 08:59 [facility] 0.1 10 3/ul (missing) EOSINOPHILS # (AUTO) 2025-08-31 08:59 [facility] 0.3 10 3/ul (missing) BILIRUBIN,TOTAL 2025-08-31 08:59 [facility] 0.4 mg/dl As of April 2023 testing method has changed, this may include reference ranges. MONOCYTES # (AUTO) 2025-08-31 08:59 [facility] 0.5 10 3/ul (missing) CREATININE 2025-08-31 08:59 [facility] 0.8 mg/dl As of April 2023 testing method has changed, this may include reference ranges. ALBUMIN/GLOBULIN RATIO 2025-08-31 08:59 [facility] 1.5 (missing) (missing) WHITE BLOOD COUNT 2025-08-31 08:59 [facility] 10.4 x10 3/ul (missing) CHLORIDE 2025-08-31 08:59 [facility] 107 mmol/l As of April 2023 testing method has changed, this may include reference ranges. ALT ALANINE AMINOTRANSFERASE 2025-08-31 08:59 [facility] 12 iu/l As of April 2023 testing method has changed, this may include reference ranges. GLUCOSE 2025-08-31 08:59 [facility] 120 mg/dl As of April 2023 testing method has changed, this may include reference ranges. BUN - BLOOD UREA NITROGEN 2025-08-31 08:59 [facility] 13 mg/dl As of April 2023 testing method has changed, this may include reference ranges. SODIUM 2025-08-31 08:59 [facility] 138 mmol/l (missing) RED CELL DISTRIBUTION WIDTH 2025-08-31 08:59 [facility] 17.8 % (missing) LYMPHOCYTES # (AUTO) 2025-08-31 08:59 [facility] 2.1 10 3/ul (missing) GLOBULIN 2025-08-31 08:59 [facility] 2.2 g/dl (missing) RED BLOOD COUNT 2025-08-31 08:59 [facility] 2.75 10 6/ul (missing) CARBON DIOXIDE - CO2 2025-08-31 08:59 [facility] 23 mmol/l As of April 2023 testing method has changed, this may include reference ranges. HCT - HEMATOCRIT 2025-08-31 08:59 [facility] 25.9 % (missing) MEAN CORPUSCULAR HEMOGLOBIN 2025-08-31 08:59 [facility] 29.1 pg (missing) ALBUMIN 2025-08-31 08:59 [facility] 3.4 g/dl As of April 2023 testing method has changed, this may include reference ranges. MEAN CORPUSCULAR HGB CONC 2025-08-31 08:59 [facility] 30.9 g/dl (missing) PLT - PLATELET COUNT 2025-08-31 08:59 [facility] 368 10 3/ul (missing) POTASSIUM 2025-08-31 08:59 [facility] 4.3 mmol/l As of April 2023 testing method has changed, this may include reference ranges. TOTAL PROTEIN 2025-08-31 08:59 [employer] 5.6 g/dl As of April 2023 testing method has changed, this may include reference ranges. NEUTROPHILS # (AUTO) 2025-08-31 08:59 [facility] 7.3 10 3/ul (missing) ANION GAP 2025-08-31 08:59 [facility] 8.0 (missing) (missing) HGB - HEMOGLOBIN 2025-08-31 08:59 [facility] 8.0 g/dl (missing) CALCIUM 2025-08-31 08:59 [facility] 8.5 mg/dl As of April 2023 testing method has changed, this may include reference ranges. MEAN PLATELET VOLUME 2025-08-31 08:59 [facility] 8.9 fl (missing) ALKALINE PHOSPHATASE 2025-08-31 08:59 [facility] 81 iu/l As of April 2023 testing method has changed, this may include reference ranges. GFR - MDRD 2025-08-31 08:59 [facility] 82 (missing) The IDMS-traceable MDRD Study Equation [...] December 2011. AST ASPARTATE AMINOTRANSFERASE 2025-08-31 08:59 [facility] 9 iu/l As of April 2023 testing method has changed, this may include reference ranges. MEAN CORPUSCULAR VOLUME 2025-08-31 08:59 [facility] 94.2 fl (missing) Result panel 18 NUCLEATED RED BLOOD CELLS AUTO 2025-09-01 11:55 [facility] 0.0 /100wbc (missing) NRBC ABSOLUTE COUNT (AUTO) 2025-09-01 11:55 [facility] 0.00 x10 3/ul (missing) BASOPHILS # (AUTO) 2025-09-01 11:55 [facility] 0.1 10 3/ul (missing) EOSINOPHILS # (AUTO) 2025-09-01 11:55 [facility] 0.3 10 3/ul (missing) BILIRUBIN,TOTAL 2025-09-01 11:55 [facility] 0.5 mg/dl As of April 2023 testing method has changed, this may include reference ranges. MONOCYTES # (AUTO) 2025-09-01 11:55 [facility] 0.7 10 3/ul (missing) CREATININE 2025-09-01 11:55 [facility] 0.7 mg/dl As of April 2023 testing method has changed, this may include reference ranges. ALBUMIN/GLOBULIN RATIO 2025-09-01 11:55 [facility] 1.5 (missing) (missing) MAGNESIUM 2025-09-01 11:55 [facility] 1.7 mg/dl As of April 2023 testing method has changed, this may include reference ranges. WHITE BLOOD COUNT 2025-09-01 11:55 [facility] 10.6 x10 3/ul (missing) ALKALINE PHOSPHATASE 2025-09-01 11:55 [facility] 104 iu/l As of April 2023 testing method has changed, this may include reference ranges. CHLORIDE 2025-09-01 11:55 [facility] 105 mmol/l As of April 2023 testing method has changed, this may include reference ranges. GLUCOSE 2025-09-01 11:55 [facility] 118 mg/dl As of April 2023 testing method has changed, this may include reference ranges. SODIUM 2025-09-01 11:55 [facility] 137 mmol/l (missing) BUN - BLOOD UREA NITROGEN 2025-09-01 11:55 [facility] 14 mg/dl As of April 2023 testing method has changed, this may include reference ranges. RED CELL DISTRIBUTION WIDTH 2025-09-01 11:55 [facility] 17.2 % (missing) LYMPHOCYTES # (AUTO) 2025-09-01 11:55 [facility] 2.2 10 3/ul (missing) GLOBULIN 2025-09-01 11:55 [facility] 2.7 g/dl (missing) CARBON DIOXIDE - CO2 2025-09-01 11:55 [facility] 24 mmol/l As of April 2023 testing method has changed, this may include reference ranges. MEAN CORPUSCULAR HEMOGLOBIN 2025-09-01 11:55 [facility] 29.3 pg (missing) RED BLOOD COUNT 2025-09-01 11:55 [facility] 3.31 10 6/ul (missing) HCT - HEMATOCRIT 2025-09-01 11:55 [facility] 30.7 % (missing) MEAN CORPUSCULAR HGB CONC 2025-09-01 11[facility] 31.6 g/dl (missing) AST ASPARTATE AMINOTRANSFERASE 2025-09-01 11:55 [facility] 33 iu/l As of April 2023 testing method has changed, this may include reference ranges. ALBUMIN 2025-09-01 11:55 [facility] 4.0 g/dl As of April 2023 testing method has changed, this may include reference ranges. POTASSIUM 2025-09-01 11:55 [facility] [employer] 4.1 mmol/l As of April 2023 testing method has changed, this may include reference ranges. ALT ALANINE AMINOTRANSFERASE 2025-09-01 11:55 [facility] 45 iu/l As of April 2023 testing method has changed, this may include reference ranges. PLT - PLATELET COUNT 2025-09-01 11:55 [facility] 450 10 3/ul (missing) TOTAL PROTEIN 2025-09-01 11:55 [facility] 6.7 g/dl As of April 2023 testing method has changed, this may include reference ranges. NEUTROPHILS # (AUTO) 2025-09-01 11:55 [facility] 7.2 10 3/ul (missing) ANION GAP 2025-09-01 11:55 [facility] 8.0 (missing) (missing) MEAN PLATELET VOLUME 2025-09-01 11:55 [facility] 8.8 fl (missing) CALCIUM 2025-09-01 11:55 [facility] 9.4 mg/dl As of April 2023 testing method has changed, this may include reference ranges. HGB - HEMOGLOBIN 2025-09-01 11:55 [facility] 9.7 g/dl (missing) MEAN CORPUSCULAR VOLUME 2025-09-01 11:55 [facility] 92.7 fl (missing) GFR - MDRD 2025-09-01 11:55 [facility] 95 (missing) The IDMS-traceable MDRD Study Equation [...] 2011. Result panel 19 WBC,URINE 2025-09-01 12:00 [facility] >25 /hpf (missing) UROBILINOGEN,URIN E 2025-09-01 12:00 [facility] 0.2 (NORMAL) e.u./dl (missing) SPECIFIC GRAVITY,URINE 2025-09-01 12:00 [facility] 1.005 (missing) (missing) PH,URINE 2025-09-01 12:00 [facility] 7.5 ph (missing) CLARITY,URINE 2025-09-01 12:00 [facility] HAZY (missing) (missing) URINE MICROSCOPIC INDICATED? 2025-09-01 12:00 [facility] INDICATED (missing) (missing) OCCULT BLOOD,URINE 2025-09-01 12:00 [facility] LARGE (missing) (missing) SQUAMOUS EPITHELIAL CELL,UR 2025-09-01 12:00 [facility] MOD Squamous (missing) (missing) NITRITE,URINE 2025-09-01 12:00 [facility] NEGATIVE (missing) (missing) BILIRUBIN,URINE 2025-09-01 12:00 [facility] /hpf (missing) COLOR,URINE 2025-09-01 12:00 [facility] STRAW (missing) URINE CLEAN CATCH RBC,URINE 2025-09-01 12:00 [facility] TNTC /hpf (missing) LEUKOCYTE ESTERASE, URINE 2025-09-01 12:00 [facility] TRACE (missing) (missing) PROTEIN,URINE 2025-09-01 12:00 [facility] TRACE mg/dl (missing) Result panel 20 MRSA PCR,CCU ADMIT 2025-09-01 14:38 [facility] NEGATIVE (missing) (missing) Result panel 21 MAGNESIUM 2025-09-01 15:13 [facility] 3.6 mg/dl As of April 2023 testing method has changed, this may include reference ranges. Result panel 22 MAGNESIUM 2025-09-01 17:10 [facility] 3.8 mg/dl As of April 2023 testing method has changed, this may include reference ranges. Result panel 23 MAGNESIUM 2025-09-01 20:34 [facility] 5.2 mg/dl Critical result MG 5.2 mg/dL called to and read back by ICU/DELMA MAYA at 01-Sep-2025 21:02 by jay. As of April 2023 testing method has changed, this may include reference ranges. Result panel 24 BILIRUBIN,TOTAL 2025-09-02 04:13 [facility] 0.4 mg/dl As of April 2023 testing method has changed, this may include reference ranges. CREATININE 2025-09-02 04:13 [facility] 0.8 mg/dl As of April 2023 testing method has changed, this may include reference ranges. ALBUMIN/GLOBULIN RATIO 2025-09-02 04:13 [facility] 1.6 (missing) (missing) CHLORIDE 2025-09-02 04:13 [facility] 103 mmol/l As of April 2023 testing method has changed, this may include reference ranges. ALKALINE PHOSPHATASE 2025-09-02 04:13 [facility] 106 iu/l As of April 2023 testing method has changed, this may include reference ranges. HGB - HEMOGLOBIN 2025-09-02 04:13 [facility] 11.0 g/dl (missing) WHITE BLOOD COUNT 2025-09-02 04:13 [facility] 12.6 x10 3/ul (missing) BUN - BLOOD UREA NITROGEN 2025-09-02 04:13 [facility] 13 mg/dl As of April 2023 testing method has changed, this may include reference ranges. SODIUM 2025-09-02 04:13 [facility] 135 mmol/l (missing) RED CELL DISTRIBUTION WIDTH 2025-09-02 04:13 [facility] 17.5 % (missing) GLOBULIN 2025-09-02 04:13 [facility] 2.5 g/dl (missing) CARBON DIOXIDE - CO2 2025-09-02 04:13 [facility] 25 mmol/l As of April 2023 testing method has changed, this may include reference ranges. AST ASPARTATE AMINOTRANSFERASE 2025-09-02 04:13 [facility] 28 iu/l As of April 2023 testing method has changed, this may include reference ranges. MEAN CORPUSCULAR HEMOGLOBIN 2025-09-02 04:13 [facility] 28.4 pg (missing) RED BLOOD COUNT 2025-09-02 04:13 [facility] 3.88 10 6/ul (missing) MEAN CORPUSCULAR HGB CONC 2025-09-02 04:13 [facility] 30.4 g/dl (missing) HCT - HEMATOCRIT 2025-09-02 04:13 [facility] 36.2 % (missing) ALBUMIN 2025-09-02 04:13 [facility] 4.0 g/dl As of April 2023 testing method has changed, this may include reference ranges. POTASSIUM 2025-09-02 04:13 [facility] 4.3 mmol/l As of April 2023 testing method has changed, this may include reference ranges. ALT ALANINE AMINOTRANSFERASE 2025-09-02 04:13 [facility] 53 iu/l As of April 2023 testing method has changed, this may include reference ranges. PLT - PLATELET COUNT 2025-09-02 04:13 [facility] 536 10 3/ul (missing) TOTAL PROTEIN 2025-09-02 04:13 [facility] 6.5 g/dl As of April 2023 testing method has changed, this may include reference ranges. ANION GAP 2025-09-02 04:13 [facility] 7.0 (missing) (missing) CALCIUM 2025-09-02 04:13 [facility] 8.1 mg/dl As of April 2023 testing method has changed, this may include reference ranges. MEAN PLATELET VOLUME 2025-09-02 04:13 [facility] 8.7 fl (missing) GFR - MDRD 2025-09-02 04:13 [facility] 82 (missing) The IDMS-traceable MDRD Study Equation [...] ation/gfr/creatin ine-stand ardization, last updated December 2011. MEAN CORPUSCULAR VOLUME 2025-09-02 04:13 [facility] 93.3 fl (missing) GLUCOSE 2025-09-02 04:13 [facility] 98 mg/dl As of April 2023 testing method has changed, this may include reference ranges. Social History date description facility
[2025-09-06 21:37] LABS: HCT - HEMATOCRIT 36.7 % (37.0-47.0); HGB - HEMOGLOBIN 11.7 g/dL (12.0-16.0); MEAN PLATELET VOLUME 8.5 fL (7.9-10.8); NRBC ABSOLUTE COUNT (AUTO) 0.00 x10^3/uL; NUCLEATED RED BLOOD CELLS AUTO 0.0 /100WBC; PLT - PLATELET COUNT 493 10^3/uL (130-450); RED CELL DISTRIBUTION WIDTH 16.1 % (12.0-15.0)
[2025-09-06 21:56] LABS: ALT ALANINE AMINOTRANSFERASE 26.0 IU/L (10-60); AST ASPARTATE AMINOTRANSFERASE 14.0 IU/L (10-42); BUN - BLOOD UREA NITROGEN 22.0 mg/dL (6-20); CARBON DIOXIDE - CO2 25.0 mmol/L (21-32); CREATININE 0.9 mg/dL (0.6-1.3); GFR - MDRD 71.0 (>89)
[2025-09-06 22:11] LABS: PLATELET ESTIMATE, MANUAL INCREASED (>450,000) (NORMAL); PLATELET MORPHOLOGY NORMAL APPEARANCE (NORMAL); RBC MORPHOLOGY (MULTIPLE) 1+ ANISOCYTOSIS (NORMAL)
[2025-09-06 22:25] LABS: GLUCOSE, URINE (UA) NEGATIVE (NEGATIVE); KETONES,URINE (UA) NEGATIVE (NEGATIVE); OCCULT BLOOD,URINE MODERATE (NEGATIVE)
[2025-09-06 22:35] LABS: AMORPHOUS SEDIMENT,UR Moderate /LPF; SQUAMOUS EPITHELIAL CELL,UR NONE SEEN (<= Few)
--- NOTE | 2025-09-06 23:10 | ED Physician Documentation ---
ED Addendum Addendum Addendum: Patient signed out to Dr. Vaughn. No changes during my shift Discharge Plan Discharge Patient Disposition: [facility] DC/Xfer Condition: Stable Clinical Impression: Acute endometritis Leukocytosis Qualifiers: Leukocytosis type: unspecified Qualified Code(s): D72.829 - Elevated white blood cell count, unspecified Prescriptions: No Action labetalol 200 mg tablet 200 mg PO Q8H acetaminophen 500 mg capsule 500 mg PO Q4H PRN (Reason: fever or pain) ibuprofen [Advil] 200 mg tablet 200 mg PO PRN PRN (Reason: fever or pain) nifedipine 30 mg tablet extended release 30 mg PO DAILY Qty: 30 2RF Classic 28 mg iron- 800 mcg tablet 1 tab PO DAILY Print Language: Irish
[2025-09-06] MEDS: PIPERACILLIN/TAZOBACTAM 3.375 GM in SODIUM CHLORIDE 0.9% MINIBAG 100 ML IV STA (23:21)
--- NOTE | 2025-09-06 23:25 | CT Report ---
PROCEDURE: CT Abdomen/Pelvis W INDICATIONS: lower abd pain, 10 days s/p CONTRAST: [id number] TECHNIQUE: After the administration of intravenous contrast, a CT scan of the abdomen and pelvis was performed. Images were recorded and evaluated at appropriate window settings. Reformats: coronal and sagittal. For radiation dose reduction, the following was used: automated exposure control, adjustment of mA and/or kV according to patient size. COMPARISON: None. FINDINGS: Image quality: Diagnostic. Lower chest: Subacute fracture of the left posterior 11th rib. Liver: No solid mass. Gallbladder: No radiopaque stones or wall thickening. Biliary tree: No intrahepatic or extrahepatic dilation, accounting for age. Spleen: No splenomegaly. Pancreas: No pancreatic ductal dilation. Adrenals: Indeterminate 2.6 cm left adrenal nodule. Kidneys and ureters: No hydronephrosis. No renal cystic lesion which requires follow up. No solid mass. Stomach, bowel and peritoneum: No gastric or small bowel dilation. No abnormal wall thickening. No pathologic free fluid. Lymph nodes: No central or retroperitoneal adenopathy. Vessels: No infrarenal aortic aneurysm. Patent portal vein. PELVIS Reproductive organs: Marked thickening of the endometrium with heterogeneous appearance, measuring up to 5.7 cm in thickness. There is a collection within the anterior uterine wall measuring approximately 2.9 x 2.4 x 3.4 cm (2/117), concerning for abscess formation. Bladder: No abnormal wall thickening. Underdistended. Pelvic lymph nodes: No pelvic adenopathy by size criteria. Bones: No aggressive osseous abnormality. Other: No significant ventral or inguinal hernia. IMPRESSION: Marked thickening of the endometrium with heterogeneous appearance, measuring up to 5.7 cm in thickness, concerning for endometritis and/or retained products of conception. There is a collection within the anterior uterine wall suggestive of abscess formation. Recommend further evaluation with dedicated pelvic US. Incidental indeterminate 2.6 cm left adrenal nodule. Consider further evaluation with dedicated adrenal protocol CT on a nonurgent basis. Reviewed by: Bernadine Reeder MD on 09/06/2025 11:22 PM PST Approved by: Bernadine Reeder MD on 09/06/2025 11:22 PM PST Station ID: [email or web address]
--- NOTE | 2025-09-06 23:33 | HISTORY & PHYSICAL EXAMINATION ---
Admit History Smoking Status: Former smoker Other Maternal History Other Maternal History: Patient is a 35-year-old -0-1-1 status post primary low-transverse section on 08/28/2025, [facility] pain with increased vaginal bleeding. She had just taken a shower around 1900 tonight after which she had a sudden gush of vaginal bleeding with passage of clots. She soaked a Depends undergarment while en route to the hospital. Bleeding was associated with cramping that steadily worsened. Denies lightheadedness or dizziness. She was brought in by ambulance. She denies fever, chills, or body aches. She has been voiding and stooling without problems. Her course has been complicated by readmission for preE with severe features (headache and severe HTN) (readmitted 09/01, discharged 09/03). During that admission, she received mag sulfate and antihypertensives. Her initial delivery admission on 08/28 was for preE with severe features (HTN). The baby was breech at that time, and ECV was attempted but unsuccessful. She then underwent an uncomplicated primary that day. She received 24 hrs of mag sulfate and also 1 U PRBCs for symptomatic anemia. She was discharged home on POD #3 (08/31), doing well. She had no fever during her initial or subsequent hospital stay. She is trying to breast-feed but has had challenges with the readmission. Her spouse is home with the at this time. No headache, visual changes, chest pain, shortness of breath, right upper quadrant pain, leg pain, or other concerns at present. was also complicated by well-controlled gestational diabetes. ER course: - IV fluid bolus, labs, CT, and US obtained - Antibiotics started: Zosyn, Flagyl x 1 dose each - IV Dilaudid prn pain HPI Current : Vital Signs Temperature 36.2 C L 09/06/25 21:03 Pulse Rate 74 09/06/25 21:03 Respiratory Rate 20 09/06/25 21:03 Blood Pressure 158/79 H 09/06/25 21:03 O2 Saturation 97 09/06/25 21:03 Meds/Allgy Home Medications Ambulatory Orders Medication Instructions Recorded Confirmed vits no.[id number]-ferrous fum 1 tab PO DAILY 08/29/25 28 mg iron-folic acid 800 mcg tablet (Classic ) labetalol 200 mg tablet 200 mg PO Q8H 08/29/2509/01 acetaminophen 500 mg capsule 500 mg PO Q4H PRN fever o r pain 09/01/25 09/01/25 ibuprofen 200 mg tablet (Advil) 200 mg PO PRN PRN feve r or pain 09/01/25 09/01/25 nifedipine 30 mg tablet,extended 30 mg PO DAILY #30 ta bs 09/03/25 09/01/25 release Allergies Allergies Allergy/AdvReac Type Severity Reaction Status Date / Time No Known Drug Allergies Allergy Verified 09/06/25 21:07 PFSH Active Problems All Active Problems (Updated 09/07/25 @ 00:47 by Leonela Pool MD) History of severe pre-eclampsia (Acute) Delayed hemorrhage (Acute) endometritis (Acute) Acute endometritis (Acute) Leukocytosis (Acute) Hypertension (Chronic) Headache (Acute) Acute on chronic blood loss anemia (Acute) care following delivery (Acute) Severe preeclampsia (Acute) Gestational diabetes (Acute) Anemia complicating , third trimester (Acute) Uterine fibroid in antepartum period (Acute) Anxiety (Acute) Medical History Medical History (Updated 09/07/25 @ 00:47 by Leonela Pool MD) Pre-eclampsia Acute upper respiratory infection First trimester bleeding Missed Family History Family History Mother Arthritis High blood pressure Social History Social History (Updated 09/01/25 @ 11:33 by Mike Zeng RN, BSN) Smoking Status: Current every day smoker If you are a former smoker, when did you quit? (Date/Year): during Do you dip or chew tobacco?: No Patient requests smoking cessation consult: No Initiate information on smoking cessation: No Level: Independent Do you feel safe in your home environment?: Yes History of physical, verbal, emotional, or financial abuse?: No ETOH Use: None Substance Use: denies use POLST Patient has POLST: No POLST CPR Status: Attempt Resuscitation (CPR) Level of Medical Intervention: Full Treatment Review of Systems Status of ROS: 10 or more systems reviewed and unremarkable except as noted in history and below Physical Abdominal Exam Vital Signs: Temp Pulse Resp BP Pulse Ox 36.2 C L 74 20 158/79 H 97 09/06/25 21:03 09/06/25 21:03 09/06/25 21:03 09/06/25 21:03 09/06/25 21:03 General: Laying on gurney in ER room, awake and alert, currently acute distress (s/p IV Dilaudid) Lungs: CTAB Heart: Reg rate, rhythm Abd: Soft, fundus at U-1, tender; rare bowel sounds; incision with steri-strips intact - no erythema, discharge, or separation. Perineum: Peripad in place x 10 min - small amt bright red blood noted (approx 8 ml) Ext: Warm and well-perfused; no edema; DTRs brisk, 3+ with one beat clonus Plan for Labor Plan For Labor I expect patient to be DC'd or transferred within 96 hours.: Yes Conclusion/Plan Problem List (1) endometritis: Plan: S/p 1' LTCS 08/28, now with acute pain, heavy vaginal bleeding, US/CT demonstrating large endometrial fluid collection, and elevated WBC, consistent with an early endometritis. She has been afebrile and is not displaying signs of sepsis at this time. Given endometrial fluid collection, retained POC is possible, though this is less likely following a . Imaging also shows areas of possible abscess vs hematoma; however, it is currently unclear if these areas may be the locations of her previously-noted fibroids. Current CBC does not demonstrate acute anemia, though H/H may lag blood loss. - Readmit to inpatient. Pt will go to [facility] for open bed. - Initiated Zosyn and Flagyl in the ER, but will switch to Clinda and Gent as the recommended ACOG mgmt for endometritis. Start Clinda 900 mg Q 8 hrs, first dose 6 hrs after Zosyn (approx 0400), and Gentamicin 5 mg/kg Q 24 hrs, first dose upon arrival to floor. - Pain mgmt: Scheduled Tylenol and Motrin + Dilaudid 1 mg Q 2 hrs prn. If pain starting to improve, consider transition to PO oxycodone. - Weigh pads and monitor blood loss. Consider buccal or sublingual misoprostol if bleeding continues to be heavy. - Consider surgical intervention (D&C or hysteroscopy) if not clinically improving after 24-48 hrs of antibiotics. If suspected abscesses, IR drainage may need to be considered if not improving. - CBC daily to monitor WBC and H/H (next in am 09/07). May need more frequent CBC if concern for declining H/H and possible need for transfusion. - IV fluids LR 100 ml/hr initially. Pt eating/drinking well, so may be able to heplock during day 09/07. - Breast-pump to bedside. Advised pump/dispose for [address] contrast and high-dose dilaudid. - Diet: regular for now; initiate NPO status if needing to consider surgical intervention. - VTE prophylaxis: Ambulation; SCD's while in bed. (2) Delayed hemorrhage: (3) History of severe pre-eclampsia: Plan: BPs moderately elevated in ER secondary to pain. Pt previously on labetalol 200 mg TID + Nifedipine XR 30 mg daily. She reports home BP's have been well- controlled at this dosage, and will continue these medications as inpatient. Lab Results Lab results reviewed: Yes 09/06/25 21:28 09/06/25 21:28 Diagnostic Imaging Results Diagnostic Imaging Results: positive Final report reviewed Results Results reviewed: EXAM: [id number] CT/ABPEW ([id number]) PROCEDURE: CT Abdomen/Pelvis W INDICATIONS: lower abd pain, 10 days s/p CONTRAST: [id number] TECHNIQUE: After the administration of intravenous contrast, a CT scan of the abdomen and pelvis was performed. Images were recorded and evaluated at appropriate window settings. Reformats: coronal and sagittal. For radiation dose reduction, the following was used: automated exposure control, adjustment of mA and/or kV according to patient size. COMPARISON: None. FINDINGS: Image quality: Diagnostic. Lower chest: Subacute fracture of the left posterior 11th rib. Liver: No solid mass. Gallbladder: No radiopaque stones or wall thickening. Biliary tree: No intrahepatic or extrahepatic dilation, accounting for age. Spleen: No splenomegaly. Pancreas: No pancreatic ductal dilation. Adrenals: Indeterminate 2.6 cm left adrenal nodule. Kidneys and ureters: No hydronephrosis. No renal cystic lesion which requires follow up. No solid mass. Stomach, bowel and peritoneum: No gastric or small bowel dilation. No abnormal wall thickening. No pathologic free fluid. Lymph nodes: No central or retroperitoneal adenopathy. Vessels: No infrarenal aortic aneurysm. Patent portal vein. PELVIS Reproductive organs: Marked thickening of the endometrium with heterogeneous appearance, measuring up to 5.7 cm in thickness. There is a collection within the anterior uterine wall measuring approximately 2.9 x 2.4 x 3.4 cm (2/117), concerning for abscess formation. Bladder: No abnormal wall thickening. Underdistended. Pelvic lymph nodes: No pelvic adenopathy by size criteria. Bones: No aggressive osseous abnormality. Other: No significant ventral or inguinal hernia. IMPRESSION: Marked thickening of the endometrium with heterogeneous appearance, measuring up to 5.7 cm in thickness, concerning for endometritis and/or retained products of conception. There is a collection within the anterior uterine wall suggestive of abscess formation. Recommend further evaluation with dedicated pelvic US. Incidental indeterminate 2.6 cm left adrenal nodule. Consider further evaluation with dedicated adrenal protocol CT on a nonurgent basis. Reviewed by: Bernadine Reeder MD on 09/06/2025 11:22 PM PST Approved by: Bernadine Reeder MD on 09/06/2025 11:22 PM PST Station ID: [email or web address] Report Electronically Signed by Bernadine Reeder MD 09/06/25 2313 09/06/[id number] cc: Priyank Littlejohn MD PT NAME: DAVY FERNANDEZ MR#: [id number] REG ER/ED AGE: 35 CI DT/TM: 09/06/2501/26/2107 PCP: : 1990 ATT: SEX: F ORD: Priyank Littlejohn MD EXAM: [id number] US/PELCOM ([id number]) PROCEDURE: US Pelvic Complete INDICATIONS: lower abd pain and bleeding 10 days s/p TECHNIQUE: Real-time scanning was performed of the pelvic organs, with image documentation. Additional endovaginal scanning was necessary due to incomplete visualization of the adnexal and endometrial structures by transabdominal scanning. COMPARISON: Same-day CT abdomen pelvis FINDINGS: Uterus: Markedly heterogeneous uterus. Nonspecific hypoechoic irregularity in the area of C section scar in the lower uterine segment without adjacent hypervascularity. Uterus is anteverted and enlarged, compatible with recent state. The endometrium measures 20 mm in combined thickness. Small volume fluid free fluid is present within the canal. Ovaries: The right ovary measures 2.6 x 2.4 x 2.8 cm, with a calculated ovarian volume of 8.8 cc. The left ovary measures 2.1 x 2.1 x 1.7 cm, with a calculated ovarian volume of 3.9 cc. The ovaries have a normal sonographic appearance. Less than 12 follicles can be seen in each ovary. No adnexal masses are seen. No cystic lesions measuring greater than 3 cm. Other: Small volume right adnexal free fluid. There is a fluid collection with mild internal complexity in the left adnexa measuring approximately 6.4 x 1.1 x 2.6 cm, without internal vascularity, which may reflect small post operative fluid collection. IMPRESSION: Markedly heterogeneous appearance of the post- uterus with thickened endometrium, nonspecific. Small volume right adnexal free fluid and left adnexal complex collection, which may reflect post operative collection or hematoma. Nonspecific hypoechoic irregularity in the area of C section scar in the lower uterine segment, without adjacent hypervascularity to suggest abscess formation or phlegmonous change. Reviewed by: Bernadine Reeder MD on 09/06/2025 11:34 PM PST Approved by: Bernadine Reeder MD on 09/06/2025 11:34 PM PST Station ID: [email or web address] Report Electronically Signed by Bernadine Reeder MD 09/06/25 3502 09/06/25 2334 cc: Priyank Littlejohn MD CBC Results Results HEM.RESCBC: 2 WBC, (4.8-10.8) 26.8 x10^3/uL H 09/06/25, : RBC, (4.20-5.40) 4.03 10^6/uL L 09/06/25, : Hgb, (12.0-16.0) 11.7 g/dL L 09/06/25, : Hct, (37.0-47.0) 36.7 % L 09/06/25, : MCV, (81.0-99.0) 91.1 fL 09/06/25, : MCH, (27.0-31.0) 29.0 pg 09/06/25, 21: MCHC, (32.0-36.0) 31.9 g/dL L 09/06/25, : RDW, (12.0-15.0) 16.1 % H 09/06/25, : Plt Count, (130-450) 493 10^3/uL H 09/06/25, 21: MPV, (7.9-10.8) 8.5 fL 09/06/25, : Neut # (Auto), (1.5-6.6) 23.0 10^3/uL H 09/06/25, : Metabolic Panel Results Results HEM.RESMP: 2 Sodium, (135-145) 139 mmol/L 09/06/25, : Potassium, (3.5-4.5) 4.0 mmol/L 09/06/25, : Chloride, (101-111) 103 mmol/L 09/06/25, : Carbon Dioxide, (21-32) 25 mmol/L 09/06/25, : Anion Gap, (6-13) 11.0 09/06/25, : Calcium, (8.5-10.3) 11.0 mg/dL H 09/06/25, : Glucose, (74-104) 106 mg/dL H 09/06/25, : BUN, (6-20) 22 mg/dL H 09/06/25, : Creatinine, (0.6-1.3) 0.9 mg/dL 09/06/25, : Total Protein, (6.4-8.9) 7.2 g/dL 09/06/25, 21: Albumin, (3.2-5.5) 4.5 g/dL 09/06/25, : Globulin, (2.1-4.2) 2.7 g/dL 09/06/25, : Albumin/Globulin Ratio, (1.0-2.2) 1.7 , 21: AST, (10-42) 14 IU/L 09/06/25, 21: ALT, (10-60) 26 IU/L 09/06/25, 21: Alkaline Phosphatase, (42-121) 86 IU/L 09/06/25, 21:28 Total Bilirubin, (0.2-1.0) 0.6 mg/dL 09/06/25, 21: 28
--- NOTE | 2025-09-06 23:37 | Ultrasound Report ---
PROCEDURE: US Pelvic Complete INDICATIONS: lower abd pain and bleeding 10 days s/p TECHNIQUE: Real-time scanning was performed of the pelvic organs, with image documentation. Additional endovaginal scanning was necessary due to incomplete visualization of the adnexal and endometrial structures by transabdominal scanning. COMPARISON: Same-day CT abdomen pelvis FINDINGS: Uterus: Markedly heterogeneous uterus. Nonspecific hypoechoic irregularity in the area of C section scar in the lower uterine segment without adjacent hypervascularity. Uterus is anteverted and enlarged, compatible with recent state. The endometrium measures 20 mm in combined thickness. Small volume fluid free fluid is present within the canal. Ovaries: The right ovary measures 2.6 x 2.4 x 2.8 cm, with a calculated ovarian volume of 8.8 cc. The left ovary measures 2.1 x 2.1 x 1.7 cm, with a calculated ovarian volume of 3.9 cc. The ovaries have a normal sonographic appearance. Less than 12 follicles can be seen in each ovary. No adnexal masses are seen. No cystic lesions measuring greater than 3 cm. Other: Small volume right adnexal free fluid. There is a fluid collection with mild internal complexity in the left adnexa measuring approximately 6.4 x 1.1 x 2.6 cm, without internal vascularity, which may reflect small post operative fluid collection. IMPRESSION: Markedly heterogeneous appearance of the post- uterus with thickened endometrium, nonspecific. Small volume right adnexal free fluid and left adnexal complex collection, which may reflect post operative collection or hematoma. Nonspecific hypoechoic irregularity in the area of C section scar in the lower uterine segment, without adjacent hypervascularity to suggest abscess formation or phlegmonous change. Reviewed by: Bernadine Reeder MD on 09/06/2025 11:34 PM PST Approved by: Bernadine Reeder MD on 09/06/2025 11:34 PM PST Station ID: [id number]
--- OUTSIDE RECORDS SUMMARY | 2025-09-07 00:46 | EXTERNAL MEDICAL SUMMARY RPT | Continuity of Care Document ---
Author Organization [facility] Address [address] [place] [id number] Phone Problems date description facility 2025-06-06 09:02 Leiomyoma of uterus, unspecifie d [facility] 2025-06-06 09:02 Maternal care for be nign tumor of corpus uteri, unspecified [facility] 2025-06-06 09:04 Leiomyoma of uterus, unspecifie d [facility] 2025-06-06 09:04 Maternal care for be nign tumor of corpus uteri, unspecified [facility] 2025-06-06 09:05 Leiomyoma of uterus, unspecifie d [facility] 2025-06-06 09:05 Maternal care for be nign tumor of corpus uteri, unspecified trimester [facility] 2025-06-20 11:31 Gestational [pregnan cy-induced] hypertension without significant proteinuria, second [facility] 2025-06-26 19:59 Gestational [pregnan cy-induced] hypertension without significant proteinuria, second [facility] 2025-06-26 19:59 Encounter for immunization [facility] 2025-06-27 00:03 Gestational [pregnan cy-induced] hypertension without significant proteinuria, second [facility] 2025-06-27 00:03 Encounter for immunization [facility] 2025-06-28 09:25 Gestational [pregnan cy-induced] hypertension without significant proteinuria, second [facility] 2025-06-28 09:25 Unspecified maternal hypertensi on, second [facility] 2025-06-28 09:25 Encounter for screen ing for infections with a predominantly sexual mode of transmission [facility] 2025-06-28 09:25 Encounter for superv ision of normal , unspecified, unspecified trimester [facility] 2025-06-29 00:04 Gestational [pregnan cy-induced] hypertension without significant proteinuria, second trimester [facility] 2025-06-29 00:04 Unspecified maternal hypertensi on, second trimester [facility] 2025-06-29 00:04 Encounter for screen ing for infections with a predominantly sexual mode of transmission [facility] 2025-06-29 00:04 Encounter for superv ision of normal , unspecified, unspecified trimester [facility] 2025-06-29 08:10 Unspecified maternal hypertensi on, second trimester [facility] 2025-07-02 08:10 Encounter for immunization [email or web address] 2025-07-02 08:11 Supervision of elderly tim van, second [facility]25[facility] 08:11 Gestational [pregnan cy-induced] hypertension without significant proteinuria, second trimester [facility] 2025-07-02 08:11 Encounter for immunization [email or web address] 2025-07-02 08:11 27 weeks gestation of [facility] 2025-07-02 08:57 [facility] 16:21 [facility] 2025-07-04 08:05 Gestational [pregnan cy-induced] hypertension without significant proteinuria, unspecified trimester [facility] 2025-07-04 08:05 Anemia complicating , third trimester [facility] 2025-07-04 08:05 Abnormal glucose complicating p regnancy [facility] 2025-07-05 00:03 Gestational [pregnan cy-induced] hypertension without significant proteinuria, unspecified trimester [facility] 2025-07-05 00:03 Anemia complicating , third trimester [facility] 2025-07-05 00:03 Abnormal glucose complicating p regnancy [facility] 2025-07-05 11:23 Gestational [pregnan cy-induced] hypertension without significant proteinuria, third trimester [facility] 2025-07-05 11:23 Gestational [pregnan cy-induced] hypertension without significant proteinuria, unspecified [facility] 2025-07-05 14:46 Abnormal glucose complicating p regnancy [facility] 2025-07-09 07:24 Gestational [pregnan cy-induced] hypertension without significant proteinuria, unspecified [facility] 2025-07-09 07:24 Gestational diabetes mellitus in , unspecified control [facility] 2025-07-09 13:03 Leiomyoma of uterus, unspecifie d [facility] 2025-07-09 13:03 Gestational [pregnan cy-induced] hypertension without significant proteinuria, unspecified [facility] 2025-07-09 13:03 Gestational diabetes mellitus in , unspecified control [facility] 2025-07-09 13:03 Maternal care for be nign tumor of corpus uteri, unspecified trimester [facility] 2025-07-09 13:42 Encounter for immunization [facility] 2025-07-18 09:22 Gestational [pregnan cy-induced] hypertension without significant proteinuria, unspecified [facility] 2025-07-18 09:22 Gestational diabetes mellitus in , unspecified control [facility] 2025-07-18 09:24 Gestational [pregnan cy-induced] hypertension without significant proteinuria, unspecified trimester [facility] 2025-07-18 09:24 Gestational diabetes mellitus in , unspecified control [facility] 2025-07-19 06:59 Encounter for superv ision of normal , unspecified, first trimester [facility] 2025-07-24 10:52 Anemia complicating , third trimester [facility] 2025-07-24 11:31 Anemia complicating , third trimester [facility] 2025-07-24 17:49 Anemia complicating , third trimester [facility] 2025-07-24 22:45 Unspecified maternal hypertensi on, second trimester [facility] 2025-07-25 00:02 Unspecified maternal hypertensi on, second trimester [employer] [facility] 2025-07-25 00:03 Anemia complicating , third trimester [facility] 2025-07-26 13:42 Gestational [pregnan cy-induced] hypertension without significant proteinuria, third trimester [facility] 2025-07-26 13:42 Encounter for immunization [facility] 2025-07-27 10:49 Unspecified maternal hypertensi on, second trimester [facility] 2025-07-30 07:47 Supervision of elderly tim van, third trimester [facility] 2025-07-30 07:47 Gestational [pregnan cy-induced] hypertension without significant proteinuria, third trimester [facility] 2025-07-30 07:47 Unspecified maternal hypertensi on, second trimester [facility] 2025-07-30 07:47 31 weeks gestation [facility] 2025-07-31 15:47 Leiomyoma of uterus, unspecifie d [facility] 2025-07-31 15:47 Maternal care for be nign tumor of corpus uteri, unspecified trimester [facility] 2025-07-31 15:51 Gestational [pregnan cy-induced] hypertension without significant proteinuria, second trimester [facility] 2025-07-31 15:51 Anemia complicating , third trimester [facility] 2025-08-01 00:01 Leiomyoma of uterus, unspecifie d [facility] 2025-08-01 00:01 Maternal care for be nign tumor of corpus uteri, unspecified trimester [facility] 2025-08-03 06:49 Dietary counseling and surveill ance [facility] 2025-08-03 06:56 Anemia complicating , third trimester [facility] 2025-08-03 06:56 Anemia complicating , unspecified trimester [facility] 2025-08-03 16:00 Gestational [pregnan cy-induced] hypertension without significant proteinuria, unspecified trimester [facility] 2025-08-03 16:00 Encounter for superv ision of normal , unspecified, unspecified trimester [facility] 2025-08-06 10:27 Gestational [pregnan cy-induced] hypertension without significant proteinuria, second trimester [facility] 2025-08-06 10:27 Anemia complicating , third trimester [facility] 2025-08-06 10:33 Gestational [pregnan cy-induced] hypertension without significant proteinuria, third trimester [facility] 2025-08-06 10:34 Gestational [pregnan cy-induced] hypertension without significant proteinuria, unspecified [facility] 2025-08-06 10:34 Encounter for superv ision of normal , unspecified, unspecified trimester [facility] 2025-08-06 12:09 Anemia complicating , third trimester [facility] 2025-08-10 14:58 Anemia complicating , third trimester [facility] 2025-08-10 14:58 Anemia complicating , unspecified trimester [facility] 2025-08-10 15:01 Anemia complicating , third trimester [facility] 2025-08-10 16:14 Gestational [pregnan cy-induced] hypertension without significant proteinuria, unspecified trimester [facility] 2025-08-11 00:04 Anemia complicating , third trimester [facility] 2025-08-14 12:12 Supervision of elderly tim van, third trimester [facility] 2025-08-14 12:12 Gestational [pregnan cy-induced] hypertension without significant proteinuria, unspecified trimester [facility] 2025-08-15 08:21 Leiomyoma of uterus, unspecifie d [facility] 2025-08-15 08:21 Gestational [pregnan cy-induced] hypertension without significant proteinuria, unspecified trimester [facility] 2025-08-15 08:21 Gestational diabetes mellitus in , unspecified control [facility] 2025-08-15 08:21 Maternal care for be nign tumor of corpus uteri, unspecified trimester [facility] 2025-08-15 09:21 Acute upper respiratory infecti on, unspecified [facility] 2025-08-15 09:21 Strain of muscle and tendon of back wall of thorax, [facility]25-08-16 07:25 Leiomyoma of uterus, unspecifie d [facility] 2025-08-16 07:25 Acute upper respiratory infecti on, unspecified [facility] 2025-08-16 07:25 Gestational [pregnan cy-induced] hypertension without significant proteinuria, unspecified trimester [facility] 2025-08-16 07:25 Gestational diabetes mellitus in , unspecified control [facility] 2025-08-16 07:25 Maternal care for be nign tumor of corpus uteri, unspecified trimester [facility] 2025-08-16 07:25 Strain of muscle and tendon of back wall of thorax, [facility] 2025-08-16 10:08 Fracture of one rib, unspecified side, initial encounter for closed fracture [facility] 2025-08-16 10:29 Fracture of one rib, unspecified side, initial encounter for closed fracture [facility] 2025-08-16 10:39 Fracture of one rib, unspecified side, initial encounter for closed fracture [employer] 2025-08-17 08:37 Acute upper respiratory infecti on, unspecified [facility] 2025-08-17 08:37 Other specified disorders of no se and nasal sinuses [employer] 2025-08-17 08:37 Other specified cough [facility] 2025-08-17 08:37 Pleurodynia [employer] 2025-08-17 08:37 Strain of muscle and tendon of back wall of thorax, initial encounter [employer] 2025-08-20 08:50 Other specified dise ases and conditions complicating [employer] 2025-08-20 08:50 Other chest pain [employer] 2025-08-20 08:50 Left upper quadrant pain [employer] 2025-08-20 08:50 Fracture of one rib, unspecified side, initial encounter for closed fracture [employer] 2025-08-20 12:06 Anemia complicating , third trimester [facility] 2025-08-20 12:06 Anemia complicating , unspecified trimester [facility] 2025-08-20 12:10 Anemia complicating , third trimester [facility] 2025-08-20 12:10 Anemia complicating , unspecified trimester [facility] 2025-08-20 14:25 Other specified preg caitlin related conditions, third trimester [facility] 2025-08-20 14:25 Other chest pain [facility] 2025-08-20 14:25 Left upper quadrant pain [employer] 2025-08-21 18:38 Leiomyoma of uterus, unspecifie d [employer] 2025-08-21 18:38 Gestational [pregnan cy-induced] hypertension without significant proteinuria, unspecified [facility] 2025-08-21 18:38 Gestational diabetes mellitus in , unspecified control [facility] 2025-08-21 18:38 Maternal care for be nign tumor of corpus uteri, unspecified trimester [facility] 2025-08-22 08:50 Anemia complicating , third trimester [facility] 2025-08-22 08:50 Anemia complicating , unspecified trimester [facility] 2025-08-22 13:21 Anemia complicating , third trimester [facility] 2025-08-22 13:21 Anemia complicating , unspecified trimester [facility] 2025-08-24 08:07 Anemia complicating , third trimester [facility] 2025-08-25 00:02 Supervision of high risk , unspecified, third trimester [facility] 2025-08-25 00:02 Gestational [pregnan cy-induced] hypertension without significant proteinuria, unspecified trimester [facility] 2025-08-25 00:02 Encounter for screening for tanner betes mellitus [employer] 2025-08-27 08:44 Other specified dise ases and conditions complicating [facility] 2025-08-27 08:44 Other chest pain [employer] 2025-08-27 08:44 Left upper quadrant pain [employer] 2025-08-27 09:09 Gestational [pregnan cy-induced] hypertension without significant proteinuria, third trimester [facility] 2025-08-28 15:47 Leiomyoma of uterus, unspecifie d [facility] 2025-08-28 15:47 Maternal care for be nign tumor of corpus uteri, unspecified trimester [facility] 2025-08-28 18:24 Supervision of high risk , unspecified, third trimester [facility] 2025-08-28 18:24 Severe pre-eclampsia, unspecifi ed trimester [facility] 2025-08-28 18:26 Supervision of high risk , unspecified, third trimester [facility] 2025-08-28 18:26 Severe pre-eclampsia, unspecifi ed trimester [facility] 2025-08-28 20:23 Leiomyoma of uterus, unspecifie d [facility] 2025-08-28 20:23 Supervision of high risk , unspecified, third trimester [facility] 2025-08-28 20:23 Severe pre-eclampsia, unspecifi ed trimester [facility] 2025-08-28 20:23 Maternal care for br eech presentation, not applicable or unspecified [facility] 2025-08-28 20:23 Maternal care for be nign tumor of corpus uteri, unspecified [facility] 2025-08-28 20:24 Leiomyoma of uterus, unspecifie d [facility] 2025-08-28 20:24 Supervision of high risk , unspecified, third trimester [facility] 2025-08-28 20:24 Severe pre-eclampsia, unspecifi ed trimester [facility] 2025-08-28 20:24 Maternal care for br eech presentation, not applicable or unspecified [facility] 2025-08-28 20:24 Maternal care for be nign tumor of corpus uteri, unspecified trimester [facility] 2025-08-28 20:46 Leiomyoma of uterus, unspecifie d [facility] 2025-08-28 20:46 Supervision of high risk , unspecified, third trimester [facility] 2025-08-28 20:46 Severe pre-eclampsia, unspecifi ed trimester [facility] 2025-08-28 20:46 Maternal care for br eech presentation, not applicable or unspecified [facility] 2025-08-28 20:46 Maternal care for be nign tumor of corpus uteri, unspecified trimester [facility] 2025-08-28 21:58 Leiomyoma of uterus, unspecifie d [facility] 2025-08-28 21:58 Supervision of high risk , unspecified, third trimester [facility] 2025-08-28 21:58 Severe pre-eclampsia, unspecifi ed trimester [facility] 2025-08-28 21:58 Maternal care for br eech presentation, not applicable or unspecified [facility] 2025-08-28 21:58 Maternal care for be nign tumor of corpus uteri, unspecified trimester [facility] 2025-08-28 23:40 Leiomyoma of uterus, unspecifie d [facility] 2025-08-28 23:40 Supervision of high risk , unspecified, third trimester [facility] 2025-08-28 23:40 Severe pre-eclampsia, unspecifi ed trimester [facility] 2025-08-28 23:40 Maternal care for br eech presentation, not applicable or unspecified [facility] 2025-08-28 23:40 Maternal care for be nign tumor of corpus uteri, unspecified trimester [facility] 2025-08-29 00:02 Leiomyoma of uterus, unspecifie d [facility] 2025-08-29 00:02 Supervision of high risk , unspecified, third trimester [facility] 2025-08-29 00:02 Gestational [pregnan cy-induced] hypertension without significant proteinuria, unspecified trimester [facility] 2025-08-29 00:02 Maternal care for be nign tumor of corpus uteri, unspecified trimester [facility] 2025-08-29 00:02 Encounter for screening for tanner betes mellitus [facility] 2025-08-29 11:14 Leiomyoma of uterus, unspecifie d [facility] 2025-08-29 11:14 Supervision of high risk , unspecified, third trimester [facility] 2025-08-29 11:14 Severe pre-eclampsia, unspecifi ed trimester [facility] 2025-08-29 11:14 Maternal care for br eech presentation, not applicable or unspecified [facility] 2025-08-29 11:14 Maternal care for be nign tumor of corpus uteri, unspecified trimester [facility] 2025-08-29 15:26 Gestational [pregnan cy-induced] hypertension without significant proteinuria, third trimester [facility] 2025-08-30 11:14 Leiomyoma of uterus, unspecifie d [facility] 2025-08-30 11:14 [facility]orrh[facility] 2025-08-30 11:14 Supervision of high risk , unspecified, [facility]25-08-30 11:14 Severe pre-eclampsia, unspecifi ed trimester [facility] 2025-08-30 11:14 Maternal care for br eech presentation, not applicable or unspecified [facility] 2025-08-30 11:14 Maternal care for be nign tumor of corpus uteri, unspecified [facility] 2025-08-30 11:14 Anemia complicating , third [facility] 2025-08-30 11:14 Encounter for routine postpartu m follow[facility] 2025-08-31 06:39 Maternal care for be nign tumor of corpus uteri, unspecified [facility] 2025-08-31 12:30 Leiomyoma of uterus, unspecifie d [facility] 2025-08-31 12:30 [facility] 2025-08-31 12:30 Supervision of high risk , unspecified, third [facility] 2025-08-31 12:30 Severe pre-eclampsia, unspecifi ed trimester [facility] 2025-08-31 12:30 Maternal care for br eech presentation, not applicable or unspecified [facility] 2025-08-31 12:30 Maternal care for be nign tumor of corpus uteri, unspecified [facility] 2025-08-31 12:30 Anemia complicating , third [facility] 2025-08-31 12:30 Encounter for routine postpartu m follow-up [facility] 2025-08-31 14:45 Supervision of high risk , unspecified, third trimester [facility] 2025-08-31 14:46 Supervision of high risk , unspecified, third [facility] 2025-08-31 14:46 Gestational [pregnan cy-induced] hypertension without significant proteinuria, unspecified [facility] 2025-08-31 14:46 Encounter for screening for tanner betes mellitus [facility] 2025-08-31 17:07 Leiomyoma of uterus, unspecifie d [facility] 2025-08-31 17:07 Acute posthemorrhagic anemia [employer] 2025-08-31 17:07 Supervision of high risk , unspecified, third [facility] 2025-08-31 17:07 Severe pre-eclampsia, unspecifi ed trimester [facility] 2025-08-31 17:07 Maternal care for br eech presentation, not applicable or unspecified [facility] 2025-08-31 17:07 Maternal care for be nign tumor of corpus uteri, unspecified [facility] 2025-08-31 17:07 Anemia complicating , third trimester [facility] 2025-08-31 17:07 Encounter for routine postpartu m follow-up [facility] 2025-08-31 17:08 Leiomyoma of uterus, unspecifie d [facility] 2025-08-31 17:08 [facility]hemorrhagic [facility] 2025-08-31 17:08 Supervision of high risk , unspecified, third trimester [facility] 2025-08-31 17:08 Severe pre-eclampsia, unspecifi ed trimester [facility] 2025-08-31 17:08 Maternal care for br eech presentation, not applicable or unspecified [facility] 2025-08-31 17:08 Maternal care for be nign tumor of corpus uteri, unspecified trimester [facility] 2025-08-31 17:08 Anemia complicating , third trimester [facility] 2025-08-31 17:08 Encounter for routine postpartu m follow-up [facility] 2025-09-01 01:13 Leiomyoma of uterus, unspecifie d [facility] 2025-09-01 01:13 [facility]orrh[facility] 01:13 Supervision of high risk , unspecified, third trimester [facility] 2025-09-01 01:13 Severe pre-eclampsia, unspecifi ed trimester [facility] 2025-09-01 01:13 Maternal care for br eech presentation, not applicable or unspecified [facility] 2025-09-01 01:13 Maternal care for be nign tumor of corpus uteri, unspecified trimester [facility] 2025-09-01 01:13 Anemia complicating , third [facility]01 01:13 Encounter for routine postpartu m follow-up [facility] 2025-09-01 11:35 Leiomyoma of uterus, unspecifie d [facility] 2025-09-01 11:35 Acute posthemorrhagic anemia [facility] 2025-09-01 11:35 Supervision of high risk , unspecified, third trimester [facility] 2025-09-01 11:35 Gestational [pregnan cy-induced] hypertension without significant proteinuria, unspecified trimester [facility] 2025-09-01 11:35 Severe pre-eclampsia, unspecifi ed trimester [facility] 2025-09-01 11:35 Gestational diabetes mellitus in , unspecified control [facility] 2025-09-01 11:35 Maternal care for br eech presentation, not applicable or unspecified [facility] 2025-09-01 11:35 Maternal care for be nign tumor of corpus uteri, unspecified trimester [facility] 2025-09-01 11:35 Anemia complicating , third trimester [facility] 2025-09-01 11:35 Encounter for routine postpartu m follow-up [facility] 2025-09-01 13:31 Severe pre-eclampsia, unspecifi ed trimester [facility] 2025-09-01 14:14 Severe pre-eclampsia, unspecifi ed trimester [facility] 2025-09-01 14:15 Severe pre-eclampsia, unspecifi ed trimester [facility] 2025-09-01 17:40 Severe pre-eclampsia, unspecifi ed trimester [facility] 2025-09-02 10:37 Severe pre-eclampsia, unspecifi ed trimester [facility] 2025-09-02 10:37 Headache, unspecified [facility] 2025-09-02 10:38 Severe pre-eclampsia, unspecifi ed trimester [facility] 2025-09-02 10:38 Headache, unspecified [facility] 2025-09-02 10:54 Severe pre-eclampsia, unspecifi ed trimester [facility] 2025-09-02 10:54 Headache, unspecified [facility] 2025-09-02 10:55 Severe pre-eclampsia, unspecifi ed trimester [facility] 2025-09-03 08:53 Severe pre-eclampsia, unspecifi ed trimester [facility] 2025-09-03 08:53 Headache, unspecified [facility] 2025-09-03 09:05 Severe pre-eclampsia, unspecifi ed trimester [facility] 2025-09-03 09:05 Headache, unspecified [facility] 2025-09-03 09:11 Severe pre-eclampsia, unspecifi ed trimester [facility] 2025-09-03 09:11 Headache, unspecified [facility] 2025-09-03 10:04 Procedure and treatm ent not carried out, unspecified reason [facility] 2025-09-03 10:11 Severe pre-eclampsia, unspecifi ed trimester [facility] 2025-09-03 10:11 Headache, unspecified [facility] 2025-09-03 12:19 Leiomyoma of uterus, unspecifie d [facility] 2025-09-03 12:19 Acute posthemorrhagic anemia [facility] 2025-09-03 12:19 Supervision of elderly multigra rehan, third trimester [facility] 2025-09-03 12:19 Supervision of high risk , unspecified, third trimester [facility] 2025-09-03 12:19 Severe pre-eclampsia, unspecifi ed trimester [facility] 2025-09-03 12:19 Maternal care for br eech presentation, not applicable or unspecified [facility] 2025-09-03 12:19 Maternal care for be nign tumor of corpus uteri, unspecified trimester [facility] 2025-09-03 12:19 Anemia complicating , third trimester [facility] 2025-09-03 12:19 Encounter for routine postpartu m follow-up [facility] 2025-09-04 22:51 Severe pre-eclampsia, unspecifi ed trimester [facility] 2025-09-04 22:51 Headache, unspecified [facility] 2025-09-05 11:46 Severe pre-eclampsia, unspecifi ed trimester [facility] 2025-09-05 11:46 Headache, unspecified [facility] Results/Labs test date facility value unit notes Result panel 1 PROTEIN/CREATININE RATIO,URINE 2025-06-28 09:36 [facility] 0.1 (missing) (missing) TOTAL PROTEIN,URINE TIMED 2025-06-28 09:36 [facility] 11 mg/dl As of April 2023 testing method has changed, this may include reference ranges. CREATININE,URINE 2025-06-28 09:36 [facility] 88.2 mg/dl As of April 2023 testing method has changed, this may include reference ranges. Result panel 2 BILIRUBIN,TOTAL 2025-06-28 10:35 [facility] 0.3 mg/dl As of April 2023 testing method has changed, this may include reference ranges. CREATININE 2025-06-28 10:35 [facility] 0.5 mg/dl As of April 2023 testing method has changed, this may include reference ranges. ALBUMIN/GLOBULIN RATIO 2025-06-28 10:35 [facility] 1.3 (missing) (missing) HGB - HEMOGLOBIN 2025-06-28 10:35 [facility] 10.1 g/dl (missing) CHLORIDE 2025-06-28 10:35 [facility] 104 mmol/l As of April 2023 testing method has changed, this may include reference ranges. ALT ALANINE AMINOTRANSFERASE 2025-06-28 10:35 [facility] 11 iu/l As of April 2023 testing method has changed, this may include reference ranges. RED CELL DISTRIBUTION WIDTH 2025-06-28 10:35 [facility] 12.4 % (missing) SODIUM 2025-06-28 10:35 [facility] 136 mmol/l (missing) GFR - MDRD 2025-06-28 10:35 [facility] 140 (missing) The IDMS-traceable MDRD Study [...] December 2011. WHITE BLOOD COUNT 2025-06-28 10:35 [facility] 15.3 x10 3/ul (missing) GLUCOSE,1H PP 50GM DOSE 2025-06-28 10:35 [facility] 181 mg/dl 50g Challenge 1 hr post Glucose < 140 mg/dL Reference: [employer] [place] [employer] As of April 2023 testing method has changed, this may include reference ranges. GLUCOSE 2025-06-28 10:35 [facility] 181 mg/dl As of April 2023 testing method has changed, this may include reference ranges. GLOBULIN 2025-06-28 10:35 [facility] 2.8 g/dl (missing) CARBON DIOXIDE - CO2 2025-06-28 10:35 [facility] 24 mmol/l As of April 2023 testing method has changed, this may include reference ranges. POTASSIUM 2025-06-28 10:35 [facility] 3.3 mmol/l As of April 2023 testing method has changed, this may include reference ranges. RED BLOOD COUNT 2025-06-28 10:35 [facility] 3.34 10 6/ul (missing) ALBUMIN 2025-06-28 10:35 [facility] 3.5 g/dl As of April 2023 testing method has changed, this may include reference ranges. MEAN CORPUSCULAR HEMOGLOBIN 2025-06-28 10:35 [facility] 30.2 pg (missing) HCT - HEMATOCRIT 2025-06-28 10:35 [facility] 30.5 % (missing) MEAN CORPUSCULAR HGB CONC 2025-06-28 10:35 [facility] 33.1 g/dl (missing) PLT - PLATELET COUNT 2025-06-28 10:35 [facility] 391 10 3/ul (missing) BUN - BLOOD UREA NITROGEN 2025-06-28 10:35 [facility] 6 mg/dl As of April 2023 testing method has changed, this may include reference ranges. TOTAL PROTEIN 2025-06-28 10:35 [facility] 6.3 g/dl As of April 2023 testing method has changed, this may include reference ranges. ALKALINE PHOSPHATASE 2025-06-28 10:35 [facility] 66 iu/l As of April 2023 testing method has changed, this may include reference ranges. ANION GAP 2025-06-28 10:35 [facility] 8.0 (missing) (missing) CALCIUM 2025-06-28 10:35 [facility] 8.8 mg/dl As of April 2023 testing method has changed, this may include reference ranges. AST ASPARTATE AMINOTRANSFERASE 2025-06-28 10:35 [facility] 9 iu/l As of April 2023 testing method has changed, this may include reference ranges. MEAN PLATELET VOLUME 2025-06-28 10:35 [facility] 9.1 fl (missing) MEAN CORPUSCULAR VOLUME 2025-06-28 10:35 [facility] 91.3 fl (missing) RPR 2025-06-28 10:35 [facility] Non Reactive (missing) Performed at: [facility] [id number] [employer] Operator: Jamar Spears MD, Phone: [phone] Result panel 3 GLUCOSE TOLERANCE 3HR 2025-07-04 08:12 [facility] (missing) (missing) GLU FAST 88 mg/dL Col [...] time points is a positive test. Reference: [facility] Result panel 4 BILIRUBIN,TOTAL 2025-07-04 08:15 [facility] 0.3 mg/dl As of April 2023 testing method has changed, this may include reference ranges. CREATININE 2025-07-04 08:15 [facility] 0.5 mg/dl As of April 2023 testing method has changed, this may include reference ranges. ALBUMIN/GLOBULIN RATIO 2025-07-04 08:15 [facility] 1.5 (missing) (missing) CHLORIDE 2025-07-04 08:15 [facility] 105 mmol/l As of April 2023 testing method has changed, this may include reference ranges. RED CELL DISTRIBUTION WIDTH 2025-07-04 08:15 [facility] 12.5 % (missing) SODIUM 2025-07-04 08:15 [facility] 135 mmol/l (missing) GFR - MDRD 2025-07-04 08:15 [facility] 140 (missing) The IDMS-traceable MDRD Study Equation [...] December 2011. WHITE BLOOD COUNT 2025-07-04 08:15 [facility] 15.3 x10 3/ul (missing) GLOBULIN 2025-07-04 08:15 [facility] 2.4 g/dl (missing) CARBON DIOXIDE - CO2 2025-07-04 08:15 [facility] 24 mmol/l As of April 2023 testing method has changed, this may include reference ranges. HCT - HEMATOCRIT 2025-07-04 08:15 [facility] 28.6 % (missing) RED BLOOD COUNT 2025-07-04 08:15 [facility] 3.16 10 6/ul (missing) ALBUMIN 2025-07-04 08:15 [facility] 3.5 g/dl As of April 2023 testing method has changed, this may include reference ranges. POTASSIUM 2025-07-04 08:15 [facility] 3.5 mmol/l As of April 2023 testing method has changed, this may include reference ranges. MEAN CORPUSCULAR HEMOGLOBIN 2025-07-04 08:15 [facility] 30.7 pg (missing) MEAN CORPUSCULAR HGB CONC 2025-07-04 08:15 [facility] 33.9 g/dl (missing) PLT - PLATELET COUNT 2025-07-04 08:15 [facility] 394 10 3/ul (missing) TOTAL PROTEIN 2025-07-04 08:15 [facility] 5.9 g/dl As of April 2023 testing method has changed, this may include reference ranges. ANION GAP 2025-07-04 08:15 [facility] 6.0 (missing) (missing) FERRITIN 2025-07-04 08:15 [facility] 6.1 ng/ml (missing) ALKALINE PHOSPHATASE 2025-07-04 08:15 [facility] 68 iu/l As of April 2023 testing method has changed, this may include reference ranges. ALT ALANINE AMINOTRANSFERASE 2025-07-04 08:15 [facility] 7 iu/l As of April 2023 testing method has changed, this may include reference ranges. BUN - BLOOD UREA NITROGEN 2025-07-04 08:15 [facility] 7 mg/dl As of April 2023 testing method has changed, this may include reference ranges. AST ASPARTATE AMINOTRANSFERASE 2025-07-04 08:15 [facility] 8 iu/l As of April 2023 testing method has changed, this may include reference ranges. CALCIUM 2025-07-04 08:15 [facility] 8.8 mg/dl As of April 2023 testing method has changed, this may include reference ranges. GLUCOSE 2025-07-04 08:15 [facility] 88 mg/dl As of April 2023 testing method has changed, this may include reference ranges. MEAN PLATELET VOLUME 2025-07-04 08:15 [facility] 9.1 fl (missing) HGB - HEMOGLOBIN 2025-07-04 08:15 [facility] 9.7 g/dl (missing) MEAN CORPUSCULAR VOLUME 2025-07-04 08:15 [facility] 90.5 fl (missing) Result panel 5 PROTEIN/CREATININE RATIO,URINE 2025-07-04 08:57 [facility] 0.2 (missing) (missing) TOTAL PROTEIN,URINE TIMED 2025-07-04 08:57 [facility] 13 mg/dl As of April 2023 testing method has changed, this may include reference ranges. CREATININE,URINE 2025-07-04 08:57 [facility] 85.9 mg/dl As of April 2023 testing method has changed, this may include reference ranges. Result panel 6 NUCLEATED RED BLOOD CELLS AUTO 2025-07-31 16:05 [facility] 0.0 /100wbc (missing) NRBC ABSOLUTE COUNT (AUTO) 2025-07-31 16:05 [facility] 0.00 x10 3/ul (missing) BASOPHILS # (AUTO) 2025-07-31 16:05 [facility] 0.1 10 3/ul (missing) EOSINOPHILS # (AUTO) 2025-07-31 16:05 [facility] 0.2 10 3/ul (missing) BILIRUBIN,TOTAL 2025-07-31 16:05 [facility] 0.3 mg/dl As of April 2023 testing method has changed, this may include reference ranges. CREATININE 2025-07-31 16:05 [facility] 0.5 mg/dl As of April 2023 testing method has changed, this may include reference ranges. MONOCYTES # (AUTO) 2025-07-31 16:05 [facility] 1.1 10 3/ul (missing) ALBUMIN/GLOBULIN RATIO 2025-07-31 16:05 [facility] 1.5 (missing) (missing) AST ASPARTATE AMINOTRANSFERASE 2025-07-31 16:05 [facility] 10 iu/l As of April 2023 testing method has changed, this may include reference ranges. BUN - BLOOD UREA NITROGEN 2025-07-31 16:05 [facility] 10 mg/dl As of April 2023 testing method has changed, this may include reference ranges. CHLORIDE 2025-07-31 16:05 [facility] 106 mmol/l As of April 2023 testing method has changed, this may include reference ranges. NEUTROPHILS # (AUTO) 2025-07-31 16:05 [facility] 11.0 10 3/ul (missing) SODIUM 2025-07-31 16:05 [facility] 137 mmol/l Unknown ALT ALANINE AMINOTRANSFERASE 2025-07-31 16:05 [facility] 14 iu/l As of April 2023 testing method has changed, this may include reference ranges. GFR - MDRD 2025-07-31 16:05 [facility] 140 (missing) The IDMS-traceable MDRD Study Equation [...] 2011. RED CELL DISTRIBUTION WIDTH 2025-07-31 16:05 [facility] 15.3 % (missing) WHITE BLOOD COUNT 2025-07-31 16:05 [facility] 15.4 x10 3/ul (missing) GLOBULIN 2025-07-31 16:05 [facility] 2.4 g/dl (missing) LYMPHOCYTES # (AUTO) 2025-07-31 16:05 [facility] 2.9 10 3/ul (missing) RED BLOOD COUNT 2025-07-31 16:05 [facility] 2.99 10 6/ul (missing) CARBON DIOXIDE - CO2 2025-07-31 16:05 [facility] 24 mmol/l As of April 2023 testing method has changed, this may include reference ranges. HCT - HEMATOCRIT 2025-07-31 16:05 [facility] 28.0 % (missing) MEAN CORPUSCULAR HEMOGLOBIN 2025-07-31 16:05 [facility] 29.1 pg (missing) ALBUMIN 2025-07-31 16:05 [facility] 3.6 g/dl As of April 2023 testing method has changed, this may include reference ranges. POTASSIUM 2025-07-31 16:05 [facility] 3.7 mmol/l As of April 2023 testing method has changed, this may include reference ranges. MEAN CORPUSCULAR HGB CONC 2025-07-31 16:05 [facility] 31.1 g/dl (missing) TRANSFERRIN 2025-07-31 16:05 [facility] 326 mg/dl As of April 2023 testing method has changed, this may include reference ranges. IRON 2025-07-31 16:05 [facility] 38 ug/dl As of April 2023 testing method has changed, this may include reference ranges. PLT - PLATELET COUNT 2025-07-31 16:05 [facility] 436 10 3/ul (missing) TOTAL IRON BINDING CAPACITY 2025-07-31 16:05 [facility] 456 ug/dl (missing) TOTAL PROTEIN 2025-07-31 16:05 [facility] 6.0 g/dl As of April 2023 testing method has changed, this may include reference ranges. ANION GAP 2025-07-31 16:05 [facility] 7.0 (missing) (missing) % IRON SATURATION 2025-07-31 16:05 [facility] 8 % (missing) HGB - HEMOGLOBIN 2025-07-31 16:05 [facility] 8.7 g/dl (missing) ALKALINE PHOSPHATASE 2025-07-31 16:05 [facility] 82 iu/l As of April 2023 testing method has changed, this may include reference ranges. FERRITIN 2025-07-31 16:05 [facility] 89.2 ng/ml (missing) MEAN PLATELET VOLUME 2025-07-31 16:05 [facility] 9.2 fl (missing) CALCIUM 2025-07-31 16:05 [facility] 9.2 mg/dl As of April 2023 testing method has changed, this may include reference ranges. GLUCOSE 2025-07-31 16:05 [facility] 93 mg/dl As of April 2023 testing method has changed, this may include reference ranges. MEAN CORPUSCULAR VOLUME 2025-07-31 16:05 [facility] 93.6 fl (missing) Result panel 7 TOTAL PROTEIN,URINE TIMED 2025-07-31 16:07 [facility] < 4 mg/dl As of Apr testing method has changed, this may include reference ranges. CREATININE,URINE 2025-07-31 16:07 [facility] 20.1 m g/dl As of April 2023 testing method has changed, this may include reference ranges. PROTEIN/CREATININE RATIO,URINE 2025-07-31 16:07 [facility] TNP (missing) Unable to calculate. Analyte below the measurable range. Result panel 8 NUCLEATED RED BLOOD CELLS AUTO 2025-08-10 15:11 [facility] 0.0 /100wbc (missing) NRBC ABSOLUTE COUNT (AUTO) 2025-08-10 15:11 [facility] 0.00 x10 3/ul (missing) BASOPHILS # (AUTO) 2025-08-10 15:11 [facility] 0.1 10 3/ul (missing) ABSOLUTE RETICS # AUTO 2025-08-10 15:11 [facility] 0.115 10 6/ul (missing) EOSINOPHILS # (AUTO) 2025-08-10 15:11 [facility] 0.2 10 3/ul (missing) THYROID STIMULATING HORMONE 2025-08-10 15:11 [facility] 0.32 uiu/ml (missing) FREE T4 (FREE THYROXINE) 2025-08-10 15:11 [facility] 0.55 ng/dl Biotin at >10 ng/mL concentration may cause significant interference. MONOCYTES # (AUTO) 2025-08-10 15:11 [facility] 0.9 10 3/ul (missing) NEUTROPHILS # (AUTO) 2025-08-10 15:11 [facility] 10.6 10 3/ul (missing) VITAMIN B12 2025-08-10 15:11 [facility] 130 pg/ml VITAMIN B12 RANGES: NORMAL 180 - 914 INDETERMINATE 145 -180 DEFICIENT < 145 WHITE BLOOD COUNT 2025-08-10 15:11 [facility] 14.8 x10 3/ul (missing) RED CELL DISTRIBUTION WIDTH 2025-08-10 15:11 [facility] 16.0 % (missing) LYMPHOCYTES # (AUTO) 2025-08-10 15:11 [employer] 2.9 10 3/ul (missing) MEAN CORPUSCULAR HEMOGLOBIN 2025-08-10 15:11 [facility] 29.0 pg (missing) RED BLOOD COUNT 2025-08-10 15:11 [facility] 3.19 10 6/ul (missing) RED BLOOD COUNT 2025-08-10 15:11 [employer] 3.28 10 6/ul (missing) RETICULOCYTE COUNT % (AUTO) 2025-08-10 15:11 [facility] 3.61 % (missing) HCT - HEMATOCRIT 2025-08-10 15:11 [facility] 30.4 % (missing) MEAN CORPUSCULAR HGB CONC 2025-08-10 15:11 [facility] 31.3 g/dl (missing) FOLATE 2025-08-10 15:11 [facility] 34.2 ng/ml (missing) PLT - PLATELET COUNT 2025-08-10 15:11 [facility] 463 10 3/ul (missing) ERYTHROPOIETIN (EPO) 2025-08-10 15:11 [facility] 47.3 miu/ml [employer] DxI 800 Immunoassay System Values obtained with different assay methods or kits cannot be used interchangeably. Results cannot be interpreted as absolute evidence of the presence or absence of malignant disease. Performed at: [facility], [place], [place] [id number] [employer] Operator: Gracie Mayberry MD, Phone: [phone] MEAN PLATELET VOLUME 2025-08-10 15:11 [employer] 9.0 fl (missing) HGB - HEMOGLOBIN 2025-08-10 15:11 [facility] 9.5 g/dl (missing) MEAN CORPUSCULAR VOLUME 2025-08-10 15:11 [facility] 92.7 fl (missing) Result panel 9 PROTEIN/CREATININE RATIO,URINE 2025-08-16 07:40 [facility] 0.1 (missing) (missing) UROBILINOGEN,URINE 2025-08-16 07:40 [facility] 0.2 (NORMAL) e.u./dl (missing) SPECIFIC GRAVITY,URINE 2025-08-16 07:40 [facility] 1.010 (missing) (missing) CREATININE,URINE 2025-08-16 07:40 [facility] 53.8 mg/dl As of April 2023 testing method has changed, this may include reference ranges. TOTAL PROTEIN,URINE TIMED 2025-08-16 07:40 [facility] 6 mg/dl As of April 2023 testing [...] may include reference ranges. CREATININE 2025-08-16 07:55 [facility] 0.6 mg/dl As of April 2023 testing method has changed, this may include reference ranges. MONOCYTES # (AUTO) 2025-08-16 07:55 [facility] 0.8 10 3/ul (missing) ALBUMIN/GLOBULIN RATIO 2025-08-16 07:55 [facility] 1.4 (missing) (missing) MAGNESIUM 2025-08-16 07:55 [employer] 1.6 mg/dl As of April 2023 testing method has changed, this may include reference ranges. CHLORIDE 2025-08-16 07:55 [facility] 106 mmol/l As of April 2023 testing method has changed, this may include reference ranges. GFR - MDRD 2025-08-16 07:55 [facility] 114 (in g) The IDMS-traceable MDRD Study [...] December 2011. WHITE BLOOD COUNT 2025-08-16 07:55 [facility] 12.4 x10 3/ul (missing) ALT ALANINE AMINOTRANSFERASE 2025-08-16 07:55 [facility] 13 iu/l As of April 2023 testing method has changed, this may include reference ranges. SODIUM 2025-08-16 07:55 [facility] 139 mmol/l (missing) RED CELL DISTRIBUTION WIDTH 2025-08-16 07:55 [facility] 15.9 % (missing) LYMPHOCYTES # (AUTO) 2025-08-16 07:55 [facility] 2.4 10 3/ul (missing) GLOBULIN 2025-08-16 07:55 [facility] 2.6 g/dl (missing) CARBON DIOXIDE - CO2 2025-08-16 07:55 [facility] 24 mmol/l As of April 2023 testing method has changed, this may include reference ranges. HCT - HEMATOCRIT 2025-08-16 07:55 [facility] 28.5 % (missing) MEAN CORPUSCULAR HEMOGLOBIN 2025-08-16 07:55 [facility] 29.3 pg (missing) RED BLOOD COUNT 2025-08-16 07:55 [facility] 3.11 10 6/ul (missing) POTASSIUM 2025-08-16 07:55 [facility] Myshaadi[facility]in 3.4 mmol/l As of April 2023 testing method has changed, this may include reference ranges. ALBUMIN 2025-08-16 07:55 [facility] 3.6 g/dl As of April 2023 testing method has changed, this may include reference ranges. MEAN CORPUSCULAR HGB CONC 2025-08-16 07:55 [facility] 31.9 g/dl (missing) PLT - PLATELET COUNT 2025-08-16 07:55 [facility] 442 10 3/ul (missing) BUN - BLOOD UREA NITROGEN 2025-08-16 07:55 [facility] 6 mg/dl As of Apr testing method has changed, this may include reference ranges. TOTAL PROTEIN 2025-08-16 07:55 [facility] 6.2 g/dl As of April 2023 testing method has changed, this may include reference ranges. NEUTROPHILS # (AUTO) 2025-08-16 07:55 [facility] 8.9 10 3/ul (missing) MEAN PLATELET VOLUME 2025-08-16 07:55 [facility] 8.9 fl (missing) AST ASPARTATE AMINOTRANSFERASE 2025-08-16 07:55 [facility] 9 iu/l As of April 2023 testing method has changed, this may include reference ranges. ANION GAP 2025-08-16 07:55 [employer] 9.0 (missing ) (missing) CALCIUM 2025-08-16 07:55 [facility] 9.0 mg/dl As of April 2023 testing method has changed, this may include reference ranges. HGB - HEMOGLOBIN 2025-08-16 07:55 [facility] 9.1 g /dl (missing) MEAN CORPUSCULAR VOLUME 2025-08-16 07:55 [facility] 91.6 fl (missing) ALKALINE PHOSPHATASE 2025-08-16 07:55 [facility] 99 iu/l As of April 2023 testing method has changed, this may include reference ranges. GLUCOSE 2025-08-16 07:55 [facility] 99 mg/dl As of April 2023 testing method has changed, this may include reference ranges. Result panel 11 PROTEIN/CREATININE RATIO,URINE 2025-08-21 21:03 [facility] Mys[facility]in 0.1 (missing) (missing) TOTAL PROTEIN,URINE TIMED 2025-08-21 21:03 [email or web address] [facility] 5 mg/dl As of April 2023 testing method has changed, this may include reference ranges. CREATININE,URINE 2025-08-21 21:03 [facility] Myshaadi[facility]in 50.7 mg/dl As of April 2023 testing method has changed, this may include reference ranges. Result panel 12 NUCLEATED RED BLOOD CELLS AUTO 2025-08-21 21:31 [facility] 0.0 /100wbc (missing) NRBC ABSOLUTE COUNT (AUTO) 2025-08-21 21:31 [facility] [facility] 0.00 x10 3/ul (missing) BASOPHILS # (AUTO) 2025-08-21 21:31 [facility] 0.1 10 3/ul (missing) EOSINOPHILS # (AUTO) 2025-08-21 21:31 [facility] 0.2 10 3/ul (missing) BILIRUBIN,TOTAL 2025-08-21 21:31 [facility] 0.5 mg/dl As of April 2023 testing method has changed, this may include reference ranges. CREATININE 2025-08-21 21:31 [facility] 0.6 mg/dl As of April 2023 testing method has changed, this may include reference ranges. MONOCYTES # (AUTO) 2025-08-21 21:31 [facility] 1.0 10 3/ul (missing) ALBUMIN/GLOBULIN RATIO 2025-08-21 21:31 [facility] 1.4 (missing) (missing) NEUTROPHILS # (AUTO) 2025-08-21 21:31 [facility] 10.2 10 3/ul (missing) CHLORIDE 2025-08-21 21:31 [facility] 106 mmol/l As of April 2023 testing method has changed, this may include reference ranges. GFR - MDRD 2025-08-21 21:31 [facility] 114 (missing) The IDMS-traceable MDRD Study Equation [...] December 2011. AST ASPARTATE AMINOTRANSFERASE 2025-08-21 21:31 [facility] 12 iu/l As of April 2023 testing method has changed, this may include reference ranges. SODIUM 2025-08-21 21:31 [facility] 138 mmol/l (missing) ALT ALANINE AMINOTRANSFERASE 2025-08-21 21:31 [facility] 14 iu/l As of April 2023 testing method has changed, this may include reference ranges. WHITE BLOOD COUNT 2025-08-21 21:31 [facility] 14.7 x10 3/ul (missing) RED CELL DISTRIBUTION WIDTH 2025-08-21 21:31 [facility] 16.1 % (missing) GLOBULIN 2025-08-21 21:31 [facility] 2.5 g/dl (missing) CARBON DIOXIDE - CO2 2025-08-21:31 [facility] 23 mmol/l As of April 2023 testing method has changed, this may include reference ranges. MEAN CORPUSCULAR HEMOGLOBIN 2025-08-21 21:31 [facility] 28.4 pg (missing) LYMPHOCYTES # (AUTO) 2025-08-21 21:31 [facility] 3.1 10 3/ul (missing) POTASSIUM 2025-08-21 21:31 [facility] 3.4 mmol/l As of April 2023 testing method has changed, this may include reference ranges. RED BLOOD COUNT 2025-08-21 21:31 [facility] 3.41 10 6/ul (missing) ALBUMIN 2025-08-21 21:31 [facility] 3.5 g/dl As of April 2023 testing method has changed, this may include reference ranges. MEAN CORPUSCULAR HGB CONC 2025-08-21 21:31 [facility] 30.5 g/dl (missing) HCT - HEMATOCRIT 2025-08-21 21:31 [employer] 31.8 % (missing) PLT - PLATELET COUNT 2025-08-21 21:31 [facility] 496 10 3/ul (missing) BUN - BLOOD UREA NITROGEN 2025-08-21 21:31 [employer] [facility] 6 mg/dl As of April 2023 testing method has changed, this may include reference ranges. TOTAL PROTEIN 2025-08-21:31 [facility] 6.0 g/dl As of April 2023 testing method has changed, this may include reference ranges. MEAN PLATELET VOLUME 2025-08-21 21:31 [facility] 8.9 fl (missing) ANION GAP 2025-08-21 21:31 [facility] 9.0 (missing) (missing) HGB - HEMOGLOBIN 2025-08-21 21:31 [facility] 9.7 g/dl (missing) CALCIUM 2025-08-21:31 [facility] 9.7 mg/dl As of April 2023 testing method has changed, this may include reference ranges. GLUCOSE 2025-08-21: [facility] 91 mg/dl As of April 2023 testing method has changed, this may include reference ranges. MEAN CORPUSCULAR VOLUME 2025-08-21 21:31 [facility] 93.3 fl (missing) ALKALINE PHOSPHATASE 2025-08-21 21:31 [facility] 95 iu/l As of April 2023 testing method has changed, this may include reference ranges. Result panel 13 TOTAL PROTEIN,URINE TIMED 2025-08-28 16:05 [facility] < 4 mg/dl As of April 2023 testing method has changed, this may include reference ranges. THYROID STIMULATING HORMONE 2025-08-28 16:05 [facility] 0.56 uiu/ml (missing) BILIRUBIN,TOTAL 2025-08-28 16:05 [facility] 0.6 mg/dl As of April 2023 testing method has changed, this may include reference ranges. CREATININE 2025-08-28 16:05 [facility] 0.7 mg/dl As of April 2023 testing method has changed, this may include reference ranges. ALBUMIN/GLOBULIN RATIO 2025-08-28 16:05 [facility] 1.6 (missing) (missing) CHLORIDE 2025-08-28 16:05 [facility] 106 mmol/l As of April 2023 testing method has changed, this may include reference ranges. GLUCOSE 2025-08-28 16:05 [facility] 116 mg/dl As of April 2023 testing method has changed, this may include reference ranges. ALT ALANINE AMINOTRANSFERASE 2025-08-28 16:05 [facility] 13 iu/l As of April 2023 testing method has changed, this may include reference ranges. WHITE BLOOD COUNT 2025-08-28 16:05 [facility] 13.6 x10 3/ul (missing) SODIUM 2025-08-28 16:05 [facility] 139 mmol/l Unknown RED CELL DISTRIBUTION WIDTH 2025-08-28 16:05 [facility] 17.2 % (missing) GLOBULIN 2025-08-28 16:05 [facility] 2.3 g/dl (missing) CREATININE,URINE 2025-08-28 16:05 [facility] 23.8 mg/dl As of April 2023 testing method has changed, this may include reference ranges. CARBON DIOXIDE - CO2 2025-08-28 16:05 [facility] 25 mmol/l As of April 2023 testing method has changed, this may include reference ranges. MEAN CORPUSCULAR HEMOGLOBIN 2025-08-28 16:05 [facility] 28.9 pg (missing) RED BLOOD COUNT 2025-08-28 16:05 [facility] 3.25 10 6/ul (missing) POTASSIUM 2025-08-28 16:05 [facility] 3.5 mmol/l As of April 2023 testing method has changed, this may include reference ranges. ALBUMIN 2025-08-28 16:05 [facility] 3.6 g/dl As of April 2023 testing method has changed, this may include reference ranges. HCT - HEMATOCRIT 2025-08-28 16:05 [facility] 30.3 % (missing) MEAN CORPUSCULAR HGB CONC 2025-08-28 16:05 [facility] 31.0 g/dl (missing) PLT - PLATELET COUNT 2025-08-28 16:05 [facility] 449 10 3/ul (missing) TOTAL PROTEIN 2025-08-28 16:05 [facility] 5.9 g/dl As of April 2023 testing method has changed, this may include reference ranges. BUN - BLOOD UREA NITROGEN 2025-08-28 16:05 [facility] 8 mg/dl As of April 2023 testing method has changed, this may include reference ranges. ANION GAP 2025-08-28 16:05 [facility] 8.0 (missing) (missing) AST ASPARTATE AMINOTRANSFERASE 2025-08-28 16:05 [facility] 9 iu/l As of April 2023 testing method has changed, this may include reference ranges. MEAN PLATELET VOLUME 2025-08-28 16:05 [facility] 9.1 fl (missing) HGB - HEMOGLOBIN 2025-08-28 16:05 [facility] 9.4 g/dl (missing) CALCIUM 2025-08-28 16:05 [facility] 9.6 mg/dl As of April 2023 testing method has changed, this may include reference ranges. MEAN CORPUSCULAR VOLUME 2025-08-28 16:05 [facility] 93.2 fl (missing) GFR - MDRD 2025-08-28 16:05 [facility] 95 (missing) The IDMS-traceable MDRD Study Equation [...] updated December 2011. ALKALINE PHOSPHATASE 2025-08-28 16:05 [facility] 97 iu/l As of April 2023 testing method has changed, this may include reference ranges. PROTEIN/CREATININE RATIO,URINE 2025-08-28 16:05 [facility] TNP (missing) Unable to calculate. Analyte below the measurable range. Result panel 14 BILIRUBIN,TOTAL 2025-08-29 07:51 [facility] 0.4 mg/dl As of April 2023 testing method has changed, this may include reference ranges. CREATININE 2025-08-29 07:51 [facility] 0.7 mg/dl As of April 2023 testing method has changed, this may include reference ranges. ALBUMIN/GLOBULIN RATIO 2025-08-29 07:51 [facility] 1.5 (missing) (missing) AST ASPARTATE AMINOTRANSFERASE 2025-08-29 07:51 [facility] 10 iu/l As of April 2023 testing method has changed, this may include reference ranges. CHLORIDE 2025-08-29 07:51 [facility] 107 mmol/l As of April 2023 testing method has changed, this may include reference ranges. ALT ALANINE AMINOTRANSFERASE 2025-08-29 07:51 [facility] 13 iu/l As of April 2023 testing method has changed, this may include reference ranges. SODIUM 2025-08-29 07:51 [facility] 137 mmol/l (missing) GLUCOSE 2025-08-29 07:51 [facility] 161 mg/dl As of April 2023 testing method has changed, this may include reference ranges. RED CELL DISTRIBUTION WIDTH 2025-08-29 07:51 [facility] 17.2 % (missing) WHITE BLOOD COUNT 2025-08-29 07:51 [facility] 17.3 x10 3/ul (missing) GLOBULIN 2025-08-29 07:51 [facility] 2.2 g/dl (missing) RED BLOOD COUNT 2025-08-29 07:51 [facility] 2.73 10 6/ul (missing) CARBON DIOXIDE - CO2 2025-08-29 07: [facility] 24 mmol/l As of April 2023 testing method has changed, this may include reference ranges. HCT - HEMATOCRIT 2025-08-29 07:51 [facility] 25.1 % (missing) MEAN CORPUSCULAR HEMOGLOBIN 2025-08-29 07:51 [facility] 29.7 pg (missing) ALBUMIN 2025-08-29 07:51 [facility] 3.2 g/dl As of April 2023 testing method has changed, this may include reference ranges. POTASSIUM 2025-08-29 07:51 [facility] 3.8 mmol/l As of April 2023 testing method has changed, this may include reference ranges. MEAN CORPUSCULAR HGB CONC 2025-08-29 07:51 [facility] 32.3 g/dl (missing) PLT - PLATELET COUNT 2025-08-29 07:51 [facility] 341 10 3/ul (missing) MAGNESIUM 2025-08-29 07:51 [facility] 4.9 mg/dl As of April 2023 testing method has changed, this may include reference ranges. TOTAL PROTEIN 2025-08-29 07:51 [facility] 5.4 g/dl As of April 2023 testing method has changed, this may include reference ranges. BUN - BLOOD UREA NITROGEN 2025-08-29 07:51 [facility] 6 mg/dl As of April 2023 testing method has changed, this may include reference ranges. ANION GAP 2025-08-29 07:51 [facility] 6.0 (missing) (missing) CALCIUM 2025-08-29 07: [facility] 7.8 mg/dl As of April 2023 testing method has changed, this may include reference ranges. HGB - HEMOGLOBIN 2025-08-29 07:51 [facility] 8.1 g/dl (missing) MEAN PLATELET VOLUME 2025-08-29 07:51 [facility] 8.9 fl (missing) MEAN CORPUSCULAR VOLUME 2025-08-29 07:51 [facility] 91.9 fl (missing) GFR - MDRD 2025-08-29 07:51 [facility] 95 (missing) The IDMS-traceable MDRD Study Equation [...] updated December 2011. ALKALINE PHOSPHATASE 2025-08-29 07:51 [facility] 95 iu/l As of April 2023 testing method has changed, this may include reference ranges. Result panel 15 NUCLEATED RED BLOOD CELLS AUTO 2025-08-30 07:28 [facility] 0.0 /100wbc (missing) NRBC ABSOLUTE COUNT (AUTO) 2025-08-30 07:28 [facility] 0.00 x10 3/ul (missing) BASOPHILS # (AUTO) 2025-08-30 07:28 [facility] 0.1 10 3/ul (missing) EOSINOPHILS # (AUTO) 2025-08-30 07:28 [facility] 0.3 10 3/ul (missing) BILIRUBIN,TOTAL 2025-08-30 07:28 [facility] 0.3 mg/dl As of April 2023 testing method has changed, this may include reference ranges. CREATININE 2025-08-30 07:28 [facility] 0.7 mg/dl As of April 2023 testing method has changed, this may include reference ranges. MONOCYTES # (AUTO) 2025-08-30 07:28 [facility] 0.9 10 3/ul (missing) ALBUMIN/GLOBULIN RATIO 2025-08-30 07:28 [facility] 1.4 (missing) (missing) CHLORIDE 2025-08-30 07:28 [facility] 107 mmol/l As of April 2023 testing method has changed, this may include reference ranges. ALT ALANINE AMINOTRANSFERASE 2025-08-30 07:28 [facility] 11 iu/l As of April 2023 testing method has changed, this may include reference ranges. WHITE BLOOD COUNT 2025-08-30 07:28 [facility] 12.2 x10 3/ul (missing) SODIUM 2025-08-30 07:28 [facility] 137 mmol/l (missing) RED CELL DISTRIBUTION WIDTH 2025-08-30 07:28 [facility] 17.8 % (missing) GLOBULIN 2025-08-30 07:28 [facility] 2.1 g/dl (missing) RED BLOOD COUNT 2025-08-30 07: [facility] 2.32 10 6/ul (missing) HCT - HEMATOCRIT 2025-08-30 07:28 [facility] 21.7 % (missing) CARBON DIOXIDE - CO2 2025-08-30 07:28 [facility] 24 mmol/l As of April 2023 testing method has changed, this may include reference ranges. MEAN CORPUSCULAR HEMOGLOBIN 2025-08-30 07:28 [facility] 29.3 pg (missing) ALBUMIN 2025-08-30 07: [facility] 3.0 g/dl As of April 2023 testing method has changed, this may include reference ranges. LYMPHOCYTES # (AUTO) 2025-08-30: [facility] 3.5 10 3/ul (missing) POTASSIUM 2025-08-30 07: [facility] 3.6 mmol/l As of April 2023 testing method has changed, this may include reference ranges. MEAN CORPUSCULAR HGB CONC 2025-08-30 07:28 [facility] 31.3 g/dl (missing) PLT - PLATELET COUNT 2025-08-30 07: [employer] 344 10 3/ul (missing) TOTAL PROTEIN 2025-08-30 07: [facility] 5.1 g/dl As of April 2023 testing method has changed, this may include reference ranges. ANION GAP 2025-08-30 07: [facility] 6.0 (missing) (missing) HGB - HEMOGLOBIN 2025-08-30 07: [facility] 6.8 g/dl Called to [facility]USH[facility] Andre by Shubham Beal at 0800 08/30/25. Read back(Y/N)? Y CALCIUM 2025-08-30 07:28 [facility] 7.0 mg/dl As of April 2023 testing method has changed, this may include reference ranges. NEUTROPHILS # (AUTO) 2025-08-30 07: [facility] 7.4 10 3/ul (missing) ALKALINE PHOSPHATASE 2025-08-30 07:28 [facility] 76 iu/l As of April 2023 testing method has changed, this may include reference ranges. AST ASPARTATE AMINOTRANSFERASE 2025-08-30 07:28 [facility] 8 iu/l As of April 2023 testing method has changed, this may include reference ranges. BUN - BLOOD UREA NITROGEN 2025-08-30 07:28 [facility] 8 mg/dl As of April 2023 testing method has changed, this may include reference ranges. GLUCOSE 2025-08-30: [facility] 83 mg/dl As of April 2023 testing method has changed, this may include reference ranges. MEAN PLATELET VOLUME 2025-08-30 07:28 [facility] 9.1 fl (missing) MEAN CORPUSCULAR VOLUME 2025-08-30: [facility] 93.5 fl (missing) GFR - MDRD 2025-08-30: [facility] 95 (missing) The IDMS-traceable MDRD Study Equation [...] NUCLEATED RED BLOOD CELLS AUTO 2025-08-30 18:27 [facility] 0.0 /100wbc (missing) NRBC ABSOLUTE COUNT (AUTO) 2025-08-30 18:27 [facility] 0 .00 x10 3/ul (missing) BASOPHILS # (AUTO) 2025-08-30 18:27 [facility] 0.1 10 3/ul (missing) EOSINOPHILS # (AUTO) 2025-08-30 18:27 [facility] 0.3 10 3/ul (missing) MONOCYTES # (AUTO) 2025-08-30 18:27 [facility] 0.9 10 3/ul (missing) WHITE BLOOD COUNT 2025-08-30 18:27 [facility] 11.6 x10 3/ul (missing) RED CELL DISTRIBUTION [...] include reference ranges. ALBUMIN/GLOBULIN RATIO 2025-08-31 08:59 [facility] 1.5 (missing) (missing) WHITE BLOOD COUNT 2025-08-31 08:59 [facility] 10.4 x10 3/ul (missing) CHLORIDE 2025-08-31 08:59 [facility] 107 mmol/l As of April 2023 testing method has changed, this may include reference ranges. ALT ALANINE AMINOTRANSFERASE 2025-08-31 08:59 [facility] 12 iu/l As of April 2023 testing method has changed, this may include reference ranges. GLUCOSE 2025-08-31 08:59 [facility] 120 mg/dl As of April 2023 testing method has changed, this may include reference ranges. BUN - BLOOD UREA NITROGEN 2025-08-31 08:59 [facility] 13 mg/dl As of April 2023 testing method has changed, this may include reference ranges. SODIUM 2025-08-31 08:59 [facility] 138 mmol/l (missing) RED CELL DISTRIBUTION WIDTH 2025-08-31 08:59 [facility] 17.8 % (missing) LYMPHOCYTES # (AUTO) 2025-08-31 08:59 [facility] 2.1 10 3/ul (missing) GLOBULIN 2025-08-31 08:59 [facility] 2.2 g/dl (missing) RED BLOOD COUNT 2025-08-31 08:59 [facility] 2.75 10 6/ul (missing) CARBON DIOXIDE - CO2 2025-08-31 08:59 [facility] 23 mmol/l As of April 2023 testing method has changed, this may include reference ranges. HCT - HEMATOCRIT 2025-08-31 08:59 [facility] 25.9 % (missing) MEAN CORPUSCULAR HEMOGLOBIN 2025-08-31 08:59 [facility] 29.1 pg (missing) ALBUMIN 2025-08-31 08:59 [facility] 3.4 g/dl As of April 2023 testing method has changed, this may include reference ranges. MEAN CORPUSCULAR HGB CONC 2025-08-31 08:59 [facility] 30.9 g/dl (missing) PLT - PLATELET COUNT 2025-08-31 08:59 [facility] 368 10 3/ul (missing) POTASSIUM 2025-08-31 08:59 [facility] 4.3 mmol/l As of April 2023 testing method has changed, this may include reference ranges. TOTAL PROTEIN 2025-08-31 08:59 [employer] 5.6 g/dl As of April 2023 testing method has changed, this may include reference ranges. NEUTROPHILS # (AUTO) 2025-08-31 08:59 [facility] 7.3 10 3/ul (missing) ANION GAP 2025-08-31 08:59 [facility] 8.0 (missing) (missing) HGB - HEMOGLOBIN 2025-08-31 08:59 [facility] 8.0 g/dl (missing) CALCIUM 2025-08-31 08:59 [facility] 8.5 mg/dl As of April 2023 testing method has changed, this may include reference ranges. MEAN PLATELET VOLUME 2025-08-31 08:59 [facility] 8.9 fl (missing) ALKALINE PHOSPHATASE 2025-08-31 08:59 [facility] 81 iu/l As of April 2023 testing method has changed, this may include reference ranges. GFR - MDRD 2025-08-31 08:59 [facility] 82 (missing) The IDMS-traceable MDRD Study Equation [...] December 2011. AST ASPARTATE AMINOTRANSFERASE 2025-08-31 08:59 [facility] 9 iu/l As of April 2023 testing method has changed, this may include reference ranges. MEAN CORPUSCULAR VOLUME 2025-08-31 08:59 [employer] 94.2 fl (missing) Result panel 18 NUCLEATED RED BLOOD CELLS AUTO 2025-09-01 11:55 [facility] 0.0 /100wbc (missing) NRBC ABSOLUTE COUNT (AUTO) 2025-09-01 11:55 [facility] 0.00 x10 3/ul (missing) BASOPHILS # (AUTO) 2025-09-01 11:55 [facility] 0.1 10 3/ul (missing) EOSINOPHILS # (AUTO) 2025-09-01 11:55 [facility] 0.3 10 3/ul (missing) BILIRUBIN,TOTAL 2025-09-01 11:55 [facility] 0.5 mg/dl As of April 2023 testing method has changed, this may include reference ranges. MONOCYTES # (AUTO) 2025-09-01 11:55 [facility] 0.7 10 3/ul (missing) CREATININE 2025-09-01 11:55 [facility] 0.7 mg/dl As of April 2023 testing method has changed, this may include reference ranges. ALBUMIN/GLOBULIN RATIO 2025-09-01 11:55 [facility] 1.5 (missing) (missing) MAGNESIUM 2025-09-01 11:55 [facility] 1.7 mg/dl As of April 2023 testing method has changed, this may include reference ranges. WHITE BLOOD COUNT 2025-09-01 11:55 [facility] 10.6 x10 3/ul (missing) ALKALINE PHOSPHATASE 2025-09-01 11:55 [facility] 104 iu/l As of April 2023 testing method has changed, this may include reference ranges. CHLORIDE 2025-09-01 11:55 [facility] 105 mmol/l As of April 2023 testing method has changed, this may include reference ranges. GLUCOSE 2025-09-01 11:55 [facility] 118 mg/dl As of April 2023 testing method has changed, this may include reference ranges. SODIUM 2025-09-01 11:55 [facility] 137 mmol/l (missing) BUN - BLOOD UREA NITROGEN 2025-09-01 11:55 [facility] 14 mg/dl As of April 2023 testing method has changed, this may include reference ranges. RED CELL DISTRIBUTION WIDTH 2025-09-01 11:55 [facility] 17.2 % (missing) LYMPHOCYTES # (AUTO) 2025-09-01 11:55 [facility] 2.2 10 3/ul (missing) GLOBULIN 2025-09-01 11:55 [facility] 2.7 g/dl (missing) CARBON DIOXIDE - CO2 2025-09-01 11:55 [facility] 24 mmol/l As of April 2023 testing method has changed, this may include reference ranges. MEAN CORPUSCULAR HEMOGLOBIN 2025-09-01 11:55 [facility] 29.3 pg (missing) RED BLOOD COUNT 2025-09-01 11:55 [facility] 3.31 10 6/ul (missing) HCT - HEMATOCRIT 2025-09-01 11:55 [facility] 30.7 % (missing) MEAN CORPUSCULAR HGB CONC 2025-09-01 11[facility]55 [facility] 31.6 g/dl (missing) AST ASPARTATE AMINOTRANSFERASE 2025-09-01 11:55 [facility] 33 iu/l As of April 2023 testing method has changed, this may include reference ranges. ALBUMIN 2025-09-01 11:55 [facility] 4.0 g/dl As of April 2023 testing method has changed, this may include reference ranges. POTASSIUM 2025-09-01 11:55 [facility] 4.1 mmol/l As of April 2023 testing method has changed, this may include reference ranges. ALT ALANINE AMINOTRANSFERASE 2025-09-01 11:55 [facility] 45 iu/l As of April 2023 testing method has changed, this may include reference ranges. PLT - PLATELET COUNT 2025-09-01 11:55 [facility] 450 10 3/ul (missing) TOTAL PROTEIN 2025-09-01 11:55 [facility] 6.7 g/dl As of April 2023 testing method has changed, this may include reference ranges. NEUTROPHILS # (AUTO) 2025-09-01 11:55 [facility] 7.2 10 3/ul (missing) ANION GAP 2025-09-01 11:55 [facility] 8.0 (missing) (missing) MEAN PLATELET VOLUME 2025-09-01 11:55 [facility] 8.8 fl (missing) CALCIUM 2025-09-01 11:55 [employer] [facility] 9.4 mg/dl As of April 2023 testing method has changed, this may include reference ranges. HGB - HEMOGLOBIN 2025-09-01 11:55 [employer] 9.7 g/dl (missing) MEAN CORPUSCULAR VOLUME 2025-09-01 11:55 [employer] 92.7 fl (missing) GFR - MDRD 2025-09-01 11:55 [employer] 95 (missing) The IDMS-traceable MDRD Study Equation [...] 2011. Result panel 19 WBC,URINE 2025-09-01 12:00 [employer] >25 /hpf (missing) UROBILINOGEN,URIN E 2025-09-01 12:00 [employer] 0.2 (NORMAL) e.u./dl (missing) SPECIFIC GRAVITY,URINE 2025-09-01 12:00 [facility] 1.005 (missing) (missing) PH,URINE 2025-09-01 12:00 [employer] 7.5 ph (missing) CLARITY,URINE 2025-09-01 12:00 [facility] HAZY (missing) (missing) URINE MICROSCOPIC INDICATED? 2025-09-01 12:00 [employer] INDICATED (missing) (missing) OCCULT BLOOD,URINE 2025-09-01 12:00 [employer] LARGE (missing) (missing) SQUAMOUS EPITHELIAL CELL,UR 2025-09-01 12:00 [employer] MOD Squamous (missing) (missing) NITRITE,URINE 2025-09-01 12:00 [employer] NEGATIVE (missing) (missing) BILIRUBIN,URINE 2025-09-01 12:00 [facility] /hpf (missing) COLOR,URINE 2025-09-01 12:00 [facility] STRAW (missing) URINE CLEAN CATCH RBC,URINE 2025-09-01 12:00 [facility] TNTC /hpf (missing) LEUKOCYTE ESTERASE, URINE 2025-09-01 12:00 [facility] TRACE (missing) (missing) PROTEIN,URINE 2025-09-01 12:00 [facility] TRACE mg/dl (missing) Result panel 20 [...] ranges. Result panel 24 BILIRUBIN,TOTAL 2025-09-02 04:13 [facility] 0.4 mg/dl As of April 2023 testing method has changed, this may include reference ranges. CREATININE 2025-09-02 04:13 [facility] 0.8 mg/dl As of April 2023 testing method has changed, this may include reference ranges. ALBUMIN/GLOBULIN RATIO 2025-09-02 04:13 [employer] 1.6 (missing) (missing) CHLORIDE 2025-09-02 04:13 [facility] [facility] 103 mmol/l As of April 2023 testing method has changed, this may include reference ranges. ALKALINE PHOSPHATASE 2025-09-02 04:13 [employer] [facility] 106 iu/l As of April 2023 testing method has changed, this may include reference ranges. HGB - HEMOGLOBIN 2025-09-02 04:13 [employer] 11.0 g/dl (missing) WHITE BLOOD COUNT 2025-09-02 04:13 [employer] 12.6 x10 3/ul (missing) BUN - BLOOD UREA NITROGEN 2025-09-02 04:13 [employer] [facility] 13 mg/dl As of April 2023 testing method has changed, this may include reference ranges. SODIUM 2025-09-02 04:13 [employer] [facility] 135 mmol/l (missing) RED CELL DISTRIBUTION WIDTH 2025-09-02 04:13 [facility] 17.5 % (missing) GLOBULIN 2025-09-02 04:13 [employer] 2.5 g/dl (missing) CARBON DIOXIDE - CO2 2025-09-02 04:13 [employer] 25 mmol/l As of April 2023 testing method has changed, this may include reference ranges. AST ASPARTATE AMINOTRANSFERASE 2025-09-02 04:13 [employer] 28 iu/l As of April 2023 testing method has changed, this may include reference ranges. MEAN CORPUSCULAR HEMOGLOBIN 2025-09-02 04:13 [facility] 28.4 pg (missing) RED BLOOD COUNT 2025-09-02 04:13 [facility] 3.88 10 6/ul (missing) MEAN CORPUSCULAR HGB CONC 2025-09-02 04:13 [employer] 30.4 g/dl (missing) HCT - HEMATOCRIT 2025-09-02 04:13 [employer] [facility] 36.2 % (missing) ALBUMIN 2025-09-02 04:13 [facility] 4.0 g/dl As of April 2023 testing method has changed, this may include reference ranges. POTASSIUM 2025-09-02 04:13 [facility] 4.3 mmol/l As of April 2023 testing method has changed, this may include reference ranges. ALT ALANINE AMINOTRANSFERASE 2025-09-02 04:13 [facility] [facility] 53 iu/l As of April 2023 testing method has changed, this may include reference ranges. PLT - PLATELET COUNT 2025-09-02 04:13 [employer] [facility] 536 10 3/ul (missing) TOTAL PROTEIN 2025-09-02 04:13 [facility] 6.5 g/dl As of April 2023 testing method has changed, this may include reference ranges. ANION GAP 2025-09-02 04:13 [facility] [facility] 7.0 (missing) (missing) CALCIUM 2025-09-02 04:13 [facility] 8.1 mg/dl As of April 2023 testing method has changed, this may include reference ranges. MEAN PLATELET VOLUME 2025-09-02 04:13 [facility] [facility] 8.7 fl (missing) GFR - MDRD 2025-09-02 04:13 [facility] 82 (missing) The IDMS-traceable MDRD Study Equation [...] December 2011. MEAN CORPUSCULAR VOLUME 2025-09-02 04:13 [employer] 93.3 fl (missing) GLUCOSE 2025-09-02 04:13 [facility] 98 mg/dl As of April 2023 testing method has changed, this may include reference ranges. Result panel 25 NUCLEATED RED BLOOD CELLS AUTO 2025-09-06 21:28 [facility] 0.0 /100wbc (missing) NRBC ABSOLUTE COUNT (AUTO) 2025-09-06 21:28 [facility] 0.00 x10 3/ul (missing) BASOPHILS # (AUTO) 2025-09-06 21:28 [facility] 0.2 10 3/ul (missing) EOSINOPHILS # (AUTO) 2025-09-06 21:28 [facility] 0.2 10 3/ul (missing) BILIRUBIN,TOTAL 2025-09-06 21:28 [facility] 0.6 mg/dl As of April 2023 testing method has changed, this may include reference ranges. CREATININE 2025-09-06: [facility] 0.9 mg/dl As of April 2023 testing method has changed, this may include reference ranges. RBC MORPHOLOGY (MULTIPLE) 2025-09-06 21: [facility] 1+ ANISOCYTOSIS (missing) (missing) MONOCYTES # (AUTO) 2025-09-06 21: [facility] 1.4 10 3/ul (missing) ALBUMIN/GLOBULIN RATIO 2025-09-06: [facility] 1.7 (missing) (missing) LYMPHOCYTES # (AUTO) 2025-09-06: [facility] 1.8 10 3/ul (missing) CHLORIDE 2025-09-06: [facility] 103 mmol/l As of April 2023 testing method has changed, this may include reference ranges. GLUCOSE 2025-09-06: [facility] 106 mg/dl As of April 2023 testing method has changed, this may include reference ranges. ANION GAP 2025-09-06: [facility] 11.0 (missing) (missing) CALCIUM 2025-09-06: [facility] 11.0 mg/dl As of April 2023 testing method has changed, this may include reference ranges. HGB - HEMOGLOBIN 2025-09-06: [facility] 11.7 g/dl (missing) SODIUM 2025-09-06:28 [facility] 139 mmol/l (missing) AST ASPARTATE AMINOTRANSFERASE 2025-09-06: [facility] 14 iu/l As of April 2023 testing method has changed, this may include reference ranges. RED CELL DISTRIBUTION WIDTH 2025-09-06:28 [facility] 16.1 % (missing) GLOBULIN 2025-09-06 21:28 [facility] 2.7 g/dl (missing) LIPASE 2025-09-06 21:28 [facility] 21 u/l As of April 2023 testing method has changed, this may include reference ranges. BUN - BLOOD UREA NITROGEN 2025-09-06 21:28 [facility] 22 mg/dl As of April 2023 testing method has changed, this may include reference ranges. NEUTROPHILS # (AUTO) 2025-09-06 21:28 [facility] 23.0 10 3/ul (missing) CARBON DIOXIDE - CO2 2025-09-06:28 [facility] 25 mmol/l As of April 2023 testing method has changed, this may include reference ranges. ALT ALANINE AMINOTRANSFERASE 2025-09-06:28 [facility] 26 iu/l As of April 2023 testing method has changed, this may include reference ranges. WHITE BLOOD COUNT 2025-09-06: [facility] [facility] 26.8 x10 3/ul (missing) MEAN CORPUSCULAR HEMOGLOBIN 2025-09-06:28 [facility] [facility] 29.0 pg (missing) MEAN CORPUSCULAR HGB CONC 2025-09-06: [facility] 31.9 g/dl (missing) HCT - HEMATOCRIT 2025-09-06:28 [facility] [facility] 36.7 % (missing) POTASSIUM 2025-09-06:28 [facility] 4.0 mmol/l As of April 2023 testing method has changed, this may include reference ranges. RED BLOOD COUNT 2025-09-06:28 [facility] 4.03 10 6/ul (missing) ALBUMIN 2025-09-06:28 [facility] 4.5 g/dl As of April 2023 testing method has changed, this may include reference ranges. PLT - PLATELET COUNT 2025-09-06:28 [facility] [facility] 493 10 3/ul (missing) TOTAL PROTEIN 2025-09-06:28 [facility] 7.2 g/dl As of April 2023 testing method has changed, this may include reference ranges. GFR - MDRD 2025-09-06 21:28 [facility] 71 (missing) The IDMS-traceable MDRD Study Equation has [...] valuation/gfr/c reatinine-stand ardization, last updated December 2011. MEAN PLATELET VOLUME 2025-09-06 21: [facility] 8.5 fl (missing) ALKALINE PHOSPHATASE 2025-09-06: [facility] 86 iu/l As of April 2023 testing method has changed, this may include reference ranges. MEAN CORPUSCULAR VOLUME 2025-09-06 21: [facility] 91.1 fl (missing) PLATELET ESTIMATE, MANUAL 2025-09-06:28 [facility] INCREASED (>450,000) (missing) (missing) DIFFERENTIAL COMMENT 2025-09-06:28 [facility] MANUAL=AUTO DIFF (missing) MANUAL DIFFERENTIAL AGREES WITH AUTO DIFFERENTIAL PLATELET MORPHOLOGY 2025-09-06 21:28 [facility] NORMAL APPEARANCE (missing) (missing) Result panel 26 WBC,URINE 2025-09-06 22:06 [facility] 0-3 /hpf (missing) UROBILINOGEN,URIN E 2025-09-06 22:06 [facility] 0.2 (NORMAL) e.u./dl (missing) SPECIFIC GRAVITY,URINE 2025-09-06 22:06 [facility] 1.010 (missing) (missing) RBC,URINE 2025-09-06 22:06 [facility] 6-10 /hpf (missing) PH,URINE 2025-09-06 22:06 [facility] 7.0 ph (missing) URINE MICROSCOPIC INDICATED? 2025-09-06 22:06 [facility] INDICATED (missing) (missing) OCCULT BLOOD,URINE 2025-09-06 22:06 [facility] MODERATE (missing) (missing) AMORPHOUS SEDIMENT,UR 2025-09-06 22:06 [facility] Moderate /lpf (missing) LEUKOCYTE ESTERASE, URINE 2025-09-06 22:06 [facility] NEGATIVE (missing) (missing) NITRITE,URINE 2025-09-06 22:06 [facility] NEGATIVE (missing) (missing) BILIRUBIN,URINE 2025-09-06 22:06 [facility] NEGATIVE (missing) Bilirubin can be influenced by color interference. Please correlate positive results with clinical presentation GLUCOSE, URINE (UA) 2025-09-06 22:06 [facility] NEGATIVE mg/dl (missing) KETONES,URINE (UA) 2025-09-06 22:06 [facility] NEGATIVE mg/dl (missing) PROTEIN,URINE 2025-09-06 22:06 [facility] NEGATIVE mg/dl (missing) SQUAMOUS EPITHELIAL CELL,UR 2025-09-06 22:06 [facility] NONE SEEN (missing) (missing) UR CULTURE IF IND 2025-09-06 22:06 [facility] NOT INDICATED (missing) (missing) BACTERIA,URINE 2025-09-06 22:06 [facility] None Seen /hpf (missing) CLARITY,URINE 2025-09-06 22:06 [facility] SL. CLOUDY (missing) (missing) COLOR,URINE 2025-09-06 22:06 [facility] YELLOW (missing) URINE CLEAN CATCH Social History date description facility
[2025-09-07] MEDS ORDERED: METOCLOPRAMIDE 10 MG TABLET PO PRN (00:55)
[2025-09-07] MEDS ORDERED: ONDANSETRON 4 MG/2 ML VIAL IVP PRN ×2 (00:55→16:16)
[2025-09-07] MEDS ORDERED: NALOXONE 0.4 MG/ML VIAL IVP PRN ×2 (00:55→16:16)
[2025-09-07] MEDS ORDERED: SIMETHICONE CHEW 80 MG TABLET PO PRN (00:55)
[2025-09-07] MEDS: LACTATED RINGERS 1,000 ML IV SCH (01:45)
[2025-09-07] MEDS: HYDROmorphone 0.5 MG/0.5 ML SYRINGE IVP PRN ×2 (01:51→17:32)
[2025-09-07] MEDS: SODIUM CHLORIDE 0.9% IV SCH (01:53)
[2025-09-07] MEDS: GENTAMICIN IV SCH (01:53)
[2025-09-07] MEDS: ACETAMINOPHEN 500 MG TABLET PO SCH (02:06)
[2025-09-07] MEDS: LABETALOL 100 MG TABLET PO SCH (03:06)
[2025-09-07] MEDS: CLINDAMYCIN 900 MG/50 ML 900 MG/50 ML BAG IV SCH (03:59)
[2025-09-07] MEDS: IBUPROFEN 600 MG TABLET PO SCH ×2 (04:05→21:36)
[2025-09-07 06:58] LABS: HCT - HEMATOCRIT 30.2 % (37.0-47.0); HGB - HEMOGLOBIN 9.6 g/dL (12.0-16.0); MEAN PLATELET VOLUME 8.4 fL (7.9-10.8); PLT - PLATELET COUNT 406.0 10^3/uL (130-450); RED CELL DISTRIBUTION WIDTH 16.3 % (12.0-15.0)
[2025-09-07] MEDS: NIFEdipine ER 30 MG TABLET PO SCH (10:13)
[2025-09-07] MEDS: HYDROmorphone 1 MG/ML CARPUJECT IVP PRN (10:14)
--- NOTE | 2025-09-07 10:30 | HISTORY & PHYSICAL EXAMINATION ---
History of Present Illness History of Present Illness HPI Comment/Other: Tabatha is a 35 yo who is s/p primary LTCS on 08/28/25 who was readmitted last evening with delayed hemorrhage with distended uterus concerning for retained blood clots/products of conception as well as possible endometritis with elevated WBC (afebrile). Plan for suction dilation and curettage. Tabatha seen at bedside. Reports pain overall wel l controlled, recently received dose of dilaudid. Has not had any further heavy bleeding episodes. Denies F/C, GREEN, vision changes, dizziness, CP, SOB. She has been breastpumping. In-laws are at bedside with her. Meds/Allgy Home Medications Ambulatory Orders Medication Instructions Recorded Confirmed vits [id number] fum 1 tab PO DAILY 09/07/25 28 mg iron-folic acid 800 mcg tablet (Classic ) labetalol 200 mg tablet 200 mg PO Q8H 08/29/2509/07 acetaminophen 500 mg capsule 500 mg PO Q4H PRN fever o r pain 09/01/25 09/07/25 ibuprofen 200 mg tablet (Advil) 200 mg PO PRN PRN feve r or pain 09/01/25 09/07/25 nifedipine 30 mg tablet,extended 30 mg PO DAILY #30 ta bs 09/03/25 09/07/25 release Allergies Allergies Allergy/AdvReac Type Severity Reaction Status Date / Time No Known Drug Allergies Allergy Verified 09/06/25 21:07 PFSH Active Problems All Active Problems Acute endometritis (Acute) Acute on chronic blood loss anemia (Acute) Anemia complicating , third trimester (Acute) Anxiety (Acute) Delayed hemorrhage (Acute) Gestational diabetes (Acute) Headache (Acute) History of severe pre-eclampsia (Acute) Hypertension (Chronic) Leukocytosis (Acute) care following delivery (Acute) endometritis (Acute) Severe preeclampsia (Acute) Uterine fibroid in antepartum period (Acute) Medical History Medical History Pre-eclampsia Acute upper respiratory infection First trimester bleeding Missed Family History Family History Mother Arthritis High blood pressure Social History Social History Smoking Status: Current every day smoker If you are a former smoker, when did you quit? (Date/Year): during Do you dip or chew tobacco?: No Patient requests smoking cessation consult: No Initiate information on smoking cessation: No Level: Independent Do you feel safe in your home environment?: Yes History of physical, verbal, emotional, or financial abuse?: No ETOH Use: None Substance Use: denies use POLST Patient has POLST: No POLST CPR Status: Attempt Resuscitation (CPR) Level of Medical Intervention: Full Treatment Exam Exam Vital Signs: Vital Signs x48h Temp Pulse Resp BP Pulse Ox 09/07/25 09:00 84 16 124/79 09/07/25 07:00 97.3 F L 77 16 140/82 H 98 09/07/25 06:00 98.8 F 69 15 114/65 99 Constitutional normal general appearance and no apparent distress HENMT normocephalic Respiratory breath sounds equal bilaterally, normal respiratory effort and clear to auscultation bilaterally Cardiovascular normal heart rate noted and regular rhythm noted Gastrointestinal abdomen soft to palpation generally mild TTP, no specific fundal tenderness. Removed steristrips from incision was is intact, appears to be healing well without evidence of infection. Genitourinary Deferred Extremities no LE edema, SCDs in place. Psychiatry cooperative and affect normal Conclusion/Plan Problem List (1) Delayed hemorrhage: (2) endometritis: (3) Acute on chronic blood loss anemia: (4) History of severe pre-eclampsia: Plan - We discussed imaging findings with concern for retained blood clots/products of conception in the setting of heavy bleeding episode. Recommended that we proceed with surgical management with suction dilation and curettage. Given significant distension of the uterus, concerned that if we do not evacuate the uterus she is at continued risk for further hemorrhage and infection. We discussed risks including pain, bleeding (possibly requiring blood transfusion or as a life-saving measure hysterectomy), infection, uterine perforation, damage to nearby structures including bowel/bladder, possible need for additional procedures, . She does desire to proceed. Consent was signed. - Currently receiving gentamycin/clindamycin for possible endometritis, will receive next dose of clindamycin just prior to procedure. - Will hold next dose of labetalol and can treat in OR if needed. Anticipate resuming her antihypertensive regimen after procedure. - She is T&C x 2 units. Lab Results Lab results reviewed: Yes 09/07/25 06:37 09/06/25 21:28 Diagnostic Imaging Results Diagnostic Imaging Results Comments: Pelvic ultrasound at CT A/P reports reviewed.
--- NOTE | 2025-09-07 10:48 | ANESTHESIA PROCEDURE NOTE ---
Pre-Anesthesia VS, & Labs Diagnosis Surgical Diagnosis:: PP bleeding Procedure Procedure: D&C Vitals Vital Signs: Temp Pulse Resp BP Pulse Ox 36.3 C L 84 16 124/79 98 09/07/25 07:00 09/07/25 09:00 09/07/25 09:00 09/07/25 09:00 09/07/25 07:00 NPO Last Fluid Intake: drinking water until 1200 Is Patient ?: No Lab Results Current Lab Results: Laboratory Tests 09/07/25 06:37: WBC 15.8 H, RBC 3.26 L, Hgb 9.6 L, Hct 30.2 L, MCV 92.6, MCH 29.4, MCHC 31.8 L, RDW 16.3 H, Plt Count 406, MPV 8.4 09/06/25 21:28: WBC 26.8 H, RBC 4.03 L, Hgb 11.7 L, Hct 36.7 L, MCV 91.1, MCH 29.0, MCHC 31.9 L, RDW 16.1 H, Plt Count 493 H, MPV 8.5, Neut # (Auto) 23.0 H, Lymph # (Auto) 1.8, [place] # (Auto) 1.4 H, Eos # (Auto) 0.2, Baso # (Auto) 0.2 H, Absolute Nucleated RBC 0.00, Band Neuts % (Manual) Not Reportable, Abnorm Lymph % (Manual) Not Reportable, Nucleated RBC % 0.0, Neutrophils # (Manual) Not Reportable, Lymphocytes # (Manual) Not Reportable, Monocytes # (Manual) Not Reportable, Eosinophils # (Manual) Not Reportable, Basophils # (Manual) Not Reportable, Differential Comment MANUAL=AUTO DIFF, Platelet Estimate INCREASED (>450,000), Platelet Morphology NORMAL APPEARANCE, RBC Morph Micro Appear 1+ ANISOCYTOSIS, Sodium 139, Potassium 4.0, Chloride 103, Carbon Dioxide 25, Anion Gap 11.0, BUN 22 H, Creatinine 0.9, Estimated GFR (MDRD) 71 L, Glucose 106 H, C alcium 11.0 H, Total Bilirubin 0.6, AST 14, ALT 26, Alkaline Phosphatase 86, Total Protein 7.2, Albumin 4.5, Globulin 2.7, Albumin/Globulin Ratio 1.7, Lipase 21 09/07/25 06:37 09/06/25 21:28 Meds/Allgy Home Medications Ambulatory Orders Medication Instructions Recorded Confirmed vits no.126-ferrous fum 1 tab PO DAILY 08/29/25 28 mg iron-folic acid 800 mcg tablet (Classic ) labetalol 200 mg tablet 200 mg PO Q8H 08/29/2509/01 acetaminophen 500 mg capsule 500 mg PO Q4H PRN fever o r pain 09/01/25 09/01/25 ibuprofen 200 mg tablet (Advil) 200 mg PO PRN PRN feve r or pain 09/01/25 09/01/25 nifedipine 30 mg tablet,extended 30 mg PO DAILY #30 ta bs 09/03/25 09/01/25 release Allergies Allergies Allergy/AdvReac Type Severity Reaction Status Date / Time No Known Drug Allergies Allergy Verified 09/06/25 21:07 PFSH Active Problems All Active Problems History of severe pre-eclampsia (Acute) Delayed hemorrhage (Acute) endometritis (Acute) Acute endometritis (Acute) Leukocytosis (Acute) Hypertension (Chronic) Headache (Acute) Acute on chronic blood loss anemia (Acute) care following delivery (Acute) Severe preeclampsia (Acute) Gestational diabetes (Acute) Anemia complicating , third trimester (Acute) Uterine fibroid in antepartum period (Acute) Anxiety (Acute) Medical History Medical History Pre-eclampsia Acute upper respiratory infection First trimester bleeding Missed Family History Family History Mother Arthritis High blood pressure Social History Social History Smoking Status: Current every day smoker If you are a former smoker, when did you quit? (Date/Year): during Do you dip or chew tobacco?: No Patient requests smoking cessation consult: No Initiate information on smoking cessation: No Level: Independent Do you feel safe in your home environment?: Yes History of physical, verbal, emotional, or financial abuse?: No ETOH Use: None Substance Use: denies use POLST Patient has POLST: No POLST CPR Status: Attempt Resuscitation (CPR) Level of Medical Intervention: Full Treatment Anesthesia Exam (Expanded) Exam General: Alert, Oriented x3 and Cooperative Dental: WNL Mouth Openin Fingerbreadth Mallampati classification: II Thyromental Distance: 4-6 cm Respiratory: Lungs clear Exam Exam Vital Signs: Vital Signs x48h Temp Pulse Resp BP Pulse Ox 09/07/25 09:00 84 16 124/79 09/07/25 07:00 36.3 C L 77 16 140/82 H 98 09/07/25 06:00 37.1 C 69 15 114/65 99 09/07/25 03:15 78 16 133/76 H 96 Plan Problem List (1) endometritis: Plan: S/p 1' LTCS 08/28, now with acute pain, heavy vaginal bleeding, US/CT demonstrating large endometrial fluid collection, and elevated WBC, consistent with an early endometritis. She has been afebrile and is not displaying signs of sepsis at this time. Given endometrial fluid collection, retained POC is possible, though this is less likely following a . Imaging also shows areas of possible abscess vs hematoma; however, it is currently unclear if these areas may be the locations of her previously-noted fibroids. Current CBC does not demonstrate acute anemia, though H/H may lag blood loss. - Readmit to inpatient. Pt will go to [facility] for open bed. - Initiated Zosyn and Flagyl in the ER, but will switch to Clinda and Gent as the recommended ACOG mgmt for endometritis. Start Clinda 900 mg Q 8 hrs, first dose 6 hrs after Zosyn (approx 0400), and Gentamicin 5 mg/kg Q 24 hrs, first dose upon arrival to floor. - Pain mgmt: Scheduled Tylenol and Motrin + Dilaudid 1 mg Q 2 hrs prn. If pain starting to improve, consider transition to PO oxycodone. - Weigh pads and monitor blood loss. Consider buccal or sublingual misoprostol if bleeding continues to be heavy. - Consider surgical intervention (D&C or hysteroscopy) if not clinically improving after 24-48 hrs of antibiotics. If suspected abscesses, IR drainage may need to be considered if not improving. - CBC daily to monitor WBC and H/H (next in am 12/5). May need more frequent CBC if concern for declining H/H and possible need for transfusion. - IV fluids LR 100 ml/hr initially. Pt eating/drinking well, so may be able to heplock during day 12/5. - Breast-pump to bedside. Advised pump/dispose for [address] and high-dose dilaudid. - Diet: regular for now; initiate NPO status if needing to consider surgical intervention. - VTE prophylaxis: Ambulation; SCD's while in bed. (2) Delayed hemorrhage: (3) Acute on chronic blood loss anemia: Plan Anesthesia Type: General Consent for Procedure(s) Verified and Reviewed: Yes Code Status: Attempt Resuscitation ASA Classification ASA classification: 3-Severe systemic disease Is this case an emergency?: No
[2025-09-07] MEDS ORDERED: PROPOFOL 200 MG/20 ML VIAL IVP ONE ×2 (13:00→15:45)
[2025-09-07] MEDS ORDERED: LIDOCAINE-PF 2% 10 ML AMP SUBQ ONE (13:00)
[2025-09-07] MEDS ORDERED: MIDAZOLAM 2 MG/2 ML VIAL ONE (13:00)
[2025-09-07] MEDS ORDERED: fentaNYL 100 MCG/2 ML VIAL ONE ×3 (13:01→17:07)
--- NOTE | 2025-09-07 13:37 | PHARMACY PROGRESS NOTE ---
Best Possible Medication History Admit Date and Time: 09/07/25 820642 Home Medications Medication Instructions Recorded Confirmed Type vits no.126-ferrous fum 1 tab PO DAILY 09/07/25 History 28 mg iron-folic acid 800 mcg tablet (Classic ) labetalol 200 mg tablet 200 mg PO Q8H 08/29/2509/07 History acetaminophen 500 mg capsule 500 mg PO Q4H PRN fever o r pain 09/01/25 09/07/25 History ibuprofen 200 mg tablet (Advil) 200 mg PO PRN PRN feve r or pain 09/01/25 09/07/25 History nifedipine 30 mg tablet,extended 30 mg PO DAILY #30 ta bs 09/03/25 09/07/25 Rx release Processed by: Pharmacy Medications reviewed in ED?: No Medication History completed: Yes Patient Interview: Completed Secondary Source(s): Pharmacy records and Insurance records [facility] Statement: As the person ultimately responsible for medication therapy, providers are able to order a medication from an existing home medication list in [facility] via the "Reconcile Routine" prior to Confirmation of that medication by direct support staff. Such practice is discouraged except when the physician, in their clinical judgment, deems that a medical need exists for a medication without regard to previous use.
[2025-09-07] MEDS ORDERED: CARBOPROST TROMETHAMINE 250 MCG/ML VIAL IM ONE ×2 (14:50→15:54)
[2025-09-07] MEDS ORDERED: METHYLERGONOVINE 0.2 MG/ML VIAL ONE (14:50)
[2025-09-07] MEDS ORDERED: DEXAMETHASONE 4 MG/ML VIAL ONE (15:48)
[2025-09-07] MEDS ORDERED: ONDANSETRON 4 MG/2 ML VIAL ONE (15:48)
[2025-09-07] MEDS ORDERED: [UNRECOGNIZED DRUG - OTHER] IV ONE (15:54)
[2025-09-07] MEDS ORDERED: METOCLOPRAMIDE 10 MG/2 ML VIAL IVP PRN (16:16)
[2025-09-07] MEDS ORDERED: ePHEDrine 50 MG/ML VIAL IVP PRN (16:16)
[2025-09-07] MEDS ORDERED: fentaNYL 100 MCG/2 ML VIAL IVP PRN (16:16)
[2025-09-07] MEDS ORDERED: MORPHINE 2 MG/ML CARPUJECT IVP PRN (16:16)
[2025-09-07] MEDS ORDERED: ATROPINE ABBOJECT 1 MG/10 ML SYRINGE IVP PRN (16:16)
[2025-09-07] MEDS ORDERED: SILVER NITRATE APPLICATOR TOP ONE (16:39)
[2025-09-07 16:58] LABS: HCT - HEMATOCRIT 24.7 % (37.0-47.0); HGB - HEMOGLOBIN 7.6 g/dL (12.0-16.0); MEAN PLATELET VOLUME 8.4 fL (7.9-10.8); NRBC ABSOLUTE COUNT (AUTO) 0.00 x10^3/uL; NUCLEATED RED BLOOD CELLS AUTO 0.0 /100WBC; PLT - PLATELET COUNT 298 10^3/uL (130-450); RED CELL DISTRIBUTION WIDTH 16.4 % (12.0-15.0)
[2025-09-07] MEDS ORDERED: LACTATED RINGERS 1,000 ML IV SCH (17:00)
[2025-09-07 17:05] LABS: INR 1.2 (0.8-1.2); PT - PROTHROMBIN TIME 13.1 secs (9.9-12.6)
[2025-09-07 17:11] LABS: ALT ALANINE AMINOTRANSFERASE 15.0 IU/L (10-60); AST ASPARTATE AMINOTRANSFERASE 9.0 IU/L (10-42); BUN - BLOOD UREA NITROGEN 15.0 mg/dL (6-20); CARBON DIOXIDE - CO2 21.0 mmol/L (21-32); CREATININE 0.8 mg/dL (0.6-1.3); GFR - MDRD 82.0 (>89)
[2025-09-07] MEDS ORDERED: ACETAMINOPHEN 1,000 MG/100 ML 1,000 MG/100 ML BAG IV ONE (17:11)
[2025-09-07] MEDS: ACETAMINOPHEN 1,000 MG/100 ML 1,000 MG/100 ML BAG IV ONE (17:21)
[2025-09-07] MEDS ORDERED: HYDROmorphone 0.5 MG/0.5 ML SYRINGE ONE ×2 (17:31→17:42)
--- NOTE | 2025-09-07 17:54 | OPERATIVE REPORT ---
Operative Report General Admit Date: 09/07/25 Procedure Data: Operation Date: 09/07/25 14:00 Proposed Procedures p SUCTION Dilation & Curettage(Not Applicable) - Joyce Sanchez MD Anesthesia Type General Case Staff Anesthesia Provider: Steve Waldrop Case Times Into Recovery: 09/07/25 17:03 Procedure Start: 09/07/25 14:56 Procedure End: 09/07/25 16:55 Time out: 09/07/25 14:56 Other Other Information/Narrative: Operative Report DATE OF PROCEDURE: 09/07/25 Surgeon: Joyce Sanchez MD Assistants: Leonela Pool MD Pre-Op Diagnosis: Delayed hemorrhage, possible retained blood clots/products of conception, acute blood loss anemia Post-Op Diagnosis: Same Procedures: Suction dilation and curettage, hysteroscopy, placement of Bakri balloon Findings: Uterus was approximately 18wk size. Cervix not dilated, but was soft and mechanical dilation was easy. Large amount of clot/tissue on suction D&C with slow persistent oozing after evacuation. Very difficult visualization at time at time of hysteroscopy. Specimens: uterine contents/products of conception Anesthesia Technique: General anesthesia Estimated Blood Loss: 600cc Blood Replacement: none Fluid Replacement: 1000cc Fluid deficit: approximately 500cc Drains: bladder drained via straight catheter of approximately 30cc clear yellow urine. Carrero placed at end of procedure. Complications: none Condition: stable DESCRIPTION OF PROCEDURE: The patient was taken to the operating room and general anesthesia was administered. Patient was then placed in the dorsal lithotomy position in Alexis stirrups and prepped and draped in the usual sterile fashion. Exam under anesthesia was performed with the above findings. IV tranexamic acid was given prophylactically at the start of the procedure. A weighted speculum and right angle retractor were placed in the vagina and a allis clamp was used to grasp the anterior lip of the cervix. The cervix was progressively dilated to accommodate a 12mm suction curette. The cervix was very soft and dilated easily. I asked anesthesia to start IV pitocin. Under US guidance, a 12mm rigid curette was then introduced into the cavity and suction was applied and the curette withdrawn in a rotating fashion. This was repeated multiple times until no further material was returned. After evacuation of uterine contents, the endometrial stipe did appear thin, but blood was reaccumulating and persistent bleeding from the cervix. She was given IM hemabate and 600mcg rectal misoprostol. Additional passes with the suction curette and then gentle sharp curettage were performed. Bleeding persisted. We decided to perform hysteroscopy to try to visualize any additional bleeding area/retained tissue. Again under ultrasound guidance, the myosure hysteroscope was advance into the uterine cavity, however, visualization was extremely dif ficult and it was not helpful at all. The hysteroscope was removed and the suction curette was used to remove fluid and assess further bleeding. As oozing persisted, Dr. Pool then attempted hysteroscopy again but still unable to see adequately. She then performed additional passes with both suction and gentle sharp curettage. Additional doses of IV tranexamic acid and IM hemabate were given. Due to slow persistent oozing, a Bakri balloon was placed with US guidance and filled with 180cc fluid. Oozing from the external cervix was noted and silver nitrate and monsels solution were applied with hemostasis noted A carrero catheter was placed. Minimal blood was noted in the bakri tubing and she was not bleeding around the bakri at the cervix. All instruments were removed from the vagina. Counts were reported as correct. The patient was returned to the supine position. She was awakened in the operating room and taken in stable condition to the recovery room. Joyce Sanchez MD
--- NOTE | 2025-09-07 18:15 | ANESTHESIA POST OP EVALUATION ---
Anesthesia Post Eval Post Anesthesia Eval Vitals: Last Vital Signs Temp 37.3 C 09/07/25 17:50 Pulse 81 09/07/25 18:00 Resp 14 09/07/25 18:00 BP 131/82 H 09/07/25 18:00 Pulse Ox 97 09/07/25 18:00 O2 Flow Rate 2 09/07/25 18:00 CV Function Including HR & BP: Stable Pain Control: Satisfactory Nausea & Vomiting: Negative Mental Status: Baseline Respiratory Status: Airway Patent Hydration Status: Satisfactory Anesthesia Complications: None
[2025-09-07] MEDS: OXYTOCIN/SODIUM CHLORIDE 500 ML IV PRN (18:18)
[2025-09-07] MEDS: DIPHENOX/ATROPINE 2.5/0.025 MG TABLET PO STA (18:20)
[2025-09-07] MEDS ORDERED: LOPERAMIDE 2 MG CAPSULE PO PRN (18:54)
[2025-09-07] MEDS: oxyCODONE 5 MG TABLET PO PRN (19:28)
[2025-09-07] MEDS: BENZOCAINE/MENTHOL LOZENGE MM PRN (20:11)
[2025-09-07] MEDS: LIDOCAINE/PRILOCAINE 2.5% CREAM 5 GM TUBE TOP PRN (20:11)
[2025-09-07 21:17] LABS: HCT - HEMATOCRIT 25.5 % (37.0-47.0); HGB - HEMOGLOBIN 7.9 g/dL (12.0-16.0); MEAN PLATELET VOLUME 8.5 fL (7.9-10.8); PLT - PLATELET COUNT 364.0 10^3/uL (130-450); RED CELL DISTRIBUTION WIDTH 16.4 % (12.0-15.0)
[2025-09-07 21:35] LABS: INR 1.1 (0.8-1.2); PT - PROTHROMBIN TIME 12.1 secs (9.9-12.6)
--- NOTE | 2025-09-07 21:58 | PROVIDER PROGRESS NOTE ---
Subjective Prog Note Date Prog Note Date: 09/07/25 Prog Note Time: 21:51 Subjective Subjective: Tabatha was evaluated this evening at about 6:30pm. Discussed surgical findings and procedure performed. She was reporting pain, thinks mostly from the carrero catheter. No dizziness, SOB. On exam, her abdomen was soft, non-distended, and with uterus 1-2 below umbilicus (not increased from before). No additional output noted in Bakri tubing and no vaginal bleeding. We discussed plan for overnight with repeat labs around 10pm, continue IV antibiotics, continue IV pitocin, anticipate removing Bakri balloon in the morning. She asked about [employer] for pain, but I encouraged her to try oral meds if possible because I think they oral meds will likely control her pain better. We discussed possible blood transfusion pending next set of labs and associated risks. Will try topical EMLA cream around carrero to see if that will help with pain. 10pm labs reviewed and are stable, will repeat CBC in AM. Per RN, she is still having persistent pain from her carrero so will remove. She does not have packing in place so I think she will be albe to void without issue. I discussed having her up to void very 4 hours or so. Current Medications Current Medications Current Medications: Current Medications Generic Name Dose Route Start Last Admin Trade Name Freq PRN Reason Stop Dose Admin Acetaminophen 1,000 mg 09/07/25 00:55 09/07/25 19:38 Acetaminophen 500 Mg Tablet PO Not Given Q8H KUSH Diphenhydramine HCl 25 mg 09/07/25 00:55 Diphenhydramine Inj 50 Mg/Ml Vial IVP Q6H PRN Allergy Symptoms Hydromorphone HCl 1 mg 09/07/25 07:18 09/07/25 20:22 Hydromorphone 1 Mg/Ml Carpuject IVP 1 mg Q2HR PRN Administration Abdominal Pain Clindamycin/Sodium Chloride 900 mg in 50 mls @ 50 mls/hr 09/07/25 04:00 09/07/25 21:46 Cleocin 900 Mg/50 Ml IV 50 mls/hr Q8HR KUSH Administration Lactated Ringer's 1,000 mls @ 100 mls/hr 09/07/25 01:00 09/07/25 18:20 Lr IV 100 mls/hr .Q10H KUSH Administration Oxytocin/Sodium Chloride 500 mls @ 50 mls/hr 09/07/25 12:41 09/07/25 18:18 Pitocin/Sodium Chloride IV 50 milliunit/min PRN PRN 50 mls/hr POST- HEMORR PREVENTION Administration Protocol 50 MILLIUNIT/MIN Gentamicin Sulfate 286 mg/ 107.15 mls @ 107.15 mls/hr 09/08/25 01:00 Sodium Chloride IV Q24H [facility] Ibuprofen 600 mg 09/07/25 22:00 09/07/25 21:36 Ibuprofen 600 Mg Tablet PO 600 mg Q6H [facility] Administration Labetalol HCl 200 mg 09/07/25 00:55 09/07/25 16:55 Labetalol 100 Mg Tablet PO Not Given Q8H [facility] Lidocaine/Prilocaine 1 applic 09/07/25 18:58 09/07/25 20:11 Lidocaine/Prilocaine 2.5% Cream 5 Gm Tube TOP 1 applic Q4HR PRN Administration pain with carrero catheter Loperamide HCl 2 mg 09/07/25 18:54 Loperamide 2 Mg Capsule PO QID PRN Diarrhea Metoclopramide HCl 5 mg 09/07/25 00:55 Metoclopramide 10 Mg Tablet PO Q6HR PRN Nausea / Vomiting Naloxone HCl 0.4 mg 09/07/25 00:55 Naloxone 0.4 Mg/Ml Vial IVP .ONCE PRN Opioid overdose Nifedipine 30 mg 09/07/25 09:00 09/07/25 10:13 Nifedipine Er 30 Mg Tablet PO 30 mg DAILY [facility] Administration Ondansetron HCl 4 mg 09/07/25 00:55 Ondansetron 4 Mg/2 Ml Vial IVP Q4HR PRN Nausea / Vomiting Oxycodone HCl 5 - 10 mg 09/07/25 17:29 09/07/25 19:28 Oxycodone 5 Mg Tablet PO 5 mg Q4HR PRN Administration Moderate Pain (Level 4-6) Simethicone 80 mg 09/07/25 00:55 Simethicone Chew 80 Mg Tablet PO TID PRN Gas Throat Lozenges 1 lozenge 09/07/25 19:46 09/07/25 20:11 Benzocaine/Menthol Lozenge MM 1 lozenge Q2HR PRN Administration Mouth Sore Pain Objective Vital Signs/Intake & Output Reviewed Vital Signs: Yes Vital Signs: Vital Signs x48h Temp Pulse Pulse Resp BP BP Pulse Ox 09/07/25 21:00 97.9 F 81 18 128/81 99 09/07/25 19:36 98.1 F 94 20 99 09/07/25 18:55 98.4 F 79 19 124/77 98 09/07/25 18:15 85 141/80 H 99 09/07/25 18:00 81 14 131/82 H 97 09/07/25 17:55 78 14 136/81 H 98 09/07/25 17:50 99.1 F 74 13 125/77 100 09/07/25 17:45 78 15 135/76 H 99 09/07/25 17:45 76 19 135/76 H 99 09/07/25 17:40 72 17 138/78 H 100 09/07/25 17:40 70 13 138/78 H 100 09/07/25 17:35 79 16 129/79 97 09/07/25 17:35 81 22 129/79 97 09/07/25 17:30 78 18 133/81 H 99 09/07/25 17:30 73 16 133/81 H 96 09/07/25 17:25 77 25 H 130/77 95 09/07/25 17:25 98.6 F 78 23 130/77 95 09/07/25 17:21 75 27 H 137/80 H 93 09/07/25 17:15 90 19 122/71 95 09/07/25 17:15 87 22 122/71 95 09/07/25 17:15 87 17 122/71 92 09/07/25 17:10 90 28 H 120/58 L 91 L 09/07/25 17:06 87 23 133/81 H 100 09/07/25 17:05 85 14 99 O2 Flow Rate 09/07/25 21:00 2 09/07/25 19:36 2 09/07/25 18:55 2 09/07/25 18:15 2 09/07/25 18:00 2 09/07/25 17:55 09/07/25 17:50 2 09/07/25 17:45 09/07/25 17:45 09/07/25 17:40 09/07/25 17:40 3 09/07/25 17:35 09/07/25 17:35 3 12/05/25 17:30 09/07/25 17:30 3 09/07/25 17:25 09/07/25 17:25 3 09/07/25 17:21 09/07/25 17:15 09/07/25 17:15 3 09/07/25 17:15 3 09/07/25 17:10 09/07/25 17:06 09/07/25 17:05 Intake & Output: Intake & Output 09/04/25 09/05/25 09/06/25 09/07/25 23:59 23:59 23:59 23:59 Intake Total 1000 / 1000 3515.15 / 3515.15 Output Total 2860 / 2860 Balance 1000 / 1000 655.15 / 655.15 Weight (kg) 166 lb 7.184 oz 166 lb 7.184 oz Lab Results 09/07/25 21:05 09/07/25 16:50 Other Labs: Lab Results x24hrs 09/07/25 09/07/25 09/07/25 Range/Units 21:19 21:05 16:50 WBC 9.4 7.0 (4.8-10.8) x10^3/uL RBC 2.72 L 2.62 L (4.20-5.40) 10^6/uL Hgb 7.9 L 7.6 L (12.0-16.0) g/dL Hct 25.5 L 24.7 L (37.0-47.0) % MCV 93.8 94.3 (81.0-99.0) fL MCH 29.0 29.0 (27.0-31.0) pg MCHC 31.0 L 30.8 L (32.0-36.0) g/dL RDW 16.4 H 16.4 H (12.0-15.0) % Plt Count 364 298 (130-450) 10^3/uL MPV 8.5 8.4 (7.9-10.8) fL Neut # (Auto) 4.5 (1.5-6.6) 10^3/uL Lymph # (Auto) 1.6 (1.5-3.5) 10^3/uL [place] # (Auto) 0.6 (0.0-1.0) 10^3/uL Eos # (Auto) 0.2 (0.0-0.7) 10^3/uL Baso # (Auto) 0.1 (0.0-0.1) 10^3/uL Absolute Nucleated RBC 0.00 x10^3/uL Band Neuts % (Manual) Abnorm Lymph % (Manual) Nucleated RBC % 0.0 /100WBC Neutrophils # (Manual) Lymphocytes # (Manual) Monocytes # (Manual) Eosinophils # (Manual) Basophils # (Manual) Differential Comment Platelet Estimate (NORMAL) Platelet Morphology (NORMAL) RBC Morph Micro Appear (NORMAL) PT 12.1 13.1 H (9.9-12.6) secs INR 1.1 1.2 (0.8-1.2) APTT 25.3 29.5 (24.9-33.3) secs Fibrinogen 267 239 (220-496) mg/dL Sodium 138 (135-145) mmol/L Potassium 3.9 (3.5-4.5) mmol/L Chloride 111 (101-111) mmol/L Carbon Dioxide 21 (21-32) mmol/L Anion Gap 6.0 (6-13) BUN 15 (6-20) mg/dL Creatinine 0.8 (0.6-1.3) mg/dL Estimated GFR (MDRD) 82 L (>89) Glucose 94 (74-104) mg/dL Calcium 7.3 L (8.5-10.3) mg/dL Total Bilirubin 0.5 (0.2-1.0) mg/dL AST 9 L (10-42) IU/L ALT 15 (10-60) IU/L Alkaline Phosphatase 59 (42-121) IU/L Total Protein 5.0 L (6.4-8.9) g/dL Albumin 3.0 L (3.2-5.5) g/dL Globulin 2.0 L (2.1-4.2) g/dL Albumin/Globulin Ratio 1.5 (1.0-2.2) Lipase (11-82) U/L Urine Color Urine Clarity (CLEAR) Urine pH (5.0-7.5) PH Ur Specific [place] (1.002-1.030) Urine Protein (NEGATIVE) mg/dL Urine Glucose (UA) (NEGATIVE) mg/dL Urine Ketones (NEGATIVE) mg/dL Urine Occult Blood (NEGATIVE) Urine Nitrite (NEGATIVE) Urine Bilirubin (NEGATIVE) Urine Urobilinogen (NORMAL) E.U./dL Ur Leukocyte Esterase (NEGATIVE) Urine RBC (0-5) /HPF Urine WBC (0-5) /HPF Ur Squamous Epith Cells (<= Few) Amorphous Sediment /LPF Urine Bacteria (None Seen) /HPF Ur Microscopic Review Urine Culture Comments Blood Type Antibody Screen Crossmatch IS Only 09/07/25 09/07/25 09/06/25 Range/Units 10:40 06:37 22:06 WBC 15.8 H (4.8-10.8) x10^3/uL RBC 3.26 L (4.20-5.40) 10^6/uL Hgb 9.6 L (12.0-16.0) g/dL Hct 30.2 L (37.0-47.0) % MCV 92.6 (81.0-99.0) fL MCH 29.4 (27.0-31.0) pg MCHC 31.8 L (32.0-36.0) g/dL RDW 16.3 H (12.0-15.0) % Plt Count 406 (130-450) 10^3/uL MPV 8.4 (7.9-10.8) fL Neut # (Auto) (1.5-6.6) 10^3/uL Lymph # (Auto) (1.5-3.5) 10^3/uL [place] # (Auto) (0.0-1.0) 10^3/uL Eos # (Auto) (0.0-0.7) 10^3/uL Baso # (Auto) (0.0-0.1) 10^3/uL Absolute Nucleated RBC x10^3/uL Band Neuts % (Manual) Abnorm Lymph % (Manual) Nucleated RBC % /100WBC Neutrophils # (Manual) Lymphocytes # (Manual) Monocytes # (Manual) Eosinophils # (Manual) Basophils # (Manual) Differential Comment Platelet Estimate (NORMAL) Platelet Morphology (NORMAL) RBC Morph Micro Appear (NORMAL) PT (9.9-12.6) secs INR (0.8-1.2) APTT (24.9-33.3) secs Fibrinogen (220-496) mg/dL Sodium (135-145) mmol/L Potassium (3.5-4.5) mmol/L Chloride (101-111) mmol/L Carbon Dioxide (21-32) mmol/L Anion Gap (6-13) BUN (6-20) mg/dL Creatinine (0.6-1.3) mg/dL Estimated GFR (MDRD) (>89) Glucose (74-104) mg/dL Calcium (8.5-10.3) mg/dL Total Bilirubin (0.2-1.0) mg/dL AST (10-42) IU/L ALT (10-60) IU/L Alkaline Phosphatase (42-121) IU/L Total Protein (6.4-8.9) g/dL Albumin (3.2-5.5) g/dL Globulin (2.1-4.2) g/dL Albumin/Globulin Ratio (1.0-2.2) Lipase (11-82) U/L Urine Color YELLOW Urine Clarity SL. CLOUDY (CLEAR) Urine pH 7.0 (5.0-7.5) PH Ur Specific [place] 1.010 (1.002-1.030) Urine Protein NEGATIVE (NEGATIVE) mg/dL Urine Glucose (UA) NEGATIVE (NEGATIVE) mg/dL Urine Ketones NEGATIVE (NEGATIVE) mg/dL Urine Occult Blood MODERATE (NEGATIVE) Urine Nitrite NEGATIVE (NEGATIVE) Urine Bilirubin NEGATIVE (NEGATIVE) Urine Urobilinogen 0.2 (NORMAL) (NORMAL) E.U./dL Ur Leukocyte Esterase NEGATIVE (NEGATIVE) Urine RBC 6-10 H (0-5) /HPF Urine WBC 0-3 (0-5) /HPF Ur Squamous Epith Cells NONE SEEN (<= Few) Amorphous Sediment Moderate /LPF Urine Bacteria None Seen (None Seen) /HPF Ur Microscopic Review INDICATED Urine Culture Comments NOT INDICATED Blood Type O POSITIVE Antibody Screen NEGATIVE Crossmatch IS Only See Detail 09/06/25 Range/Units 21:28 WBC (4.8-10.8) x10^3/uL RBC (4.20-5.40) 10^6/uL Hgb (12.0-16.0) g/dL Hct (37.0-47.0) % MCV (81.0-99.0) fL MCH (27.0-31.0) pg MCHC (32.0-36.0) g/dL RDW (12.0-15.0) % Plt Count (130-450) 10^3/uL MPV (7.9-10.8) fL Neut # (Auto) 23.0 H (1.5-6.6) 10^3/uL Lymph # (Auto) 1.8 (1.5-3.5) 10^3/uL [place] # (Auto) 1.4 H (0.0-1.0) 10^3/uL Eos # (Auto) 0.2 (0.0-0.7) 10^3/uL Baso # (Auto) 0.2 H (0.0-0.1) 10^3/uL Absolute Nucleated RBC 0.00 x10^3/uL Band Neuts % (Manual) Not Reportable Abnorm Lymph % (Manual) Not Reportable Nucleated RBC % 0.0 /100WBC Neutrophils # (Manual) Not Reportable Lymphocytes # (Manual) Not Reportable Monocytes # (Manual) Not Reportable Eosinophils # (Manual) Not Reportable Basophils # (Manual) Not Reportable Differential Comment MANUAL=AUTO DIFF Platelet Estimate INCREASED (>450,000) (NORMAL) Platelet Morphology NORMAL APPEARANCE (NORMAL) RBC Morph Micro Appear 1+ ANISOCYTOSIS (NORMAL) PT (9.9-12.6) secs INR (0.8-1.2) APTT (24.9-33.3) secs Fibrinogen (220-496) mg/dL Sodium 139 (135-145) mmol/L Potassium 4.0 (3.5-4.5) mmol/L Chloride 103 (101-111) mmol/L Carbon Dioxide 25 (21-32) mmol/L Anion Gap 11.0 (6-13) BUN 22 H (6-20) mg/dL Creatinine 0.9 (0.6-1.3) mg/dL Estimated GFR (MDRD) 71 L (>89) Glucose 106 H (74-104) mg/dL Calcium 11.0 H (8.5-10.3) mg/dL Total Bilirubin 0.6 (0.2-1.0) mg/dL AST 14 (10-42) IU/L ALT 26 (10-60) IU/L Alkaline Phosphatase 86 (42-121) IU/L Total Protein 7.2 (6.4-8.9) g/dL Albumin 4.5 (3.2-5.5) g/dL Globulin 2.7 (2.1-4.2) g/dL Albumin/Globulin Ratio 1.7 (1.0-2.2) Lipase 21 (11-82) U/L Urine Color Urine Clarity (CLEAR) Urine pH (5.0-7.5) PH Ur Specific [place] (1.002-1.030) Urine Protein (NEGATIVE) mg/dL Urine Glucose (UA) (NEGATIVE) mg/dL Urine Ketones (NEGATIVE) mg/dL Urine Occult Blood (NEGATIVE) Urine Nitrite (NEGATIVE) Urine Bilirubin (NEGATIVE) Urine Urobilinogen (NORMAL) E.U./dL Ur Leukocyte Esterase (NEGATIVE) Urine RBC (0-5) /HPF Urine WBC (0-5) /HPF Ur Squamous Epith Cells (<= Few) Amorphous Sediment /LPF Urine Bacteria (None Seen) /HPF Ur Microscopic Review Urine Culture Comments Blood Type Antibody Screen Crossmatch IS Only Assessment/Plan Problem List (1) Delayed hemorrhage: (2) endometritis: (3) Acute on chronic blood loss anemia: (4) History of severe pre-eclampsia:
[2025-09-07] MEDS ORDERED: IBUPROFEN 600 MG TABLET PO SCH (23:45)
[2025-09-08] MEDS ORDERED: SODIUM CHLORIDE 0.9% 100ML 100 ML IV ONE (00:38)
[2025-09-08] MEDS: SODIUM CHLORIDE 0.9% IV SCH (00:58)
[2025-09-08] MEDS: GENTAMICIN IV SCH (00:58)
[2025-09-08 07:13] LABS: HCT - HEMATOCRIT 23.7 % (37.0-47.0); HGB - HEMOGLOBIN 7.3 g/dL (12.0-16.0); MEAN PLATELET VOLUME 8.3 fL (7.9-10.8); NRBC ABSOLUTE COUNT (AUTO) 0.00 x10^3/uL; NUCLEATED RED BLOOD CELLS AUTO 0.0 /100WBC; PLT - PLATELET COUNT 364 10^3/uL (130-450); RED CELL DISTRIBUTION WIDTH 16.4 % (12.0-15.0)
--- NOTE | 2025-09-08 10:11 | PROVIDER PROGRESS NOTE ---
Subjective Prog Note Date Prog Note Date: 09/08/25 Prog Note Time: 10:11 Subjective Subjective: Tabatha reports still having pain this morning, lower abdomen. A little improved after the catheter was removed last night but pain medication doens't really seem to help that much. She has been up to the bedside commode to urinate. Bleeding has been minimal, no additional output in the Bakri tubing. She denies any dizziness, SOB. Current Medications Current Medications Current Medications: Current Medications Generic Name Dose Route Start Last Admin Trade Name Freq PRN Reason Stop Dose Admin Acetaminophen 1,000 mg 09/07/25 00:55 09/08/25 09:04 Acetaminophen 500 Mg Tablet PO 1,000 mg Q8H KUSH Administration Diphenhydramine HCl 25 mg 09/07/25 00:55 Diphenhydramine Inj 50 Mg/Ml Vial IVP Q6H PRN Allergy Symptoms Hydromorphone HCl 1 mg 09/07/25 07:18 09/08/25 01:18 Hydromorphone 1 Mg/Ml Carpuject IVP 1 mg Q2HR PRN Administration Abdominal Pain Clindamycin/Sodium Chloride 900 mg in 50 mls @ 50 mls/hr 09/07/25 04:00 09/08/25 06:21 Cleocin 900 Mg/50 Ml IV Infused Q8HR KUSH Infusion Lactated Ringer's 1,000 mls @ 100 mls/hr 09/07/25 01:00 09/08/25 06:21 Lr IV Infused .Q10H KUSH Infusion Oxytocin/Sodium Chloride 500 mls @ 50 mls/hr 09/07/25 12:41 09/08/25 09:57 Pitocin/Sodium Chloride IV 50 milliunit/min PRN PRN 50 mls/hr POST- HEMORR PREVENTION Administration Protocol 50 MILLIUNIT/MIN Gentamicin Sulfate 286 mg/ 107.15 mls @ 107.15 mls/hr 09/08/25 01:00 09/08/25 02:00 Sodium Chloride IV Infused Q24H KUSH Infusion Ibuprofen 600 mg 09/07/25 22:00 09/08/25 09:58 Ibuprofen 600 Mg Tablet PO 600 mg Q6H KUSH Administration Labetalol HCl 200 mg 09/07/25 00:55 09/08/25 09:58 Labetalol 100 Mg Tablet PO Not Given Q8H KUSH Lidocaine/Prilocaine 1 applic 09/07/25 18:58 09/07/25 20:11 Lidocaine/Prilocaine 2.5% Cream 5 Gm Tube TOP 1 applic Q4HR PRN Administration pain with carrero catheter Loperamide HCl 2 mg 09/07/25 18:54 Loperamide 2 Mg Capsule PO QID PRN Diarrhea Metoclopramide HCl 5 mg 09/07/25 00:55 Metoclopramide 10 Mg Tablet PO Q6HR PRN Nausea / Vomiting Naloxone HCl 0.4 mg 09/07/25 00:55 Naloxone 0.4 Mg/Ml Vial IVP .ONCE PRN Opioid overdose Nifedipine 30 mg 09/07/25 09:00 09/08/25 09:58 Nifedipine Er 30 Mg Tablet PO 30 mg DAILY KUSH Administration Ondansetron HCl 4 mg 09/07/25 00:55 Ondansetron 4 Mg/2 Ml Vial IVP Q4HR PRN Nausea / Vomiting Oxycodone HCl 5 - 10 mg 09/07/25 17:29 09/08/25 09:41 Oxycodone 5 Mg Tablet PO 5 mg Q4HR PRN Administration Moderate Pain (Level 4-6) Simethicone 80 mg 09/07/25 00:55 Simethicone Chew 80 Mg Tablet PO TID PRN Gas Throat Lozenges 1 lozenge 09/07/25 19:46 09/07/25 20:11 Benzocaine/Menthol Lozenge MM 1 lozenge Q2HR PRN Administration Mouth Sore Pain Objective Vital Signs/Intake & Output Vital Signs: Vital Signs x48h Temp Pulse Resp BP Pulse Ox O2 Flow Rate 09/08/25 09:00 98.6 F 85 17 119/62 98 09/08/25 07:15 98.6 F 86 19 123/65 96 09/08/25 04:51 98.1 F 77 18 128/62 98 09/08/25 03:00 77 16 120/62 97 09/08/25 02:15 98.2 F 85 18 120/62 96 Intake & Output: Intake & Output 09/05/25 09/06/25 09/07/25 09/08/25 23:59 23:59 23:59 23:59 Intake Total 1000 / 1000 3565.15 / 3565.15 2937.15 / 2937.15 Output Total 3710 / 3710 1900 / 1900 Balance 1000 / 1000 -144.85 / -144.85 1037.15 / 1037.15 Weight (kg) 166 lb 7.184 oz 166 lb 7.184 oz Objective Comments/Other: Gen: NAD Chest: non labored respirations Abd: soft, mildly TTP, Uterus approximately 1cm below umbilicus. Non-distended, no rebound/guarding. Ext: SCDs in place, no LE edema Lab Results 09/08/25 07:09 09/07/25 16:50 Other Labs: Lab Results x24hrs 09/08/25 09/07/25 09/07/25 Range/Units 07:09 21:19 21:05 WBC 8.3 9.4 (4.8-10.8) x10^3/uL RBC 2.49 L 2.72 L (4.20-5.40) 10^6/uL Hgb 7.3 L 7.9 L (12.0-16.0) g/dL Hct 23.7 L 25.5 L (37.0-47.0) % MCV 95.2 93.8 (81.0-99.0) fL MCH 29.3 29.0 (27.0-31.0) pg MCHC 30.8 L 31.0 L (32.0-36.0) g/dL RDW 16.4 H 16.4 H (12.0-15.0) % Plt Count 364 364 (130-450) 10^3/uL MPV 8.3 8.5 (7.9-10.8) fL Neut # (Auto) 5.1 (1.5-6.6) 10^3/uL Lymph # (Auto) 2.5 (1.5-3.5) 10^3/uL Morrow # (Auto) 0.6 (0.0-1.0) 10^3/uL Eos # (Auto) 0.1 (0.0-0.7) 10^3/uL Baso # (Auto) 0.1 (0.0-0.1) 10^3/uL Absolute Nucleated RBC 0.00 x10^3/uL Nucleated RBC % 0.0 /100WBC PT 12.1 (9.9-12.6) secs INR 1.1 (0.8-1.2) APTT 25.3 (24.9-33.3) secs Fibrinogen 267 (220-496) mg/dL Sodium (135-145) mmol/L Potassium (3.5-4.5) mmol/L Chloride (101-111) mmol/L Carbon Dioxide (21-32) mmol/L Anion Gap (6-13) BUN (6-20) mg/dL Creatinine (0.6-1.3) mg/dL Estimated GFR (MDRD) (>89) Glucose (74-104) mg/dL Calcium (8.5-10.3) mg/dL Total Bilirubin (0.2-1.0) mg/dL AST (10-42) IU/L ALT (10-60) IU/L Alkaline Phosphatase (42-121) IU/L Total Protein (6.4-8.9) g/dL Albumin (3.2-5.5) g/dL Globulin (2.1-4.2) g/dL Albumin/Globulin Ratio (1.0-2.2) Blood Type Antibody Screen Crossmatch IS Only 09/07/25 09/07/25 Range/Units 16:50 10:40 WBC 7.0 (4.8-10.8) x10^3/uL RBC 2.62 L (4.20-5.40) 10^6/uL Hgb 7.6 L (12.0-16.0) g/dL Hct 24.7 L (37.0-47.0) % MCV 94.3 (81.0-99.0) fL MCH 29.0 (27.0-31.0) pg MCHC 30.8 L (32.0-36.0) g/dL RDW 16.4 H (12.0-15.0) % Plt Count 298 (130-450) 10^3/uL MPV 8.4 (7.9-10.8) fL Neut # (Auto) 4.5 (1.5-6.6) 10^3/uL Lymph # (Auto) 1.6 (1.5-3.5) 10^3/uL Morrow # (Auto) 0.6 (0.0-1.0) 10^3/uL Eos # (Auto) 0.2 (0.0-0.7) 10^3/uL Baso # (Auto) 0.1 (0.0-0.1) 10^3/uL Absolute Nucleated RBC 0.00 x10^3/uL Nucleated RBC % 0.0 /100WBC PT 13.1 H (9.9-12.6) secs INR 1.2 (0.8-1.2) APTT 29.5 (24.9-33.3) secs Fibrinogen 239 (220-496) mg/dL Sodium 138 (135-145) mmol/L Potassium 3.9 (3.5-4.5) mmol/L Chloride 111 (101-111) mmol/L Carbon Dioxide 21 (21-32) mmol/L Anion Gap 6.0 (6-13) BUN 15 (6-20) mg/dL Creatinine 0.8 (0.6-1.3) mg/dL Estimated GFR (MDRD) 82 L (>89) Glucose 94 (74-104) mg/dL Calcium 7.3 L (8.5-10.3) mg/dL Total Bilirubin 0.5 (0.2-1.0) mg/dL AST 9 L (10-42) IU/L ALT 15 (10-60) IU/L Alkaline Phosphatase 59 (42-121) IU/L Total Protein 5.0 L (6.4-8.9) g/dL Albumin 3.0 L (3.2-5.5) g/dL Globulin 2.0 L (2.1-4.2) g/dL Albumin/Globulin Ratio 1.5 (1.0-2.2) Blood Type O POSITIVE Antibody Screen NEGATIVE Crossmatch IS Only See Detail Assessment/Plan Problem List (1) Delayed hemorrhage: Impression: Minimal bleeding overnight with Bakri in place. Pitocin ran until about 430 this morning and was stopped. Asked RNs to restart pitocin and will deflate bakri by 50cc every 30 min. After removal of fluid, will leave in place for 30 min before removing completely. (2) endometritis: Impression: Remains afebrile and WBC now normal. Will discontinue antiobiotics. (3) Acute on chronic blood loss anemia: Impression: H/H overall stable this morning and currently asymptomatic. Will monitor for symptoms of anemia as she ambulates more today. Discussed if symptomatic, would consider an additional unit of pRBC. (4) History of severe pre-eclampsia: Impression: Will continue to monitor BPs today to optimize antihypertensive regimen prior to discharge home.
[2025-09-08 13:09] VITALS: O2SAT 98
[2025-09-08] MEDS ORDERED: LABETALOL 100 MG TABLET PO SCH (14:30)
--- NOTE | 2025-09-08 17:35 | Discharge Summary ---
Discharge Summary Admit Date: 09/06/25 Discharge Date: 09/08/25 Discharging Provider: Joyce Sanchez MD [facility] History of Present Illness: Admission Diagnosis: - delayed hemorrhage - Possible endometritis - s/p primary LTCS - history of preeclampsia with severe features - acute blood loss anemia Discharge Diagnosis: - Same Procedures: Suction dilation and curettage, hysteroscopy, placement of Bakri balloon Hospital Course: Tabatha is a 35 yo s/p primary LTCS on 08/28/25 who was readmitted with delayed hemorrhage with distended uterus concerning for retained blood clots/products of conception as well as possible endometritis with elevated WBC (afebrile). She was started on IV antibiotics (gent/clinda) and underwent the above procedure with an EBL of 600cc with removal of old clot/products and placement of bakri balloon due to persistent oozing. Multiple uterotonics and TXA were given in the OR to help control bleeding. Pitocin was continued overnight, and the bakri balloon remained in place and until the following morning and then was slowly deflated and then removed. IV antibiotics were discontinued with normal WBC and afebrile (never had a fever). Bleeding remained scant throughout the day and Tabatha felt significantly better. Desires discharge home in the evening of POD#1. She was asymptomatic for anemia. She was discharged home on her prior regimen of antihypertensives. Condition on Discharge: Tabatha was seen at bedside just prior to discharge. She reports pain significantly better since removal of the Bakri, although still with some pain in her lower abdomen. Still with no fevers/chills. Bleeding has been minimal. She is tolerating regular diet without N/V. No GREEN, vision changes, upper abdominal pain. Denies dizziness, SOB with amblation. She would really like to go home this evening. OBJECTIVE: Vital signs reviewed GENERAL: NAD CV: RRR Resp: non-labored respirations, CTAB, no crackles ABD: soft, mildly TTP, non-distended, no rebound/guarding. EXT: n lower extremity edema; No evidence of DVT LAB & IMAGING STUDIES: See below PLAN: Plan for discharge home with follow up in clinic as scheduled later this week. Reviewed home care instructions and medications. Patient counseled regarding signs and symptoms of infection, excessive bleeding, vaginal rest and activity restrictions. We reviewed bleeding precautions as well as preeclampsia precautions in detail. Discussed BP parameters (when to hold meds, when to call provider, when to present to ED). ALLERGIES Allergies Allergy/AdvReac Type Severity Reaction Status Date / Time No Known Drug Allergies Allergy Verified 09/06/25 21:07 MEDICATIONS Ambulatory Orders Medication Instructions Recorded Confirmed vits no.126-ferrous fum 1 tab PO DAILY 09/07/25 28 mg iron-folic acid 800 mcg tablet (Classic ) labetalol 200 mg tablet 200 mg PO Q8H 08/29/2509/07 acetaminophen 500 mg capsule 500 mg PO Q4H PRN fever o r pain 09/01/25 09/07/25 ibuprofen 200 mg tablet (Advil) 200 mg PO PRN PRN feve r or pain 09/01/25 09/07/25 nifedipine 30 mg tablet,extended 30 mg PO DAILY #30 ta bs 09/03/25 09/07/25 release ferrous sulfate 325 mg (65 mg 325 mg PO Q OTHER DAY #3 0 tabs 09/08/25 iron) tablet oxycodone 5 mg tablet 5 mg PO Q6H PRN Moderate Ann n 09/08/25 (Level 4-6) #20 tabs PHYSICAL EXAM AT DISCHARGE Vital Signs: Vital Signs x48h Temp Pulse Resp BP Pulse Ox 09/08/25 17:00 98.0 F 85 17 119/67 09/08/25 14:50 99.0 F 85 16 125/77 09/08/25 13:00 98.4 F 95 19 132/74 H 98 09/08/25 10:56 99.3 F 85 18 129/74 97 LABS 09/08/25 07:09 09/07/25 16:50 TIME SPENT Time Spent in Discharge (Minutes): 35 Discharge Plan Discharge Patient Disposition: Home, Self Care Condition: Stable Prescriptions: New oxycodone 5 mg Tablet 5 mg PO Q6H PRN (Reason: Moderate Pain (Level 4-6)) Qty: 20 0RF ferrous sulfate 325 mg (65 mg iron) tablet 325 mg PO Q OTHER DAY Qty: 30 0RF Continued labetalol 200 mg tablet 200 mg PO Q8H acetaminophen 500 mg capsule 500 mg PO Q4H PRN (Reason: fever or pain) ibuprofen [Advil] 200 mg tablet 200 mg PO PRN PRN (Reason: fever or pain) nifedipine 30 mg tablet extended release 30 mg PO DAILY Qty: 30 2RF Classic 28 mg iron- 800 mcg tablet 1 tab PO DAILY Activity Restrictions/Additional Instructions: - Take your blood pressure at home twice daily - If your blood pressure is greater than 160 systolic or 110 diastolic (160/110), then you should present to the emergency department. - If you are taking blood pressure medication, and your blood pressure is less than 110 systolic or 60 diastolic (110/60), hold your nest dose of blood pressure medication and notify your provider. - If you have symptoms of severe preeclampsia, such as severe headache, vision changes, pain in your upper right or mid abdomen, chest pain, or shortness of breath then you should present to the emergency department. - Pelvic rest until 6 weeks (nothing in the vagina, no tampons, no intercourse). - No driving while taking narcotic pain medication. - Monitor for signs of heavy bleeding - if you have heavy bleeding soaking more than one pad an hour for two hours, or symptoms of anemia such as dizziness or shortness of breath, then you should present to the emergency department. - If you have signs of infection including fevers (100.4 degrees F or greater), chills, severe worsening pain, or copious foul discharge, then you should present to the emergency department. Print Language: Amharic Patient Instructions: Surg Dc, Hemorrhage Stand Alone Forms: PCP List Follow-up Care: Joyce Sanchez MD [Provider Admit Priv/Credential, Obstetrics/Gynecology] Vitals documented within 30 minutes of discharge?: Yes
[2025-09-08 17:42] VITALS: BP 121/71; TEMP 98.4
--- NOTE | 2025-09-08 18:02 | Labor Flowsheet ---
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 Datetime: 08/28/2025 22:04 Pulse: 93 SpO2 (%): 94 Datetime: 08/28/2025 22:01 Stage of : Recovery Communication Comments: risks c/s discussed with family Datetime: 08/28/2025 22:00 VITAL SIGNS NBP Sys/Mei/Mean (mmHg): 131 : 115 : 118 LaborFlag: Labor Datetime: 08/28/2025 21:56 Provider Reviewed Strip: Yes COMMUNICATION Communication: RN at Bedside; Provider at Bedside Notification Reason: Other Datetime: 08/28/2025 21:32 MEDICATIONS Tocolytics: Terbutaline 0.25mg Subcutaneous Medication Comments: L outer upper arm Datetime: 08/28/2025 21:11 ANESTHESIA Anesthesia Plans: Spinal Anesthesia Comments: completed Datetime: 08/28/2025 21:00 PROCEDURE TIME OUT Procedure Type: verbal Procedure Verify: Correct Patient Identity; Correct Side and Site are Marked; Agreement on Procedure to be Done; Correct Patient Position; Relevant Images and Results are Properly Labeled and Displayed; Addressed Need to Administer Antibiotics or Fluids for Irrigation; Safety Precautions Based on Patient History or Medication Use Epidural Positioning: Sitting Datetime: 08/28/2025 20:56 TEACHING Unit Routine: Medications Teaching Comments: spinal Datetime: 08/28/2025 20:53 I/O Interventions: Up to BR Patient Care Comments: BSC Datetime: 08/28/2025 20:28 Provider Notified (Name): Dr. Pj Datetime: 08/28/2025 20:21 ASSESSMENT A Monitor Mode: Telemetry FHR Baseline Rate : 130 FHR Baseline Changes: No Baseline Change Variability: Moderate 6-25 bpm Accelerations: 15X15 Decelerations: None Category: Category I PATIENT CARE Oxygen Method: Room Air Datetime: 08/28/2025 19:37 UTERINE ACTIVITY Monitor Mode: External Monitor Interventions for UA: Sauc[place] Adjusted Frequency (min): 3-6 Quality: Mild Duration (sec): 50 Pattern: Normal: <= 5 Contractions in 10 Minutes Resting Tone (Palpate): Relaxed
--- OUTSIDE RECORDS SUMMARY | 2025-09-09 09:12 | EXTERNAL MEDICAL SUMMARY RPT | Data Portability ---
Author Organization [facility] MAIN OFFICE Address [address] [place] [address] Care Team Providers Care Loading Dock Hand Name Role Phone BLANCA CROWLEY Primary Care Provider [phone] Assessment Encounter Date Assessment Date Assessment LastModified by Organization Details LastModified Time 07/01/2021 07/01/2021 Pt being seen today via telehealth instead of in the clinic due to ongoing COVID pandemic and related risks of coming in the clinic. Realtime Zoom video used. 11 minutes spent on video/phone with this patient during this visit. Not available 07/01/2021 11:37:04 07/15/2021 07/15/2021 Pt being seen today via telehealth instead of in the clinic due to ongoing COVID pandemic and related risks of coming in the clinic. Pt was offered a realtime Zoom video visit but is unable to access this so this visit was conducted over the phone without video. 6 minutes spent on video/phone with this patient during this visit. Not available 07/15/2021 14:11:29 Plan of Treatment Reminders Order Date Submit Date Provider Last Modified By Organization Details Last Modified Time Details Appointments None recorded. Lab None recorded. Referral None recorded. Procedures None recorded. Surgeries None recorded. Imaging None recorded. Medication Orders hydroxyzine HCl 25 mg tablet 2020 021 eve [facility]/Pharmacy #[id number] - Formerly [facility] #61028, [address], [place], [place], [id number], 19:56:25 propranolol 20 mg tablet 2020 021 [email or web address] [facility]/Pharmacy #[id number] - Formerly [facility] #56329, [address] [place], [id number], 12:51:11 duloxetine 30 mg capsule,del ayed release 2020 021 afly [facility]/Pharmacy #[id number] - Formerly [facility] #09155, [address] [place], [phone], 19:56:21 Patient TargetsNo targets recorded. Patient InstructionsNo instructions recorded. Reason for Referral None Reported. Results Created Date Observation Date Name Description Value Unit Range Abnormal Flag Note LastModifiedBy Organization Detail LastModifiedTime 12/26/1912/28/2020 cultu re, urine urine culture, routine Final report Not Available [facility] ([facility]) [address], [place], [address], 12/28/2020 11:07:36 12/26/19 21 12/28/2020 cultu re, urine result 1 Commen t Mixed uroge nital catrina 10,00 0-25, 000 colon y formi ng units per mL Not Available [facility] ([facility]) [address], [place], [address], 12/28/2020 11:07:36 12/26/19 21 12/25/2020 urina lysis , dipst ick Leukocytes Negati ve Not Available [facility] [address], [place], [address], 12/25/2020 19:08:12 12/26/19 21 12/25/2020 urina lysis , dipst ick Nitrite negati ve Not Available [facility] [address], [place], [address], 12/25/2020 19:08:12 12/26/19 21 12/25/2020 urina lysis , dipst ick Protein Negati ve Not Available [facility] [address], [place], [address], 12/25/2020 19:08:12 12/26/19 21 12/25/2020 urina lysis , dipst ick pH 6.5 Not Available [facility] Main Office [address], [place], [address], 12/25/2020 19:08:12 12/26/19 21 12/25/2020 urina lysis , dipst ick Blood Negati ve Not Available [facility] Office [address], [place], [address], 12/25/2020 19:08:12 12/26/19 21 12/25/2020 urina lysis , dipst ick Specific [place] 1.015 Not Available [facility] [address], [place], [address], 12/25/2020 19:08:12 12/26/19 21 12/25/2020 urina lysis , dipst ick Ketone Negati ve Not Available [facility] [address], [place], [address], 12/25/2020 19:08:12 12/26/19 21 12/25/2020 urina lysis , dipst ick Bilirubin Negati ve Not Available [facility] [address], [place], [address], 12/25/2020 19:08:12 12/26/19 21 12/25/2020 urina lysis , dipst ick Glucose Negati ve Not Available [facility] [address], [place], [address], 12/25/2020 19:08:12 12/26/19 21 12/25/2020 urina lysis , dipst ick Appearance Clear Not Available [facility] Main Office [address], [place], [address], 12/25/2020 19:08:12 12/26/19 21 12/25/2020 urkaushik lysis , dipst ick Color Pale Yellow Not Available [facility] [address], [place], [address], 12/25/2020 19:08:12 Result Notes None recorded. Problems Name Problem SNOMED Code Status Onset Date Resolution Date Notes Provider Name and Address Organization Details Recorded Time Anxiety disorder 446414103 Completed 200707/09/2021 Nya Lynch, SARKIS [address] [place], [address], [facility] 15:34:14 Anxiety 80240552 Active 2020 Nya Lynch NP [address] [place], [address], [facility] 11:36:48 Problem Notes None recorded. Procedures Surgical History Date Name Laterality Status Provider Name and Address Organization Details Recorded Time 03/04/2015 Date of Last Pap Smear completed [facility] 03/15/2020 13:13:22 Imaging Results None recorded. Procedure Notes None recorded. Medical Equipment None Reported. Allergies No known drug allergies Medications Name Sig Start Date Stop Date Status Note LastModified by Organization Details LastModified Time ibuprofen 800 mg tablet take 1 tablet by mouth every 6 hours if needed active Not Available Not Available No t Available sulfamethoxa zole 800 mg-trimethop rim 160 mg tablet take 1 tablet by mouth every 12 hours 06/30 completed Not Available Not Available Not Available amoxicillin 500 mg tablet take 1 tablet by mouth three times a day 06/30 completed Not Available Not Available Not Available oxycodone-ac etaminophen 5 mg-325 mg tablet take 1 tablet by mouth every 4 hours if needed for pain 06/30 completed Not Available Not Available Not Available hydroxyzine HCl 25 mg tablet take 1 tablet by mouth twice a day 10/28 completed Not Available Not Available Not Available propranolol 20 mg tablet take 1 tablet by mouth twice a day active Not Available Not Available No t Available nitrofuranto in monohydrate/ macrocrystal s 100 mg capsule take 1 capsule by mouth twice a day for 5 days 12/25 completed Not Available Not Available Not Available duloxetine 30 mg capsule,tom yed release take 1 capsule by mouth once daily active Not Available Not Available No t Available ParaGard T 380A active Not Available Not Available Not Available Vitals None Recorded Social History Question Answer Notes LastModified by Organizat ion Details LastModified Time Tobacco Smoking Status Current Some Day Smoker smokes less than 1 PPW Not Available [facility] 07/18/2020 03:15:13 Do You Have An Advance Directive? No [id number] Information not available 07/18/2020 Are You Blind Or Do You Have Difficulty Seeing? No [id number] Information not available 07/18/2020 What Is Your Level Of Caffeine Consumption? Moderate 2 Servings Daily [id number] Information not available 07/18/2020 How Much Tobacco Do You Chew? None [id number] Information not available 07/18/2020 Are You Deaf Or Do You Have Serious Difficulty Hearing? No [id number] Information not available 07/18/2020 What Type Of Diet Are You Following? REGULAR [id number] Information not available 07/18/2020 Which Illicit Or Recreational Drugs Have You Used? Marijuana 1 Times 3-4 Times Weekly [id number] Information not available 07/18/2020 Education 2 Year College Information not available 03/15/2020 Are There Any Guns Present In Your Home? Yes [id number] Information not available 07/18/2020 Hard Of Hearing Or Deaf In One Or Both Ears? No Information not available 03/15/2020 Single Or Multi-level Home/work? Single Level Home Information not available 03/15/2020 Legally Blind In One Or Both Eyes? No Information not available 03/15/2020 Live Alone Or With Others? With Others Spouse Information not available 03/15/2020 How Many Children Do You Have? 0 [id number] Information not available 07/18/2020 What Is Your Relationship Status? [id number] Information not available 07/18/2020 Seat Belts Used Routinely Yes Information not available 03/15/2020 Are You Sexually Active? Yes [id number] Information not available 07/18/2020 Smoke Alarm In Home Yes Information not available 03/15/2020 At What Age Did You Start Smoking Tobacco? 18 [id number] Information not available 07/18/2020 Are You Passively Exposed To Smoke? No Information not available 03/15/2020 How Much Tobacco Do You Smoke? 0.5 PPD [id number] Information not available 07/18/2020 General Stress Level Low Information not available 03/15/2020 Do You Use Sunscreen Routinely? Yes [id number] Information not available 07/18/2020 Do You Have Difficulty Walking Or Climbing Stairs? No [id number] Information not available 07/18/2020 Sex: Unknown Functional Status Question Answer Note LastModified by Organizat ion Details LastModified Time What is your level of alcohol consumption? Occasional 1 serving 3-4 times weekly [id number] Information not available 07/18/2020 Are you currently employed? Yes [id number] Information not available 07/18/2020 Do you have transportation difficulties? No [id number] Information not available 07/18/2020 Are you able to walk independently without assistance or assistive devices? YESWOREST [id number] Information not available 07/18/2020 Do you have difficulty doing errands alone? No [id number] Information not available 07/18/2020 Are you able to care for yourself independently? 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 Heavy crossfit 3 times weekly [id number] Information not available 07/18/2020 Mental Status Question Answer Note LastModified by Organization D etails LastModified Time Do you have difficulty concentrating, remembering or making decisions? No [id number] Information no t available 07/18/2020 Family History Relationship Description Onset Age of this Age Resolved Age Notes LastModified by Organization Details LastModified Time Maternal Grandmother Alcoholism sinmann Not available 09/2020 13:17:54 Father Tobacco user afly Not availab le 03/15/2020 13:35:46 Brother Asthma afly Not available 13:35:58 Maternal Grandfather Alzheimer's disease afly Not available 2019 13:36:22 Medical History Condition Response Anxiety Disorder Y Gynecological History Statement/Question Response Date of Last Pap Smear 03/04/2015 Current Control Method IUD Most Recent Mammogram Age at Menarche 13 Date of LMP 03/15/2020 Obstetrics History GPAL:G 0 P 0 0 0 0 Immunizations Vaccine Type Date Status Note Provider Nam e and Address Organization Details Recorded Time COVID-19, mRNA, LNP-S, PF, 100 mcg/0.5mL dose or 50 mcg/0.25mL dose 01/21/2021 completed BLANCA CROWLEY NP [address] [place], [address], [facility] 01/23/2021 10:26:51 COVID-19, mRNA, LNP-S, PF, 100 mcg/0.5mL dose or 50 mcg/0.25mL dose 02/18/2021 completed BLANCA CROWLEY NP [address] [place], [address], [facility] 02/18/2021 13:10:33 Past Encounters Encounter ID Performer Location Encounter Start Date Encounter Closed Date Diagnosis/Indication Diagnosis SNOMED-CT Code Diagnosis ICD10 Code Diagnosis IMO Codes Diagnosis Note [id number] BLANCA CROWLEY NP [facility] [address] [place] [phone] 03/15/2020 13:04:13 03/15/2020 14:07:40 Anxiety disorder 999375162 F41.9 Reviewed course of illness. Condition appears stable. Advised smoking cessation. Follow up as needed. [id number] Heidi Boyer NP, [facility] OFF[facility] [address] [place] [address] 12/25/2020 18:59:21 12/26/2020 13:31:12 Acute urinary tract infection 986793027 N39.0 UA normal but sxms similar to prior infection in patient with history of kidney infection. Will start tmp-smx x 3 days. Culture pending . Advised to go to Ed with fever, chills, vomiting, flank pain. [id number] BLANCA CROWLEY NP [facility] [address] [place] [phone] 01/21/2021 12:02:56 01/22/2021 11:05:37 Administration of SARS-CoV-2 antigen vaccine 597572366 Z23 [id number] BLANCA CROWLEY NP [facility] [address] [place] [phone] 02/18/2021 11:44:17 02/18/2021 15:57:00 Administration of SARS-CoV-2 antigen vaccine 715016046 Z23 [id number] Nya Lynch NP [facility] [address] [place] [address] 07/01/2021 11:01:41 07/15/2021 12:06:38 Anxiety 68642171 F41.9 Begin Duloxetine 30mg daily, Propranolo l 20mg BID prn anxiety/pa sav. May increase Duloxetine dose at fu. Fu in 1 month, sooner prn. [id number] Nya Lynch NP [facility] [address] [place] [phone] 07/15/2021 12:26:31 07/21/2021 21:03:20 Anxiety 51439442 F41.9 Continue Duloxetine 30mg daily.May try Propranolo l 40mg prn.Trial of Hydroxyzin e 25mg BID prn.RTC 3-4 weeks to fu. [id number] BLANCA CROWLEY NP [facility] [address] [place] [phone] 10/28/2022 10:37:50 10/28/2022 23:40:52 Anxiety 23300963 F41.9 Reviewed course of condition and provided instructio ns for taper and DC of duloxetine . May take propranolo l BID PRN safely. Advised to contact clinic if having trouble with taper and I will provide short course of fluoxetine . Discussed actions, indication s, usage, SEs and contraindi cations of medication . Health Concerns Section Related Observation LastModified by Organization Detai ls LastModified Time None Recorded Concern Status LastModified by Organization Details LastModified Time None Recorded Advance Directives Directive N: Payers Insurance Date Sequence Insurance Name Policy Number Policy Diallo Covered Member ID Diallo Member ID Guarantor Name 10/27/2022 1 [facility] ([facility] [id number] Tabatha Singh [id number] Tabatha Singh Notes Date Note Type Note Provider Name and Address Organization Details Recorded Time 07/01/2021 text/html ROS as noted in the HPI Blanca Fly pt c/o anxiety. no significant life changes. Effecting day to day life now - noticing in safe spaces. Feeling lightheaded, SOB, almost like panic attacks. Happening 4-5x per week. Notices more during office meetings in conference room with everyone. Not having depression. Bought a house last year, both her and her working. Was on Cymbalta from age [age] and liked it alot, stopped as was feeling better. Has Paragard IUD for BCM.Last addressed with PCP on 03/15/2020 when she established care: "Has anxiety since 18 yoa. Has used cymbalta and prozac which helped. Currently using diet and exercise and marijuana 3-4 times weekly once daily in the evening before bed. No thoughts of suicide or . Good support system with family and spouse." Nya Lynch NP [address] [place], [address], [facility] 07/01/2021 11:37:26 07/15/2021 text/html ROS as noted in the HPI Blanca Fly pt c/o anxiety. Began trial of Propranolol 20mg BID prn and Duloxetine 30mg daily 2 weeks ago, with intent to raise Duloxetine at fu visit if needed. Feels Duloxetine is working great. Propranolol not giving her the relief she expects. Effecting day to day life now - noticing in safe spaces. Panic attacks in social situations. No SI or HI. Good support system with family and spouse. Nya Lynch NP [address] [place], [address], [facility] 07/15/2021 14:12:13 10/28/2022 text/html ROS as noted in the HPI THPatient takes cymbalta 30 mg daily for anxiety. Helps with anxiety but feels tired and needs a lot more sleep. Doesn't feel energetic.Has prescription for propranol 20 mg BID as PRN which helps.Would like to taper off cymbalta.Denies fevers, chills, malaise, fatigue, suicidal ideation or plan.Pt being seen today via telehealth due to ongoing COVID pandemic and related risks of coming in the clinic.10 minutes spent on video with patient during visit. BLANCA CROWLEY, SARKIS [address] [place], [address], [facility] 10/28/2022 19:59:45 OBGyn Episode No OBEpisode recorded.
== END 2025-09-08 17:55 | disposition home or self-care (01) | DRG 769 ==
LOC: ED 20:57 → FBP 09-07 00:41
PROVIDERS: ADMIT Obstetrics & Gynecology; ATTEND Obstetrics & Gynecology